=== PATIENT | female | born 1960 | race Caucasian/White ===

== ENCOUNTER → 2017-08-11 12:25 | Outpatient (POV) | payer OTHER, SELFPAY | PROVIDERS: Family Provider Emergency Medicine; PCP Emergency Medicine; Visit Provider Internal Medicine | DX: Z00.00 Encounter for general adult medical examination without abnormal findings (principal) ==

== ENCOUNTER → 2017-08-25 09:59 | Outpatient (CLI) | payer OTHER, SELFPAY ==
--- NOTE | 2017-08-25 10:11 | XR_ITS ---
XR chest 2V HISTORY: Shortness of breath ITS.REASON: CHRONIC RESPIRATORY FAILURE ORDERING PHYSICIAN: Alonzo Gray MD PATIENT AGE: 56 years COMPARISON: 03/18/2017 FINDINGS: Mild cardiomegaly without failure. Atelectatic or fibrotic changes are present in the lingula somewhat worse on today's exam. Prominent pericardial fat pad noted on the right. IMPRESSION: Cardiomegaly with increase in atelectatic changes in the lingula
[2017-08-25 10:26] LABS: Basophils # 0.1 K/mm3 (0-0.2); Basophils % 0.9 % (0.1-2.0); Eosinophils # 0.2 K/mm3 (0.0-0.4); Eosinophils % 2.6 % (0.1-12.0); Hemoglobin 12.3 g/dL (12.2-16.2); Lymphocytes # 2.2 K/mm3 (0.7-4.5); Lymphocytes % 30.5 K/mm3 (10-50); Mean Corpuscular HGB Conc 31.5 g/dL (31.8-35.4); Mean Corpuscular Hemoglobin 29.9 pg (27.0-31.2); Mean Platelet Volume 8.2 fl (7.4-10.4); Monocytes # 0.5 K/mm3 (0.1-1.0); Monocytes % 6.5 % (1.7-9.3); Neutrophils # 4.2 K/mm3 (1.8-7.8); Neutrophils % 59.6 % (37.0-80.0); Platelet Count 277 K/mm3 (142-424); Red Cell Distribution Width 13.2 % (11.5-17.5); White Blood Count 7.1 K/mm3 (4.8-10.8)
[2017-08-25 12:39] LABS: Hemoglobin A1C 9.3 % (0.0-7.0)
[2017-08-25 12:48] LABS: Alanine Aminotransferase 46 U/L (12-78); Albumin Level 3.4 gm/dL (3.4-5.0); Albumin/Globulin Ratio 0.9 (1.1-1.8); Alkaline Phosphatase 103 U/L (46-116); Anion Gap 11.4 mEq/L (5-15); Aspartate Amino Transferase 24 U/L (15-37); Bilirubin,Total 0.3 mg/dL (0.2-1.0); Blood Urea Nitrogen 18 mg/dL (7-18); Calcium 9.3 mg/dL (8.5-10.1); Carbon Dioxide 33 mmol/L (21.0-32.0); Chloride 101 mmol/L (98-107); Creatinine,Serum 1.03 mg/dL (0.55-1.02); Estimated Glomerular Filt Rate 55 ml/min (>60); GFR (African American) 67 ML/MIN (>60); Globulin 3.7 gm/dl (1.3-3.2); Glucose 256 mg/dL (74-106); Potassium 4.4 mmoL/L (3.5-5.1); Sodium 141 mmol/L (136-145); Thyroid Stimulating Hormone 3.89 uIU/ml (0.358-3.740); Total Protein,Serum 7.1 gm/dL (6.4-8.2)
== END ==
PROVIDERS: PCP Emergency Medicine; Visit Provider Internal Medicine
DX: J96.10 Chronic respiratory failure, unspecified whether with hypoxia or hypercapnia (principal); J42 Unspecified chronic bronchitis; R06.02 Shortness of breath; E66.01 Morbid (severe) obesity due to excess calories; R73.9 Hyperglycemia, unspecified
CPT/HCPCS: 36415; 71046; 80053; 83036; 84443; 85025

== ENCOUNTER → 2017-11-17 09:25 | Outpatient (CLI) | payer OTHER, SELFPAY ==
[2017-11-17 10:40] VITALS: PULSE 78; PULSE 80
[2017-11-17 11:43] VITALS: BP 118/70; BP 135/86; PULSE 78; PULSE 86; RESP 18; RESP 24; O2SAT 85; O2SAT 91
== END ==
PROVIDERS: Family Provider Emergency Medicine; PCP Emergency Medicine; Visit Provider Internal Medicine
DX: R06.02 Shortness of breath (principal); J96.10 Chronic respiratory failure, unspecified whether with hypoxia or hypercapnia; E66.01 Morbid (severe) obesity due to excess calories; J42 Unspecified chronic bronchitis; R73.9 Hyperglycemia, unspecified
CPT/HCPCS: 94060; 94618; 94640; 94726; 94729

== ENCOUNTER → 2017-12-15 09:28 | Outpatient (POV) | payer OTHER, SELFPAY | PROVIDERS: Family Provider Emergency Medicine; PCP Emergency Medicine; Visit Provider Internal Medicine | DX: Z00.00 Encounter for general adult medical examination without abnormal findings (principal) ==

== ENCOUNTER → 2017-12-18 08:51 | Outpatient (CLI) | payer MEDICARE, OTHER, SELFPAY ==
[2017-12-18 09:00] VITALS: BP 108/75; PULSE 77; RESP 20; O2SAT 88
[2017-12-18 09:15] VITALS: BP 120/79; PULSE 90; RESP 32; O2SAT 93
== END ==
PROVIDERS: Family Provider Emergency Medicine; PCP Emergency Medicine; Visit Provider Internal Medicine
DX: J42 Unspecified chronic bronchitis (principal); R73.9 Hyperglycemia, unspecified
CPT/HCPCS: 94618

== ENCOUNTER → 2017-12-31 10:52 | Outpatient (CLI) | payer MEDICARE, OTHER, SELFPAY ==
[2017-12-31 11:29] LABS: Alanine Aminotransferase 35 U/L (12-78); Albumin Level 3.4 gm/dL (3.4-5.0); Alkaline Phosphatase 84 U/L (46-116); Aspartate Amino Transferase 18 U/L (15-37); Bilirubin,Direct 0.1 mg/dL (0.0-0.2); Bilirubin,Indirect 0.1 mg/dL (0.0-0.9); Bilirubin,Total 0.2 mg/dL (0.2-1.0); Chol/HDL Ratio 5.9 (1-3.5); Cholesterol 184 mg/dL (140-200); HDL Cholesterol 31 mg/dL (29-89); LDL Cholesterol 84 mg/dL (0-130); Total Protein,Serum 7.1 gm/dL (6.4-8.2); Triglycerides 346 mg/dL (30-200); VLDL Cholesterol 69 mg/dL (0-40)
== END ==
PROVIDERS: Family Provider Emergency Medicine; PCP Emergency Medicine; Visit Provider Internal Medicine Cardiovascular Disease
DX: E11.9 Type 2 diabetes mellitus without complications (principal); R06.00 Dyspnea, unspecified; I25.10 Atherosclerotic heart disease of native coronary artery without angina pectoris; J44.9 Chronic obstructive pulmonary disease, unspecified; I10 Essential (primary) hypertension; F17.200 Nicotine dependence, unspecified, uncomplicated
CPT/HCPCS: 36415; 80061; 80076

== ENCOUNTER → 2018-01-06 14:48 | Outpatient (REF) | payer MEDICARE, OTHER, SELFPAY ==
[2018-01-06 18:01] LABS: Amphetamine/Metha Screen,Urine Negative ng/mL (<1000); Barbiturates Screen,Urine Negative ng/mL (<200); Benzodiazepines Screen,Urine Negative ng/mL (200); Cannabinoid Screen,Urine Negative ng/mL (<50); Cocaine Screen,Urine Negative ng/g (<300); Methadone Screen,Urine Negative ng/mL (<300); Opiate Screen,Urine Negative ng/mL (<300); Phencyclidine Screen,Urine Negative ng/mL (<25)
== END ==
LOC: LAB 14:48
PROVIDERS: Visit Provider Emergency Medicine
DX: G62.9 Polyneuropathy, unspecified (principal); Z79.899 Other long term (current) drug therapy
CPT/HCPCS: 80305

== ENCOUNTER → 2018-02-22 10:43 | Outpatient (POV) | payer MEDICARE, MEDICAID, SELFPAY | PROVIDERS: Family Provider Emergency Medicine; PCP Emergency Medicine; Visit Provider Specialist | DX: M79.602 Pain in left arm (principal); G62.9 Polyneuropathy, unspecified | CPT/HCPCS: 95886; 95908 ==

== ENCOUNTER → 2018-04-13 11:24 | Outpatient (REF) | payer MEDICARE, SELFPAY ==
[2018-04-13 13:56] LABS: Alanine Aminotransferase 33 U/L (12-78); Albumin Level 3.8 gm/dL (3.4-5.0); Alkaline Phosphatase 88 U/L (46-116); Anion Gap 12.4 mEq/L (5-15); Aspartate Amino Transferase 15 U/L (15-37); Bilirubin,Total 0.3 mg/dL (0.2-1.0); Blood Urea Nitrogen 21 mg/dL (7-18); Calcium 9.5 mg/dL (8.5-10.1); Carbon Dioxide 30 mmol/L (21.0-32.0); Chloride 101 mmol/L (98-107); Chol/HDL Ratio 5.7 (1-3.5); Cholesterol 200 mg/dL (140-200); Creatinine,Serum 1.19 mg/dL (0.55-1.02); Estimated Glomerular Filt Rate 47 ml/min (>60); Free T4 (Free Thyroxine) 1.11 ng/dl (0.76-1.46); GFR (African American) 57 ML/MIN (>60); Globulin 3.7 gm/dl (1.3-3.2); Glucose 96 mg/dL (74-106); HDL Cholesterol 35 mg/dL (29-89); Potassium 4.4 mmoL/L (3.5-5.1); Sodium 139 mmol/L (136-145); Thyroid Stimulating Hormone 3.94 uIU/ml (0.358-3.740); Total Protein,Serum 7.5 gm/dL (6.4-8.2)
[2018-04-13 13:58] LABS: Basophils # 0.1 K/mm3 (0-0.2); Basophils % 0.6 % (0.1-2.0); Eosinophils # 0.3 K/mm3 (0.0-0.4); Eosinophils % 3.5 % (0.1-12.0); Hematocrit 39.3 % (37.0-47.0); Hemoglobin 12.5 g/dL (12.2-16.2); Lymphocytes # 2.5 K/mm3 (0.7-4.5); Lymphocytes % 33.7 K/mm3 (10-50); Mean Corpuscular HGB Conc 31.7 g/dL (31.8-35.4); Mean Corpuscular Hemoglobin 28.5 pg (27.0-31.2); Mean Corpuscular Volume 90.1 fl (81-99); Mean Platelet Volume 8.3 fl (7.4-10.4); Monocytes # 0.4 K/mm3 (0.1-1.0); Monocytes % 5.7 % (1.7-9.3); Neutrophils # 4.3 K/mm3 (1.8-7.8); Neutrophils % 56.5 % (37.0-80.0); Platelet Count 334 K/mm3 (142-424); Red Blood Count 4.37 M/mm3 (4.20-5.40); Red Cell Distribution Width 13.9 % (11.5-17.5); White Blood Count 7.5 K/mm3 (4.8-10.8)
[2018-04-13 14:03] LABS: Triglycerides 455 mg/dL (30-200)
[2018-04-13 15:22] LABS: Hemoglobin A1C 6.6 % (0.0-7.0)
[2018-04-14 11:21] LABS: Creatinine, Urine 95.6 mg/dL (Not Estab.); Microalbumin, Urine 3.4 ug/mL (Not Estab.)
== END ==
LOC: LAB 11:24
PROVIDERS: Visit Provider Emergency Medicine
DX: R06.00 Dyspnea, unspecified (principal); E78.5 Hyperlipidemia, unspecified; E11.9 Type 2 diabetes mellitus without complications
CPT/HCPCS: 80053; 80061; 82043; 82570; 83036; 84439; 84443; 85025

== ENCOUNTER → 2018-05-04 09:54 | Outpatient (CLI) | payer MEDICARE, SELFPAY ==
--- NOTE | 2018-05-04 09:55 | MM_ITS ---
MM Dig screening mamm BI w/CAD ORDERING PHYSICIAN : Juan Pablo Shah MD PATIENT AGE: 57 years GENDER: Female COMPARISON: May 2016, October 2014, April 2011 INDICATION: ITS.REASON: breat cancer screening no hormones. If complaints. Family history. Maternal great aunt TECHNIQUE: Standard CC and MLO images were obtained. R2 CAD reviewed. FINDINGS: Mild to moderate density breast.. Mild/Moderate Residual fibroglandular elements most evident at the central breast extending towards superior breast. When compared back to 2010 and 2006 there is been slight.Increased size of breast bilaterally with due to additional fatty elements both breasts. No significant new findings either breast. Subtle areas of nodularity bilaterally unchanged since last years study and can be followed. RIGHT BREAST: But no significant new findings. Minimal nodularity lateral retroareolar region unchanged since previous study. LEFT BREAST: No significant new findings Subtle scattered areas minor density , have been seen on previous studies and dissipate on opposing views. No overall no Significant change. Follow-up in one year the adequate IMPRESSION: . Moderately dense breast with scattered subtle nodularity bilaterally similar to previous 2016 exam. No significant new findings. Bilateral follow-up in not over one year recommended & encouraged. BI-RADS Category: 2 Benign Finding(s) RECOMMENDED FOLLOW-UP: 1YR 1 YEAR FOLLOW-UP (A letter has been sent to the patient regarding results of the study.)
== END ==
PROVIDERS: Family Provider Emergency Medicine; PCP Emergency Medicine; Visit Provider Emergency Medicine
DX: R06.00 Dyspnea, unspecified (principal); Z12.31 Encounter for screening mammogram for malignant neoplasm of breast
CPT/HCPCS: 77067

== ENCOUNTER → 2018-06-15 10:57 | Outpatient (POV) | payer MEDICARE, SELFPAY | PROVIDERS: Visit Provider Internal Medicine | DX: Z00.00 Encounter for general adult medical examination without abnormal findings (principal) ==

== ENCOUNTER 2018-06-15 11:52 | Inpatient (IN) ==
--- NOTE | 2018-06-15 12:23 | Emergency Department Note ---
ED Disposition Clinical Impression: COPD exacerbation Community acquired pneumonia Qualifiers: Laterality: right Lung location: lower lobe of lung Qualified Code(s): J18.1 - Lobar pneumonia, unspecified organism Disposition: Still a Patient Condition on Discharge: Fair - Critical Care Critical Care Time: No Attestation: On 06/15/18, the high probability of a clinically significant, sudden or life threatening deterioration of the following system(s) required my full and direct attention, intervention and personal management. The time I documented below is in addition to time spent performing reported procedures but includes the following listed in this critical care notation. Medical Decision Making - Sunil Inquiry Pt receiving controlled substance: No Vital Signs: 06/15/18 11:53 06/15/18 13:35 06/15/18 13:44 Temperature 98.3 F Temperature Source Oral Pulse Rate 84 Pulse Rate [Left Radial] 88 85 Respiratory Rate 32 H Blood Pressure [Right Arm] 122/74 100/67 L Blood Pressure Mean [Right Arm] 90 78 Blood Pressure Source [Right Arm] Automatic Cuff Blood Pressure Position [Right Arm] Sitting 02 Sat by Pulse Oximetry 88 L 87 L Oxygen Delivery Method Nasal Cannula Room Air Oxygen Flow Rate (LPM) 2 - Lab Data Lab Results 06/15/18 12:20: WBC 16.1 H, RBC 4.19 L, Hgb 12.1 L, Hct 38.6, MCV 92.3, MCH 29.0, MCHC 31.4 L, RDW 14.1, Plt Count 348, MPV 7.7, Neut % (Auto) 78.4, Lymph % (Auto) 15.0, [place] % (Auto) 5.5, Eos % (Auto) 0.8, Baso % (Auto) 0.4, Neut # (Auto) 12.6 H, Lymph # (Auto) 2.4, [place] # (Auto) 0.9, Eos # (Auto) 0.1, Baso # (Auto) 0.1, Total Counted 100, Neutrophils % (Manual) 80 H, Lymphocytes % (Manual) 16, Monocytes % (Manual) 3, Eosinophils % (Manual) 1, Platelet Estimate Normal, RBC Morphology Normal 06/15/18 12:20: Sodium 140, Potassium 3.8, Chloride 99, Carbon Dioxide 32, Anion Gap 12.8, BUN 19 H, Creatinine 1.17 H, Estimated Creat Clear 80, Estimated GFR 48 L, Est GFR ( Amer) 58 L, Glucose 150 H, Calcium 9.4, Total Bilirubin 0.5, AST 17, ALT 41, Alkaline Phosphatase 96, Total Protein 8.0, Albumin 3.7, Globulin 4.3 H, Albumin/Globulin Ratio 0.9 L 06/15/18 12:20: Lactate 1.0 Result diagrams: 06/15/18 12:20 06/15/18 12:20 Orders (Tests/Meds): ED MEDICATIONS Generic Name Dose Route Start Last Admin Trade Name Freq PRN Reason Stop Dose Admin Ceftriaxone Sodium 1 gm/ 50 mls @ 100 mls/hr 06/15/18 13:30 06/15/18 13:33 Sodium Chloride IV 06/29/18 13:29 100 mls/hr Q24H MARC Administration Protocol Azithromycin 500 mg/ Sodium 250 mls @ 250 mls/hr 06/15/18 13:30 Chloride IV 06/29/18 13:29 Q24H MARC Protocol Discontinued Medications Generic Name Dose Route Start Last Admin Trade Name Freq PRN Reason Stop Dose Admin Albuterol/Ipratropium 3 ml 06/15/18 13:22 06/15/18 13:44 Duoneb 3ml Neb IH 06/15/18 13:23 3 ml ONCE ONE Administration Methylprednisolone Sodium Succinate 125 mg 06/15/18 13:24 06/15/18 13:31 Solu-Medrol 125mg/2ml Vial IV 06/15/18 13:25 125 mg ONCE ONE Administration ORDERS Category Date Time Status Blood Culture Stat Micro 06/15/18 12:20 Received - Radiology Data #1 Image(s): Chest Image Reviewed: Yes I reviewed the patient's radiology image Streaky airspace disease right base. Atelectasis left lower lung. - ECG Data Tracing #1 EKG interpreted by Stuart Ramirez MD: Rhythm: sinus Rate: 86 [place]: normal Ectopy: none Conduction: normal ST Segment Changes: none T Wave Changes: none Q Waves: Septal No evidence of acute ischemia or injury Baseline artifact present, but I consider the EKG adequate for accurate interpretation. - Physician Consults Physician Consulted: Alyssa Time: 13:53 Reason -: Admission Comment/Response: Agrees to admit the patient to the hospital. We discussed the patient's clinical information, including history, exam, laboratory and radiology results and ED course. Per hospital procedure, I will write temporary bridge inpatient orders on the patient. Specific orders requested by the admitting physician: Continue antibiotics, steroids, nebulizer treatments, oxygen General Adult HPI - General Chief complaint: Shortness of Breath/Dyspnea Stated complaint: SOA Time Seen by Provider: 06/15/18 13:20 Mode of Arrival: Ambulatory Limitations: Physical Limitations Description of Symptoms (Recalled from ER Triage Doc. by RN): PATIENT HAS A HISTORY OF COPD, SHE STATES THAT SHE HAS BEEN MORE SHORT OF BREATH THAN NORMAL THE PAST 2 DAYS. SHE STATES THAT SHE WEARS 2L OF OXYGEN AT HOME ALL THE TIME. SHE TOOK A NEB TX THIS MORNING AT 10:00 AND IT HELPED SOME. - History of Present Illness HPI narrative: Sick for about 2 weeks. Has had increased shortness of breath, coughing, rhinorrhea. Cough is nonproductive. Was treated with steroid injection and a Z-Jf by her primary care provider 2 weeks ago, but says that over the past 2 days she is much worse. She is on oxygen 2 L nasal cannula at home. Denies fever. Still a smoker, but says "this is it, I am quitting". - Related Data Home Medications Medication Instructions Recorded Confirmed albuterol sulfate 2.5 mg/3 mL 2.5 mg INHALATION TID PRN ml 07/10/17 05/21/18 (0.083 %) solution for nebulization albuterol sulfate HFA 90 2 puff INHALATION Q6H 07/10/17 05/21/18 mcg/actuation aerosol inhaler nitroglycerin 0.4 mg sublingual 0.4 mg SUBLINGUAL Q5-15M PRN 07/10/17 05/21/18 tablet oxygen-air delivery systems device See Dose Instructions .ROUTE 09/02/17 05/21/18 .MEDSUPPLY #1 Previous Rx's Medication Instructions Recorded hydralazine 25 mg tablet 25 mg PO TID #180 tab 09/15/17 aspirin 81 mg tablet,delayed 81 mg PO DAILY #90 tab 10/23/17 release famotidine 20 mg tablet 20 mg PO QHS #30 tab 12/31/17 atorvastatin 80 mg tablet 80 mg PO DAILY #90 tab 01/28/18 bisoprolol fumarate 5 mg tablet 5 mg PO BID 90 Days #180 tab 07/19/18 ezetimibe 10 mg tablet 10 mg PO QDAY #90 tab 01/28/18 fenofibrate nanocrystallized 145 145 mg PO QDAY #90 tab 01/28/18 mg tablet levothyroxine 25 mcg tablet 25 mcg PO DAILY #90 tab 01/28/18 lisinopril 2.5 mg tablet 2.5 mg PO DAILY #90 tab 01/28/18 metformin 500 mg tablet 500 mg PO BID 90 Days #180 tab 01/28/18 potassium chloride ER 20 mEq 20 meq PO BID 90 Days #180 tab 01/28/18 tablet,extended release ranolazine ER 500 mg 500 mg PO Q12H 90 Days #180 tab 01/28/18 tablet,extended release,12 hr fluticasone 100 mcg-vilanterol 25 1 inh INHALATION Q24H #28 each 02/04/18 mcg/dose powder for inhalation cholecalciferol (vitamin D3) 5,000 5,000 unit PO DAILY #90 cap 04/13/18 unit capsule diclofenac 1 % topical gel 2 g TOPICAL QID #100 g 04/13/18 furosemide 80 mg tablet 80 mg PO DAILY #90 tab 04/13/18 gabapentin 300 mg capsule 300 mg PO BID #60 cap 04/13/18 omeprazole 40 mg capsule,delayed 40 mg PO QDAY #90 cap 04/13/18 release promethazine 25 mg tablet 25 mg PO Q4-6H PRN #30 tab 04/13/18 clonazepam 1 mg tablet 1 mg PO BID #60 tab 04/16/18 coenzyme Q10 100 mg capsule 100 mg PO DAILY #90 cap 04/29/18 azithromycin 250 mg tablet 250 mg PO QDAY 5 Days #6 tab 05/21/18 Allergies Allergy/AdvReac Type Severity Reaction Status Date / Time mesalamine [From Asacol] Allergy Severe KIDNEY Verified 05/21/18 15:28 FAILURE Penicillins Allergy Intermediate I-RASH, Verified 05/21/18 15:28 ITCHING [facility] History I have reviewed the patient's past medical history: Yes Medical History: Reports:: Congestive Heart Failure, Chronic Obstructive Pulmonary Disease (COPD), Hyperlipidemia, Hypertension, Myocardial Infarction, Renal Disease Denies:: Diabetes Mellitus Type 2 Other Surgeries: Yes: No Previous Surgery, Colonoscopy, Amputation: No Fractures: No - Social History Smoking Status: Current every day smoker Tobacco Type: cigarettes # Packs/Day (cigarettes): 1 #Yrs smoked (if former smoker): 20 Alcohol Intake: never Alcohol Intake Frequency:: other Substance Use Type: denies use Occupational Status: disabled Housing: house Household Members: significant other - Psychiatric History Expresses thoughts of harming self/others: None Suicide Plan Description: No Plan Family Hx:: Hypertension, Diabetes ROS Obtained: Yes All systems reviewed & no additional complaints - Constitutional Constitutional: Denies fever(s) - ENT Ears, Nose, Mouth, and Throat: Reports nasal discharge, Denies sore throat - Cardiovascular Cardiovascular: Denies chest pain - Respiratory Respiratory: Yes cough, Yes dyspnea, No excessive phlegm production - Gastrointestinal Gastrointestingal: Denies: diarrhea, vomiting Physical Exam - General General appearance: alert, in no apparent distress Comment: Pulse ox 88% on 2 L. - Head Head exam: atraumatic, normocephalic - Eye Eye exam: Present: normal appearance, PERRL, EOMI - ENT ENT exam: Present: mucous membranes moist - Neck Neck exam: Present: normal inspection, trachea midline - Chest Chest inspection: Present: normal inspection, symmetric chest wall rise - Respiratory Respiratory exam: Present: normal lung sounds bilaterally - Cardiovascular Cardiovascular exam: Present: regular rate, normal rhythm - Abdominal Exam Abdominal exam: Present: soft. Absent: distention, tenderness - Extremities Exam Extremities exam: Present: normal inspection - Neurological Exam Neurological exam: Present: alert, oriented X3 - Psychiatric Psychiatric exam: Present: normal affect, normal mood - Skin Skin exam: Present: warm, dry
[2018-06-15 12:43] LABS: Basophils # 0.1 K/mm3 (0-0.2); Basophils % 0.4 % (0.1-2.0); Eosinophils # 0.1 K/mm3 (0.0-0.4); Eosinophils % 0.8 % (0.1-12.0); Hematocrit 38.6 % (37.0-47.0); Hemoglobin 12.1 g/dL (12.2-16.2); Lymphocytes # 2.4 K/mm3 (0.7-4.5); Mean Corpuscular HGB Conc 31.4 g/dL (31.8-35.4); Mean Corpuscular Volume 92.3 fl (81-99); Mean Platelet Volume 7.7 fl (7.4-10.4); Monocytes # 0.9 K/mm3 (0.1-1.0); Monocytes % 5.5 % (1.7-9.3); Neutrophils # 12.6 K/mm3 (1.8-7.8); Neutrophils % 78.4 % (37.0-80.0); Platelet Count 348 K/mm3 (142-424); Red Blood Count 4.19 M/mm3 (4.20-5.40); Red Cell Distribution Width 14.1 % (11.5-17.5); White Blood Count 16.1 K/mm3 (4.8-10.8)
[2018-06-15 12:50] LABS: Albumin Level 3.7 gm/dL (3.4-5.0); Albumin/Globulin Ratio 0.9 (1.1-1.8); Anion Gap 12.8 mEq/L (5-15); Bilirubin,Total 0.5 mg/dL (0.2-1.0); Calcium 9.4 mg/dL (8.5-10.1); Globulin 4.3 gm/dl (1.3-3.2); Potassium 3.8 mmoL/L (3.5-5.1)
[2018-06-15 13:07] LABS: Eosinophils % 1 % (0-3); Lymphocytes % 16 % (10-50); Monocytes % 3 % (2-9); Neutrophils % 80 % (42-76); RBC Morphology Normal; Total Cells Counted 100
--- NOTE | 2018-06-16 07:55 | Pharmacy Consult Notes ---
[facility] Pharmacy VTE Monitoring - Patient Demographics Admission date: 06/15/18 Report Date: 06/16/18 Time: 07:54 Allergies/Adverse Reactions: Patient Allergies mesalamine [From Asacol] Allergy (Severe, Verified 05/21/18 15:28) KIDNEY FAILURE Penicillins Allergy (Intermediate, Verified 05/21/18 15:28) I-RASH, ITCHING Height: 1.63 m Weight: 94.829 kg Patient Problems: Current Active Problems Community acquired pneumonia (Acute) COPD exacerbation (Acute) - VTE Risk Labs: VTE Related Lab Results Hgb 12.1 g/dL (12.2-16.2) L 06/15/18 12:20 Hct 38.6 % (37.0-47.0) 06/15/18 12:20 Plt Count 348 K/mm3 (142-424) 06/15/18 12:20 BUN 19 mg/dL (7-18) H 06/15/18 12:20 Creatinine 1.17 mg/dL (0.55-1.02) H 06/15/18 12:20 Estimated Creat Clear 80 mL/min (50-200) 06/15/18 12:20 Was VTE Risk Assessment Performed: Yes VTE Score: 8 VTE Risk Level: Moderate Risk Clinical Trial Participant: No - Prophylaxis VTE Prophylaxis Ordered?: Yes Types of VTE Prophylaxis: TEDS Knee High Location of Applied Device: Bilateral Lower Extremeties
--- NOTE | 2018-06-16 09:07 | History & Physical Report ---
*Admission Date: 06/15/18 *Chief complaint: sob *History of present illness: this wf had progressive sob and had failed op treatment - she has hx of pulmonary and cardiac disease- pt with no chest pain - pt was seen in the ed - ck for about 2 weeks. Has had increased shortness of breath, coughing, rhinorrhea. Cough is nonproductive. Was treated with steroid injection and a Z-Jf by her primary care provider 2 weeks ago, but says that over the past 2 days she is much worse. She is on oxygen 2 L nasal cannula at home. Denies fever. Still a smoker, but says "this is it, I am quitting". pt had abn cxr and was admitted for iv meds and resp care - [facility] History I have reviewed the patient's past medical history: Yes Medical History: Reports:: Congestive Heart Failure, Chronic Obstructive Pulmonary Disease (COPD), Diabetes Mellitus Type 2, Hyperlipidemia, Hypertension, Myocardial Infarction, Renal Disease Denies:: Diabetes Mellitus Type 1 Other Medical History: Reports: Thyroid Disease Other Surgeries: Yes: No Previous Surgery, Colonoscopy, , Hysterectomy- Total Amputation: No Fractures: No - *Social History Smoking Status: Current every day smoker Tobacco Type: cigarettes # Packs/Day (cigarettes): 1 #Yrs smoked (if former smoker): 20 Alcohol Intake: never Alcohol Intake Frequency:: other Substance Use Type: denies use Occupational Status: disabled Housing: house Household Members: significant other - Psychiatric History Expresses thoughts of harming self/others: None Suicide Plan Description: No Plan *Family Hx:: Hypertension, Diabetes Review of Systems - Review of Systems Review of systems:: pertinent systems reviewed and negative unless documented below - Constitutional Reports lack of energy, Reports malaise, Denies fever(s) - Eyes Denies change in vision - ENT Denies sore throat - *Cardiovascular Reports shortness of breath, Reports shortness of breath with activity, Denies chest pain at rest - *Respiratory Reports cough, Reports shortness of breath, Reports shortness of breath with activity, Reports wheezing, Denies coughing up blood - *Gastrointestinal Denies abdominal pain - *Genitourinary Denies blood in urine - *Musculoskeletal Denies joint pain - Integumentary/Breasts Denies rash - *Neurologic Denies seizure-like activity - Psychiatric Reports anxiety Meds Home Medications Medication Instructions Recorded Confirmed Type albuterol sulfate 2.5 mg/3 mL 2.5 mg INHALATION TID PRN ml 07/10/17 06/15/18 History (0.083 %) solution for nebulization albuterol sulfate HFA 90 2 puff INHALATION Q6H 07/10/17 06/15/18 History mcg/actuation aerosol inhaler oxygen-air delivery systems device See Dose Instructions .ROUTE 09/02/17 06/15/18 History .MEDSUPPLY #1 Aspirin [Low Dose Aspirin EC] 81 mg PO DAILY 06/15/18 06/15/18 History Atorvastatin Calcium [Lipitor 80mg 80 mg PO HS 06/15/18 06/15/18 History Tablet] Bisoprolol Fumarate [Zebeta 5mg 5 mg PO BID 06/15/18 06/15/18 History tablet] Cholecalciferol (Vitamin D3) 5,000 unit PO DAILY 06/15/18 06/15/18 History [Vitamin D3] Ezetimibe 10 mg PO DAILY 06/15/18 06/15/18 History Famotidine [Acid Cleaning Specialist] 20 mg PO HS 06/15/18 06/15/18 History Fenofibrate Nanocrystallized 145 mg PO DAILY 06/15/18 06/15/18 History [Tricor] Fluticasone/Vilanterol [Breo 1 inh INHALATION Q24H 06/15/18 06/15/18 History Ellipta 100-25 Mcg INH] Furosemide [Furosemide 80mg Tab] 80 mg PO DAILY 06/15/18 06/15/18 History Gabapentin [Gabapentin 300mg Cap] 300 mg PO BID 06/15/18 06/15/18 History Hydralazine HCl [Hydralazine HCl 25 mg PO DAILY 06/15/18 06/15/18 History 25mg Tablet] Levothyroxine Sodium [Synthroid 25 mcg PO DAILY 06/15/18 06/15/18 History 25mcg (0.025mg) tablet] Lisinopril [Lisinopril 2.5mg Tab] 2.5 mg PO DAILY 06/15/18 06/15/18 History Metformin HCl [Glucophage] 500 mg PO BID 06/15/18 06/15/18 History Omeprazole [Omeprazole 40mg 40 mg PO DAILY 06/15/18 06/15/18 History Capsule] Potassium Chloride [K-Tab ER 20 20 meq PO BID 06/15/18 06/15/18 History mEq] Ranolazine [Ranexa 500mg ER tablet] 500 mg PO Q12H 06/15/18 06/15/18 History Ubidecarenone [Coenzyme Q10] 100 mg PO DAILY 06/15/18 06/15/18 History buPROPion HCl [Wellbutrin SR 150mg 150 mg PO BID 06/15/18 06/15/18 History Tablet] clonazePAM [Klonopin] 1 mg PO BID 06/15/18 06/15/18 History Allergies Allergy/AdvReac Type Severity Reaction Status Date / Time mesalamine [From Asacol] Allergy Severe KIDNEY Verified 05/21/18 15:28 FAILURE Penicillins Allergy Intermediate I-RASH, Verified 05/21/18 15:28 ITCHING Exam Vital signs and Labs for Last 24 Hours: Temp Pulse Resp BP Pulse Ox 97.8 F 91 H 20 111/59 L 95 06/16/18 08:00 06/16/18 08:00 06/16/18 08:00 06/16/18 08:00 06/16/18 08:00 Laboratory Results - last 24 hr 06/15/18 12:20: WBC 16.1 H, RBC 4.19 L, Hgb 12.1 L, Hct 38.6, MCV 92.3, MCH 29.0, MCHC 31.4 L, RDW 14.1, Plt Count 348, MPV 7.7, Neut % (Auto) 78.4, Lymph % (Auto) 15.0, [place] % (Auto) 5.5, Eos % (Auto) 0.8, Baso % (Auto) 0.4, Neut # (Auto) 12.6 H, Lymph # (Auto) 2.4, [place] # (Auto) 0.9, Eos # (Auto) 0.1, Baso # (Auto) 0.1, Total Counted 100, Neutrophils % (Manual) 80 H, Lymphocytes % (Manual) 16, Monocytes % (Manual) 3, Eosinophils % (Manual) 1, Platelet Estimate Normal, RBC Morphology Normal 06/15/18 12:20: Sodium 140, Potassium 3.8, Chloride 99, Carbon Dioxide 32, Anion Gap 12.8, BUN 19 H, Creatinine 1.17 H, Estimated Creat Clear 80, Estimated GFR 48 L, Est GFR ( Amer) 58 L, Glucose 150 H, Calcium 9.4, Total Bilirubin 0.5, AST 17, ALT 41, Alkaline Phosphatase 96, Total Protein 8.0, Albumin 3.7, Globulin 4.3 H, Albumin/Globulin Ratio 0.9 L 06/15/18 12:20: Lactate 1.0 06/15/18 16:17: POC Glucose 182 H 06/15/18 20:16: POC Glucose 219 H 06/16/18 05:44: POC Glucose 216 H I & O for Last 24 hours: Intake & Output 06/13/18 06/14/18 06/15/18 06/16/18 11:59 11:59 11:59 11:59 Intake Total 2276 / 2276 Balance 2276 / 2276 Weight 210 lb 209 lb 1 oz Microbiology Reports for the Last 24 Hours: Microbiology 06/15/18 17:05 Sputum - Expectorated Sputum Gram Stain - Final 06/15/18 17:05 Sputum - Expectorated Sputum Sputum Culture - Preliminary - Constitutional no acute distress, obese - *Routine HEENT Exam Head: Present: normocephalic Eye: Present: EOMI, PERRL ENT: Present: mucous membranes dry - *Routine Neck Exam Present: supple. Absent: JVD - *Routine Respiratory Exam Present: decreased breath sounds, prolonged expiratory phase, rhonchi, wheezes - *Routine Cardiovascular Exam Present: RRR, murmur, S4 - *Routine Abdominal Exam Present: soft - *Routine Extremities Exam Absent: calf tenderness, Billie's sign - *Routine Skin Exam Present: intact - *Routine Neurological Exam Present: alert, oriented X3, CN II-XII intact - Routine Psychiatric Exam Present: normal affect Assessment and Plan (1) Obesity (BMI 35.0-39.9 without comorbidity) Current visit: Yes Status: Acute Category: Medical Code(s): E66.9 - Obesity, unspecified (2) Community acquired pneumonia Current visit: Yes Status: Acute Qualifiers: Laterality: right Lung location: lower lobe of lung Qualified Code(s): J18.1 - Lobar pneumonia, unspecified organism Category: Medical Code(s): J18.9 - Pneumonia, unspecified organism (3) COPD (chronic obstructive pulmonary disease) Current visit: No Status: Chronic Qualifiers: COPD type: unspecified COPD Qualified Code(s): J44.9 - Chronic obstructive pulmonary disease, unspecified Category: Medical Code(s): J44.9 - Chronic obstructive pulmonary disease, unspecified (4) Tobacco use Current visit: Yes Status: Acute Category: Medical Code(s): Z72.0 - Tobacco use (5) Renal insufficiency Current visit: Yes Status: Acute Category: Medical Code(s): N28.9 - Disorder of kidney and ureter, unspecified
--- NOTE | 2018-06-16 09:53 | Consult Report ---
History of Present Illness Consult date: 06/16/18 Requesting physician: Juan Pablo Shah Consult reason: shortness of breath Chief complaint: SOA Additional Medical History:: 1. Coronary artery disease A. History of coronary artery stenting to LAD, thousand 10 B. History of cardiac catheterization 08/2016 patent stent 2. Obstructive sleep apnea, CPAP use 3. Obesity 4. Hypertension 5. Pulmonary hypertension, followed by Dr. Gray 6. Tobacco use, continued 7. Hyperlipidemia History of present illness: 57-year-old white female sent to the emergency department for evaluation of shortness of breath. Patient was seen Dr. Gray for her pulmonary evaluation follow-up when her shortness of breath prompted referral to the ER for further evaluation. Patient was noted to have bilateral infiltrates on chest x-ray and it was admitted for treatment. Due to patient's cardiac history cardiology was consulted for evaluation and recommendations. Patient denies any recent chest pain, pressure or tightness with exertion. Most of her symptoms of revolve around shortness of breath. She does have oxygen at home and uses CPAP at night. Patient's EKG is sinus rhythm without ST segment changes. Preliminary echocardiogram being performed this morning shows preserved ejection fraction with right ventricular systolic pressure of approximately 35-40 mmHg indicative of the patient's pulmonary hypertension exacerbated by pneumonia. [facility] History Medical History: Reports:: Congestive Heart Failure, Chronic Obstructive Pulmonary Disease (COPD), Diabetes Mellitus Type 2, Hyperlipidemia, Hypertension, Myocardial Infarction, Renal Disease Denies:: Diabetes Mellitus Type 1 Other Medical History: Reports: Thyroid Disease Other Surgeries: Yes: No Previous Surgery, Colonoscopy, , Hysterectomy- Total Amputation: No Fractures: No - *Social History Smoking Status: Current every day smoker Tobacco Type: cigarettes # Packs/Day (cigarettes): 1 #Yrs smoked (if former smoker): 20 Alcohol Intake: never Alcohol Intake Frequency:: other Substance Use Type: denies use Occupational Status: disabled Housing: house Household Members: significant other - Psychiatric History Expresses thoughts of harming self/others: None Suicide Plan Description: No Plan *Family Hx:: Hypertension, Diabetes Meds Home Medications Medication Instructions Recorded Confirmed Type albuterol sulfate 2.5 mg/3 mL 2.5 mg INHALATION TID PRN ml 07/10/17 06/15/18 History (0.083 %) solution for nebulization albuterol sulfate HFA 90 2 puff INHALATION Q6H 07/10/17 06/15/18 History mcg/actuation aerosol inhaler oxygen-air delivery systems device See Dose Instructions .ROUTE 09/02/17 06/15/18 History .MEDSUPPLY #1 Aspirin [Low Dose Aspirin EC] 81 mg PO DAILY 06/15/18 06/15/18 History Atorvastatin Calcium [Lipitor 80mg 80 mg PO HS 06/15/18 06/15/18 History Tablet] Bisoprolol Fumarate [Zebeta 5mg 5 mg PO BID 06/15/18 06/15/18 History tablet] Cholecalciferol (Vitamin D3) 5,000 unit PO DAILY 06/15/18 06/15/18 History [Vitamin D3] Ezetimibe 10 mg PO DAILY 06/15/18 06/15/18 History Famotidine [Acid Steel Wool Machine Operator] 20 mg PO HS 06/15/18 06/15/18 History Fenofibrate Nanocrystallized 145 mg PO DAILY 06/15/18 06/15/18 History [Tricor] Fluticasone/Vilanterol [Breo 1 inh INHALATION Q24H 06/15/18 06/15/18 History Ellipta 100-25 Mcg INH] Furosemide [Furosemide 80mg Tab] 80 mg PO DAILY 06/15/18 06/15/18 History Gabapentin [Gabapentin 300mg Cap] 300 mg PO BID 06/15/18 06/15/18 History Hydralazine HCl [Hydralazine HCl 25 mg PO DAILY 06/15/18 06/15/18 History 25mg Tablet] Levothyroxine Sodium [Synthroid 25 mcg PO DAILY 06/15/18 06/15/18 History 25mcg (0.025mg) tablet] Lisinopril [Lisinopril 2.5mg Tab] 2.5 mg PO DAILY 06/15/18 06/15/18 History Metformin HCl [Glucophage] 500 mg PO BID 06/15/18 06/15/18 History Omeprazole [Omeprazole 40mg 40 mg PO DAILY 06/15/18 06/15/18 History Capsule] Potassium Chloride [K-Tab ER 20 20 meq PO BID 06/15/18 06/15/18 History mEq] Ranolazine [Ranexa 500mg ER tablet] 500 mg PO Q12H 06/15/18 06/15/18 History Ubidecarenone [Coenzyme Q10] 100 mg PO DAILY 06/15/18 06/15/18 History buPROPion HCl [Wellbutrin SR 150mg 150 mg PO BID 06/15/18 06/15/18 History Tablet] clonazePAM [Klonopin] 1 mg PO BID 06/15/18 06/15/18 History Allergies Allergy/AdvReac Type Severity Reaction Status Date / Time mesalamine [From Asacol] Allergy Severe KIDNEY Verified 05/21/18 15:28 FAILURE Penicillins Allergy Intermediate I-RASH, Verified 05/21/18 15:28 ITCHING Review of Systems - *Cardiovascular Reports shortness of breath, Reports shortness of breath with activity, Denies chest pain - *Respiratory Reports chest congestion, Reports cough, Reports shortness of breath, Reports shortness of breath with activity - *Gastrointestinal Denies abdominal pain, Denies loose stools - *Genitourinary Denies blood in urine - *Musculoskeletal Denies joint pain, Denies back pain - *Neurologic Denies seizure-like activity Exam Vital signs and Labs for Last 24 Hours: Temp Pulse Resp BP Pulse Ox 97.8 F 91 H 20 111/59 L 95 06/16/18 08:00 06/16/18 08:00 06/16/18 08:00 06/16/18 08:00 06/16/18 08:00 Laboratory Results - last 24 hr 06/15/18 12:20: WBC 16.1 H, RBC 4.19 L, Hgb 12.1 L, Hct 38.6, MCV 92.3, MCH 29.0, MCHC 31.4 L, RDW 14.1, Plt Count 348, MPV 7.7, Neut % (Auto) 78.4, Lymph % (Auto) 15.0, Sampson % (Auto) 5.5, Eos % (Auto) 0.8, Baso % (Auto) 0.4, Neut # (Auto) 12.6 H, Lymph # (Auto) 2.4, Sampson # (Auto) 0.9, Eos # (Auto) 0.1, Baso # (Auto) 0.1, Total Counted 100, Neutrophils % (Manual) 80 H, Lymphocytes % (Manual) 16, Monocytes % (Manual) 3, Eosinophils % (Manual) 1, Platelet Estimate Normal, RBC Morphology Normal 06/15/18 12:20: Sodium 140, Potassium 3.8, Chloride 99, Carbon Dioxide 32, Anion Gap 12.8, BUN 19 H, Creatinine 1.17 H, Estimated Creat Clear 80, Estimated GFR 48 L, Est GFR ( Amer) 58 L, Glucose 150 H, Calcium 9.4, Total Bilirubin 0.5, AST 17, ALT 41, Alkaline Phosphatase 96, Total Protein 8.0, Albumin 3.7, Gl obulin 4.3 H, Albumin/Globulin Ratio 0.9 L 06/15/18 12:20: Lactate 1.0 06/15/18 16:17: POC Glucose 182 H 06/15/18 20:16: POC Glucose 219 H 06/16/18 05:44: POC Glucose 216 H I & O for Last 24 hours: Intake & Output 06/13/18 06/14/18 06/15/18 06/16/18 11:59 11:59 11:59 11:59 Intake Total 2276 / 2276 Balance 2276 / 2276 Weight 210 lb 209 lb 1 oz Microbiology Reports for the Last 24 Hours: Microbiology 06/15/18 17:05 Sputum - Expectorated Sputum Gram Stain - Final 06/15/18 17:05 Sputum - Expectorated Sputum Sputum Culture - Preliminary - *Routine Neck Exam Present: supple. Absent: JVD, carotid bruit - *Routine Respiratory Exam Present: decreased breath sounds, rhonchi, wheezes. Absent: accessory muscle use, rales - *Routine Cardiovascular Exam Present: RRR. Absent: murmur, gallop, rubs - *Routine Abdominal Exam Present: soft. Absent: tenderness, distended, guarding - *Routine Extremities Exam Absent: edema, calf tenderness - *Routine Neurological Exam Present: alert, oriented X3, moving all extremities Assessment and Plan (1) Community acquired pneumonia Current visit: Yes Status: Acute Qualifiers: Laterality: right Lung location: lower lobe of lung Qualified Code(s): J18.1 - Lobar pneumonia, unspecified organism Category: Medical Code(s): J18.9 - Pneumonia, unspecified organism (2) Obesity (BMI 35.0-39.9 without comorbidity) Current visit: Yes Status: Acute Category: Medical Code(s): E66.9 - Obesity, unspecified (3) COPD (chronic obstructive pulmonary disease) Current visit: No Status: Chronic Qualifiers: COPD type: unspecified COPD Qualified Code(s): J44.9 - Chronic obstructive pulmonary disease, unspecified Category: Medical Code(s): J44.9 - Chronic obstructive pulmonary disease, unspecified (4) Tobacco use Current visit: Yes Status: Acute Category: Medical Code(s): Z72.0 - Tobacco use (5) Renal insufficiency Current visit: Yes Status: Acute Category: Medical Code(s): N28.9 - Disorder of kidney and ureter, unspecified (6) HTN (hypertension) Current visit: No Status: Acute Qualifiers: Hypertension type: essential hypertension Qualified Code(s): I10 - Essential (primary) hypertension Category: Medical Code(s): I10 - Essential (primary) hypertension (7) CAD (coronary artery disease) Current visit: No Status: Chronic Qualifiers: Coronary Disease-Associated Artery/Lesion type: [place] artery [place] vs. transplanted heart: [place] heart Associated angina: without angina Qualified Code(s): I25.10 - Atherosclerotic heart disease of [place] coronary artery without angina pectoris Category: Medical Code(s): I25.10 - Atherosclerotic heart disease of [place] coronary artery without angina pectoris (8) HAIR (obstructive sleep apnea) Current visit: No Status: Chronic Category: Medical Code(s): G47.33 - Obstructive sleep apnea (adult) (pediatric) (9) Oxygen dependent Current visit: No Status: Chronic Category: Medical Code(s): Z99.81 - Dependence on supplemental oxygen (10) Tobacco dependence Current visit: No Status: Chronic Category: Medical Code(s): F17.200 - Nicotine dependence, unspecified, uncomplicated - Assessment and plan all Dx Assessment and Plan for all problems:: 1. Cardiac status seems stable at this time on current medications of aspirin, bisoprolol, lisinopril, atorvastatin, Zetia and Ranexa. No further recommendations at this time. 2. Recommend continuing treatment of her pulmonary issues. 3. Patient could be discharged home from cardiology standpoint with outpatient follow-up in 2 weeks.
--- NOTE | 2018-06-17 08:58 | Discharge Summary ---
General - General Admission date:: 06/15/18 Discharge date: 06/17/18 HPI HPI: this wf had progressive sob and had failed op treatment - she has hx of pulmonary and cardiac disease- pt with no chest pain - pt was seen in the ed - ck for about 2 weeks. Has had increased shortness of breath, coughing, rhinorrhea. Cough is nonproductive. Was treated with steroid injection and a Z-Jf by her primary care provider 2 weeks ago, but says that over the past 2 days she is much worse. She is on oxygen 2 L nasal cannula at home. Denies fever. Still a smoker, but says "this is it, I am quitting". pt had abn cxr and was admitted for iv meds and resp care - Hospital Course Hospital Course: chest x ray:IMPRESSION: Bibasilar airspace disease right greater than left bibasilar atelectasis and/or pneumonia Cardiology consult see note IV antibiotics Patient states today she feels better and would like to be discharged home. Follow-up in the office Objective Vital signs: Temp Pulse Resp BP Pulse Ox 97.0 F L 75 18 134/81 94 L 06/17/18 08:00 06/17/18 08:00 06/17/18 08:00 06/17/18 08:00 06/17/18 08:00 no acute distress - *Routine HEENT Exam Head: Present: normocephalic Eye: Present: PERRL ENT: Present: mucous membranes moist - *Routine Neck Exam Present: supple - *Routine Respiratory Exam Present: wheezes, diminished air movement - *Routine Cardiovascular Exam Present: RRR - *Routine Abdominal Exam Present: soft, normoactive bowel sounds - *Routine Extremities Exam Present: full ROM - *Routine Skin Exam Present: intact - *Routine Neurological Exam Present: alert, oriented X3 - Routine Psychiatric Exam Present: normal affect, normal thought process Results Labs on day of discharge: Labs from last 24 hours 06/17/18 06/16/18 06/16/18 06:33 20:37 16:32 POC Glucose 281 H 283 H 297 H 06/16/18 11:40 POC Glucose 313 H* - Additional Comments Rounded with Dr. Shah all orders per Alyssa DS: Diagnosis - Discharge Diagnosis (1) COPD (chronic obstructive pulmonary disease) Status: Acute Problem details: copd ex (2) Community acquired pneumonia Status: Acute (3) Obesity (BMI 35.0-39.9 without comorbidity) Status: Acute (4) Tobacco use Status: Acute (5) Renal insufficiency Status: Acute (6) HTN (hypertension) Status: Acute (7) CAD (coronary artery disease) Status: Chronic (8) HAIR (obstructive sleep apnea) Status: Chronic (9) Oxygen dependent Status: Chronic (10) Tobacco dependence Status: Chronic Discharge Plan - Patient Discharge Instructions ACTIVITY: Continue current activity DIET: continue same diet Patient Instructions: DI for Chronic Obstructive Pulmonary Disease, DI for Pneumonia -- Adult - Follow up Plan Follow up with: Juan Pablo Shah MD [Primary Care Provider] - 2 weeks Disposition: Home, Self-Custodial Medications: Home Medications Medication Instructions Recorded Confirmed Type albuterol sulfate 2.5 mg/3 mL 2.5 mg INHALATION TID PRN ml 07/10/17 06/15/18 History (0.083 %) solution for nebulization albuterol sulfate HFA 90 2 puff INHALATION Q6H 07/10/17 06/15/18 History mcg/actuation aerosol inhaler oxygen-air delivery systems device See Dose Instructions .ROUTE 09/02/17 06/15/18 History .MEDSUPPLY #1 Aspirin [Low Dose Aspirin EC] 81 mg PO DAILY 06/15/18 06/15/18 History Atorvastatin Calcium [Lipitor 80mg 80 mg PO HS 06/15/18 06/15/18 History Tablet] Bisoprolol Fumarate [Zebeta 5mg 5 mg PO BID 06/15/18 06/15/18 History tablet] Cholecalciferol (Vitamin D3) 5,000 unit PO DAILY 06/15/18 06/15/18 History [Vitamin D3] Ezetimibe 10 mg PO DAILY 06/15/18 06/15/18 History Famotidine [Acid Incinerator Attendant] 20 mg PO HS 06/15/18 06/15/18 History Fenofibrate Nanocrystallized 145 mg PO DAILY 06/15/18 06/15/18 History [Tricor] Fluticasone/Vilanterol [Breo 1 inh INHALATION Q24H 06/15/18 06/15/18 History Ellipta 100-25 Mcg INH] Furosemide [Furosemide 80mg Tab] 80 mg PO DAILY 06/15/18 06/15/18 History Gabapentin [Gabapentin 300mg Cap] 300 mg PO BID 06/15/18 06/15/18 History Hydralazine HCl [Hydralazine HCl 25 mg PO DAILY 06/15/18 06/15/18 History 25mg Tablet] Levothyroxine Sodium [Synthroid 25 mcg PO DAILY 06/15/18 06/15/18 History 25mcg (0.025mg) tablet] Lisinopril [Lisinopril 2.5mg Tab] 2.5 mg PO DAILY 06/15/18 06/15/18 History Metformin HCl [Glucophage] 500 mg PO BID 06/15/18 06/15/18 History Omeprazole [Omeprazole 40mg 40 mg PO DAILY 06/15/18 06/15/18 History Capsule] Potassium Chloride [K-Tab ER 20 20 meq PO BID 06/15/18 06/15/18 History mEq] Ranolazine [Ranexa 500mg ER tablet] 500 mg PO Q12H 06/15/18 06/15/18 History Ubidecarenone [Coenzyme Q10] 100 mg PO DAILY 06/15/18 06/15/18 History buPROPion HCl [Wellbutrin SR 150mg 150 mg PO BID 06/15/18 06/15/18 History Tablet] clonazePAM [Klonopin] 1 mg PO BID 06/15/18 06/15/18 History Prescriptions/Medication Reconciliation: New Azithromycin [Zithromax 250mg tab] 250 mg PO DIRECTED #6 tab predniSONE [Deltasone 10mg tablet] 10 mg PO DAILY 30 Days #30 tab Continue albuterol sulfate 2.5 mg/3 mL (0.083 %) solution for nebulization 2.5 mg INHALATION TID PRN ml PRN Reason: shortness of breath or wheezing albuterol sulfate HFA 90 mcg/actuation aerosol inhaler 2 puff INHALATION Q6H buPROPion HCl [Wellbutrin SR 150mg Tablet] 150 mg PO BID Potassium Chloride [K-Tab ER 20 mEq] 20 meq PO BID Omeprazole [Omeprazole 40mg Capsule] 40 mg PO DAILY Metformin HCl [Glucophage] 500 mg PO BID Lisinopril [Lisinopril 2.5mg Tab] 2.5 mg PO DAILY Levothyroxine Sodium [Synthroid 25mcg (0.025mg) tablet] 25 mcg PO DAILY Gabapentin [Gabapentin 300mg Cap] 300 mg PO BID Furosemide [Furosemide 80mg Tab] 80 mg PO DAILY Fluticasone/Vilanterol [Breo Ellipta 100-25 Mcg INH] 1 inh INHALATION Q24H Fenofibrate Nanocrystallized [Tricor] 145 mg PO DAILY Famotidine [Acid Incinerator Attendant] 20 mg PO HS Ezetimibe 10 mg PO DAILY Bisoprolol Fumarate [Zebeta 5mg tablet] 5 mg PO BID Atorvastatin Calcium [Lipitor 80mg Tablet] 80 mg PO HS Aspirin [Low Dose Aspirin EC] 81 mg PO DAILY Ranolazine [Ranexa 500mg ER tablet] 500 mg PO Q12H clonazePAM [Klonopin] 1 mg PO BID Hydralazine HCl [Hydralazine HCl 25mg Tablet] 25 mg PO DAILY Ubidecarenone [Coenzyme Q10] 100 mg PO DAILY Cholecalciferol (Vitamin D3) [Vitamin D3] 5,000 unit PO DAILY No Action oxygen-air delivery systems device See Dose Instructions .ROUTE .MEDSUPPLY #1
[2018-06-17 09:08] LABS: Basophils % 0.1 % (0.1-2.0); Hematocrit 32.7 % (37.0-47.0); Hemoglobin 10.2 g/dL (12.2-16.2); Lymphocytes # 1.5 K/mm3 (0.7-4.5); Lymphocytes % 12.4 % (10-50); Mean Corpuscular HGB Conc 31.1 g/dL (31.8-35.4); Mean Corpuscular Hemoglobin 29.3 pg (27.0-31.2); Mean Corpuscular Volume 94.3 fl (81-99); Mean Platelet Volume 8.1 fl (7.4-10.4); Monocytes # 0.4 K/mm3 (0.1-1.0); Monocytes % 3.7 % (1.7-9.3); Neutrophils # 9.9 K/mm3 (1.8-7.8); Neutrophils % 83.8 % (37.0-80.0); Platelet Count 317 K/mm3 (142-424); Red Blood Count 3.46 M/mm3 (4.20-5.40); White Blood Count 11.8 K/mm3 (4.8-10.8)
[2018-06-17 09:13] LABS: Anion Gap 13.2 mEq/L (5-15); Potassium 4.2 mmoL/L (3.5-5.1)
[2018-06-17 09:19] LABS: Calcium 8.2 mg/dL (8.5-10.1)
--- NOTE | 2018-06-18 14:22 | Cardiology Report ---
PROCEDURE: 2-D M-mode and color Doppler study INDICATIONS FOR THE TEST: Chest pain COPDX Heart Murmur Tobacco SmokingX Palpitations Fatigue Syncope Edema HypertensionXDiabetes Mellitus Rheumatic Fever SOBXDOEXObesityXHyperlipidemia Family History HD Additional History CAD,CHF,PNEUMONIA PATIENT INFORMATION HEIGHT: 64 WEIGHT:209 GENDER: Female B/P:122/74 2-D/M-MODE INTERPRETATION: 2-D MEASUREMENTS OBSERVED VALUES IN CMS Right Ventricular Dimension (RVDd) 2.4 Interventricular Septum (Thickness)(IVsd) 1.1 Left Ventricular Internal Dimensions(LVIDd) 5.2 Left Ventricular Posterior Wall (Thickness)(LVPWd) 1.4 Aortic Root 3.3 Aortic Cusp Separation 1.7 Left Atrial Dimensions (LAD) 4.2 2D 1. Technically difficult study because of the patient's factor and poor acoustic windows 2. The left atrium is mildly enlarged, left ventricle is normal size, there is mild concentric left ventricular hypertrophy, visually estimated ejection fraction 55% with no regional wall motion abnormality, endocardial surfaces are poorly visualized. There is mobile echodensity seen in the left atrium which is likely an artifact. 3. The aortic valve is minimally thickened and fibrosed. 4. The mitral and tricuspid valvular grossly normal. 5. The pulmonic valve is poorly visualized. 6. No significant pericardial effusion noted. DOPPLER INTERROGATION: Doppler interrogation of the aortic, mitral and tricuspid valve reveals presence of mild mitral and tricuspid regurgitation, tricuspid regurgitation jet velocity is inadequate for calculation of the right ventricular systolic pressure, grade 1 diastolic dysfunction seen without tissue Doppler evidence of raised left atrial pressure. CONCLUSION: 1. Mildly enlarged left atrium, normal left ventricular size, mild concentric left ventricular hypertrophy, visually estimated ejection fraction 55% with no regional wall motion abnormality, endocardial surfaces are poorly visualized. Grade 1 diastolic dysfunction seen without tissue Doppler evidence of raised left atrial pressure. 2. Mild mitral and tricuspid regurgitation 3. No significant pericardial effusion noted.
== END 2018-06-17 10:40 | disposition home or self-care (01) ==
LOC: ER 11:52 → 2ND 13:59
PROVIDERS: ADMIT Emergency Medicine; ATTEND Emergency Medicine

== ENCOUNTER → 2018-07-15 13:49 | Outpatient (CLI) | payer MEDICARE, MEDICAID, SELFPAY ==
[2018-07-15 14:45] LABS: Amphetamine/Metha Screen,Urine Negative ng/mL (<1000); Barbiturates Screen,Urine Negative ng/mL (<200); Benzodiazepines Screen,Urine Negative ng/mL (<200); Cannabinoid Screen,Urine Negative ng/mL (<50); Cocaine Screen,Urine Negative ng/mL (<300); Methadone Screen,Urine Negative ng/mL (<300); Opiate Screen,Urine Negative ng/mL (<300); Phencyclidine Screen,Urine Negative ng/mL (<25)
[2018-07-20 10:15] LABS: Alprazolam Negative (Cutoff=100); Benzodiazepines Negative ng/mL (Cutoff=100); Clonazepam Negative (Cutoff=100); Flurazepam Negative (Cutoff=100); Lorazepam Negative (Cutoff=100); Midazolam Negative (Cutoff=100); Temazepam Negative (Cutoff=100); Triazolam Negative (Cutoff=100)
== END ==
PROVIDERS: Visit Provider Emergency Medicine
DX: Z79.899 Other long term (current) drug therapy (principal)
CPT/HCPCS: 80305; 80346

== ENCOUNTER 2018-12-06 08:59 | Emergency (ER) | payer MEDICARE, MEDICAID, SELFPAY ==
[2018-12-06] VITALS (7 sets, daily range): BP systolic 81–141; BP diastolic 50–78; PULSE 84–98; RESP 20–24; TEMP 36.8–38.4; O2SAT 78–93; BMI 35.9
--- NOTE | 2018-12-06 09:24 | XR_ITS ---
XR chest 2V HISTORY: ITS.REASON: shortness of air ORDERING PHYSICIAN: Juan Pablo Shah MD PATIENT AGE: 58 years COMPARISON: PA and lateral chest 11/16/2018 FINDINGS: The lung kn[place] are well expanded. There is minimal post inflammatory scarring or atelectasis in the lingula partially silhouetting the left heart border and linear scarring or atelectasis is seen in the left lower lobe as well. There are some subtle faint nodular opacities in the right upper lobe and right hilar region. There is mild generalized cardio megaly however the vascularity is normal and is no pleural fluid. IMPRESSION: Changes of left perihilar region left base which were noted previously but are slightly more prominent on today's study with questionable very minimal pneumonic infiltrates in right upper lobe and right lower lobe.
--- NOTE | 2018-12-06 09:45 | [facility].EDGENADL ---
ED Disposition Clinical Impression: Persistent pneumonia, COPD exacerbation, Tobacco dependence Disposition: Home, Self-Care Condition on Discharge: Good Instructions: Pneumonia-Adult Prescriptions: Clarithromycin [Biaxin 500mg Tablet] 500 mg PO BID 10 Days #20 tab Codeine Phosphate/Guaifenesin [Cheratussin AC Syrup] 10 ml PO TID 3 Days #90 liquid predniSONE [Prednisone 20mg Tab] 60 mg PO DAILY 5 Days #15 tab Referrals: Juan Pablo Shah MD [Primary Care Provider] - Time of Disposition: 11:59 - Critical Care Critical Care Time: No Attestation: On 12/06/18, the high probability of a clinically significant, sudden or life threatening deterioration of the following system(s) required my full and direct attention, intervention and personal management. The time I documented below is in addition to time spent performing reported procedures but includes the following listed in this critical care notation. Medical Decision Making - Medical Records Medical records reviewed: Yes: I reviewed the patient's medical records. - Sunil Inquiry Pt receiving controlled substance: No Sunil was queried for this patient: No Vital Signs: 12/06/18 09:15 12/06/18 09:20 12/06/18 09:59 Temperature 98.2 F 101.2 F H Temperature Source Oral Oral Pulse Rate [Left Apical] 98 H 86 90 Respiratory Rate 22 24 Blood Pressure [Right Arm] 141/78 H 129/77 116/64 Blood Pressure Mean [Right Arm] 99 94 81 Blood Pressure Source [Right Arm] Automatic Cuff Automatic Cuff Blood Pressure Position [Right Arm] Sitting Sitting 02 Sat by Pulse Oximetry 78 L 86 L 93 L Oxygen Delivery Method Nasal Cannula Room Air Nasal Cannula Nasal Cannula Oxygen Flow Rate (LPM) 2.5 2 2 12/06/18 11:13 Temperature Temperature Source Pulse Rate [Left Apical] 84 Respiratory Rate Blood Pressure [Right Arm] 81/50 L Blood Pressure Mean [Right Arm] 60 Blood Pressure Source [Right Arm] Blood Pressure Position [Right Arm] 02 Sat by Pulse Oximetry 91 L Oxygen Delivery Method Oxygen Flow Rate (LPM) - Lab Data Lab results reviewed: Yes: I reviewed the patient's lab results. Lab Results 12/06/18 09:46: WBC 6.3, RBC 4.08 L, Hgb 12.0 L, Hct 36.8 L, MCV 90.2, MCH 29.5, MCHC 32.7, RDW 13.7, Plt Count 269, MPV 8.1, Neut % (Auto) 77.6, Lymph % (Auto) 14.5, Yates % (Auto) 4.9, Eos % (Auto) 2.3, Baso % (Auto) 0.7, Neut # (Auto) 4.9, Lymph # (Auto) 0.9, Yates # (Auto) 0.3, Eos # (Auto) 0.2, Baso # (Auto) 0.0 12/06/18 09:46: Sodium 140, Potassium 4.5, Chloride 101, Carbon Dioxide 33 H, Anion Gap 10.5, BUN 16, Creatinine 0.99, Estimated Creat Clear 93, Estimated GFR 58 L, Est GFR ( Amer) 70, Glucose 163 H, Calcium 9.4, Total Bilirubin 0.3, AST 32, ALT 43, Alkaline Phosphatase 89, Troponin I < 0.02, Total Protein 7.6, Albumin 3.4, Globulin 4.2 H, Albumin/Globulin Ratio 0.8 L 12/06/18 09:46: B-Natriuretic Peptide 106 H 12/06/18 09:48: Lactate 1.3 Result diagrams: 12/06/18 09:46 12/06/18 09:46 Orders (Tests/Meds): ED MEDICATIONS Generic Name Dose Route Start Last Admin Trade Name Freq PRN Reason Stop Dose Admin Ceftriaxone Sodium 2 gm/ 50 mls @ 100 mls/hr 12/06/18 11:15 Sodium Chloride IV 12/20/18 11:14 Q24H MARC Protocol Discontinued Medications Generic Name Dose Route Start Last Admin Trade Name Freq PRN Reason Stop Dose Admin Albuterol/Ipratropium 3 ml 12/06/18 09:24 Duoneb 3ml Neb IH 12/06/18 09:25 ONCE ONE Ioversol 75 ml 12/06/18 11:45 12/06/18 11:46 Rad-Optiray 350 100ml Vial IV 12/06/18 11:46 75 ml ONCE ONE Administration Protocol Ketorolac Tromethamine 30 mg 12/06/18 09:51 12/06/18 09:56 Toradol 30mg/Ml Vial IV 12/06/18 09:52 30 mg ONCE ONE Administration Methylprednisolone Sodium Succinate 125 mg 12/06/18 09:51 12/06/18 09:56 Solu-Medrol 125mg/2ml Vial IV 12/06/18 09:52 125 mg ONCE ONE Administration Sodium Chloride 10 ml 12/06/18 11:45 12/06/18 11:46 Rad-Saline
--- NOTE | 2018-12-06 09:52 | ED_ITS ---
ED Disposition Clinical Impression: Persistent pneumonia, COPD exacerbation, Tobacco dependence Disposition: Home, Self-Care Condition on Discharge: Good Instructions: Pneumonia-Adult Prescriptions: Clarithromycin [Biaxin 500mg Tablet] 500 mg PO BID 10 Days #20 tab Codeine Phosphate/Guaifenesin [Cheratussin AC Syrup] 10 ml PO TID 3 Days #90 liquid predniSONE [Prednisone 20mg Tab] 60 mg PO DAILY 5 Days #15 tab Referrals: Juan Pablo Shah MD [Primary Care Provider] - Time of Disposition: 11:59 - Critical Care Critical Care Time: No Attestation: On 12/06/18, the high probability of a clinically significant, sudden or life threatening deterioration of the following system(s) required my full and direct attention, intervention and personal management. The time I documented below is in addition to time spent performing reported procedures but includes the following listed in this critical care notation. Medical Decision Making - Medical Records Medical records reviewed: Yes: I reviewed the patient's medical records. - Sunil Inquiry Pt receiving controlled substance: No Sunil was queried for this patient: No Vital Signs: 12/06/18 09:15 12/06/18 09:20 12/06/18 09:59 Temperature 98.2 F 101.2 F H Temperature Source Oral Oral Pulse Rate [Left Apical] 98 H 86 90 Respiratory Rate 22 24 Blood Pressure [Right Arm] 141/78 H 129/77 116/64 Blood Pressure Mean [Right Arm] 99 94 81 Blood Pressure Source [Right Arm] Automatic Cuff Automatic Cuff Blood Pressure Position [Right Arm] Sitting Sitting 02 Sat by Pulse Oximetry 78 L 86 L 93 L Oxygen Delivery Method Nasal Cannula Room Air Nasal Cannula Nasal Cannula Oxygen Flow Rate (LPM) 2.5 2 2 12/06/18 11:13 Temperature Temperature Source Pulse Rate [Left Apical] 84 Respiratory Rate Blood Pressure [Right Arm] 81/50 L Blood Pressure Mean [Right Arm] 60 Blood Pressure Source [Right Arm] Blood Pressure Position [Right Arm] 02 Sat by Pulse Oximetry 91 L Oxygen Delivery Method Oxygen Flow Rate (LPM) - Lab Data Lab results reviewed: Yes: I reviewed the patient's lab results. Lab Results 12/06/18 09:46: WBC 6.3, RBC 4.08 L, Hgb 12.0 L, Hct 36.8 L, MCV 90.2, MCH 29.5, MCHC 32.7, RDW 13.7, Plt Count 269, MPV 8.1, Neut % (Auto) 77.6, Lymph % (Auto) 14.5, [place] % (Auto) 4.9, Eos % (Auto) 2.3, Baso % (Auto) 0.7, Neut # (Auto) 4.9, Lymph # (Auto) 0.9, [place] # (Auto) 0.3, Eos # (Auto) 0.2, Baso # (Auto) 0.0 12/06/18 09:46: Sodium 140, Potassium 4.5, Chloride 101, Carbon Dioxide 33 H, Anion Gap 10.5, BUN 16, Creatinine 0.99, Estimated Creat Clear 93, Estimated GFR 58 L, Est GFR ( Amer) 70, Glucose 163 H, Calcium 9.4, Total Bilirubin 0.3, AST 32, ALT 43, Alkaline Phosphatase 89, Troponin I < 0.02, Total Protein 7.6, Albumin 3.4, Globulin 4.2 H, Albumin/Globulin Ratio 0.8 L 12/06/18 09:46: B-Natriuretic Peptide 106 H 12/06/18 09:48: Lactate 1.3 Result diagrams: 12/06/18 09:46 12/06/18 09:46 Orders (Tests/Meds): ED MEDICATIONS Generic Name Dose Route Start Last Admin Trade Name Freq PRN Reason Stop Dose Admin Ceftriaxone Sodium 2 gm/ 50 mls @ 100 mls/hr 12/06/18 11:15 Sodium Chloride IV
[2018-12-06 10:04] LABS: Basophils % 0.7 % (0.1-2.0); Eosinophils # 0.2 K/mm3 (0.0-0.4); Eosinophils % 2.3 % (0.1-12.0); Hematocrit 36.8 % (37.0-47.0); Lymphocytes # 0.9 K/mm3 (0.7-4.5); Lymphocytes % 14.5 % (10-50); Mean Corpuscular HGB Conc 32.7 g/dL (31.8-35.4); Mean Corpuscular Hemoglobin 29.5 pg (27.0-31.2); Mean Corpuscular Volume 90.2 fl (81-99); Mean Platelet Volume 8.1 fl (7.4-10.4); Monocytes # 0.3 K/mm3 (0.1-1.0); Monocytes % 4.9 % (1.7-9.3); Neutrophils # 4.9 K/mm3 (1.8-7.8); Neutrophils % 77.6 % (37.0-80.0); Platelet Count 269 K/mm3 (142-424); Red Blood Count 4.08 M/mm3 (4.20-5.40); Red Cell Distribution Width 13.7 % (11.5-17.5); White Blood Count 6.3 K/mm3 (4.8-10.8)
[2018-12-06 10:20] LABS: Lactic Acid 1.3 mmol/L (0.4-2.0)
[2018-12-06 10:27] LABS: Alanine Aminotransferase 43 U/L (12-78); Albumin Level 3.4 gm/dL (3.4-5.0); Albumin/Globulin Ratio 0.8 (1.1-1.8); Alkaline Phosphatase 89 U/L (46-116); Anion Gap 10.5 mEq/L (5-15); Aspartate Amino Transferase 32 U/L (15-37); Bilirubin,Total 0.3 mg/dL (0.2-1.0); Blood Urea Nitrogen 16 mg/dL (7-18); Calcium 9.4 mg/dL (8.5-10.1); Carbon Dioxide 33 mmol/L (21.0-32.0); Chloride 101 mmol/L (98-107); Creatinine Clearance Estimated 93 mL/min (50-200); Creatinine,Serum 0.99 mg/dL (0.55-1.02); Estimated Glomerular Filt Rate 58 ml/min (>60); GFR (African American) 70 ML/MIN (>60); Globulin 4.2 gm/dl (1.3-3.2); Glucose 163 mg/dL (74-106); Potassium 4.5 mmoL/L (3.5-5.1); Sodium 140 mmol/L (136-145); Total Protein,Serum 7.6 gm/dL (6.4-8.2); Troponin I < 0.02 ng/ml (0.00-0.06)
--- NOTE | 2018-12-06 10:51 | PC.NURSE ---
pt to rad
--- NOTE | 2018-12-06 11:04 | CT_ITS ---
CT chest w con INDICATION: Shortness of breath ITS.REASON: abnormal cxr, radiologist rec ORDERING PHYSICIAN: Juan Pablo Shah MD PATIENT AGE: 58 years COMPARISON: 11/16/2018 TECHNIQUE: Axial images obtained with sagittal and coronal reformats. All and PA and lateral chest 11/16/2018 use one or more dose reduction, viz: automated exposure control, ma/kV adjustment per patient size (including targeted exams where dose is matched to indication, i.e. head), or iterative reconstruction technique. FINDINGS: The lung knutson are well expanded. There is prominent post inflammatory scarring and/or atelectasis within the lingula and lateral basilar segment left lower lobe. These findings were seen previously but are somewhat more prominent on today's study. In addition there may be some minimal acute pneumonic infiltrate in the proximal aspect of the lingula which was not seen previously. There is no evidence of left hilar mass or endobronchial lesion. There is minimal focal pneumonic infiltrate in the right suprahilar region and anterior segment of the right upper lobe. There is a calcified granuloma right lower lobe. There is moderate generalized cardio megaly and aortic tortuosity ,there is prominent coronary artery calcification. There is no pulmonary congestion and is no pleural fluid. Both adrenal glands are normal. IMPRESSION: 1. Minimal left perihilar and lingular pneumonia and minimal focal pneumonic infiltrate right upper lobe and suggest follow-up chest films to assess clearing. 2. Prominent post inflammatory scarring and/or atelectasis in the peripheral lingula and in the left lower lobe 3. Moderate generalized cardio megaly without failure.
--- NOTE | 2018-12-06 11:20 | PC.NURSE ---
pt gone to ct
== END 2018-12-06 13:10 | disposition home or self-care (01) ==
LOC: UTC 09:02 → ER 09:15
PROVIDERS: Emergency Provider Emergency Medicine; PCP Emergency Medicine
DX: J18.9 Pneumonia, unspecified organism (principal); J44.1 Chronic obstructive pulmonary disease with (acute) exacerbation; F17.210 Nicotine dependence, cigarettes, uncomplicated; E78.5 Hyperlipidemia, unspecified; I10 Essential (primary) hypertension; Z51.81 Encounter for therapeutic drug level monitoring; Z88.0 Allergy status to penicillin
CPT/HCPCS: 71046; 71260; 80053; 83605; 83880; 84484; 85025; 87040; 93005; 96374; 96375; 99284; Q9967

== ENCOUNTER 2018-12-11 12:21 | Inpatient (IN) | payer MEDICARE, MEDICAID, SELFPAY ==
[2018-12-11] VITALS (19 sets, daily range): BP systolic 82–129; BP diastolic 44–73; PULSE 65–91; RESP 16–22; TEMP 36.1–37.1; O2SAT 89–98; BMI 30.1; BMI 34.2
--- NOTE | 2018-12-11 12:15 | XR_ITS ---
XR chest portable HISTORY: ITS.REASON: cough ORDERING PHYSICIAN: Yusef Snow MD PATIENT AGE: 58 years COMPARISON: 12/06/2018 FINDINGS: There is cardiomegaly without failure.. Patchy density once again noted in the left lower lung zone consistent with lingular infiltrate and/or volume loss. There are some atelectatic changes in the right lung base. IMPRESSION: Persistent cardiomegaly with lingular infiltrate/volume loss
--- NOTE | 2018-12-11 12:17 | HMH.EDGENADL ---
ED Disposition Clinical Impression: Acute exacerbation of chronic obstructive airways disease Pneumonia Qualifiers: Pneumonia type: due to unspecified organism Laterality: left Lung location: lower lobe of lung Qualified Code(s): J18.1 - Lobar pneumonia, unspecified organism Disposition: Admitted as Observation Condition on Discharge: Good - Critical Care Critical Care Time: No Attestation: On , the high probability of a clinically significant, sudden or life threatening deterioration of the following system(s) required my full and direct attention, intervention and personal management. The time I documented below is in addition to time spent performing reported procedures but includes the following listed in this critical care notation. Medical Decision Making - Medical Records Medical records reviewed: Yes: I reviewed the patient's medical records. - Sunil Inquiry Pt receiving controlled substance: No Vital Signs: 12/11/18 12:10 12/11/18 12:16 12/11/18 12:30 Temperature 98.7 F Temperature Source Oral Pulse Rate Pulse Rate [Right Brachial] 78 70 72 Respiratory Rate 16 Blood Pressure [Right Arm] 105/63 L 101/54 L 84/46 L Blood Pressure Mean [Right Arm] 77 69 58 Blood Pressure Source [Right Arm] Automatic Cuff Blood Pressure Position [Right Arm] Sitting 02 Sat by Pulse Oximetry 92 L 90 L 94 L Oxygen Delivery Method Nasal Cannula Oxygen Flow Rate (LPM) 3 12/11/18 13:00 12/11/18 13:28 12/11/18 13:58 Temperature Temperature Source Pulse Rate 72 Pulse Rate [Right Brachial] 74 74 Respiratory Rate Blood Pressure [Right Arm] 92/49 L 82/44 L Blood Pressure Mean [Right Arm] 63 56 Blood Pressure Source [Right Arm] Blood Pressure Position [Right Arm] 02 Sat by Pulse Oximetry 91 L 94 L 91 L Oxygen Delivery Method Nasal Cannula Oxygen Flow Rate (LPM) 3 12/11/18 14:30 12/11/18 14:51 Temperature Temperature Source Pulse Rate Pulse Rate [Right Brachial] 71 70 Respiratory Rate Blood Pressure [Right Arm] 83/49 L 88/46 L Blood Pressure Mean [Right Arm] 60 60 Blood Pressure Source [Right Arm] Blood Pressure Position [Right Arm] 02 Sat by Pulse Oximetry 93 L 94 L Oxygen Delivery Method Oxygen Flow Rate (LPM) - Lab Data Lab results reviewed: Yes: I reviewed the patient's lab results. Lab Results 12/11/18 12:00: WBC 11.4 H, RBC 4.18 L, Hgb 12.4, Hct 37.1, MCV 88.9, MCH 29.6, MCHC 33.3, RDW 13.4, Plt Count 346, MPV 7.6, Neut % (Auto) 65.1, Lymph % (Auto) 27.3, [place] % (Auto) 5.5, Eos % (Auto) 1.7, Baso % (Auto) 0.4, Neut # (Auto) 7.4, Lymph # (Auto) 3.1, [place] # (Auto) 0.6, Eos # (Auto) 0.2, Baso # (Auto) 0.1 12/11/18 12:00: Sodium 138, Potassium 3.8, Chloride 98, Carbon Dioxide 35 H, Anion Gap 8.8, BUN 24 H, Creatinine 1.14 H, Estimated Creat Clear 65, Estimated GFR 49 L, Est GFR ( Amer) 59, Glucose 161 H, Calcium 7.9 L, Total Bilirubin 0.3, AST 90 H, ALT 93 H, Alkaline Phosphatase 75, Troponin I < 0.02, Total Protein 6.3 L, Albumin 2.9 L, Globulin 3.4 H, Albumin/Globulin Ratio 0.9 L 12/11/18 12:16: Lactate 1.1 12/11/18 12:16: Specimen Source Right brachial, O2 % 3lpm nc, ABG pH 7.33 L, ABG pCO2 65.9 H, ABG pO2 86.5, ABG HCO3 34.1 H, ABG Total CO2 36.1 H, ABG O2 Saturation 96, ABG Base Excess 8.2 H, [place] Test Non applicable Result diagrams: 12/11/18 12:00 12/11/18 12:00 Orders (Tests/Meds): ED MEDICATIONS Generic Name Dose Route Start Last Admin Trade Name Freq PRN Reason Stop Dose Admin Levofloxacin/Dextrose 500 mg in 100 mls @ 100 mls/hr 12/11/18 12:30 12/11/18 13:23 Levaquin 500mg/100ml Premix IV 12/25/18 12:29 100 mls/hr Q24H MARC Administration Protocol Sodium Chloride 1,000 mls @ 999 mls/hr 12/11/18 14:15 12/11/18 14:29 Sod Chlor 0.9% 1000ml Bag IV 12/11/18 15:15 999 mls/hr .Q1H1M MARC Administration Vancomycin HCl 1,000 mg/ 250 mls @ 125 mls/hr 12/11/18 14:59 Sodium Chloride IV 12/11/18 16:58 O
--- NOTE | 2018-12-11 12:20 | ED_ITS ---
ED Disposition Clinical Impression: Acute exacerbation of chronic obstructive airways disease Pneumonia Qualifiers: Pneumonia type: due to unspecified organism Laterality: left Lung location: lower lobe of lung Qualified Code(s): J18.1 - Lobar pneumonia, unspecified organism Disposition: Admitted as Observation Condition on Discharge: Good - Critical Care Critical Care Time: No Attestation: On , the high probability of a clinically significant, sudden or life threatening deterioration of the following system(s) required my full and direct attention, intervention and personal management. The time I documented below is in addition to time spent performing reported procedures but includes the fol lowing listed in this critical care notation. Medical Decision Making - Medical Records Medical records reviewed: Yes: I reviewed the patient's medical records. - Sunil Inquiry Pt receiving controlled substance: No Vital Signs: 12/11/18 12:10 12/11/18 12:16 12/11/18 12:30 Temperature 98.7 F Temperature Source Oral Pulse Rate Pulse Rate [Right Brachial] 78 70 72 Respiratory Rate 16 Blood Pressure [Right Arm] 105/63 L 101/54 L 84/46 L Blood Pressure Mean [Right Arm] 77 69 58 Blood Pressure Source [Right Arm] Automatic Cuff Blood Pressure Position [Right Arm] Sitting 02 Sat by Pulse Oximetry 92 L 90 L 94 L Oxygen Delivery Method Nasal Cannula Oxygen Flow Rate (LPM) 3 12/11/18 13:00 12/11/18 13:28 12/11/18 13:58 Temperature Temperature Source Pulse Rate 72 Pulse Rate [Right Brachial] 74 74 Respiratory Rate Blood Pressure [Right Arm] 92/49 L 82/44 L Blood Pressure Mean [Right Arm] 63 56 Blood Pressure Source [Right Arm] Blood Pressure Position [Right Arm] 02 Sat by Pulse Oximetry 91 L 94 L 91 L Oxygen Delivery Method Nasal Cannula Oxygen Flow Rate (LPM) 3 12/11/18 14:30 12/11/18 14:51 Temperature Temperature Source Pulse Rate Pulse Rate [Right Brachial] 71 70 Respiratory Rate Blood Pressure [Right Arm] 83/49 L 88/46 L Blood Pressure Mean [Right Arm] 60 60 Blood Pressure Source [Right Arm] Blood Pressure Position [Right Arm] 02 Sat by Pulse Oximetry 93 L 94 L Oxygen Delivery Method Oxygen Flow Rate (LPM) - Lab Data Lab results reviewed: Yes: I reviewed the patient's lab results. Lab Results 12/11/18 12:00: WBC 11.4 H, RBC 4.18 L, Hgb 12.4, Hct 37.1, MCV 88.9, MCH 29.6, MCHC 33.3, RDW 13.4, Plt Count 346, MPV 7.6, Neut % (Auto) 65.1, Lymph % (Auto) 27.3, [place] % (Auto) 5.5, Eos % (Auto) 1.7, Baso % (Auto) 0.4, Neut # (Auto) 7.4, Lymph # (Auto) 3.1, [place] # (Auto) 0.6, Eos # (Auto) 0.2, Baso # (Auto) 0.1 12/11/18 12:00: Sodium 138, Potassium 3.8, Chloride 98, Carbon Dioxide 35 H, Anion Gap 8.8, BUN 24 H, Creatinine 1.14 H, Estimated Creat Clear 65, Estimated GFR 49 L, Est GFR ( Amer) 59, Glucose 161 H, Calcium 7.9 L, Total Bilirubin 0.3, AST 90 H, ALT 93 H, Alkaline Phosphatase 75, Troponin I < 0.02, Total Protein 6.3 L, Albumin 2.9 L, Globulin 3.4 H, Albumin/Globulin Ratio 0.9 L 12/11/18 12:16: Lactate 1.1 12/11/18 12:16: Specimen Source Right brachial, O2 % 3lpm nc, ABG pH 7.33 L, ABG pCO
[2018-12-11 12:23] LABS: Basophils # 0.1 K/mm3 (0-0.2); Basophils % 0.4 % (0.1-2.0); Eosinophils # 0.2 K/mm3 (0.0-0.4); Eosinophils % 1.7 % (0.1-12.0); Hematocrit 37.1 % (37.0-47.0); Hemoglobin 12.4 g/dL (12.2-16.2); Lymphocytes # 3.1 K/mm3 (0.7-4.5); Lymphocytes % 27.3 % (10-50); Mean Corpuscular HGB Conc 33.3 g/dL (31.8-35.4); Mean Corpuscular Hemoglobin 29.6 pg (27.0-31.2); Mean Corpuscular Volume 88.9 fl (81-99); Mean Platelet Volume 7.6 fl (7.4-10.4); Monocytes # 0.6 K/mm3 (0.1-1.0); Monocytes % 5.5 % (1.7-9.3); Neutrophils # 7.4 K/mm3 (1.8-7.8); Neutrophils % 65.1 % (37.0-80.0); Platelet Count 346 K/mm3 (142-424); Red Blood Count 4.18 M/mm3 (4.20-5.40); Red Cell Distribution Width 13.4 % (11.5-17.5); White Blood Count 11.4 K/mm3 (4.8-10.8)
[2018-12-11 12:34] LABS: Alanine Aminotransferase 93 U/L (12-78); Albumin Level 2.9 gm/dL (3.4-5.0); Albumin/Globulin Ratio 0.9 (1.1-1.8); Alkaline Phosphatase 75 U/L (46-116); Anion Gap 8.8 mEq/L (5-15); Aspartate Amino Transferase 90 U/L (15-37); Bilirubin,Total 0.3 mg/dL (0.2-1.0); Blood Urea Nitrogen 24 mg/dL (7-18); Calcium 7.9 mg/dL (8.5-10.1); Carbon Dioxide 35 mmol/L (21.0-32.0); Chloride 98 mmol/L (98-107); Creatinine Clearance Estimated 65 mL/min (50-200); Creatinine,Serum 1.14 mg/dL (0.55-1.02); Estimated Glomerular Filt Rate 49 ml/min (>60); GFR (African American) 59 ML/MIN (>60); Globulin 3.4 gm/dl (1.3-3.2); Glucose 161 mg/dL (74-106); Potassium 3.8 mmoL/L (3.5-5.1); Sodium 138 mmol/L (136-145); Total Protein,Serum 6.3 gm/dL (6.4-8.2); Troponin I < 0.02 ng/ml (0.00-0.06)
[2018-12-11 12:42] LABS: Lactic Acid 1.1 mmol/L (0.4-2.0)
[2018-12-11 13:40] LABS: ABG Base Excess 8.2 mmol/L (-2.4-2.3); ABG HCO3 34.1 mmhg (22.0-26.0); ABG Oxygen Saturation 96 % (90-100); ABG PH 7.33 mmol/L (7.35-7.45); ABG PO2 86.5 mmhg (80-100); ABG TCO2 36.1 mmhg (23-27)
[2018-12-11 13:48] LABS: Allen's Test Non Applicable
[2018-12-11 13:49] LABS: Source Right Brachial
[2018-12-11 13:51] LABS: ABG PCO2 65.9 mmhg (35.0-45.0)
--- NOTE | 2018-12-11 14:15 | PC.NURSE ---
Dr Nash paged at [phone]. called back at [phone]. Dr Snow requests to call md back in a bit
--- NOTE | 2018-12-11 16:30 | PC.NURSE ---
Pt arrived to floor at this time.
--- NOTE | 2018-12-11 17:48 | PC.NURSE ---
Call placed to Dr Nash regarding clarification of Vancomycin order and IV fluid order as pt has history of CHF. Orders received. Vancomycin 2g q 24hrs, Cefepime 2gm q 8hrs, and 0.9%NaCl @ 100ml/hr. Orders faxed to pharmacy.
[2018-12-11 18:08] LABS: Troponin I < 0.02 ng/ml (0.00-0.06)
[2018-12-11 20:35] LABS: POC Glucose,Bedside 247 (70-110)
[2018-12-11 21:05] LABS: Troponin I < 0.02 ng/ml (0.00-0.06)
[2018-12-12] VITALS (20 sets, daily range): BP systolic 119–150; BP diastolic 58–74; PULSE 71–100; RESP 14–20; TEMP 36.1–36.9; O2SAT 90–94; BMI 34.9
--- NOTE | 2018-12-12 03:41 | PC.NURSE ---
Pt A&O x3. Has slept at intervals this shift. VS have remained stable this shift. She has remained afebrile. No hypotension noted. Pt remains on 3L O2 NC with O2 saturation of 90% at this time. Unproductive cough noted this shift. Pt has ambulated to with standby assist. Tolerated well. Pt has had 600 ml urine output thus far. Denies any difficulty with urination. No complaints of pain. Slight tenderness to (R) mandible. Edema noted. Pt stated that while riding in ambulance staff told pt she had swelling on (R) side of jaw. No other complaints stated. Medications administered per sep. Call light within reach. Will continue to monitor.
[2018-12-12 06:16] LABS: Alanine Aminotransferase 82 U/L (12-78); Albumin Level 2.6 gm/dL (3.4-5.0); Albumin/Globulin Ratio 0.9 (1.1-1.8); Alkaline Phosphatase 65 U/L (46-116); Anion Gap 8.6 mEq/L (5-15); Aspartate Amino Transferase 40 U/L (15-37); Bilirubin,Total 0.2 mg/dL (0.2-1.0); Blood Urea Nitrogen 23 mg/dL (7-18); Calcium 7.6 mg/dL (8.5-10.1); Carbon Dioxide 35 mmol/L (21.0-32.0); Chloride 99 mmol/L (98-107); Creatinine Clearance Estimated 99 mL/min (50-200); Creatinine,Serum 0.93 mg/dL (0.55-1.02); Estimated Glomerular Filt Rate 62 ml/min (>60); GFR (African American) 75 ML/MIN (>60); Globulin 2.9 gm/dl (1.3-3.2); Potassium 4.6 mmoL/L (3.5-5.1); Sodium 138 mmol/L (136-145); Total Protein,Serum 5.5 gm/dL (6.4-8.2)
[2018-12-12 06:19] LABS: Glucose 232 mg/dL (74-106)
[2018-12-12 06:27] LABS: POC Glucose,Bedside 229 (70-110)
[2018-12-12 06:55] LABS: Basophils % 0.1 % (0.1-2.0); Eosinophils # 0.1 K/mm3 (0.0-0.4); Eosinophils % 0.7 % (0.1-12.0); Hematocrit 32.4 % (37.0-47.0); Lymphocytes # 1.2 K/mm3 (0.7-4.5); Lymphocytes % 16.9 % (10-50); Mean Corpuscular HGB Conc 33.7 g/dL (31.8-35.4); Mean Corpuscular Hemoglobin 29.8 pg (27.0-31.2); Mean Corpuscular Volume 88.4 fl (81-99); Mean Platelet Volume 7.9 fl (7.4-10.4); Monocytes # 0.2 K/mm3 (0.1-1.0); Monocytes % 2.1 % (1.7-9.3); Neutrophils # 5.6 K/mm3 (1.8-7.8); Neutrophils % 80.1 % (37.0-80.0); Platelet Count 304 K/mm3 (142-424); Red Blood Count 3.67 M/mm3 (4.20-5.40); Red Cell Distribution Width 13.3 % (11.5-17.5); White Blood Count 6.9 K/mm3 (4.8-10.8)
[2018-12-12 06:56] LABS: Hemoglobin 10.9 g/dL (12.2-16.2)
--- NOTE | 2018-12-12 07:47 | HMH.HP ---
*Admission Date: 12/11/18 *Chief complaint: Shortness of breath *History of present illness: 58-year-old female with COPD and recent diagnosis of pneumonia through the urgent treatment clinic presented to the emergency department with recurrence of shortness of breath this time worse compared to her visit earlier in the week. Patient was on clarithromycin to treat community-acquired pneumonia when 24 hours prior to her ER presentation she became acutely short of breath with increased cough and discomfort in the right upper chest. Patient was brought to the emergency department. She was hypoxic with mild increased work of breathing. She did respond to breathing treatments and was started on steroids. Patient was mildly hypotensive. Decision was made to admit for treatment of community-acquired pneumonia that had failed outpatient therapy. Patient was started on Levaquin as well as vancomycin and cefepime. This morning patient states she is feeling a little better. She still has some discomfort in the right upper chest and states it feels like she needs to cough something up . [facility] History I have reviewed the patient's past medical history: Yes Medical History: Reports:: Congestive Heart Failure, Chronic Obstructive Pulmonary Disease (COPD), Diabetes Mellitus Type 2, Hyperlipidemia, Hypertension, Myocardial Infarction, Renal Disease Denies:: Cancer, Diabetes Mellitus Type 1, MRSA *Have you ever received a pneumonia vaccine?: Yes *Have you received a flu vaccine this season?: Yes Other Medical History: Reports: Hypothyroidism, Thyroid Disease Other Surgeries: Yes: Angioplasty, Cardiac Catheterization, Colonoscopy, Coronary Stent, , EGD, Hysterectomy-Total Amputation: No Fractures: Yes ((L) wrist) - *Social History Educational Level: Completed High School Smoking Status: Former smoker Tobacco Type: cigarettes # Packs/Day (cigarettes): 1 #Yrs smoked (if former smoker): 20 Alcohol Intake: never Alcohol Intake Frequency:: other Substance Use Type: denies use *Occupational Status:: disabled Housing: house Household Members: significant other *Travel in the last 8 weeks: None - Psychiatric History Expresses thoughts of harming self/others: None Suicide Plan Description: No Plan Family Hx:: Cancer, Coronary Artery Disease, Diabetes, Heart Attack, Hyperlipidemia, Hypertension, Stroke Review of Systems - Review of Systems Review of systems:: pertinent systems reviewed and negative unless documented below - Constitutional Reports fatigue, Reports fever(s), Denies body ache(s), Denies chills - *Cardiovascular Reports chest pain at rest - *Respiratory Reports chest congestion, Reports cough, Reports shortness of breath, Reports shortness of breath with activity - *Neurologic Denies dizziness Meds Home Medications Medication Instructions Recorded Confirmed Type albuterol sulfate 2.5 mg/3 mL 2.5 mg INHALATION TID PRN ml 07/10/17 12/11/18 History (0.083 %) solution for nebulization albuterol sulfate HFA 90 2 puff INHALATION Q6H 07/10/17 12/11/18 History mcg/actuation aerosol inhaler Aspirin [Low Dose Aspirin EC] 81 mg PO DAILY 06/15/18 12/11/18 History Atorvastatin Calcium [Lipitor 80mg 80 mg PO HS 06/15/18 12/11/18 History Tablet] Bisoprolol Fumarate [Zebeta 5mg 5 mg PO BID 06/15/18 12/11/18 History tablet] Ezetimibe 10 mg PO DAILY 06/15/18 12/11/18 History Fenofibrate Nanocrystallized 145 mg PO DAILY 06/15/18 12/11/18 History [Tricor] Levothyroxine Sodium [Synthroid 25 mcg PO DAILY 06/15/18 12/11/18 History 25mcg (0.025mg) tablet] Lisinopril [Lisinopril 2.5mg Tab] 2.5 mg PO DAILY 06/15/18 12/11/18 History Metformin HCl [Glucophage] 500 mg PO BID 06/15/18 12/11/18 History Potassium Chloride [K-Tab ER 20 20 meq PO BID 06/15/18 12/11/18 History mEq] Ranolazine [Ranexa 500mg ER tablet] 500 mg PO Q12H 06/15/18 12/11/18 History Ubidecarenone [Coenzyme Q10] 100 mg PO DAILY 06/15/18 12/11/18 History
--- NOTE | 2018-12-12 07:51 | P.HP_ITS ---
*Admission Date: 12/11/18 *Chief complaint: Shortness of breath *History of present illness: 58-year-old female with COPD and recent diagnosis of pneumonia through the urgent treatment clinic presented to the emergency department with recurrence of shortness of breath this time worse compared to her visit earlier in the week. Patient was on clarithromycin to treat community-acquired pneumonia when 24 hours prior to her ER presentation she became acutely short of breath with increased cough and discomfort in the right upper chest. Patient was brought to the emergency department. She was hypoxic with mild increased work of breathing. She did respond to breathing treatments and was started on steroids. Patient was mildly hypotensive. Decision was made to admit for treatment of community-acquired pneumonia that had failed outpatient therapy. Patient was started on Levaquin as well as vancomycin and cefepime. This morning patient states she is feeling a little better. She still has some discomfort in the right upper chest and states it feels like she needs to cough something up . [facility] History I have reviewed the patient's past medical history: Yes Medical History: Reports:: Congestive Heart Failure, Chronic Obstructive Pu lmonary Disease (COPD), Diabetes Mellitus Type 2, Hyperlipidemia, Hypertension, Myocardial Infarction, Renal Disease Denies:: Cancer, Diabetes Mellitus Type 1, MRSA *Have you ever received a pneumonia vaccine?: Yes *Have you received a flu vaccine this season?: Yes Other Medical History: Reports: Hypothyroidism, Thyroid Disease Other Surgeries: Yes: Angioplasty, Cardiac Catheterization, Colonoscopy, Coronary Stent, , EGD, Hysterectomy-Total Amputation: No Fractures: Yes ((L) wrist) - *Social History Educational Level: Completed High School Smoking Status: Former smoker Tobacco Type: cigarettes # Packs/Day (cigarettes): 1 #Yrs smoked (if former smoker): 20 Alcohol Intake: never Alcohol Intake Frequency:: other Substance Use Type: denies use *Occupational Status:: disabled Housing: house Household Members: significant other *Travel in the last 8 weeks: None - Psychiatric History Expresses thoughts of harming self/others: None Suicide Plan Description: No Plan Family Hx:: Cancer, Coronary Artery Disease, Diabetes, Heart Attack, Hyperlipidemia, Hypertension, Stroke Review of Systems - Review of Systems Review of systems:: pertinent systems reviewed and negative unless documented below - Constitutional Reports fatigue, Reports fever(s), Denies body ache(s), Denies chills - *Cardiovascular Reports chest pain at rest - *Respiratory Reports chest congestion, Reports cough, Reports shortness of breath, Reports shortness of breath with activity - *Neurologic Denies dizziness Meds Home Medications Medication Instructions Recorded Confirmed Type albuterol sulfate 2.5 mg/3 mL 2.5 mg INHALATION TID PRN ml 07/10/17 12/11/18 History (0.083 %) solution for nebulization albuterol sulfate HFA 90 2 puff INHALATION Q6H 07/10/17 12/11/18 History mcg/actuation aerosol inhaler Aspirin [Low Dose Aspirin EC] 81 mg PO DAILY 06/15/18 12/11/18 History Atorvastatin Calcium [Lipitor 80mg 80 mg PO HS 06/15/18 12/11/18 History Tablet] Bisoprolol Fumarate [Zebeta 5mg 5 mg PO BID 06/15/18 12/11/18 History tablet] Ezetimibe 10 mg PO DAILY 06/15/18 12/11/18 History Fenofibrate Nanocrystallized 145 mg PO DAILY 06/15/18 12/11/18 History [Tricor]
--- NOTE | 2018-12-12 08:31 | HMH.PHACONS ---
- Pharmacy Consult Date: 12/12/18 Time: 08:31 Referring provider: DR. SOUZA Reason for Consult:: VANCOMYCIN DOSING Allergies and ADEs:: Allergies Allergy/AdvReac Type Severity Reaction Status Date / Time mesalamine [From Asacol] Allergy Severe KIDNEY Verified 11/30/18 10:08 FAILURE Penicillins Allergy Intermediate I-RASH, Verified 11/30/18 10:08 ITCHING Home Medications:: Home Medications Medication Instructions Recorded Confirmed Type albuterol sulfate 2.5 mg/3 mL 2.5 mg INHALATION TID PRN ml 07/10/17 12/11/18 History (0.083 %) solution for nebulization albuterol sulfate HFA 90 2 puff INHALATION Q6H 07/10/17 12/11/18 History mcg/actuation aerosol inhaler Aspirin [Low Dose Aspirin EC] 81 mg PO DAILY 06/15/18 12/11/18 History Atorvastatin Calcium [Lipitor 80mg 80 mg PO HS 06/15/18 12/11/18 History Tablet] Bisoprolol Fumarate [Zebeta 5mg 5 mg PO BID 06/15/18 12/11/18 History tablet] Ezetimibe 10 mg PO DAILY 06/15/18 12/11/18 History Fenofibrate Nanocrystallized 145 mg PO DAILY 06/15/18 12/11/18 History [Tricor] Levothyroxine Sodium [Synthroid 25 mcg PO DAILY 06/15/18 12/11/18 History 25mcg (0.025mg) tablet] Lisinopril [Lisinopril 2.5mg Tab] 2.5 mg PO DAILY 06/15/18 12/11/18 History Metformin HCl [Glucophage] 500 mg PO BID 06/15/18 12/11/18 History Potassium Chloride [K-Tab ER 20 20 meq PO BID 06/15/18 12/11/18 History mEq] Ranolazine [Ranexa 500mg ER tablet] 500 mg PO Q12H 06/15/18 12/11/18 History Ubidecarenone [Coenzyme Q10] 100 mg PO DAILY 06/15/18 12/11/18 History fluticasone furoate 100 1 inh INHALATION Q24H #60 each 09/17/18 12/11/18 Rx mcg-vilanterol 25 mcg/dose inhalation powder clonazepam 1 mg tablet 1 mg PO BID #60 tab 10/12/18 12/11/18 Rx famotidine 20 mg tablet 20 mg PO HS #90 tab 10/12/18 12/11/18 Rx furosemide 80 mg tablet 80 mg PO DAILY #90 tab 10/12/18 12/11/18 Rx gabapentin 300 mg capsule 300 mg PO BID #60 cap 10/12/18 12/11/18 Rx omeprazole 40 mg capsule,delayed 40 mg PO DAILY #90 cap 10/12/18 12/11/18 Rx release cholecalciferol (vitamin D3) 5,000 5,000 unit PO DAILY #90 cap 10/14/18 12/11/18 Rx unit capsule hydralazine 25 mg tablet 25 mg PO TID #90 tab 11/09/18 12/11/18 Rx nitroglycerin 0.4 mg sublingual 0.4 mg SUBLINGUAL Q5-15M PRN #20 11/09/18 12/11/18 Rx tablet tab Cyclobenzaprine HCl 10 mg PO TID 12/11/18 12/11/18 History [Cyclobenzaprine 10mg Tab] Diclofenac Sodium [Voltaren 100gm 2 g TOPICAL QID 12/11/18 12/11/18 History Topical Gel] Fluoxetine HCl [Prozac] 20 mg PO DAILY 12/11/18 12/11/18 History Trazodone HCl 50 mg PO QHS 12/11/18 12/11/18 History buPROPion HCl [Wellbutrin 75mg 75 mg PO DAILY 12/11/18 12/11/18 History Tablet] levoFLOXacin [Levaquin] 500 mg PO DAILY 12/11/18 12/11/18 History Height: 1.65 m Weight: 95.311 kg Laboratory Results:: Laboratory Results - last 24 hr 12/11/18 12:00: WBC 11.4 H, RBC 4.18 L, Hgb 12.4, Hct 37.1, MCV 88.9, MCH 29.6, MCHC 33.3, RDW 13.4, Plt Count 346, MPV 7.6, Neut % (Auto) 65.1, Lymph % (Auto) 27.3, [place] % (Auto) 5.5, Eos % (Auto) 1.7, Baso % (Auto) 0.4, Neut # (Auto) 7.4, Lymph # (Auto) 3.1, [place] # (Auto) 0.6, Eos # (Auto) 0.2, Baso # (Auto) 0.1 12/11/18 12:00: Sodium 138, Potassium 3.8, Chloride 98, Carbon Dioxide 35 H, Anion Gap 8.8, BUN 24 H, Creatinine 1.14 H, Estimated Creat Clear 65, Estimated GFR 49 L, Est GFR ( Amer) 59, Glucose 161 H, Calcium 7.9 L, Total Bilirubin 0.3, AST 90 H, ALT 93 H, Alkaline Phosphatase 75, Troponin I < 0.02, Total Protein 6.3 L, Albumin 2.9 L, Globulin 3.4 H, Albumin/Globulin Ratio 0.9 L 12/11/18 12:16: Lactate 1.1 12/11/18 12:16: Specimen Source Right brachial, O2 % 3lpm nc, ABG pH 7.33 L, ABG pCO2 65.9 H, ABG pO2 86.5, ABG HCO3 34.1 H, ABG Total CO2 36.1 H, ABG O2 Saturation 96, ABG Base Excess 8.2 H, Lyndon Test Non applicable 12/11/18 17:38: Troponin I < 0.02 12/11/18 20:22: POC Glucose 247 H 12/11/18 20:40: Troponin I < 0.02 12/12/18 05:45: Sodium
--- NOTE | 2018-12-12 08:47 | HMH.PHAINT ---
ACCORDING TO DR SOUZA NOTE, PATIENT SHOULD BE ON CEFEPIME AND LEVAQUIN...CEFEPIME AND VANCOMYCIN ARE ACTIVE ON SEP...CONTACTED DR SOUZA TO CLARIFY...DC VANCOMYCIN, CONTINUE CEFEPIME, AND START LEVAQUIN 750 MG IV Q24H.
--- NOTE | 2018-12-12 10:53 | P.CONPHA_ITS ---
[facility] Pharmacy VTE Monitoring - Patient Demographics Admission date: 12/11/18 Report Date: 12/12/18 Time: 10:53 Allergies/Adverse Reactions: Patient Allergies mesalamine [From Asacol] Allergy (Severe, Verified 11/30/18 10:08) KIDNEY FAILURE Penicillins Allergy (Intermediate, Verified 11/30/18 10:08) I-RASH, ITCHING Height: 1.65 m Weight: 95.311 kg Patient Problems: Current Active Problems (Updated 12/12/18 @ 07:51 by Darryl Nahs MD) Acute exacerbation of chronic obstructive airways disease (Acute) Pneumonia (Acute) - VTE Risk Labs: VTE Related Lab Results Hgb 10.9 g/dL (12.2-16.2) L D 12/12/18 06:49 Hct 32.4 % (37.0-47.0) L 12/12/18 06:49 Plt Count 304 K/mm3 (142-424) 12/12/18 06:49 BUN 23 mg/dL (7-18) H 12/12/18 05:45 Creatinine 0.93 mg/dL (0.55-1.02) 12/12/18 05:45 Estimated Creat Clear 99 mL/min (50-200) 12/12/18 05:45 Was VTE Risk Assessment Performed: Yes VTE Score: 6 VTE Risk Level: Moderate Risk - Prophylaxis VTE Prophylaxis Ordered?: Yes Types of VTE Prophylaxis: TEDS Knee High Location of Applied Device: Bilateral Lower Extremeties
--- NOTE | 2018-12-12 11:32 | PC.NURSE ---
pt is sitting up in chair . pt was able to tolerate getting up to take a shower and has been ambulating around the room on 3 l nc. o2 saturation maintains at 90-92% when pt is sitting in chair. lung sounds have scattered wheezes. bowel sounds normal. eating and drinking well. alert and oriented x4. vss. will continue to monitor.
[2018-12-12 11:35] LABS: POC Glucose,Bedside 283 (70-110)
--- NOTE | 2018-12-12 18:13 | PC.NURSE ---
PCP ORDERED MAGIC MOUTHWASH FOR BLISTERS IN PT'S MOUTH. PHARMACY WAS NOTIFIED ABOUT THERE NOT BEING ANY MAGIC MOUTHWASH IN ANY OF THE OMNI'S. KATHERINE FROM PHARMACY GOT PERMISSION FROM THAT IT WOULD BE OKAY TO MIX 5 ML'S OF ORAL LIDOCAINE WITH 5 ML'S OF ORAL NYSTATIN AND HAVE PT SWISH AND SPIT Q4H PRN UNTIL MORNING. NOTED ON SEP.
[2018-12-12 18:28] LABS: POC Glucose,Bedside 327 (70-110)
[2018-12-12 20:40] LABS: POC Glucose,Bedside 277 (70-110)
--- NOTE | 2018-12-12 22:20 | PC.NURSE ---
Pt pulled out IV, will replace.
[2018-12-13] VITALS (11 sets, daily range): BP systolic 127–160; BP diastolic 74–85; PULSE 85–116; RESP 18; TEMP 36.4–36.8; O2SAT 90–97; BMI 35.8
--- NOTE | 2018-12-13 04:29 | PC.NURSE ---
Lung knutson remain with inspiratory rhonchi and expiratory wheezes, nonproductive cough noted with pt coughing during sleep throughout the night. 023LNC keeping oxygenation wnl, 1999 FSBS - 277 = 8 units, subq in right upper arm, bedtime snack was provided. Pt dislodged IV, new IV established with pt tolerating well, ABX infused without difficulty. Reported at the beginning of the shift she had gotten up to the bathroom earlier and walked around the room, she was quite tired and hoping to sleep well. Upon rounds pt was sleeping with snore noted, [address] and no objective s/s of pain or distress noted. Rings appropriately for assistance, remained safe and stable during my care, will continue monitoring.
[2018-12-13 06:20] LABS: POC Glucose,Bedside 251 (70-110)
[2018-12-13 11:39] LABS: POC Glucose,Bedside 278 (70-110)
--- NOTE | 2018-12-13 12:05 | HMH.ACPN ---
Internal Medicine - PN: Subj *Date: 12/13/18 *Time: 12:05 Interval history: Patient was admitted 12/11/18 after failing outpatient treatment for CAP. States that she felt much better yesterday, but is not feeling as good today. States that she hasn't had her Lasix for 4 days and feels like she is swelling up. She is currently on Levaquin, Cefepime and Vancomycin pending sputum culture results. CXR showed lingular infiltrate. Exam Vital signs and Labs for Last 24 Hours: Temp Pulse Resp BP Pulse Ox 98.3 F 108 H 18 147/74 H 90 L 12/13/18 11:44 12/13/18 11:44 12/13/18 11:44 12/13/18 11:44 12/13/18 11:44 Laboratory Results - last 24 hr 12/12/18 16:38: POC Glucose 327 H* 12/12/18 20:04: POC Glucose 277 H 12/13/18 06:10: POC Glucose 251 H 12/13/18 11:25: POC Glucose 278 H I & O for Last 24 hours: Intake & Output 12/11/18 12/12/18 12/13/18 12/14/18 11:59 11:59 11:59 11:59 Intake Total 2129 / 2129 1560 / 1560 Output Total 800 / 800 900 / 900 Balance 1329 / 1329 660 / 660 Weight 210 lb 2 oz 215 lb 3 oz Microbiology Reports for the Last 24 Hours: Microbiology 12/11/18 13:21 Sputum - Expectorated Sputum Gram Stain - Final 12/11/18 13:21 Sputum - Expectorated Sputum Sputum Culture - Preliminary - Constitutional no acute distress - *Routine HEENT Exam Head: Present: normocephalic Eye: Present: PERRL ENT: Present: mucous membranes moist - *Routine Respiratory Exam Present: decreased breath sounds, wheezes - *Routine Cardiovascular Exam Present: RRR - *Routine Abdominal Exam Present: soft, normoactive bowel sounds - *Routine Extremities Exam Present: edema - *Routine Skin Exam Present: intact - *Routine Neurological Exam Present: alert, oriented X3 - Routine Psychiatric Exam Present: normal affect Assessment and Plan (1) Acute exacerbation of chronic obstructive airways disease Current visit: Yes Status: Acute Category: Medical Code(s): J44.1 - Chronic obstructive pulmonary disease with (acute) exacerbation (2) Pneumonia Current visit: Yes Status: Acute Qualifiers: Pneumonia type: due to unspecified organism Laterality: left Lung location: lower lobe of lung Qualified Code(s): J18.1 - Lobar pneumonia, unspecified organism Category: Medical Code(s): J18.9 - Pneumonia, unspecified organism (3) Edema Problem details: Patient notes that she is on Lasix at home, but CHF not documented in history. Will order ECHO. Current visit: Yes Status: Acute Category: Medical Code(s): R60.9 - Edema, unspecified - Assessment and plan all Dx Assessment and Plan for all problems:: Order ECHO Sputum culture pending Continue current treatment (Levaquin, Cefepime, Vancomycin) at this time
--- NOTE | 2018-12-13 12:10 | CA_ITS ---
PROCEDURE: 2-D M-mode and color Doppler study INDICATIONS FOR THE TEST: Chest pain COPD+ Heart Murmur Tobacco Smokingex Palpitations Fatigue Syncope Edema+ Hypertension+Diabetes Mellitus+ Rheumatic Fever SOB+BEARD+Obesity+Hyperlipidemia Family History HD Additional History PNEUMONIA,STENT,CHF TDS-BODY HABITUS,UPRIGHT IN BED COUGHING,SOA PATIENT INFORMATION HEIGHT: 65 WEIGHT:215 GENDER: Female B/P:147/74 2-D/M-MODE INTERPRETATION: 2-D MEASUREMENTS OBSERVED VALUES IN CMS Right Ventricular Dimension (RVDd) 2.9 Interventricular Septum (Thickness)(IVsd) 1.1 Left Ventricular Internal Dimensions(LVIDd) 5.2 Left Ventricular Posterior Wall (Thickness)(LVPWd) 1.0 Aortic Root 3.0 Aortic Cusp Separation 2.1 Left Atrial Dimensions (LAD) 4.6 2D 1. Technically difficult and poor study, endocardial surfaces are poorly visualized, repeat study with definitely contrast is recommended. 2. Left atrium is mildly enlarged, left ventricle is normal size, mild concentric left ventricular hypertrophy, visually estimated ejection fraction of approximately 40-45%, there is marked hypokinesis involving mid to distal septum, apical and inferior basal wall. A repeat study with Definity contrast is recommended. 3. The right atrium and right ventricle are mildly enlarged with normal contractility. 4. The aortic valve is thickened and calcified leaflet continue to display mobility. 5. The mitral and tricuspid valve leaflets are minimally thickened. 6. The pulmonic valve is poorly visualized. 7. No significant pericardial effusion noted. DOPPLER INTERROGATION: Doppler interrogation of the aortic, mitral and tricuspid valvular presence of mild mitral and tricuspid regurgitation, tricuspid regurgitation jet velocity is inadequate for calculation of the right ventricular systolic pressure, diastolic parameters are inconclusive, inferior vena cava is normal size with normal inspiratory collapse. CONCLUSION: 1. Technically very difficult study because of the patient's factor and poor acoustic windows 2. Mildly enlarged left atrium, normal left ventricular size, mild concentric left ventricular hypertrophy, visually estimated ejection fraction approximately 40-45% with segmental wall motion abnormality described above, diastolic parameters are inconclusive, repeat study with definitely contrast is recommended. 3. Mildly enlarged right ventricle with normal contractility. 4. Mild mitral and tricuspid regurgitation 5. No significant pericardial effusion noted.
--- NOTE | 2018-12-13 14:27 | DIET.NUTRFU ---
Nutritional assessment completed by student jimena under my supervision. No added salt restriction added to patient diet after discussing with patient as she does not use salt at home.
--- NOTE | 2018-12-13 15:36 | PC.NURSE ---
Pt is alert and oriented X4, resp easy and unlabored at rest, O2 in place at 3 lpm per nc, continuous pulse ox in place, O2 sats in the lower 90's this shift, lungs with scattered expiratory wheezes, coughing up small amounts of sputum, dark green in color. No complaints of pain. Will continue to monitor.
[2018-12-13 16:49] LABS: POC Glucose,Bedside 292 (70-110)
--- NOTE | 2018-12-13 19:00 | SW/DCPLANNER ---
Patient has stated that she would like for me to contact [facility] at time of discharge to have her home O2 serviced. Patient stated that she feels like it is not working right at time. I will contact [facility] at time of discharge.
--- NOTE | 2018-12-13 19:19 | PC.NURSE ---
report given to sp
[2018-12-13 20:33] LABS: POC Glucose,Bedside 204 (70-110)
--- NOTE | 2018-12-13 21:27 | PC.NURSE ---
patient awake alert and oriented, upon initital assessment patients affect very pleasant and cooperative. when re-entering room and attempting to discuss medication patient affect became annoyed and she stated i know what i take
[2018-12-14] VITALS: BP 111/64; PULSE 72; RESP 16; TEMP 37.1; O2SAT 93
--- NOTE | 2018-12-14 01:37 | PC.NURSE ---
patient resting with eyes closed, awakens easily. irritable when awakened
--- NOTE | 2018-12-14 03:07 | PC.NURSE ---
patient is resting with eyes closed currently, sats mid 90s on 2 l nc. denies pain, nausea or soa. ambulating to restroom independantly. continues to be irritable when bothered while sleeping.
[2018-12-14 04:00] VITALS: BP 150/85; PULSE 82; RESP 20; TEMP 36.2; O2SAT 93; BMI 36.4
[2018-12-14 05:07] LABS: POC Glucose,Bedside 228 (70-110)
--- NOTE | 2018-12-14 05:23 | PC.NURSE ---
patient awkae alert and oriented requesting coffee, affect more pleasant than previously.
[2018-12-14 06:05] VITALS: PULSE 80; PULSE 85; O2SAT 92
--- NOTE | 2018-12-14 07:32 | PC.NURSE ---
REPORT GIVEN TO Naveed HOUSER
[2018-12-14 08:00] VITALS: BP 147/73; PULSE 91; RESP 18; TEMP 37; O2SAT 92
--- NOTE | 2018-12-14 08:25 | HMH.ACPN ---
Internal Medicine - PN: Subj *Date: 12/14/18 *Time: 08:25 Exam Vital signs and Labs for Last 24 Hours: Temp Pulse Resp BP Pulse Ox 97.2 F L 85 20 150/85 H 92 L 12/14/18 04:00 12/14/18 06:05 12/14/18 04:00 12/14/18 04:00 12/14/18 06:05 Laboratory Results - last 24 hr 12/13/18 11:25: POC Glucose 278 H 12/13/18 16:33: POC Glucose 292 H 12/13/18 20:25: POC Glucose 204 H 12/14/18 04:59: POC Glucose 228 H I & O for Last 24 hours: Intake & Output 12/11/18 12/12/18 12/13/18 12/14/18 23:59 23:59 23:59 23:59 Intake Total 240 / 240 3359 / 3359 840 / 840 102 / 102 Output Total 1700 / 1700 Balance 240 / 240 1659 / 1659 840 / 840 102 / 102 Weight 93.395 kg 95.311 kg 97.607 kg 99.45 kg Microbiology Reports for the Last 24 Hours: Microbiology 12/11/18 12:16 Blood Blood Culture - Preliminary NO GROWTH AFTER 48 HOURS 12/11/18 12:16 Blood Blood Culture - Preliminary NO GROWTH AFTER 48 HOURS 12/11/18 13:21 Sputum - Expectorated Sputum Gram Stain - Final 12/11/18 13:21 Sputum - Expectorated Sputum Sputum Culture - Preliminary Assessment and Plan (1) Acute exacerbation of chronic obstructive airways disease Current visit: Yes Status: Acute Category: Medical Code(s): J44.1 - Chronic obstructive pulmonary disease with (acute) exacerbation (2) Pneumonia Current visit: Yes Status: Acute Qualifiers: Pneumonia type: due to unspecified organism Laterality: left Lung location: lower lobe of lung Qualified Code(s): J18.1 - Lobar pneumonia, unspecified organism Category: Medical Code(s): J18.9 - Pneumonia, unspecified organism (3) Edema Problem details: Patient notes that she is on Lasix at home, but CHF not documented in history. Will order ECHO. Current visit: Yes Status: Acute Category: Medical Code(s): R60.9 - Edema, unspecified The patient's infection will respond to the chosen ABx?: Yes Is the patient receiving the right drug, dose, and route?: Yes Could a more targeted ABx be ordered?: No (BLOOD CULTURES NEGATIVE. OTHER CULTURES REMAIN PENDING.)
--- NOTE | 2018-12-14 08:35 | HMH.DCSUM ---
General - General Admission date:: 12/11/18 Discharge date: 12/14/18 HPI HPI: 58-year-old female with COPD and recent diagnosis of pneumonia through the urgent treatment clinic presented to the emergency department with recurrence of shortness of breath this time worse compared to her visit earlier in the week. Patient was on clarithromycin to treat community-acquired pneumonia when 24 hours prior to her ER presentation she became acutely short of breath with increased cough and discomfort in the right upper chest. Patient was brought to the emergency department. She was hypoxic with mild increased work of breathing. She did respond to breathing treatments and was started on steroids. Patient was mildly hypotensive. Decision was made to admit for treatment of community-acquired pneumonia that had failed outpatient therapy. Patient was started on Levaquin as well as vancomycin and cefepime. This morning patient states she is feeling a little better. She still has some discomfort in the right upper chest and states it feels like she needs to cough something up . Hospital Course Hospital Course: echo:CONCLUSION: 1. Technically very difficult study because of the patient's factor and poor acoustic windows 2. Mildly enlarged left atrium, normal left ventricular size, mild concentric left ventricular hypertrophy, visually estimated ejection fraction approximately 40-45% with segmental wall motion abnormality described above, diastolic parameters are inconclusive, repeat study with definitely contrast is recommended. 3. Mildly enlarged right ventricle with normal contractility. 4. Mild mitral and tricuspid regurgitation 5. No significant pericardial effusion noted. chest x ray:IMPRESSION: Persistent cardiomegaly with lingular infiltrate/volume loss Patient was admitted 12/11/18 after failing outpatient treatment for CAP. States she is feeling better and ready to go home. She is currently on Levaquin, Cefepime and Vancomycin pending sputum culture results. Will dc home on levaquin and close follow up in office.blood cx neg. Will need to follow up with cardiology due to ef 40-45%. Objective Vital signs: Temp Pulse Resp BP Pulse Ox 98.6 F 91 H 18 147/73 H 92 L 12/14/18 08:00 12/14/18 08:00 12/14/18 08:00 12/14/18 08:00 12/14/18 08:00 no acute distress, obese - *Routine HEENT Exam Head: Present: normocephalic Eye: Present: PERRL ENT: Present: mucous membranes moist - *Routine Neck Exam Present: full ROM - *Routine Respiratory Exam Present: CTA bilaterally - *Routine Cardiovascular Exam Present: RRR - *Routine Abdominal Exam Present: soft, normoactive bowel sounds - *Routine Extremities Exam Present: full ROM - *Routine Skin Exam Present: intact - *Routine Neurological Exam Present: alert, oriented X3 - Routine Psychiatric Exam Present: normal affect Results Labs on day of discharge: Labs from last 24 hours 12/14/18 12/13/18 12/13/18 04:59 20:25 16:33 POC Glucose 228 H 204 H 292 H 12/13/18 11:25 POC Glucose 278 H Preliminary micro results at discharge 12/11/18 12:16 Blood Culture - Preliminary Blood NO GROWTH AFTER 48 HOURS 12/11/18 12:16 Blood Culture - Preliminary Blood NO GROWTH AFTER 48 HOURS 12/11/18 13:21 Sputum Culture - Preliminary Sputum - Expectorated Sputum - Additional Comments Rounded with Dr. Shah all orders per Alyssa DS: Diagnosis - Discharge Diagnosis (1) Acute exacerbation of chronic obstructive airways disease Status: Acute (2) Pneumonia Status: Acute (3) Edema Status: Acute Problem details: Patient notes that she is on Lasix at home, but CHF not documented in history. Will order ECHO. (4) History of CHF (congestive heart failure) Status: Acute Discharge Plan - Patient Discharge Instructions ACTIVITY: Continue current activity DIET: continue same diet Patient Instructions:
--- NOTE | 2018-12-14 10:37 | SW/DCPLANNER ---
This patient will be discharging home today. I have notified [facility] regarding patients home O2 having issues and I have informed patient to call [facility] when she gets home today. Patient and [facility] are both aware of discharge today.
--- NOTE | 2018-12-14 11:16 | HMH.PHAINT ---
DISCHARGE MEDICATION COUNSELING COMPLETED BY Pool PAULA STUDENT SUCCESS ADVISOR UNDER MY DIRECT SUPERVISION. PT VERBALIZED UNDERSTANDING WITH NO QUESTIONS OR CONCERNS.
== END 2018-12-14 10:54 | disposition home or self-care (01) | DRG 195 ==
LOC: ER 15:05 → 2ND 15:32
PROVIDERS: Admitting Provider Family Medicine; Emergency Provider Emergency Medicine Emergency Medical Services; PCP Emergency Medicine; Visit Provider Emergency Medicine
DX: J44.9 Chronic obstructive pulmonary disease, unspecified (principal); J18.9 Pneumonia, unspecified organism; I50.9 Heart failure, unspecified; I11.0 Hypertensive heart disease with heart failure; E11.9 Type 2 diabetes mellitus without complications; I25.2 Old myocardial infarction; E03.9 Hypothyroidism, unspecified; Z95.5 Presence of coronary angioplasty implant and graft; Z87.891 Personal history of nicotine dependence; Z88.0 Allergy status to penicillin; Z88.8 Allergy status to other drugs, medicaments and biological substances; Z79.51 Long term (current) use of inhaled steroids; Z79.84 Long term (current) use of oral hypoglycemic drugs; Z79.899 Other long term (current) drug therapy
CPT/HCPCS: 36415; 71045; 80053; 82803; 82962; 83605; 84484; 85025; 87040; 87070; 87205; 93005; 93306; 94640; 94761; 96365; 96367; 96375; 99285; J1956; J3370

== ENCOUNTER → 2019-03-02 13:16 | Outpatient (POV) | payer MEDICARE, MEDICAID, SELFPAY | DX: Z00.00 Encounter for general adult medical examination without abnormal findings (principal) ==

== ENCOUNTER → 2019-03-30 13:28 | Outpatient (CLI) | payer MEDICARE, MEDICAID, SELFPAY ==
--- NOTE | 2019-03-30 13:31 | CA_ITS ---
APPROVED REPORT EXAM: Comprehensive 2D, Doppler, and color-flow Echocardiogram Tail Trimmer: Alyssa Perla RT(R) Ht: 5 ft 4 in Wt: 207lbs BSA: 1.99 BP: 136/75 mmHg Indications: Chest Pain, Congestive Heart Failure, COPD, Shortness of Breath, Diabetes, Obesity, Peripheral Edema, Hyperlipidemia, Hypertension/HDD Echo Enhancing Agent Indication: Endocardial border delineation Agent(s) / Amount(s) Used: Definity 2 cc 2D Dimensions LVOT 2.10 cm (M/F) 1.5-2.5 M-Mode Dimensions RVDd 2.50 cm (0.9-2.6) LA Diam 4.30 cm (1.9-4.0) LVDd 6.10 cm (3.5-5.7) Ao Diam 3.20 cm (2.0-3.7) LVDs 4.80 cm (3.5-5.7) AV Cusp 1.80 cm (1.5-2.6) IVSd 1.00 cm (0.6-1.1) PWd 1.50 cm (0.6-1.1) EF (Teich) 42.20% FS 21.30% EDV (Teich) 187.00 mL ESV (Teich) 108.00 mL LV Diastology E/A Ratio 0.9 MED E' 7.31 (< 7 cm/sec) E'/MED E' Ratio 10.10 (>14) LAT E' 8.58 (<10 cm/sec) E/LAT E' Ratio 8.60 (>14) Mitral Valve MV E Max Jesu. 73.50 (40-130 cm/s) MV A Velocity 78.50 (40-130 cm/s) E/A Ratio 0.90 Tricuspid Valve TR P. Velocity 267.00 cm/s RAP Estimate 10.00 mmHg RVSP 39.00 mmHg Left Ventricle Left atrium is mildly enlarged, left ventricle is normal size, mild concentric left ventricular hypertrophy, visually estimated ejection fraction approximately 45%, there is moderate hypokinesis involving the distal septum, apical and inferior basal wall. Definitely contrast was utilized to delineate the endocardial surfaces. Grade 1 diastolic dysfunction seen without tissue Doppler evidence of raise left atrial pressure. Right Ventricle Right atrium and right ventricular normal size and contractility. Aortic Valve Aortic valve is minimally thickened and fibrosed, there is no aortic stenosis aortic insufficiency. Mitral Valve Mitral valve leaflets are minimally thickened, there is no mitral stenosis, there is mild mitral regurgitation. Tricuspid Valve Tricuspid valve is grossly normal, there is mild tricuspid regurgitation. Tricuspid regurgitation jet velocity is inadequate for calculation of the right ventricular systolic pressure. Pulmonic Valve Pulmonic valve is poorly visualized. Great Vessels Aortic root is normal size. Pericardium No significant pericardial effusion noted. Conclusion 1. Mildly enlarged left atrium, normal left ventricular size, mild concentric left ventricular hypertrophy, visually estimated ejection fraction 45% with multiple segmental wall motion abnormality described above, definitely contrast was utilized to delineate the endocardial surfaces, grade 1 diastolic dysfunction seen without tissue Doppler evidence of raise left atrial pressure. 2. Mild mitral and tricuspid regurgitation 3. No significant pericardial effusion noted. Electronically signed by : Adam Farah, 04/01/2019 15:54:16
== END ==
PROVIDERS: PCP Emergency Medicine; Visit Provider Internal Medicine Cardiovascular Disease
DX: R06.02 Shortness of breath (principal); R06.01 Orthopnea; I50.9 Heart failure, unspecified; I42.9 Cardiomyopathy, unspecified
CPT/HCPCS: 93306; Q9957

== ENCOUNTER → 2019-04-14 20:18 | Outpatient (CLI) | payer MEDICARE, MEDICAID, SELFPAY | PROVIDERS: PCP Emergency Medicine; Visit Provider Internal Medicine Cardiovascular Disease | DX: G47.33 Obstructive sleep apnea (adult) (pediatric) (principal); R40.0 Somnolence; R06.83 Snoring | CPT/HCPCS: 95810 ==

== ENCOUNTER → 2019-04-22 11:42 | Outpatient (CLI) | payer MEDICARE, MEDICAID, SELFPAY ==
[2019-04-22 13:58] LABS: Anion Gap 11.5 mEq/L (5-15); Blood Urea Nitrogen 17 mg/dL (7-18); Calcium 9.6 mg/dL (8.5-10.1); Carbon Dioxide 36 mmol/L (21.0-32.0); Chloride 99 mmol/L (98-107); Creatinine,Serum 1.11 mg/dL (0.55-1.02); Estimated Glomerular Filt Rate 50 ml/min (>60); GFR (African American) 61 ML/MIN (>60); Glucose 106 mg/dL (74-106); Potassium 4.5 mmoL/L (3.5-5.1); Sodium 142 mmol/L (136-145)
== END ==
PROVIDERS: Visit Provider Internal Medicine Cardiovascular Disease
DX: E78.5 Hyperlipidemia, unspecified (principal); I20.0 Unstable angina; I50.9 Heart failure, unspecified; R06.00 Dyspnea, unspecified
CPT/HCPCS: 36415; 80048

== ENCOUNTER → 2019-05-16 12:17 | Outpatient (CLI) | payer MEDICARE, MEDICAID, SELFPAY ==
[2019-05-16 14:44] LABS: Anion Gap 10.7 mEq/L (5-15); Blood Urea Nitrogen 18 mg/dL (7-18); Calcium 9.7 mg/dL (8.5-10.1); Carbon Dioxide 35 mmol/L (21.0-32.0); Chloride 99 mmol/L (98-107); Creatinine,Serum 1.15 mg/dL (0.55-1.02); Estimated Glomerular Filt Rate 48 ml/min (>60); GFR (African American) 59 ML/MIN (>60); Glucose 112 mg/dL (74-106); Potassium 4.7 mmoL/L (3.5-5.1); Sodium 140 mmol/L (136-145)
== END ==
PROVIDERS: Visit Provider Internal Medicine Cardiovascular Disease
DX: E78.5 Hyperlipidemia, unspecified (principal); I10 Essential (primary) hypertension; I20.0 Unstable angina; I50.9 Heart failure, unspecified; R06.00 Dyspnea, unspecified
CPT/HCPCS: 36415; 80048; 83880

== ENCOUNTER → 2019-07-18 14:25 | Outpatient (POV) | payer MEDICARE, MEDICAID, SELFPAY | PROVIDERS: Visit Provider Nurse Practitioner Family | DX: Z00.00 Encounter for general adult medical examination without abnormal findings (principal) ==

== ENCOUNTER → 2019-08-05 07:39 | Outpatient (CLI) | payer MEDICARE, MEDICAID, SELFPAY ==
--- NOTE | 2019-08-05 07:42 | US_ITS ---
PROCEDURE: US ABDOMEN LIMITED CLINICAL INDICATION: BLOATING,CONSTIPATION,GERD,NAUSEA,DIARRHEA,ALTERED BOWEL COMPARISON: RUQ US RUQ-(ABD LTD)1ORGAN/QUAD/FU from 10/22/2015 FINDINGS: PANCREAS: Unremarkable. No obvious mass or abnormal fluid collection. No ductal dilatation LIVER: No focal liver lesions demonstrated. Homogeneous echogenicity. There is diffuse fatty infiltration of the liver. No intrahepatic biliary ductal dilatation evident. There is appropriate direction of blood flow within a non dilated portal vein RIGHT KIDNEY: Unremarkable. Normal size and echogenicity. No hydronephrosis GALLBLADDER: The gallbladder is contracted with some subsequent wall thickening. No gallstones, pericholecystic fluid, or biliary dilatation. IMPRESSION: Mild fatty infiltration of the liver. Contracted gallbladder without stones. Dictated by: José Alexandra 08/05/2019 08:39 Electronically signed by José Alexandra in [place] 08/05/2019 08:39
[2019-08-05 08:59] LABS: Basophils # 0.1 K/mm3 (0-0.2); Basophils % 0.7 % (0.1-2.0); Eosinophils # 0.2 K/mm3 (0.0-0.4); Eosinophils % 2.3 % (0.1-12.0); Hematocrit 35.7 % (37.0-47.0); Hemoglobin 10.8 g/dL (12.2-16.2); Lymphocytes # 2.1 K/mm3 (0.7-4.5); Lymphocytes % 24.9 % (10-50); Mean Corpuscular HGB Conc 30.3 g/dL (31.8-35.4); Mean Corpuscular Volume 89.3 fl (81-99); Mean Platelet Volume 8.3 fl (7.4-10.4); Monocytes # 0.5 K/mm3 (0.1-1.0); Monocytes % 5.7 % (1.7-9.3); Neutrophils # 5.7 K/mm3 (1.8-7.8); Neutrophils % 66.5 % (37.0-80.0); Platelet Count 236 K/mm3 (142-424); Red Cell Distribution Width 15.3 % (11.5-17.5); White Blood Count 8.5 K/mm3 (4.8-10.8)
[2019-08-05 09:29] LABS: Alanine Aminotransferase 29 U/L (12-78); Albumin Level 3.4 gm/dL (3.4-5.0); Albumin/Globulin Ratio 1.4 (1.1-1.8); Alkaline Phosphatase 77 U/L (46-116); Amylase 16 U/L (25-115); Anion Gap 7.8 mEq/L (5-15); Aspartate Amino Transferase 17 U/L (15-37); Bilirubin,Total 0.2 mg/dL (0.2-1.0); Blood Urea Nitrogen 13 mg/dL (7-18); Calcium 8.8 mg/dL (8.5-10.1); Carbon Dioxide 34 mmol/L (21.0-32.0); Chloride 107 mmol/L (98-107); Estimated Glomerular Filt Rate 57 ml/min (>60); GFR (African American) 69 ML/MIN (>60); Globulin 2.4 gm/dl (1.3-3.2); Glucose 130 mg/dL (74-106); Lipase 69 u/L (73-393); Potassium 4.8 mmoL/L (3.5-5.1); Sodium 144 mmol/L (136-145); Total Protein,Serum 5.8 gm/dL (6.4-8.2)
== END ==
PROVIDERS: PCP Emergency Medicine; Visit Provider Nurse Practitioner Family
DX: R19.4 Change in bowel habit (principal); R14.0 Abdominal distension (gaseous); R19.7 Diarrhea, unspecified; R10.13 Epigastric pain; R11.0 Nausea; K21.9 Gastro-esophageal reflux disease without esophagitis
CPT/HCPCS: 36415; 76705; 80053; 82150; 83690; 85025

== ENCOUNTER → 2019-09-07 10:14 | Outpatient (CLI) | payer MEDICARE, MEDICAID, SELFPAY ==
--- NOTE | 2019-09-07 10:16 | NM_ITS ---
PROCEDURE: NM HEPATOBILIARY W PHARM CLINICAL INDICATION: RUQ PAIN , NAUSEA COMPARISON: US ABDOMEN LIMITED from 08/05/2019 TECHNIQUE: DOSE: 7.98 mCi technetium Choletec and 1.8 mcg of CCK. No pain reported with CCK infusion FINDINGS: Homogeneous activity is present within the hepatic parenchyma. Activity is present in the gallbladder by 5 minutes. Activity is present in the small bowel by 45 minutes. The gallbladder ejection fraction is calculated to be 92 percent. CCK-The patient did not report pain or other symptoms during CCK infusion. IMPRESSION: Unremarkable hepatobiliary scan. No evidence of common or cystic duct obstruction with normal gallbladder ejection fraction Dictated by: Lyndon Dean MD 09/07/2019 17:40 Electronically signed by Lyndon Dean MD in [place] 09/07/2019 17:40
== END ==
PROVIDERS: PCP Emergency Medicine; Visit Provider Nurse Practitioner Family
DX: R10.13 Epigastric pain (principal); R10.84 Generalized abdominal pain; R11.0 Nausea
CPT/HCPCS: 78227; A9537; J2805

== ENCOUNTER → 2019-09-12 14:34 | Outpatient (POV) | payer MEDICARE, MEDICAID, SELFPAY | PROVIDERS: PCP Nurse Practitioner Family; Visit Provider Nurse Practitioner Family | DX: Z00.00 Encounter for general adult medical examination without abnormal findings (principal) ==

== ENCOUNTER → 2019-12-29 12:32 | Outpatient (CLI) | payer MEDICARE, MEDICAID, SELFPAY ==
--- NOTE | 2019-12-29 12:40 | XR_ITS ---
PROCEDURE: XR SHOULDER LT MIN 2V CLINICAL INDICATION: shoulder pain COMPARISON: No exams were available for comparison FINDINGS: No fracture or dislocation. No lytic or blastic change. There is normal mineralization. Mild osteoarthritic changes are present at the glenohumeral joint with minimal spurring along the inferior aspect of the glenoid and along the humeral head Other findings:The AC joint has an unremarkable appearance IMPRESSION: Mild osteoarthritic changes Dictated by: Lyndon Dean MD 12/29/2019 15:55 Electronically signed by Lyndon Dean MD in [place] 12/29/2019 15:55
== END ==
PROVIDERS: PCP Emergency Medicine; Visit Provider Orthopaedic Surgery
DX: M25.512 Pain in left shoulder (principal)
CPT/HCPCS: 73030

== ENCOUNTER → 2020-01-02 12:17 | Outpatient (CLI) | payer MEDICARE, MEDICAID, SELFPAY ==
--- NOTE | 2020-01-02 12:26 | XR_ITS ---
PROCEDURE: XR CERVICAL SPINE 3V CLINICAL INDICATION: left arm pain into neck COMPARISON: No exams were available for comparison FINDINGS: There is good alignment of the bony structures. Joint spaces are intact. There is mild multilevel facet arthropathy demonstrated. There is no fracture or dislocation and soft tissues are intact IMPRESSION: No acute findings. Mild multilevel facet arthropathy, no fracture Note: If a subtle fracture suspected than CT scan recommended. Dictated by: Woodrow Barnard 01/02/2020 14:54 Electronically signed by Woodrow Barnard in [place] 01/02/2020 14:54
--- NOTE | 2020-01-02 12:26 | XR_ITS ---
PROCEDURE: XR ELBOW LT MIN 3V CLINICAL INDICATION: sx in 2003; left arm pain COMPARISON: No exams were available for comparison FINDINGS: Radial head prosthesis is noted in good alignment. There is mild degenerative of the medial joint compartment. No joint effusion or fracture is noted. IMPRESSION: No acute findings, radial head prosthesis, degenerative narrowing of the elbow joint as above Dictated by: Woodrow Barnard 01/02/2020 14:51 Electronically signed by Woodrow Barnard in [place] 01/02/2020 14:51
== END ==
PROVIDERS: PCP Emergency Medicine; Visit Provider Orthopaedic Surgery
DX: M54.2 Cervicalgia (principal); M79.602 Pain in left arm
CPT/HCPCS: 72040; 73080

== ENCOUNTER → 2020-02-08 12:18 | Outpatient (CLI) | payer MEDICARE, MEDICAID, SELFPAY ==
[2020-02-08 13:52] LABS: Coronavirus 19 IgG Antibody Negative (Negative); Coronavirus 19 IgM Antibody Negative (Negative)
== END ==
PROVIDERS: Visit Provider Internal Medicine Gastroenterology
DX: Z01.818 Encounter for other preprocedural examination (principal)
CPT/HCPCS: 36415; 86328

== ENCOUNTER 2020-02-10 09:25 | Day surgery (SDC) | payer MEDICARE, MEDICAID, SELFPAY ==
[2020-02-07 10:11] VITALS: BMI 31.9
[2020-02-10] VITALS (7 sets, daily range): BP systolic 104–139; BP diastolic 63–80; PULSE 60–69; RESP 18–20; TEMP 36.4–36.6; O2SAT 91–97
--- NOTE | 2020-02-10 11:07 | HMH.PROC ---
[facility] Procedure Note Procedure Note:: Upper Endoscopy Procedure Report: Esophagogastroduodenoscopy with cold biopsies and TTS balloon dilation Endoscopost: Reymundo Dubose II, MD Referring Physician: Juan Pablo Shah MD/ Adam Farah MD Date of Procedure: February 10, 2020 Equipment: Olympus GIF 180 standard upper endoscope Sedation: MAC sedation Indications: Mrs. Ernst is a 59-year-old female with a long history of dyspepsia and reflux. She has had epigastric abdominal discomfort intermittently for years. She did have an upper endoscopy approximately 20 years ago and had some gastritis. She did see Jaqui Morales MD (gastroenterology [facility]) 4 years ago for diarrhea. The patient does have a history of cardiomyopathy with CHF and COPD. She did see Dr. Farah and has had cardiac evaluation. The patient does take famotidine and was taken off of omeprazole. She does have alternating IBS with constipation and diarrhea. She reports epigastric discomfort, bloating, it gassiness, belching, persistent nausea, heartburn and reflux. She also reports some intermittent dysphagia with globus sensation. The patient has had ultrasound and HIDA scan which have been normal. Her ultrasound on August 05, 2019 showed mild steatosis and contracted gallbladder without gallstones. Her HIDA scan on September 07, 2019 showed 92% ejection fraction with no evidence of common duct or cystic duct obstruction and normal small bowel radionuclide activity. Procedure: Prior to the procedure, a history and physical exam was performed, and patient's medications and allergies were reviewed. The risks, benefits and alternatives of the sedation and procedure were discussed with the patient. All questions were answered and informed consent was obtained. The patient was brought to the procedure room. Patient identification and proposed procedure were verified by the physician and the nurse. The patient was placed in a left lateral decubitus position and the scope was passed under direct vision. Throughout the procedure, the patient's blood pressure, pulse, and oxygen saturations were monitored continuously. The upper GI endoscopy was accomplished without difficulty. The patient tolerated the procedure well. Findings: The scope was passed directly into the upper esophagus and advanced to the third portion of the duodenum. The post bulbar duodenum and duodenal bulb were normal with normal mucosa and conniventes. The scope was withdrawn through a normal duodenal bulb and pylorus into the stomach. There was linear erythema of the antrum and body with bile reflux. The remainder of the antrum, body and fundus of the stomach were grossly normal. Upon retroflexion there was no hiatal hernia. 2 biopsies were taken in the antrum and along the lesser curvature for histology to rule out gastritis and/or H pylori. The scope was then withdrawn into the esophagus. There was no evidence of reflux esophagitis or Leo's. There was a serrated Z line. There were tertiary contractions and evidence of moderate esophageal dysmotility. The entire esophagus was dilated to 60 [place]/20 mm with a TTS hydrostatic balloon. There was some resistance at the cricopharyngeus/cricopharyngeal spasm. The remainder of the esophageal mucosa was normal. Impression: 1. Cricopharyngeal spasm status post dilation to 20 mm 2. Nonerosive GERD with moderate esophageal dysmotility 3. Bile reflux with linear reactive gastropathy Plan: The patient does have functional dyspepsia and functional bowel disease. We will discuss dietary measures and treatment options. I will recommend sucrose C 13 breath testing and possibly treatment for SIBO or IBS?D with Xifaxan.
--- NOTE | 2020-02-10 11:15 | P.PN_ITS ---
[facility] Anesthesia Checklist - Patient Identification Patient Identification: Arm Band - Structural Data Admitted From: Home Planned Operative Procedure/s: egd Consent for Planned Operative Procedure(s) Verified: Yes Verified Documents: Surgical Consent, History and Physical - NPO Status Verified Time NPO: 00:00 - Additional verifications Anesthesia Reactions: No - Airway Assessment C-Spine Mobility Assessed: Yes (mp2) TMJ Mobility Assessed: Yes Dentition: Edentulous - Neurological Assessment Level of Consciousness: Awake, Alert - Anesthesia Plan Anesthesia Risk discussed: Yes Anesthesia Plan: Verified ASA Class: III Anesthesia Type: MAC [facility] History I have reviewed the patient's past medical history: Yes Medical History: Reports:: Anxiety, Congestive Heart Failure, Chronic Obstructive Pulmonary Disease (COPD), Coronary Artery Disease, Diabetes Mellitus Type 2, Hyperlipidemia, Hypertension, Myocardial Infarction, Renal Disease Denies:: Cancer, Diabetes Mellitus Type 1, Internal Pacemaker, MRSA, Seizures *Have you ever received a pneumonia vaccine?: Yes *Have you received a flu vaccine this season?: No Other Medical History: Reports: Hypothyroidism, Thyroid Disease Anesthesia experience/problems:: nac Other Surgeries: Yes: Angioplasty, Cardiac Catheterization, Colonoscopy, Coronary Stent, , EGD, Hysterectomy-Total. No: Pacemaker Amputation: No Fractures: Yes ((L) wrist) - *Social History Smoking Status: Current every day smoker Tobacco Type: cigarettes # Packs/Day (cigarettes): 1 #Yrs smoked (if former smoker): 20 Alcohol Intake: never Alcohol Intake Frequency:: other Substance Use Type: denies use *Occupational Status:: disabled Housing: house Household Members: significant other *Travel in the last 8 weeks: None - Psychiatric History Pschychiatric History:: Reports:: Anxiety Family Hx:: Cancer, Coronary Artery Disease, Diabetes, Heart Attack, Hyperlipidemia, Hypertension, Stroke, Tuberculosis
[2020-02-10 15:36] LABS: POC Glucose,Bedside 107 (70-110)
== END 2020-02-10 12:10 | disposition home or self-care (01) ==
LOC: OUTP 09:27
PROVIDERS: PCP Emergency Medicine; Visit Provider Internal Medicine Gastroenterology
PROC: 0DJ08ZZ Inspection of Upper Intestinal Tract, Via Natural or Artificial Opening Endoscopic (ICD-10-PCS; CPT 43235; principal; 2020-02-10 10:30)
DX: K21.9 Gastro-esophageal reflux disease without esophagitis (principal); J39.2 Other diseases of pharynx; K22.4 Dyskinesia of esophagus; K31.9 Disease of stomach and duodenum, unspecified; K58.2 Mixed irritable bowel syndrome; Z87.19 Personal history of other diseases of the digestive system; E11.9 Type 2 diabetes mellitus without complications; J44.9 Chronic obstructive pulmonary disease, unspecified; I11.0 Hypertensive heart disease with heart failure; I50.9 Heart failure, unspecified; I25.2 Old myocardial infarction; F41.9 Anxiety disorder, unspecified; E78.5 Hyperlipidemia, unspecified
CPT/HCPCS: 43239; 43249; 82962; 88305; C1726

== ENCOUNTER → 2020-02-24 13:35 | Outpatient (CLI) | payer MEDICARE, MEDICAID, SELFPAY ==
[2020-02-24 16:04] LABS: Thyroid Stimulating Hormone 1.45 uIU/mL (0.465-4.68)
[2020-02-26 12:20] LABS: Vitamin B12 311 pg/mL (232-1245)
== END ==
PROVIDERS: Visit Provider Specialist
DX: G25.0 Essential tremor (principal)
CPT/HCPCS: 36415; 82607; 84443

== ENCOUNTER → 2020-03-08 12:47 | Outpatient (POV) | payer MEDICARE, MEDICAID, SELFPAY ==
[2020-03-08 13:14] VITALS: BP 132/77; PULSE 72; RESP 18; TEMP 36.6; O2SAT 92; BMI 32.8
--- NOTE | 2020-03-08 14:15 | HMH.PMCON ---
Assessment and Plan (1) Neck pain Current visit: Yes Status: Chronic Category: Medical Code(s): M54.2 - Cervicalgia (2) Cervical spine disease Current visit: Yes Status: Chronic Category: Medical Code(s): M48.9 - Spondylopathy, unspecified (3) Degenerative joint disease of cervical spine Current visit: Yes Status: Chronic Qualifiers: Spinal osteoarthritis complication: with radiculopathy Qualified Code(s): M47.22 - Other spondylosis with radiculopathy, cervical region Category: Medical Code(s): M47.812 - Spondylosis without myelopathy or radiculopathy, cervical region - Assessment and plan all Dx Assessment and Plan for all problems:: We will schedule the patient for a cervical MRI to help determine pathology. Patient has had pain for over a year. She has completed physical therapy and is still having pain and weakness. Patient is continuing a home stretching program. Patient has tried and failed medications and anti-inflammatories. I will follow-up with her after her MRI reassess her symptoms at that time she has been instructed to call the office if she has any issues prior to her next appointment. Dr. Hinkle has reviewed this note and agrees with this plan of care. This note was dictated using voice recognition software and may contain errors or omissions HPI - Data of Consult Consult date: 03/08/20 Requesting Physician: Peggy Maloney APRN Primary Care Provider: Juan Pablo Shah MD - Consult Narrative Reason for consult: Neck pain, radiculopathy History of present illness: Ms. Ernst is a 59 year old female who presents today for consultation in regards to her neck pain. Patient had a crush injury of her elbow 20 years ago. Patient states that she does have continual pain at the site she seen Dr. Ramos for this she received an injection which gave her 1 day of relief. She does have quite a bit of neck pain that radiates into a headache along with some radiculopathy into her bilateral shoulders. She is never had an MRI of her cervical spine. She did have an x-ray showing some degenerative changes. Patient and I discussed getting baseline diagnostic imaging. She would like to move forward with this. She rates her pain a 7 out of 10. Mostly in her neck and left arm. Patient states that any kind increased use of her left arm increases her neck pain while exercises from physical therapy decrease her pain. She has left hand numbness and tingling. Patient has had significant relief with her physical therapy. CC: Peggy Maloney APRN [facility] History I have reviewed the patient's past medical history: Yes Medical History: Reports:: Anxiety, Congestive Heart Failure, Chronic Obstructive Pulmonary Disease (COPD), Coronary Artery Disease, Depression, Diabetes Mellitus Type 2, Home Oxygen, Hyperlipidemia, Hypertension, Internal Pacemaker, Myocardial Infarction, Renal Disease Denies:: Cancer, Diabetes Mellitus Type 1, MRSA, Seizures *Have you ever received a pneumonia vaccine?: No *Have you received a flu vaccine this season?: No Other Medical History: Reports: Arthritis, Hypothyroidism, Thyroid Disease Other Surgeries: Yes: No Previous Surgery, Angioplasty, Cardiac Catheterization, Colonoscopy, Coronary Stent, , Dilation and Curettage, EGD, Hysterectomy-Total, Pacemaker Amputation: No Fractures: No - *Social History Smoking Status: Current every day smoker Tobacco Type: cigarettes # Packs/Day (cigarettes): 1 #Yrs smoked (if former smoker): 20 Alcohol Intake: never Alcohol Intake Frequency:: other Substance Use Type: denies use *Occupational Status:: retired Housing: house Household Members: other *Travel in the last 8 weeks: None - Psychiatric History Pschychiatric History:: Reports:: Anxiety, Depression Family Hx:: Unable to obtain Review of Systems - Review of Systems ROS General: no recent weight change, no fever, no sleep disturbances Respiratory: no cough, n
== END ==
PROVIDERS: PCP Emergency Medicine; Visit Provider Clinical Nurse Specialist Family Health
DX: M54.2 Cervicalgia (principal); M47.812 Spondylosis without myelopathy or radiculopathy, cervical region
CPT/HCPCS: 99202

== ENCOUNTER 2020-03-13 15:00 | Outpatient (RCR) | payer MEDICARE, MEDICAID, SELFPAY ==
--- NOTE | 2020-01-12 14:17 | HMH.PTOPEV ---
PT Outpatient Evaluation Rehab PT Outpatient Evaluation Start: 01/12/20 13:55 Freq: Status: Active Protocol: Document 01/12/20 13:55 WAQAS (Rec: 01/12/20 14:17 WAQAS [id number]) Electronically Signed By Phi Sin, PT 01/12/20 13:55 Outpatient Therapy Subjective History Subjective History Patient is a 59 year old female presenting to outpatient PT with reports L sided cervical spine, shoulder and elbow pain of insidious onset starting approximately 1 year ago. Most recent imaging indicates degenerative changes to CS, shoulder and elbow. Elbow symptoms consistent with lateral epicondylitis. Pt reports intermittent NT to L hand C7/8 dermatome. Comorbidities include hx of L radial head fracture ORIF, CV stent x 3, CHF, HL, HTN, diabetes and COPD. Chief Complaint Pain,Stiff,Paresthesia, Weakness Symptom Type Ache,Throb,Sharp,Dull,Numbness ,Tingling Symptoms Relieved By Rest/Positioning Symptoms Aggravated By Physical Activity,Lifting Prior Functional Limitations None Current Functional Limitations Reaching,Lifting,Housework, Driving,Sleeping,Recreation Activity Symptom Description Constant but Variable Level of pain today (0-10) 5 Pain scale - at its best (0-10) 4 Pain scale - at its worst (0-10) 9 Cervical Eval Palpation Cervical Muscles L Cervical Paraspinal,L Suboccipital,L CT Junction,L Upper Trapezius,L Thoracic Paraspinals Cervical/Thoracic Palpation Findings Tenderness Posture Head/C-Spine Posture Sitting Position C-Spine Flattened Head/C-Spine Posture Standing Position C-Spine Flattened Flexibility Deficits Upper Trapezius Muscle Length (L) Moderate Tightness Levaetor Scapulae Muscle Length (L) Moderate Tightness Scalene Group Muscle Length (L) Moderate Tightness Pectoralis Minor Muscle Length (L) Moderate Tightness Passive Joint Mobility Cervical PIVM Dec: R OA L OA R AA L AA R C2/3
--- NOTE | 2020-02-15 11:32 | HMH.RHREAS ---
Rehab Reassessment Rehab OP Re-assessment Start: 02/15/20 11:21 Freq: Status: Active Protocol: Document 02/15/20 11:22 WAQAS (Rec: 02/15/20 11:32 WAQAS [id number]) Electronically Signed By Phi Sin, PT 02/15/20 11:22 Rehab Re-assessment Subjective Subjective Pt reports 40% improvement since start of care. 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 Assessment Progress Assessment Progressing as Expected Assessment Notes Pt tolerating progression well . She has been seen for 6 visits to date. She continues to have difficulty with any gripping/lifting activities resulting in functional limitations with all household and ADL activities. Cervical and shoulder AROM has improved as noted above. Slight improvements in LUE MMT . PT suggested to continue with PT combined with injections per MD orders. Patient goals met STG 2 Goals Not Met All others Revised Goals NA Plan Plan Continue with POC Frequency of Therapy 2x/week Duration of therapy 4 weeks Time and Billing Re-Eval Time 15 Re-Eval Billing Units 1 PHYSICIAN CERTIFICATION: I certify the specified therapy services for Elda Ernst are required, authorized, and reviewed every 30 days.
== END 2020-03-13 15:05 | disposition home or self-care (01) ==
LOC: PT 15:00
PROVIDERS: PCP Emergency Medicine; Visit Provider Orthopaedic Surgery
DX: M47.812 Spondylosis without myelopathy or radiculopathy, cervical region (principal); M77.12 Lateral epicondylitis, left elbow; M19.012 Primary osteoarthritis, left shoulder
CPT/HCPCS: 97010; 97014; 97033; 97035; 97110; 97140; 97163; 97164; G0283

== ENCOUNTER → 2020-03-15 08:42 | Outpatient (CLI) | payer MEDICARE, MEDICAID, SELFPAY ==
--- NOTE | 2020-03-15 08:48 | MR_ITS ---
PROCEDURE: MR CERVICAL SPINE WO CON CLINICAL INDICATION: NECK PAIN Pt c/o left sided neck and arm pain with numbness and tingling x 1 year. No known trauma or injury prior c-spine xray 01/02/2020 COMPARISON: CR XR CERVICAL SPINE 3V from 01/02/2020 TECHNIQUE: Standard multiplanar multiecho sequences are performed without contrast. 3-D MIP and myelographic images are also rendered and reviewed FINDINGS: There is normal alignment. The craniocervical junction has an unremarkable appearance. The disc spaces are well preserved. No disc herniation significant protrusion or significant bulge is evident. No canal stenosis or foraminal stenosis. There may be a small annular fissure at the C5 see cyst disc posteriorly. IMPRESSION: Possible small annular fissure at C5-C6 otherwise negative MRI of the cervical spine. Dictated by: Lyndon Dean MD 03/16/2020 11:46 Lyndon Dean MD in [place] 03/16/2020 11:46
== END ==
PROVIDERS: PCP Emergency Medicine; Visit Provider Clinical Nurse Specialist Family Health
DX: M54.2 Cervicalgia (principal)
CPT/HCPCS: 72141; 76376

== ENCOUNTER → 2020-03-22 11:11 | Outpatient (POV) | payer MEDICARE, MEDICAID, SELFPAY ==
[2020-03-22 11:24] VITALS: BP 132/77; PULSE 87; RESP 17; TEMP 36.4; O2SAT 97; BMI 32.8
--- NOTE | 2020-03-22 11:56 | HMH.PAINSOAP ---
[facility] Pain Management SOAP Note Subjective:: Is a 59-year-old white female who presents today for follow-up after an MRI of her neck. Patient does have chronic neck pain with radiation into her shoulder and left arm. Patient says that her pain is an 8 out of 10. Says she suffered a crush injury to her left elbow and is being treated with Dr. Ramos for elbow pain. She says that she does get a day of relief with the injection into her elbow. Patient says that her pain in her neck is primarily radiating from her shoulder into her neck. She says that she has difficulty raising her left arm. She is saying, however, her pain today is worse in her low back area patient has recently been moving into a new house and says that she feels she has pulled something in her right low back area. She has tenderness noted over her right SI joint. She also has a positive Olive, James's, distraction test. Patient says that the pain is nonradiating, but it is worse with standing and walking and does improve with sitting. She has had imaging of her lumbar spine which was unremarkable. Patient says imaging of her cervical spine is also fairly unremarkable. Patient would like to proceed with injective therapy into her low back area and then proceed to injections in her neck and shoulder area. She does rate her pain a 8 out of 10 to her low back and a 5 out of 10 to her neck today. Review of Systems General: No recent weight changes, no fever, no sleep disturbances Respiratory: No cough, no shortness of air, no recurring pulmonary infections Cardiovascular/peripheral vascular: No chest pain, no palpitations, no edema, no shortness of breath Gastrointestinal: No new onset incontinence, normal bowel movements reported Genitourinary: No new onset incontinence Musculoskeletal: Left shoulder pain, left neck pain, left bicep pain right low back pain Psychiatric: Normal mood/affect Neurological: [Denies weakness in extremities], [denies balance issues] Objective:: Physical exam General: Alert and oriented x3, no acute distress, pleasant and cooperative, [on room air] Lungs: Respirations even and unlabored, symmetrical chest expansion Eyes: PERRL Musculoskeletal: Flexion and extension of cervical and lumbar spine somewhat guarded secondary to pain, deep tendon reflexes normal, strength in upper and lower extremities [5/5], [abnormal gait noted] positive [place]'s test, positive James's test, positive distraction test Neurological: Speech clear, medical consultant equal, no gross sensory deficit Assessment:: Left shoulder pain, myofascial pain, sacroiliitis?right, low back pain Plan:: We will plan for a right SI joint injection for the patient. She does have a positive Olive, James's, distraction test. She is also having tenderness over her right SI joint. Patient says that most of her pain is primarily in her left shoulder. She is having difficulty raising her left arm. She also seems to be having some myofascial pain in her left upper trapezius and cervical paraspinous muscles. We will proceed with the right SI joint injection first and follow-up with her for her low back pain. We will then start with injections of a left intra-articular injection in her left shoulder and trigger point injections into her left upper trapezius and cervical paraspinous muscles. We will see her back in the clinic after right SI joint injection to reassess her symptoms. The patient has been instructed to contact the clinic if she has any concerns before her next appointment. The patient and I specifically discussed risk factors for COVID19. These risks include, but are not limited to age greater than 60, heart or lung disease, diabetes, immunosuppression, and travel. We also discussed NSAIDs may worsen COVID19 infection or symptoms. Patient should not use NSAIDs to treat COVID19 signs or symptoms. Patient was also informed that any type of corticosteroid of any form (oral
== END ==
PROVIDERS: PCP Emergency Medicine; Visit Provider Clinical Nurse Specialist Family Health
DX: M25.512 Pain in left shoulder (principal); M79.18 Myalgia, other site; M46.1 Sacroiliitis, not elsewhere classified; M54.5 Low back pain
CPT/HCPCS: 99212

== ENCOUNTER → 2020-03-23 09:57 | Day surgery (SDC) | payer MEDICARE, MEDICAID, SELFPAY ==
[2020-03-23 10:32] VITALS: BP 145/85; BP 149/81; PULSE 63; RESP 17; TEMP 36.3; O2SAT 98; BMI 32.8
[2020-03-23 11:16] VITALS: BP 125/88; PULSE 74; RESP 18; O2SAT 99
[2020-03-23 11:20] VITALS: BP 125/87; PULSE 85; RESP 18; O2SAT 98
--- NOTE | 2020-03-23 11:25 | HMH.PMPROC ---
- Procedure Date: 03/23/20 Time: 11:25 Anesthesiologist:: Federico Hinkle MD Complications:: None Pre-procedure Diagnosis:: Sacroiliitis Post-procedure Diagnosis:: Same Indications for Procedure:: This patient is a pleasant 59-year-old white female who we are treating for right-sided hip pain. She is tender over her right SI joint. We have also treated her for neck pain and low back pain. She has positive James's test on right side. She is positive Olive test on right side. She is positive SI joint compression test on the right side. We will do a right SI joint junction today under fluoroscopy to help her with her pain symptoms. Procedure Details:: Right SI joint injection under fluoroscopy Informed consent was obtained and the risks and benefits of the procedure was going to the patient. Patient was taken to the procedure room. Patient was placed prone on the procedure table. The right hip was prepped using ChloraPrep. The skin and subcutaneous tissues were anesthetized using lidocaine. I placed a 22-gauge spinal needle into the inferior aspect of the right SI joint. Needle placement was confirmed with dye. After this we injected 5 mL bupivacaine 0.25% and Depo-Medrol 40 mg into the right SI joint. The patient tolerated the procedure well with no complication. Plan and Disposition:: We will follow-up with her in 2 weeks. Will reevaluate her symptoms at that time.
== END ==
PROVIDERS: PCP Emergency Medicine; Visit Provider Anesthesiology
DX: M46.1 Sacroiliitis, not elsewhere classified (principal); M54.5 Low back pain; M54.2 Cervicalgia; Z72.0 Tobacco use; I50.9 Heart failure, unspecified; I25.10 Atherosclerotic heart disease of native coronary artery without angina pectoris; I11.0 Hypertensive heart disease with heart failure; E78.5 Hyperlipidemia, unspecified; G47.33 Obstructive sleep apnea (adult) (pediatric); F41.9 Anxiety disorder, unspecified; F32.9 Major depressive disorder, single episode, unspecified; Z95.818 Presence of other cardiac implants and grafts
CPT/HCPCS: 27096; G0260; J1040; Q9966

== ENCOUNTER → 2020-03-29 09:44 | Outpatient (CLI) | payer MEDICARE, MEDICAID, SELFPAY ==
[2020-03-29 10:08] LABS: Basophils # 0.1 K/mm3 (0-0.2); Basophils % 0.8 % (0.1-2.0); Eosinophils # 0.6 K/mm3 (0.0-0.4); Eosinophils % 6.7 % (0.1-12.0); Hematocrit 34.4 % (37.0-47.0); Hemoglobin 11.9 g/dL (12.2-16.2); Lymphocytes # 2.9 K/mm3 (0.7-4.5); Lymphocytes % 33.8 % (10-50); Mean Corpuscular HGB Conc 34.6 g/dL (31.8-35.4); Mean Corpuscular Volume 92.5 fl (81-99); Mean Platelet Volume 7.9 fl (7.4-10.4); Monocytes # 0.5 K/mm3 (0.1-1.0); Monocytes % 5.8 % (1.7-9.3); Neutrophils # 4.5 K/mm3 (1.8-7.8); Neutrophils % 52.8 % (37.0-80.0); Platelet Count 337 K/mm3 (142-424); Red Blood Count 3.71 M/mm3 (4.20-5.40); Red Cell Distribution Width 14.6 % (11.5-17.5); White Blood Count 8.6 K/mm3 (4.8-10.8)
[2020-03-29 10:26] LABS: Chloride 95 mmol/L (98-107); Potassium 5.1 mmoL/L (3.5-5.1); Sodium 140 mmol/L (136-145)
[2020-03-29 10:29] LABS: Alanine Aminotransferase 43 U/L (12-78); Albumin Level 3.9 g/dl (3.5-5.0); Albumin/Globulin Ratio 1.7 (1.1-1.8); Alkaline Phosphatase 72 U/L (38-126); Anion Gap 10.1 mEq/L (5-15); Aspartate Amino Transferase 42 U/L (14-36); Bilirubin,Total 0.2 mg/dl (0.2-1.3); Blood Urea Nitrogen 19 mg/dl (7-17); Calcium 9.6 mg/dl (8.4-10.2); Estimated Glomerular Filt Rate 51 ml/min (>60); GFR (African American) 62 ML/MIN (>60); Globulin 2.3 g/dL (1.3-3.2); Glucose 124 mg/dl (74-100); Total Protein,Serum 6.2 g/dl (6.3-8.2)
[2020-03-29 11:18] LABS: Carbon Dioxide 40 mmol/L (22.0-30.0)
== END ==
PROVIDERS: Visit Provider Specialist
DX: D64.9 Anemia, unspecified (principal); R25.1 Tremor, unspecified; R73.09 Other abnormal glucose; Z51.81 Encounter for therapeutic drug level monitoring; Z72.0 Tobacco use
CPT/HCPCS: 36415; 80053; 85025

== ENCOUNTER → 2020-04-16 10:00 | Outpatient (POV) | payer MEDICARE, MEDICAID, SELFPAY ==
[2020-04-16 11:00] VITALS: BP 140/72; PULSE 74; RESP 18; O2SAT 97; BMI 31.9
--- NOTE | 2020-04-16 11:27 | HMH.PAINSOAP ---
[facility] Pain Management SOAP Note Subjective:: Patient is a 59-year-old white female who presents today for follow-up after right SI joint injection. Patient says that she did not get any relief after the injection. She rates her pain a 6 out of 10 today. Patient says her pain is primarily in her right low back area with radiation into her right lateral thigh area and right knee. She says that the pain is worse with standing and walking and improves with leaning forward. She says that she also have some tingling noted to her right lateral thigh area. Review of Systems General: No recent weight changes, no fever, no sleep disturbances Respiratory: No cough, no shortness of air, no recurring pulmonary infections Cardiovascular/peripheral vascular: No chest pain, no palpitations, no edema, no shortness of breath Gastrointestinal: No new onset incontinence, normal bowel movements reported Genitourinary: No new onset incontinence Musculoskeletal: Right low back pain, right lateral thigh pain, right knee pain Psychiatric: Normal mood/affect Neurological: [Denies weakness in extremities], [denies balance issues] Objective:: Physical exam General: Alert and oriented x3, no acute distress, pleasant and cooperative, [on room air] Lungs: Respirations even and unlabored, symmetrical chest expansion Eyes: PERRL Musculoskeletal: Flexion and extension of lumbar spine somewhat guarded secondary to pain, deep tendon reflexes normal, strength in upper and lower extremities [5/5], [abnormal gait noted] Neurological: Speech clear, beauty specialist equal, no gross sensory deficit Assessment:: Low back pain with lumbar radiculopathy symptoms Plan:: We will schedule the patient for a lumbar epidural steroid injection at L4-L5. She is not on any anticoagulation therapy. We will plan to see her back in the clinic afterwards to reassess her symptoms. She did not get any relief from her right SI joint injection. Patient has been instructed to contact clinic if she has any concerns for next appointment. The patient and I specifically discussed risk factors for COVID19. These risks include, but are not limited to age greater than 60, heart or lung disease, diabetes, immunosuppression, and travel. We also discussed NSAIDs may worsen COVID19 infection or symptoms. Patient should not use NSAIDs to treat COVID19 signs or symptoms. Patient was also informed that any type of corticosteroid of any form (oral or injection) will decrease the patient's immune system response and may increase the likelihood of COVID19 infection and symptoms[address] Dr. Hinkle has reviewed this note and agrees with this plan of care. This note was dictated using voice recognition software and make contain errors or omissions. [facility] History I have reviewed the patient's past medical history: Yes Medical History: Reports:: Anxiety, Congestive Heart Failure, Chronic Obstructive Pulmonary Disease (COPD), Coronary Artery Disease, Depression, Diabetes Mellitus Type 2, Home Oxygen, Hyperlipidemia, Hypertension, Internal Pacemaker, Myocardial Infarction, Renal Disease Denies:: Cancer, Diabetes Mellitus Type 1, MRSA, Seizures *Have you ever received a pneumonia vaccine?: Yes *Have you received a flu vaccine this season?: Yes Other Medical History: Reports: Arthritis, Hypothyroidism, Thyroid Disease. Denies: Blood Transfusion Reaction Laterality Cases: Left: Other Other Surgeries: Yes: No Previous Surgery, Angioplasty, Cardiac Catheterization, Colonoscopy, Coronary Stent, , Dilation and Curettage, EGD, Hysterectomy-Total, Pacemaker Amputation: No Fractures: No - *Social History Smoking Status: Current every day smoker Tobacco Type: cigarettes # Packs/Day (cigarettes): 1 #Yrs smoked (if former smoker): 20 Alcohol Intake: never Alcohol Intake Frequency:: other Substance Use Type: denies use *Occupational Status:: other Housing: house Household Members: significant other *Travel in the last
== END ==
PROVIDERS: PCP Emergency Medicine; Visit Provider Clinical Nurse Specialist Family Health
DX: M54.5 Low back pain (principal); M54.16 Radiculopathy, lumbar region
CPT/HCPCS: 99212

== ENCOUNTER → 2020-04-17 16:01 | Outpatient (CLI) | payer MEDICARE, MEDICAID, SELFPAY ==
--- NOTE | 2020-04-17 16:01 | MR_ITS ---
PROCEDURE: MR SHOULDER LT WO CON CLINICAL INDICATION: shoulder pain LT SHOULDER PAIN, LIMITED ROM, ARTHRITIS. SYMPTOMS X1 YEAR. PREVIOUS XRAY 12-29-19 COMPARISON: CR XR SHOULDER LT MIN 2V from 12/29/2019 TECHNIQUE: Routine multiplanar multi echo sequences are performed without gadolinium enhancement. FINDINGS: There is thickening of the supraspinatus tendon distally with increase T2 signal consistent with tendinopathy/tendinosis. The infraspinatus tendon, teres minor tendon, and subscapularis tendons have an unremarkable appearance. No evidence of labral tear. There is a small amount fluid in the bicipital tendon sheath consistent with tendinitis. There is also small amount fluid posterior and inferior to the glenohumeral joint suggesting bursitis. Osteoarthritic changes are present involving the glenohumeral joint. The AC joint has an unremarkable appearance. IMPRESSION: 1. Tendinopathy/tendinosis of the supraspinatus tendon 2. Osteoarthritic change with small fluid collection along the inferior and posterior aspect of the shoulder joint suggesting bursitis. 3. Fluid in the bicipital tendon sheath suggesting tendonitis. Dictated by: Lyndon Dean MD 04/22/2020 09:04 Lyndon Dean MD in [place] 04/22/2020 09:04
== END ==
PROVIDERS: PCP Emergency Medicine; Visit Provider Orthopaedic Surgery
DX: M25.512 Pain in left shoulder (principal)
CPT/HCPCS: 73221

== ENCOUNTER 2020-04-27 12:50 | Day surgery (SDC) | payer MEDICARE, MEDICAID, SELFPAY ==
[2020-04-27 13:21] VITALS: BP 139/77; PULSE 62; RESP 18; TEMP 36.7; O2SAT 98; BMI 31.9
--- NOTE | 2020-04-27 13:32 | HMH.PMPROC ---
- Procedure Date: 04/27/20 Time: 13:47 Anesthesiologist:: Federico Hinkle MD Complications:: None Pre-procedure Diagnosis:: Degenerative disc disease of lumbar spine with lumbar radiculopathy symptoms Post-procedure Diagnosis:: Same Indications for Procedure:: This patient is a pleasant 59-year-old white female who we have been treating for low back pain and right-sided hip pain. She did have a right SI joint injection which did not give her any relief. She presents for lumbar epidural steroid injection today to see if this helps with her pain symptoms. Procedure Details:: Lumbar epidural steroid injection under fluoroscopy Informed consent was obtained and the risk and benefits of the procedure was explained to the patient. The patient was taken to the procedure room. The patient was placed prone on the procedure table. The patient was prepped and draped in sterile fashion. C-arm fluoroscopy was used to view the lumbar spine. Skin and subcutaneous tissues were anesthetized using lidocaine. I placed an 18-gauge epidural needle and advanced into the L4-L5 interspace using fluoroscopic guidance and [id number] to air. After confirmation of needle placement in the epidural space with dye I injected 2 mL of lidocaine 1.5% with Depo-Medrol 80 mg. Patient tolerated the procedure well with no complications. Plan and Disposition:: We will follow-up with her in 2 weeks. Will reevaluate her symptoms at that time.
[2020-04-27 13:39] VITALS: BP 122/78; PULSE 85; RESP 18; O2SAT 98
[2020-04-27 13:41] VITALS: BP 135/88; PULSE 85; RESP 18; O2SAT 98
[2020-04-27 13:54] VITALS: BP 130/76; PULSE 68; RESP 20; O2SAT 98
== END 2020-04-27 13:56 | disposition home or self-care (01) ==
LOC: SC.PAINP 12:52
PROVIDERS: PCP Emergency Medicine; Visit Provider Anesthesiology
DX: M51.16 Intervertebral disc disorders with radiculopathy, lumbar region (principal); I11.0 Hypertensive heart disease with heart failure; I50.9 Heart failure, unspecified; F41.9 Anxiety disorder, unspecified; Z88.0 Allergy status to penicillin; Z72.0 Tobacco use; E78.5 Hyperlipidemia, unspecified; I25.10 Atherosclerotic heart disease of native coronary artery without angina pectoris; J44.9 Chronic obstructive pulmonary disease, unspecified; E07.9 Disorder of thyroid, unspecified; F32.9 Major depressive disorder, single episode, unspecified; N28.9 Disorder of kidney and ureter, unspecified
CPT/HCPCS: 62323; J1040; Q9966

== ENCOUNTER 2020-05-03 13:43 | Outpatient (RCR) | payer MEDICARE, MEDICAID, SELFPAY ==
--- NOTE | 2020-05-03 15:25 | HMH.PTOPEV ---
PT Outpatient Evaluation Rehab PT Outpatient Evaluation Start: 05/03/20 14:06 Freq: Status: Active Protocol: Document 05/03/20 14:57 PHOCLIFTON (Rec: 05/03/20 15:25 PHORNE [id number]) Electronically Signed By Yusef Lozano, PT 05/03/20 14:57 Outpatient Therapy Subjective History Subjective History Pt is 59 yowf who presents with c/o pain in the L shld and L elbow x ~ 1 yr with insidious onset of symptoms. She reports recent steroid injection in the L shld helped significantly. She reports her elbow is much worse than her shld now. She reports no numbness or tingling in the L UE. Sh had shld MRI which shows supraspinatus tendinitis , bursitis, and LHB tendinits. She has PMH of peripheral neuropathy, chronic LBP, anxiety, CHF, CAD, COPD oxygen dependent, depression, HTN, [place], CKD. Chief Complaint Pain Symptom Type Ache,Throb Symptoms Relieved By Rest/Positioning Symptoms Aggravated By Physical Activity Prior Functional Limitations Reaching,Lifting Current Functional Limitations Reaching,Lifting Level of pain today (0-10) 4 Pain scale - at its worst (0-10) 9 Shoulder/Elbow Eval Shoulder Objective Measurements Palpation Tenderness tenderness shoulder exam standard left tenderness over the bicipital tendon left shoulder exam standard tenderness over the SA bursa shoulder left exam standard Shoulder Palpation Findings Tenderness Posture Shoulder Posture Sitting Position (L) Rounded,(R) Rounded,(L) Forward,(R) Forward Flexibilty Deficits Upper Trapezius Muscle Length (L) Moderate Tightness Shoulder ROM Left Shoulder Abduction Active Range of 0-110 Motion (degrees) Shoulder Abduction Passive Range of 0-125 Motion (degrees) Shoulder Flexion Active Range of Motion 0-120 (degrees) Query Text: Shoulder Flexion Passive Range of Motion 0-160 (degrees) Shoulder External Rotation Active Range 0-60 of Motion (degrees) Shoulder External Rotation Passive Range 0-80 of Motion (degrees) Shoulder Internal Rotation Active Range 0-80 of Motion (degrees) Shoulder Internal Rotation Passive Range 0-90 of Motion (degrees) Shoulder MMT Anterio
== END 2020-05-03 15:00 | disposition home or self-care (01) ==
LOC: PT 13:43
PROVIDERS: PCP Emergency Medicine; Visit Provider Orthopaedic Surgery
DX: M25.512 Pain in left shoulder (principal); M77.12 Lateral epicondylitis, left elbow
CPT/HCPCS: 97010; 97014; 97035; 97110; 97163; G0283

== ENCOUNTER 2020-05-10 15:50 | Emergency (ER) | payer MEDICARE, MEDICAID, SELFPAY ==
[2020-05-10 15:58] VITALS: BP 120/75; PULSE 89; RESP 16; TEMP 36.8; O2SAT 98; BMI 31.7
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
[2020-05-10 16:33] VITALS: BP 116/73; PULSE 76; O2SAT 95
[2020-05-10 16:40] VITALS: BP 122/74; PULSE 78; RESP 16; TEMP 36.6; O2SAT 98
== END 2020-05-10 16:41 | disposition home or self-care (01) ==
PROVIDERS: Emergency Provider Emergency Medicine; PCP Emergency Medicine
DX: T22.211A Burn of second degree of right forearm, initial encounter (principal); T22.212A Burn of second degree of left forearm, initial encounter; T21.22XA Burn of second degree of abdominal wall, initial encounter; T20.26XA Burn of second degree of forehead and cheek, initial encounter; T31.0 Burns involving less than 10% of body surface; X10.2XXA Contact with fats and cooking oils, initial encounter; Y92.010 Kitchen of single-family (private) house as the place of occurrence of the external cause; F41.8 Other specified anxiety disorders; E78.5 Hyperlipidemia, unspecified; E03.9 Hypothyroidism, unspecified; J44.9 Chronic obstructive pulmonary disease, unspecified; I10 Essential (primary) hypertension; I25.10 Atherosclerotic heart disease of native coronary artery without angina pectoris; I25.2 Old myocardial infarction; Z95.0 Presence of cardiac pacemaker; F17.210 Nicotine dependence, cigarettes, uncomplicated; Z88.0 Allergy status to penicillin
CPT/HCPCS: 99282

== ENCOUNTER → 2020-05-24 14:22 | Outpatient (POV) | payer MEDICARE, MEDICAID, SELFPAY ==
[2020-05-24 14:30] VITALS: BP 134/82; PULSE 82; RESP 18; TEMP 36.4; O2SAT 99; BMI 31.7
--- NOTE | 2020-05-27 13:35 | HMH.PAINSOAP ---
[facility] Pain Management SOAP Note Subjective:: Patient is a pleasant 59-year-old white female who presents today for follow-up after a lumbar epidural steroid injection. This was her first injection she has had 100% relief of her symptomology. She rates her pain a 0 out of 10 in her low back. She would like to start focusing on her neck. Patient rates her neck pain at 3 out of 10 it is radicular in nature and she has times of numbness and tingling in bilateral arms and hands. Patient would like to move forward with injective therapy for her neck pain. Patient has had this pain for over 6 months she is tried and failed medication management along with heat and ice. ROS General: no recent weight change, no fever, no sleep disturbances Respiratory: no cough, no shortness of air, no recurring pulmonary infections Cardiovascular/Peripheral Vascular: No chest pain, No palpitations, no edema, no shortness of breath. Gastrointestinal: no new onset incontinence, normal bowel movements reported Genitourinary: no new onset incontinence Musculoskeletal: Neck pain, arm pain Psychiatric: normal mood/ affect Neurological: [denies new onset weakness in extremities], [denies new onset balance issues] Objective:: Physical Exam General: Alert and oriented x3, no acute distress, pleasant and cooperative, [on room air] Lungs: Resps E/U, Symmetrical chest expansion, Eyes: PERRL Musculoskeletal: Flexion and extension of cervical spine somewhat guarded secondary to pain, deep tendon reflexes normal, strength in upper and lower extremities [5/5], normal gait noted Neurological: speech clear, svp of digital equal, no gross sensory deficits Assessment:: Degenerative disc disease lumbar spine lumbar radiculopathy symptoms, degenerative disc disease cervical spine cervical radiculopathy symptoms Plan:: We will set her up for a C5-C6 cervical epidural steroid injection. Given the efficacy of the injections in the past and her symptomology I do believe she would benefit from this she has failed over 6 months of medication management by her primary care physician. I will follow-up with her after her injection reassess her symptoms at that time she has been instructed to call the office if she has any issues prior to her next appointment. She is not on any anticoagulation therapy. Dr. Hinkle has reviewed this note and agrees with this plan of care. This note was dictated using voice recognition software and may contain errors or omissions [facility] History I have reviewed the patient's past medical history: Yes Medical History: Reports:: Anxiety, Congestive Heart Failure, Chronic Obstructive Pulmonary Disease (COPD), Coronary Artery Disease, Depression, Home Oxygen, Hyperlipidemia, Hypertension, Internal Pacemaker, Myocardial Infarction, Renal Disease Denies:: Cancer, Diabetes Mellitus Type 1, Diabetes Mellitus Type 2, MRSA, Seizures *Have you ever received a pneumonia vaccine?: Yes *Have you received a flu vaccine this season?: Yes Other Medical History: Reports: Arthritis, Hypothyroidism, Thyroid Disease. Denies: Blood Transfusion Reaction Laterality Cases: Left: Other Other Surgeries: Yes: No Previous Surgery, Angioplasty, Cardiac Catheterization, Colonoscopy, Coronary Stent, , Dilation and Curettage, EGD, Hysterectomy-Total, Pacemaker Amputation: No Fractures: No - *Social History Smoking Status: Current every day smoker Tobacco Type: cigarettes # Packs/Day (cigarettes): 1 #Yrs smoked (if former smoker): 20 Alcohol Intake: never Alcohol Intake Frequency:: other Substance Use Type: denies use *Occupational Status:: other Housing: house Household Members: significant other *Travel in the last 8 weeks: None - Psychiatric History Pschychiatric History:: Reports:: Anxiety, Depression Family Hx:: Unable to obtain
== END ==
PROVIDERS: PCP Emergency Medicine; Visit Provider Clinical Nurse Specialist Family Health
DX: M51.16 Intervertebral disc disorders with radiculopathy, lumbar region (principal); M50.10 Cervical disc disorder with radiculopathy, unspecified cervical region
CPT/HCPCS: 99212

== ENCOUNTER → 2020-05-28 13:36 | Outpatient (POV) | payer MEDICARE, MEDICAID, SELFPAY | PROVIDERS: Visit Provider Nurse Practitioner Family | DX: Z00.00 Encounter for general adult medical examination without abnormal findings (principal) ==

== ENCOUNTER 2020-06-01 09:05 | Day surgery (SDC) | payer MEDICARE, MEDICAID, SELFPAY ==
[2020-06-01 09:22] VITALS: BP 116/66; PULSE 83; RESP 18; TEMP 36.3; O2SAT 97; BMI 32.4
[2020-06-01 09:40] VITALS: BP 142/78; PULSE 74; RESP 18
[2020-06-01 09:44] VITALS: BP 146/79; PULSE 89; RESP 18; O2SAT 98
[2020-06-01 09:59] VITALS: BP 121/66; PULSE 74; RESP 18; O2SAT 97
--- NOTE | 2020-06-01 11:01 | HMH.PMPROC ---
- Procedure Date: 06/01/20 Time: 11:01 Anesthesiologist:: Federico Hinkle MD Complications:: None Pre-procedure Diagnosis:: Degenerative disc disease of lumbar spine with lumbar radiculopathy symptoms and degenerative disc disease of cervical spine with cervical radiculopathy symptoms Post-procedure Diagnosis:: Same Indications for Procedure:: This patient is a pleasant 59-year-old white female who we have been treating for neck pain low back pain. She did have a lumbar epidural steroid injection which helped her tremendously. She is 100% relief of her symptomology. Now she has increasing neck pain with cervical radicular symptoms. We will do a cervical epidural steroid injection today to see if this helps with her pain symptoms. Procedure Details:: Cervical epidural steroid injection under fluoroscopy Informed consent was obtained and the risks and benefits of the procedure was explained to the patient. The patient was taken to the procedure room placed prone on the procedure table. The neck was prepped using ChloraPrep. The skin and subcutaneous tissues were anesthetized using lidocaine. I placed a 18-gauge epidural needle into the C5-C6 interspace and advanced using [id number] to air and fluoroscopic guidance. After confirmation of needle placement in the epidural space with dye, I injected 3 mL's lidocaine 1.5% and Depo-Medrol 80 mg. The patient tolerated the procedure well with no complications. Plan and Disposition:: We will follow-up with her in 2 weeks. Will reevaluate her symptoms at that time.
== END 2020-06-01 10:00 | disposition home or self-care (01) ==
LOC: SC.PAINP 09:06
PROVIDERS: PCP Emergency Medicine; Visit Provider Anesthesiology
DX: M51.16 Intervertebral disc disorders with radiculopathy, lumbar region (principal); M50.10 Cervical disc disorder with radiculopathy, unspecified cervical region; I25.10 Atherosclerotic heart disease of native coronary artery without angina pectoris; I10 Essential (primary) hypertension; J44.9 Chronic obstructive pulmonary disease, unspecified; I50.9 Heart failure, unspecified; Z72.0 Tobacco use; E78.5 Hyperlipidemia, unspecified; I42.9 Cardiomyopathy, unspecified; Z95.818 Presence of other cardiac implants and grafts; K21.9 Gastro-esophageal reflux disease without esophagitis; F41.9 Anxiety disorder, unspecified
CPT/HCPCS: 62321; J1040; Q9966

== ENCOUNTER → 2020-06-25 10:04 | Outpatient (POV) | payer MEDICARE, MEDICAID, SELFPAY ==
[2020-06-25 10:33] VITALS: BP 133/78; PULSE 71; RESP 18; TEMP 36.8; O2SAT 95; BMI 31.9
--- NOTE | 2020-06-25 10:43 | HMH.PAINSOAP ---
[facility] Pain Management SOAP Note Subjective:: Patient is a pleasant 59-year-old white female who presents today for follow-up after cervical epidural steroid injection. She is also had a lumbar epidural injection in the past they both helped tremendously she is 90% better. She rates her pain a 3 out of 10. She like to follow-up on an as-needed basis. ROS General: no recent weight change, no fever, no sleep disturbances Respiratory: no cough, no shortness of air, no recurring pulmonary infections Cardiovascular/Peripheral Vascular: No chest pain, No palpitations, no edema, no shortness of breath. Gastrointestinal: no new onset incontinence, normal bowel movements reported Genitourinary: no new onset incontinence Musculoskeletal: Back pain at times, neck pain at times Psychiatric: normal mood/ affect Neurological: [denies new onset weakness in extremities], [denies new onset balance issues] Objective:: Physical Exam General: Alert and oriented x3, no acute distress, pleasant and cooperative, on home O2 Lungs: Resps E/U, Symmetrical chest expansion, Eyes: PERRL Musculoskeletal: Flexion and extension of cervical and lumbar spine somewhat guarded secondary to pain, deep tendon reflexes normal, strength in upper and lower extremities [5/5], slightly antalgic gait noted Neurological: speech clear, eight arm operator equal, no gross sensory deficits Assessment:: Degenerative disc disease lumbar spine lumbar radiculopathy symptoms, degenerative disc disease cervical spine with cervical radiculopathy symptoms Plan:: We will follow up with the patient in 2 weeks reassess her symptoms at that time she has been instructed to call the office if she has any issues prior to her next appointment. Dr. Hinkle has reviewed this note and agrees with this plan of care. This note was dictated using voice recognition software and may contain errors or omissions [facility] History I have reviewed the patient's past medical history: Yes Medical History: Reports:: Anxiety, Cardiomyopathy, Congestive Heart Failure, Chronic Obstructive Pulmonary Disease (COPD), Coronary Artery Disease, Depression, Home Oxygen, Hyperlipidemia, Hypertension, Internal Pacemaker, Myocardial Infarction, Renal Disease Denies:: Cancer, Diabetes Mellitus Type 1, Diabetes Mellitus Type 2, MRSA, Seizures *Have you ever received a pneumonia vaccine?: Yes *Have you received a flu vaccine this season?: Yes Other Medical History: Reports: Arthritis, Hypothyroidism, Thyroid Disease. Denies: Blood Transfusion Reaction Laterality Cases: Left: Other Other Surgeries: Yes: No Previous Surgery, Angioplasty, Cardiac Catheterization, Colonoscopy, Coronary Stent, , Dilation and Curettage, EGD, Hysterectomy-Total, Pacemaker Amputation: No Fractures: No - *Social History Smoking Status: Current every day smoker Tobacco Type: cigarettes # Packs/Day (cigarettes): 1 #Yrs smoked (if former smoker): 20 Alcohol Intake: never Alcohol Intake Frequency:: other Substance Use Type: denies use *Occupational Status:: other Housing: house Household Members: spouse *Travel in the last 8 weeks: None - Psychiatric History Pschychiatric History:: Reports:: Anxiety, Depression Family Hx:: Unable to obtain
== END ==
PROVIDERS: PCP Emergency Medicine; Visit Provider Clinical Nurse Specialist Family Health
DX: M51.16 Intervertebral disc disorders with radiculopathy, lumbar region (principal); M50.10 Cervical disc disorder with radiculopathy, unspecified cervical region
CPT/HCPCS: 99212

== ENCOUNTER → 2020-07-27 07:30 | Outpatient (CLI) | payer MEDICARE, MEDICAID, SELFPAY ==
--- NOTE | 2020-07-27 | CA_ITS ---
APPROVED REPORT Exam: Pharmacologic Technologist: Malaika Cerna, Ht: 5 ft 4 in Wt: 191 lbs BSA: 1.92 m2 HR: 63 bpm BP: 96/54 mmHg Rhythm: NSR Indications: Chest pain Stress Test Details Test: LEXISCAN Reason for pharmacologic stress test: physical limitation. HR Resting HR: 62 bpm Max Heart Rate (APMHR): 161 bpm Max HR Achieved: 87 bpm Target HR (85% APMHR): 136 bpm % of APMHR: 54 Recovery HR: 81 bpm BP Resting BP: 96/54 mmHg Max BP: 96/54 mmHg Recovery BP: 99.0/52.0 mmHg ECG Clinical Reason for Termination: Completed Protocol, Completed protocol Exercise duration: 04:03 min Highest Stage Achieved: Stress ECG Conclusion No chest pain. Rare PVC. less than 1.5mm ST segment changes. Non- Diagnostic. Electronically signed by : Adam Farah, 07/27/2020 13:08:29
--- NOTE | 2020-07-27 07:39 | NM_ITS ---
APPROVED REPORT Exam: Nuclear Stress Test Indication: CAD, H/O UT, HTN, D.M., HYPERLIPIDEMIA, TOB USE, FM HX, C.P., SOB, FATIGUE Patient Location: Outpatient Stress Tech: Malaika Cerna [place] Tech:Nicole Singh, ARRT RT(R)(N) Ht: 5 ft 4 in Wt: 191 lbs Bra Size: 36B HR: 63 bpm BP: 96/54 mmHg BSA: 1.92 m2 BMI: 32.7 History: CAD, H/O UT, HTN, D.M., HYPERLIPIDEMIA, TOB USE, FM HX, C.P., SOB, FATIGUE Procedure: Patient received a 0.4 mg of intravenous Lexiscan, resting heart rate 63 bpm, resting blood pressure 96/54 mmHg, with Lexiscan maximum heart rate achived was 85 bpm which is Less than 85 % of the maximum predicted heart rate and blood pressure was 95/52 mmHg. Electrocardiogram Resting electrocardiogram showed sinus rhythm, septal infarct age indeterminate with Lexiscan less than 1.[address] segment depression noted from the baseline EKG. The EKG portion of the Lexiscan is nondiagnostic. Cardiac Stress and Resting SPECT Images: Cardiac Stress and Resting SPECT images were obtained using technetium 99m Myoview 32.0 mCi stress and 9.90 mCi at rest. Gated SPECT for analysis of segmental wall motion and calculation of the ejection fraction is also done. Prone images were also obtained. Cardiac stress and resting SPECT images show moderate sized area of fixed defect involving the anterior apical, apical and anteroseptal wall consistent of area of myocardial scarring without significant angely-infarct ischemia, computer derived ejection fraction is 49% with moderate anterior apical apical and anteroseptal wall hypokinesis. Right ventricle is mildly enlarged with normal contractility. Conclusion: 1. The EKG portion of the Lexiscan is nondiagnostic. 2. Scintigraphic evidence of myocardial scarring involving a moderate sized area of anterior apical, apical and anteroseptal wall without significant angely-infarct ischemia. Computer derived ejection fraction is 49% with segmental wall motion abnormality described above, right ventricle is mildly enlarged with normal contractility. 3. Abnormal Lexiscan Myoview study. Electronically signed by : Adam Farah, 07/27/2020 13:12:52
== END ==
PROVIDERS: PCP Emergency Medicine; Visit Provider Internal Medicine Cardiovascular Disease
DX: E78.5 Hyperlipidemia, unspecified (principal); F17.200 Nicotine dependence, unspecified, uncomplicated; G47.33 Obstructive sleep apnea (adult) (pediatric); I42.9 Cardiomyopathy, unspecified; I50.9 Heart failure, unspecified; R06.00 Dyspnea, unspecified; I20.8 Other forms of angina pectoris; I11.0 Hypertensive heart disease with heart failure
CPT/HCPCS: 78452; 93017; A9502; J2785

== ENCOUNTER → 2020-08-04 09:43 | Outpatient (CLI) | payer MEDICARE, MEDICAID, SELFPAY ==
[2020-08-04 10:03] LABS: Basophils # 0.1 K/mm3 (0-0.2); Basophils % 0.7 % (0.1-2.0); Eosinophils # 0.5 K/mm3 (0.0-0.4); Eosinophils % 3.8 % (0.1-12.0); Hematocrit 38.4 % (37.0-47.0); Hemoglobin 12.1 g/dL (12.2-16.2); Lymphocytes # 2.4 K/mm3 (0.7-4.5); Lymphocytes % 20.1 % (10-50); Mean Corpuscular HGB Conc 31.5 g/dL (31.8-35.4); Mean Corpuscular Hemoglobin 31.2 pg (27.0-31.2); Mean Platelet Volume 7.8 fl (7.4-10.4); Monocytes # 0.5 K/mm3 (0.1-1.0); Neutrophils # 8.4 K/mm3 (1.8-7.8); Neutrophils % 71.3 % (37.0-80.0); Platelet Count 341 K/mm3 (142-424); Red Blood Count 3.88 M/mm3 (4.20-5.40); Red Cell Distribution Width 13.7 % (11.5-17.5); White Blood Count 11.8 K/mm3 (4.8-10.8)
[2020-08-04 10:42] LABS: Chloride 94 mmol/L (98-107); Potassium 4.4 mmoL/L (3.5-5.1); Sodium 136 mmol/L (136-145)
[2020-08-04 10:45] LABS: Blood Urea Nitrogen 21 mg/dl (7-17); Estimated Glomerular Filt Rate 31 ml/min (>60); GFR (African American) 37 ML/MIN (>60)
[2020-08-04 10:46] LABS: Anion Gap 8.4 mEq/L (5-15); Calcium 9.3 mg/dl (8.4-10.2); Carbon Dioxide 38 mmol/L (22.0-30.0); Glucose 160 mg/dl (74-100)
[2020-08-04 11:04] LABS: Coronavirus 19 IgG Antibody Negative (Negative); Coronavirus 19 IgM Antibody Negative (Negative)
== END ==
PROVIDERS: Visit Provider Internal Medicine Cardiovascular Disease
DX: Z01.810 Encounter for preprocedural cardiovascular examination (principal); Z20.822 Contact with and (suspected) exposure to COVID-19; R94.39 Abnormal result of other cardiovascular function study
CPT/HCPCS: 36415; 80048; 85025; 86328

== ENCOUNTER 2020-08-06 08:40 | Day surgery (SDC) | payer MEDICARE, MEDICAID, SELFPAY ==
[2020-08-06] VITALS (11 sets, daily range): BP systolic 93–107; BP diastolic 53–58; PULSE 73–81; RESP 12–17; TEMP 36.8; O2SAT 90–97; BMI 33.5
--- NOTE | 2020-08-06 07:16 | IR_ITS ---
APPROVED REPORT Patient Location: Outpatient PROCEDURES Left heart catheterization Left ventriculogram Selective coronary angiogram Bilateral selective renal angiogram Bare-metal stent deployment to the mid right renal artery INDICATION Coronary disease, Angina pectoris, Chronic renal failure creatinine 1.7, Renovascular hypertension multiple medications with persistent poorly controlled hypertension, Right renal artery fibromuscular dysplasia Informed consent was obtained prior to the procedure. COMPLICATIONS NONE Estimated Blood Loss: LESS THAN 10 ML TECHNIQUE One percent lidocaine was used to anesthetize the right groin. The right femoral artery was accessed via the Seldinger technique. A 4-Cymro sheath was placed in the right femoral artery. The JL-4 and JR-4 catheter was also used to perform left heart catheterization left ventriculogram and selective coronary angiogram. The JR4 catheter was used to intubate each renal artery and perform angiography. At the end of the diagnostic angiogram therapeutic heparin was administered and the 4 Cymro sheath was exchanged for a 7 Cymro sheath. Short ESPOSITO guide catheter was placed in the right renal artery and a BMW wire was placed distally. A 6 mm x 18 mm Herculink stent was deployed at 16 telma reducing the severe fibromuscular dysplastic lesion to 0%. Excellent angiographic results were obtained. At the end of the procedure the apparatus was removed the groin was reprepped gloves were changed sheath was removed and hemostasis achieved using Perclose device patient was transferred to the postop holding area stable condition ANGIOGRAPHIC RESULTS The left main artery Normal The left anterior descending artery Has a stent in the proximal segment which extends in the mid segment which is widely patent free of in-stent restenosis with excellent proximal distal transitioning The circumflex artery Is a large codominant vessel with proximal 20 to 30% stenosis mid vessel 20 to 30% stenoses The right coronary artery Is a codominant vessel with mild proximal 10% stenoses The OLIVER ventriculogram reveals Normal 65% The left ventricular end-diastolic pressure 20 mmHg Left renal artery singular normal Right renal artery has a mid vessel classic cobblestoning fibromuscular dysplastic lesion IMPRESSION Coronary disease as described above Normal ejection fraction Elevated LVEDP consistent with diastolic dysfunction Right renal artery fibromuscular dysplasia accompanied by renovascular hypertension with elevated creatinine Successful bare-metal stenting of the fibromuscular dysplastic lesion reducing the stenosis to 0% PLAN 1. Dual antiplatelet therapy for 1 month because of the renal artery stent and adjust accordingly to the coronary artery disease 2. LDL less than 55 3. Cardiac rehabilitation 4. Avoidance of tobacco products 5. Aggressive risk factor modification 6. Modify order to decrease blood pressure medications if possible following renal artery stenting Electronically signed by : Dwight Emmanuel, 08/07/2020 15:35:57
[2020-08-06 12:49] LABS: CATHL Activated Clotting Time 211 SEC (74-125)
--- NOTE | 2020-08-06 15:04 | HMH.PHACLD ---
Elda Ernst has received discharge medication counseling on the following medications: NEW MEDICATIONS: PLAVIX CONTINUED MEDICATIONS: BISOPROLOL, ATORVASTATIN, ASPIRIN, LISINOPRIL
== END 2020-08-06 15:09 | disposition home or self-care (01) ==
LOC: CATHLAB 08:41
PROVIDERS: PCP Emergency Medicine; Visit Provider Internal Medicine
DX: E11.22 Type 2 diabetes mellitus with diabetic chronic kidney disease (principal); E78.2 Mixed hyperlipidemia; Z72.0 Tobacco use; G47.33 Obstructive sleep apnea (adult) (pediatric); I13.0 Hypertensive heart and chronic kidney disease with heart failure and stage 1 through stage 4 chronic kidney disease, or unspecified chronic kidney disease; I25.118 Atherosclerotic heart disease of native coronary artery with other forms of angina pectoris; I77.3 Arterial fibromuscular dysplasia; I42.9 Cardiomyopathy, unspecified; I50.9 Heart failure, unspecified; J44.9 Chronic obstructive pulmonary disease, unspecified; R06.02 Shortness of breath; I77.1 Stricture of artery; R94.39 Abnormal result of other cardiovascular function study; N18.9 Chronic kidney disease, unspecified; E03.9 Hypothyroidism, unspecified; Z88.0 Allergy status to penicillin; Z88.8 Allergy status to other drugs, medicaments and biological substances; Z79.01 Long term (current) use of anticoagulants; Z79.51 Long term (current) use of inhaled steroids; Z79.82 Long term (current) use of aspirin; Z79.899 Other long term (current) drug therapy; Z99.81 Dependence on supplemental oxygen; Z79.84 Long term (current) use of oral hypoglycemic drugs
CPT/HCPCS: 37236; 85347; 93458; 99152; 99153; C1725; C1760; C1769; C1876; C1894; J1644; Q9967

== ENCOUNTER → 2020-08-15 08:50 | Outpatient (CLI) | payer MEDICARE, MEDICAID, SELFPAY ==
[2020-08-16 13:18] LABS: Coronavirus 19 IgG Antibody Negative (Negative); Coronavirus 19 IgM Antibody Negative (Negative)
[2020-08-16 13:25] LABS: Anion Gap 12.9 mEq/L (5-15); Blood Urea Nitrogen 51 mg/dl (7-17); Carbon Dioxide 38 mmol/L (22.0-30.0); Chloride 92 mmol/L (98-107); Potassium 5.9 mmoL/L (3.5-5.1); Sodium 137 mmol/L (136-145)
[2020-08-16 13:26] LABS: Estimated Glomerular Filt Rate 12 ml/min (>60); GFR (African American) 15 ML/MIN (>60); Glucose 119 mg/dl (74-100)
[2020-08-16 13:34] LABS: Alanine Aminotransferase 23 U/L (12-78); Albumin Level 4.6 g/dl (3.5-5.0); Albumin/Globulin Ratio 1.6 (1.1-1.8); Alkaline Phosphatase 59 U/L (38-126); Aspartate Amino Transferase 31 U/L (14-36); Bilirubin,Total 0.3 mg/dl (0.2-1.3); Chol/HDL Ratio 5.8 (1-3.5); Cholesterol 269 mg/dl (140-200); Globulin 2.9 g/dL (1.3-3.2); HDL Cholesterol 46 mg/dl (40-60); Total Protein,Serum 7.5 g/dl (6.3-8.2)
[2020-08-16 13:36] LABS: Triglycerides 402 mg/dl (30-150)
[2020-08-16 13:45] LABS: Direct LDL Cholesterol 121.92 mg/dL (100-129)
[2020-08-16 13:51] LABS: Free T4 (Free Thyroxine) 1.21 ng/dl (0.78-2.19)
[2020-08-16 13:53] LABS: 25-OH Vitamin D, Total 54.1 ng/mL (30-100)
[2020-08-16 14:07] LABS: Thyroid Stimulating Hormone 7.85 uIU/mL (0.465-4.68)
[2020-08-16 14:22] LABS: Hematocrit 42.1 % (37.0-47.0); Hemoglobin 13.2 g/dL (12.2-16.2); Mean Corpuscular HGB Conc 31.3 g/dL (31.8-35.4); Mean Corpuscular Hemoglobin 31.5 pg (27.0-31.2); Mean Corpuscular Volume 100.4 fl (81-99); Red Blood Count 4.19 M/mm3 (4.20-5.40); White Blood Count 13.4 K/mm3 (4.8-10.8)
[2020-08-16 14:23] LABS: Basophils % 1.5 % (0.1-2.0); Eosinophils % 3.7 % (0.1-12.0); Lymphocytes # 3.2 K/mm3 (0.7-4.5); Lymphocytes % 24.1 % (10-50); Mean Platelet Volume 8.5 fl (7.4-10.4); Monocytes # 0.7 K/mm3 (0.1-1.0); Monocytes % 5.5 % (1.7-9.3); Neutrophils # 8.7 K/mm3 (1.8-7.8); Neutrophils % 65.1 % (37.0-80.0); Platelet Count 393 K/mm3 (142-424); Red Cell Distribution Width 14.6 % (11.5-17.5)
[2020-08-16 14:24] LABS: Basophils # 0.2 K/mm3 (0-0.2); Eosinophils # 0.5 K/mm3 (0.0-0.4)
== END ==
PROVIDERS: Emergency Medicine; Internal Medicine Cardiovascular Disease; Visit Provider Internal Medicine Medical Oncology
DX: R06.02 Shortness of breath; I20.8 Other forms of angina pectoris; R94.39 Abnormal result of other cardiovascular function study; E11.9 Type 2 diabetes mellitus without complications; E78.2 Mixed hyperlipidemia; I42.9 Cardiomyopathy, unspecified; I50.9 Heart failure, unspecified; F17.200 Nicotine dependence, unspecified, uncomplicated; J44.9 Chronic obstructive pulmonary disease, unspecified; E55.9 Vitamin D deficiency, unspecified; G47.33 Obstructive sleep apnea (adult) (pediatric); I11.0 Hypertensive heart disease with heart failure
CPT/HCPCS: 36415; 80048; 80053; 80061; 82306; 83036; 84439; 84443; 85025; 86328

== ENCOUNTER → 2020-08-17 10:03 | Outpatient (CLI) | payer MEDICARE, MEDICAID, SELFPAY ==
[2020-08-17 11:02] LABS: Alanine Aminotransferase 30 U/L (12-78); Albumin Level 4.5 g/dl (3.5-5.0); Alkaline Phosphatase 57 U/L (38-126); Anion Gap 9.9 mEq/L (5-15); Aspartate Amino Transferase 46 U/L (14-36); Bilirubin,Direct 0.3 mg/dl (0.0-0.4); Bilirubin,Total 0.3 mg/dl (0.2-1.3); Blood Urea Nitrogen 30 mg/dl (7-17); Carbon Dioxide 36 mmol/L (22.0-30.0); Chloride 99 mmol/L (98-107); Estimated Glomerular Filt Rate 27 ml/min (>60); GFR (African American) 33 ML/MIN (>60); Glucose 150 mg/dl (74-100); Potassium 4.9 mmoL/L (3.5-5.1); Sodium 140 mmol/L (136-145); Total Protein,Serum 7.2 g/dl (6.3-8.2)
== END ==
PROVIDERS: Visit Provider Internal Medicine Cardiovascular Disease
DX: E11.9 Type 2 diabetes mellitus without complications (principal); E78.2 Mixed hyperlipidemia; F17.200 Nicotine dependence, unspecified, uncomplicated; G47.33 Obstructive sleep apnea (adult) (pediatric); I20.8 Other forms of angina pectoris; I42.9 Cardiomyopathy, unspecified; I50.9 Heart failure, unspecified; J44.9 Chronic obstructive pulmonary disease, unspecified; R06.02 Shortness of breath; R94.39 Abnormal result of other cardiovascular function study; I11.0 Hypertensive heart disease with heart failure
CPT/HCPCS: 36415; 80048; 80076

== ENCOUNTER → 2020-08-20 11:55 | Outpatient (CLI) | payer MEDICARE, MEDICAID, SELFPAY ==
[2020-08-20 12:57] LABS: Chloride 101 mmol/L (98-107); Potassium 4.7 mmoL/L (3.5-5.1); Sodium 139 mmol/L (136-145)
[2020-08-20 13:00] LABS: Blood Urea Nitrogen 12 mg/dl (7-17); Estimated Glomerular Filt Rate 36 ml/min (>60); GFR (African American) 43 ML/MIN (>60)
[2020-08-20 13:01] LABS: Anion Gap 6.7 mEq/L (5-15); Calcium 9.3 mg/dl (8.4-10.2); Carbon Dioxide 36 mmol/L (22.0-30.0); Glucose 128 mg/dl (74-100)
== END ==
PROVIDERS: Internal Medicine; Visit Provider Internal Medicine Cardiovascular Disease
DX: I10 Essential (primary) hypertension (principal); I25.10 Atherosclerotic heart disease of native coronary artery without angina pectoris; R06.00 Dyspnea, unspecified
CPT/HCPCS: 36415; 80048

== ENCOUNTER → 2020-08-27 09:48 | Outpatient (POV) | payer MEDICARE, MEDICAID, SELFPAY ==
[2020-08-27 10:02] VITALS: BP 125/74; PULSE 85; RESP 18; TEMP 36.8; O2SAT 98; BMI 32.8
--- NOTE | 2020-08-27 10:19 | HMH.PAINSOAP ---
[facility] Pain Management SOAP Note Subjective:: Patient is a pleasant 59-year-old white female who presents today for follow-up. Patient had a cervical epidural steroid injection and lumbar epidural steroid injection and this is helped her tremendously she rates her pain a 0 out of 10 and would like to follow-up on an as-needed basis. She recently had a stent placed and was started on Plavix. ROS General: no recent weight change, no fever, no sleep disturbances Respiratory: no cough, no shortness of air, no recurring pulmonary infections Cardiovascular/Peripheral Vascular: No chest pain, No palpitations, no edema, no shortness of breath. Gastrointestinal: no new onset incontinence, normal bowel movements reported Genitourinary: no new onset incontinence Musculoskeletal: Back pain at times Psychiatric: normal mood/ affect Neurological: [denies new onset weakness in extremities], [denies new onset balance issues] Objective:: Physical Exam General: Alert and oriented x3, no acute distress, pleasant and cooperative, on O2 Lungs: Resps E/U, Symmetrical chest expansion, Eyes: PERRL Musculoskeletal: Flexion and extension of lumbar spine somewhat guarded secondary to pain, deep tendon reflexes normal, strength in upper and lower extremities [5/5], [abnormal gait noted] Neurological: speech clear, 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 Dr. Hinkle has reviewed this note and agrees with this plan of care. This note was dictated using voice recognition software and may contain errors or omissions [facility] History I have reviewed the patient's past medical history: Yes Medical History: Reports:: Anxiety, Cardiomyopathy, Congestive Heart Failure, Chronic Obstructive Pulmonary Disease (COPD), Coronary Artery Disease, Depression, Home Oxygen, Hyperlipidemia, Hypertension, Internal Pacemaker, Myocardial Infarction, Renal Disease Denies:: Cancer, Diabetes Mellitus Type 1, Diabetes Mellitus Type 2, MRSA, Seizures *Have you ever received a pneumonia vaccine?: Yes *Have you received a flu vaccine this season?: Yes Other Medical History: Reports: Arthritis, Hypothyroidism, Thyroid Disease. Denies: Blood Transfusion Reaction Laterality Cases: Left: Other Other Surgeries: Yes: No Previous Surgery, Angioplasty, Cardiac Catheterization, Colonoscopy, Coronary Stent, , Dilation and Curettage, EGD, Hysterectomy-Total, Pacemaker Amputation: No Fractures: No - *Social History Smoking Status: Current every day smoker Tobacco Type: cigarettes # Packs/Day (cigarettes): 1 #Yrs smoked (if former smoker): 20 Alcohol Intake: never Alcohol Intake Frequency:: other Substance Use Type: denies use *Occupational Status:: other Housing: house Household Members: spouse *Travel in the last 8 weeks: None - Psychiatric History Pschychiatric History:: Reports:: Anxiety, Depression Family Hx:: Unable to obtain
== END ==
PROVIDERS: PCP Emergency Medicine; Visit Provider Clinical Nurse Specialist Family Health
DX: M51.16 Intervertebral disc disorders with radiculopathy, lumbar region (principal); M50.10 Cervical disc disorder with radiculopathy, unspecified cervical region
CPT/HCPCS: 99212; G0463

== ENCOUNTER → 2020-08-30 08:31 | Outpatient (CLI) | payer MEDICARE, MEDICAID, SELFPAY ==
[2020-08-30 09:00] LABS: Chloride 100 mmol/L (98-107); Potassium 4.1 mmoL/L (3.5-5.1); Sodium 140 mmol/L (136-145)
[2020-08-30 09:03] LABS: Anion Gap 5.1 mEq/L (5-15); Blood Urea Nitrogen 13 mg/dl (7-17); Calcium 9.3 mg/dl (8.4-10.2); Carbon Dioxide 39 mmol/L (22.0-30.0); Estimated Glomerular Filt Rate 38 ml/min (>60); GFR (African American) 47 ML/MIN (>60); Glucose 132 mg/dl (74-100)
== END ==
PROVIDERS: Visit Provider Internal Medicine Cardiovascular Disease
DX: I25.10 Atherosclerotic heart disease of native coronary artery without angina pectoris; I50.22 Chronic systolic (congestive) heart failure; I50.9 Heart failure, unspecified; E78.5 Hyperlipidemia, unspecified; N17.0 Acute kidney failure with tubular necrosis
CPT/HCPCS: 80048

== ENCOUNTER 2020-09-05 12:38 | Emergency (ER) | payer MEDICARE, MEDICAID, SELFPAY ==
[2020-09-05 12:54] VITALS: BP 156/86; PULSE 88; RESP 16; TEMP 36.6; O2SAT 95; BMI 35.2
--- NOTE | 2020-09-05 13:12 | HMH.EDUTC ---
[facility] Disposition Clinical Impression: Subconjunctival hemorrhage Qualifiers: Laterality: left Qualified Code(s): H11.32 - Conjunctival hemorrhage, left eye Disposition: Home, Self-Care Condition on Discharge: Good Instructions: DI for Subconjunctival Hemorrhage Additional Instructions: Monitor eye this should clear up in about a week Make sure to follow up with Dr Maria at [facility] if no improvement or any worsening of symptom Return if needed Follow up with your Family Doctor if needed Follow up with Cardiology if needed Referrals: Juan Pablo Shah MD [Primary Care Provider] - As needed [facility] [Other] Forms: Work/School Release Time of Disposition: 13:39 Medical Decision Making - Usnil Inquiry Pt receiving controlled substance: No Sunil was queried for this patient: No Vital Signs: 09/05/20 12:54 09/05/20 13:22 Temperature 98 F 98 F Temperature Source Oral Pulse Rate 83 Pulse Rate [Right] 88 Respiratory Rate 16 14 Blood Pressure 150/80 H Blood Pressure [Right Arm] 156/86 H Blood Pressure Mean [Right Arm] 109 Blood Pressure Source [Right Arm] Automatic Cuff Blood Pressure Position [Right Arm] Sitting 02 Sat by Pulse Oximetry 95 Oxygen Delivery Method Nasal Cannula Oxygen Flow Rate (LPM) 2 - Physician Consults Physician Consulted: Dr Maria Time: 13:42 Reason -: Opthalmology Eval/Care Comment/Response: Spoke with Dr Maria and described eye and events leading up too and he advised to watch the eye that it could take a week or so to reside if no vision changes or problems then monitor and if it gets worse or no improvement to follow up in the office [facility] HPI - General Stated complaint: Lt eye bloody-looking Time Seen by Provider: 09/05/20 13:13 Mode of Arrival: Ambulatory Source of Information: Patient Limitations: No Limitations Description of Symptoms (Recalled from Triage Doc. by RN): ON PTS SCLERA OF THE LEFT EYE IS BLOOD RED ALL AROUND THE IRIS. THE OUTER INSIDE OF THE EYE IS SWOLLEN, REDDISH PURLE, WARM AND PAINFUL. PT IS UNSURE WHAT HAPPENED AND DOESNT RECALL GETTING ANYTHING IN HER EYE. SHE DID STATE SHE HAD A REALLY BAD COUGH LAST WEEK. HEENT Symptoms (Recalled from RN notes): Yes (SCLERA OF L EYE IS BLOOD RED. OUTSIDE INNER PORTION OF EYE SWOLLEN) Resp Symptoms (Recalled from RN notes): No Skin Symptoms (Recalled from RN notes): No MS Symptoms (Recalled from RN notes): No Functional Status (Recalled from RN notes): NA - History of Present Illness Provider Complaint: Patient states that she was recently started on Plavix State that she had deep cough last week and after a coughing eppisode she noticed what looked like a busted blood vessel in her left eye that it started on Thursday with some mild brusing around her eye State that it hasnt got worse but has not improved Denies changes in vison denies pain denies sensititivity but states that her family was worried and wanted her to have it looked at - Related Data Home Medications Medication Instructions Recorded Confirmed albuterol sulfate 90 mcg/actuation 2 puff INHALATION Q6H 07/10/17 08/16/20 aerosol inhaler Aspirin [Low Dose Aspirin EC] 81 mg PO DAILY 06/15/18 08/16/20 sucralfate 1 gram tablet 1 g PO BID tab 09/19/19 08/16/20 buspirone 5 mg tablet 10 mg PO BID tab 03/27/20 08/16/20 Clopidogrel Bisulfate [Plavix 75mg 75 mg PO DAILY 08/06/20 08/16/20 Tab] cholecalciferol (vitamin D3) 125 125 mcg PO DAILY cap 08/16/20 08/16/20 mcg (5,000 unit) capsule famotidine 10 mg tablet 20 mg PO HS tab 08/16/20 08/16/20 Previous Rx's Medication Instructions Recorded diclofenac sodium 1 % topical gel 2 g TOPICAL QID #100 g 11/21/19 levothyroxine 25 mcg tablet 25 mcg PO DAILY #90 tab 03/13/20 ranolazine 500 mg tablet,extended 500 mg PO Q12H #180 tab 03/13/20 release,12 hr potassium chloride 20 mEq 20 meq PO BID #180 tab 03/23/20 tablet,extended release ezetimibe 10 mg tablet 10 mg PO D
[2020-09-05 13:22] VITALS: BP 150/80; PULSE 83; RESP 14; TEMP 36.6
== END 2020-09-05 13:45 | disposition home or self-care (01) ==
PROVIDERS: Emergency Provider Nurse Practitioner; PCP Emergency Medicine
DX: H11.32 Conjunctival hemorrhage, left eye (principal); I25.10 Atherosclerotic heart disease of native coronary artery without angina pectoris; I10 Essential (primary) hypertension; E78.5 Hyperlipidemia, unspecified; J44.9 Chronic obstructive pulmonary disease, unspecified; E03.9 Hypothyroidism, unspecified; F41.8 Other specified anxiety disorders; Z88.0 Allergy status to penicillin; F17.210 Nicotine dependence, cigarettes, uncomplicated; Z79.899 Other long term (current) drug therapy
CPT/HCPCS: G0463; 99202

== ENCOUNTER → 2020-09-07 07:57 | Outpatient (CLI) | payer MEDICARE, MEDICAID, SELFPAY ==
[2020-09-07 08:59] LABS: Chloride 99 mmol/L (98-107); Potassium 4.2 mmoL/L (3.5-5.1); Sodium 141 mmol/L (136-145)
[2020-09-07 09:02] LABS: Anion Gap 6.2 mEq/L (5-15); Blood Urea Nitrogen 16 mg/dl (7-17); Calcium 9.6 mg/dl (8.4-10.2); Estimated Glomerular Filt Rate 42 ml/min (>60); GFR (African American) 51 ML/MIN (>60); Glucose 159 mg/dl (74-100)
[2020-09-07 10:54] LABS: Carbon Dioxide 40 mmol/L (22.0-30.0)
== END ==
PROVIDERS: Visit Provider Internal Medicine Cardiovascular Disease
DX: E78.2 Mixed hyperlipidemia (principal); I25.118 Atherosclerotic heart disease of native coronary artery with other forms of angina pectoris; I50.22 Chronic systolic (congestive) heart failure; I50.9 Heart failure, unspecified; N17.0 Acute kidney failure with tubular necrosis; I11.0 Hypertensive heart disease with heart failure
CPT/HCPCS: 36415; 80048

== ENCOUNTER → 2020-10-10 10:54 | Outpatient (CLI) | payer MEDICARE, MEDICAID, SELFPAY ==
[2020-10-10 12:21] LABS: Alanine Aminotransferase 30 U/L (12-78); Albumin Level 4.3 g/dl (3.5-5.0); Alkaline Phosphatase 123 U/L (38-126); Anion Gap 10.6 mEq/L (5-15); Aspartate Amino Transferase 33 U/L (14-36); Bilirubin,Indirect 0.2 mg/dL (0.0-0.9); Bilirubin,Total 0.2 mg/dl (0.2-1.3); Bilirubin,Unconjugated 0.2 mg/dL (0.0-1.1); Blood Urea Nitrogen 17 mg/dl (7-17); Calcium 9.2 mg/dl (8.4-10.2); Carbon Dioxide 34 mmol/L (22.0-30.0); Chloride 97 mmol/L (98-107); Chol/HDL Ratio 4.3 (1-3.5); Cholesterol 198 mg/dl (140-200); Estimated Glomerular Filt Rate 46 ml/min (>60); GFR (African American) 55 ML/MIN (>60); Glucose 122 mg/dl (74-100); HDL Cholesterol 46 mg/dl (40-60); Potassium 4.6 mmoL/L (3.5-5.1); Sodium 137 mmol/L (136-145); Total Protein,Serum 6.7 g/dl (6.3-8.2)
[2020-10-10 12:23] LABS: Triglycerides 404 mg/dl (30-150)
[2020-10-10 12:32] LABS: Direct LDL Cholesterol 88.05 mg/dL (100-129)
== END ==
PROVIDERS: Visit Provider Internal Medicine Cardiovascular Disease
DX: E78.2 Mixed hyperlipidemia (principal); I25.118 Atherosclerotic heart disease of native coronary artery with other forms of angina pectoris; I50.22 Chronic systolic (congestive) heart failure; I50.9 Heart failure, unspecified; N17.0 Acute kidney failure with tubular necrosis; I11.0 Hypertensive heart disease with heart failure
CPT/HCPCS: 36415; 80048; 80061; 80076

== ENCOUNTER → 2020-12-14 12:41 | Outpatient (CLI) | payer MEDICARE, MEDICAID, SELFPAY | PROVIDERS: Visit Provider Internal Medicine Gastroenterology | DX: Z01.812 Encounter for preprocedural laboratory examination (principal); Z20.822 Contact with and (suspected) exposure to COVID-19; Z12.11 Encounter for screening for malignant neoplasm of colon | CPT/HCPCS: U0003 ==

== ENCOUNTER 2020-12-17 06:58 | Day surgery (SDC) | payer MEDICARE, MEDICAID, SELFPAY ==
[2020-12-11 14:29] VITALS: BMI 34.4
[2020-12-17 07:16] VITALS: BP 119/73; PULSE 82; RESP 18; TEMP 36.8; O2SAT 95
--- NOTE | 2020-12-17 08:16 | HMH.PROC ---
[facility] Procedure Note Procedure Note:: Colonoscopy Procedure Report: Colonoscopy with cold snare polypectomy Endoscopist: Reymundo Dubose II, MD Referring physician: Juan Pablo Luz/Adam Farah MD Date of Procedure: December 17, 2020 Equipment: Olympus 190 variable stiffness pediatric colonoscope Sedation: MAC sedation Indication: Mrs. Ernst is a 60-year-old female with dyspepsia. She did have an EGD with pa in January 2020 and did have bile reflux gastropathy. The patient had previously been seen by Dr. Jaqui Morales ([facility]). Her last colonoscopy was about 8 years ago. The patient does alternate between constipation and diarrhea. She reports some lower abdominal discomfort and bloating. She does take combined MiraLAX plus Konsyl. She reports no rectal bleeding, weight loss or family history of colon cancer. Procedure: Prior to the procedure, a history and physical exam was performed, and patient's medications and allergies were reviewed. The risks, benefits and alternatives of the sedation and procedure were discussed with the patient. All questions were answered and informed consent was obtained. The patient was brought to the procedure room. Patient identification and proposed procedure were verified by the physician and the nurse. The patient was placed in a left lateral decubitus position and the scope was passed under direct vision. Throughout the procedure, the patient's blood pressure, pulse, and oxygen saturations were monitored continuously. The colonoscopy was accomplished without difficulty. The patient tolerated the procedure well. Findings: On digital rectal examination there was normal rectal tone. There were no external hemorrhoids. The colonoscope was introduced through the anal canal to the rectum and advanced to the cecum. The ileocecal valve and appendiceal orifice were identified. The scope was advanced a short distance into the ileum which appeared grossly normal. The scope was then withdrawn into the colon. There were a total of 4 colon polyps (ascending x2 (3 and 4 mm) and transverse x2 (4 and 5 mm)) which were all removed via cold snare polypectomy. The remainder of the cecum, ascending and transverse colon were normal. There were a few mildly scattered diverticuli throughout the descending and sigmoid colon (LEFT colon). The rectum itself was normal. Upon retroflexion within the rectum there were grade 1-2 internal hemorrhoids. The preparation was excellent throughout with [place] Preparation Score of 9. The cecal time was 12 minutes. Impression: 1. Colonic polyps x4 2. Mild left-sided diverticulosis 3. Grade 1-2 internal hemorrhoids Plan: I will follow up the polyp pathology and recommend repeat colonoscopy again in 5 years based upon the polyp histology. I would encourage continuation of the fiber bowel regimen on a long-term daily maintenance basis.
--- NOTE | 2020-12-17 08:20 | HMH.ANESCL ---
[facility] Anesthesia Checklist - Patient Identification Patient Identification: Arm Band - Structural Data Admitted From: Home Planned Operative Procedure/s: Colonoscopy Consent for Planned Operative Procedure(s) Verified: Yes - NPO Status Verified Time NPO: 00:00 - Additional verifications Anesthesia Reactions: No Hx Blood Transfusions: No Blood Transfusion Reaction: No - Airway Assessment C-Spine Mobility Assessed: Yes TMJ Mobility Assessed: Yes Dentition: Dentures-good fit - Neurological Assessment Level of Consciousness: Awake Hx Seizures: No Numbness or tingling in extremities: No - Anesthesia Plan Anesthesia Risk discussed: Yes Anesthesia Plan: Verified ASA Class: III Anesthesia Type: MAC [facility] History I have reviewed the patient's past medical history: Yes Medical History: Reports:: Anxiety, Cardiomyopathy, Congestive Heart Failure, Chronic Obstructive Pulmonary Disease (COPD), Coronary Artery Disease, Depression, Home Oxygen, Hyperlipidemia, Hypertension, Internal Pacemaker, Myocardial Infarction, Renal Disease Denies:: Cancer, Diabetes Mellitus Type 1, Diabetes Mellitus Type 2, MRSA, Seizures *Have you ever received a pneumonia vaccine?: No *Have you received a flu vaccine this season?: Yes Other Medical History: Reports: Arthritis, Hypothyroidism, Thyroid Disease. Denies: Blood Transfusion Reaction Anesthesia experience/problems:: None Laterality Cases: Left: Other Other Surgeries: Yes: No Previous Surgery, Angioplasty, Cardiac Catheterization, Colonoscopy, Coronary Stent, , Dilation and Curettage, EGD, Hysterectomy-Total, Pacemaker Amputation: No Fractures: No - *Social History Smoking Status: Current every day smoker Tobacco Type: cigarettes # Packs/Day (cigarettes): 1 #Yrs smoked (if former smoker): 20 Alcohol Intake: never Alcohol Intake Frequency:: other Substance Use Type: denies use *Occupational Status:: unemployed Housing: house Household Members: spouse *Travel in the last 8 weeks: None - Psychiatric History Pschychiatric History:: Reports:: Anxiety, Depression Family Hx:: Unable to obtain
[2020-12-17 08:22] VITALS: O2SAT 97
[2020-12-17 08:39] VITALS: BP 82/57; PULSE 79; RESP 12; TEMP 36.3; O2SAT 93
[2020-12-17 08:49] VITALS: BP 110/66; PULSE 84; RESP 16; O2SAT 93
[2020-12-17 08:59] VITALS: BP 108/61; PULSE 83; RESP 16; O2SAT 93
[2020-12-17 09:09] VITALS: BP 129/79; PULSE 86; RESP 16; TEMP 36.3; O2SAT 93
== END 2020-12-17 09:11 | disposition home or self-care (01) ==
LOC: OUTP 07:00
PROVIDERS: PCP Emergency Medicine; Visit Provider Internal Medicine Gastroenterology
PROC: 0DJD8ZZ Inspection of Lower Intestinal Tract, Via Natural or Artificial Opening Endoscopic (ICD-10-PCS; CPT 45378; principal; 2020-12-17 08:30)
DX: Z87.19 Personal history of other diseases of the digestive system (principal); K63.5 Polyp of colon; K57.30 Diverticulosis of large intestine without perforation or abscess without bleeding; K64.0 First degree hemorrhoids; I25.10 Atherosclerotic heart disease of native coronary artery without angina pectoris; Z95.818 Presence of other cardiac implants and grafts; E03.9 Hypothyroidism, unspecified; D64.9 Anemia, unspecified; Z80.9 Family history of malignant neoplasm, unspecified; Z88.0 Allergy status to penicillin; J44.9 Chronic obstructive pulmonary disease, unspecified; E78.5 Hyperlipidemia, unspecified
CPT/HCPCS: 45385; 88305

== ENCOUNTER → 2021-01-10 13:10 | Outpatient (POV) | payer MEDICARE, MEDICAID, SELFPAY ==
[2021-01-10 13:26] VITALS: BP 144/75; PULSE 86; RESP 18; O2SAT 95; BMI 34.4
--- NOTE | 2021-01-10 13:36 | HMH.PAINSOAP ---
[facility] Pain Management SOAP Note Subjective:: Patient is a pleasant 59-year-old white female who presents today for follow-up. Patient was last seen in our clinic on 08/27/2020. At that time she was following up after cervical epidural steroid injection. She has reported to have gotten excellent relief with that injection until the last month. Patient is having worsening low back pain for which she has also had lumbar epidural steroid injections in our clinic and has gotten excellent relief with those injections as well. She reports to have gotten at least 90% relief with both injections for nearly 5 to 6 months. Her pain has returned. She has chronic neck pain with radiation into bilateral upper extremities, however, her low back pain is worse at this time. She says the pain is in the low back with occasional radiation into bilateral lower extremities and occasional tingling in her lower extremities. She does rate her pain a 7 out of 10 today. She is on Plavix prescribed by Dr. BARRETO. She has been approved in the past to hold her anticoagulation therapy for the injections. She would like to undergo a repeat lumbar epidural steroid injection at L4-L5 area. She will continue with home stretching. Review of Systems General: No recent weight changes, no fever, no sleep disturbances Respiratory: No cough, no shortness of air, no recurring pulmonary infections Cardiovascular/peripheral vascular: No chest pain, no palpitations, no edema, no shortness of breath Gastrointestinal: No new onset incontinence, normal bowel movements reported Genitourinary: No new onset incontinence Musculoskeletal: Neck and low back pain Psychiatric: Normal mood/affect Neurological: [Denies weakness in extremities], [denies balance issues] Objective:: Physical exam General: Alert and oriented x3, no acute distress, pleasant and cooperative, 2 L nasal cannula Lungs: Respirations even and unlabored, symmetrical chest expansion Eyes: PERRL Musculoskeletal: Flexion and extension of cervical and lumbar spine somewhat guarded secondary to pain, deep tendon reflexes normal, strength in upper and lower extremities [5/5], [abnormal gait noted] Neurological: Speech clear, communications representative equal, no gross sensory deficit Assessment:: Degenerative disc disease cervical spine with cervical radiculopathy symptoms, degenerative disc disease lumbar spine with lumbar radiculopathy symptoms Plan:: Patient has gotten excellent relief with her injections in the past up to 5 to 6 months of relief at 90%. We will schedule her for repeat lumbar epidural steroid injection at L4-L5. Following her injection to her lumbar spine we will then return to treatment for her cervical spine. She is having pain returned to both areas, however, her low back is worse at this time. She understands she will need to hold her Plavix before the procedure. She has been approved in the past to hold her Plavix. We will follow up with her after the injection for reevaluation of symptoms. Patient does use 2 to 3 L oxygen nasal cannula. Risks and benefits of the procedure have been explained to the patient. Patient would like to proceed with the procedure. Possible side effects of corticosteroids have been discussed with the patient. Patient has been instructed to contact the clinic with any concerns before the next appointment. Dr. Hinkle has reviewed this note and agrees with this plan of care. This note was dictated using voice recognition software and make contain errors or omissions. [facility] History I have reviewed the patient's past medical history: Yes Medical History: Reports:: Anxiety, Cardiomyopathy, Congestive Heart Failure, Chronic Obstructive Pulmonary Disease (COPD), Coronary Artery Disease, Depression, Home Oxygen, Hyperlipidemia, Hypertension, Internal Pacemaker, Myocardial Infarction, Renal Disease Denies:: Cancer, Diabetes Mellitus Type 1, Diabetes Mellitus Type 2, MRSA, Seizures *Have you ev
== END ==
PROVIDERS: PCP Emergency Medicine; Visit Provider Clinical Nurse Specialist Family Health
DX: M50.10 Cervical disc disorder with radiculopathy, unspecified cervical region (principal); M51.16 Intervertebral disc disorders with radiculopathy, lumbar region
CPT/HCPCS: 99212; G0463

== ENCOUNTER 2021-01-18 12:59 | Day surgery (SDC) | payer MEDICARE, MEDICAID, SELFPAY ==
[2021-01-18 13:03] VITALS: BP 175/91; PULSE 94; RESP 18; TEMP 36.6; O2SAT 98; BMI 34.4
[2021-01-18 13:53] VITALS: BP 149/83; PULSE 86; RESP 18; O2SAT 89
[2021-01-18 13:58] VITALS: BP 149/83; PULSE 84; RESP 18; O2SAT 89
--- NOTE | 2021-01-18 14:05 | HMH.PMPROC ---
- Procedure Date: 01/18/21 Time: 14:06 Anesthesiologist:: Hannah Romo MD Complications:: None Pre-procedure Diagnosis:: Degenerative disc disease of the lumbar spine, lumbar radiculopathy Post-procedure Diagnosis:: Same Indications for Procedure:: This patient is a very pleasant 60-year-old white female who presents today with chronic low back pain radiating to both legs. She tried and failed conservative treatment including oral pain medication and home stretching program for greater than 6 weeks. She has had undergone multiple lumbar epidural steroid injections in the past with significant pain relief. The plan for today is for the patient to undergo repeat lumbar epidural steroid injection at L4-L5. Procedure Details:: Informed consent was obtained and the risk and benefits of the procedure was explained to the patient. The patient was taken to the procedure room. The patient was placed prone on the procedure table. The patient was prepped and draped in sterile fashion. C-arm fluoroscopy was used to view the lumbar spine. Skin and subcutaneous tissues were anesthetized using 1% lidocaine. I placed an 18-gauge epidural needle and advanced into the L4-L5 interspace using fluoroscopic guidance and [id number] to air and saline. After confirmation of needle placement in the epidural space with dye I injected 1mL of lidocaine 1.0% with Depo-Medrol 80 mg. Patient tolerated the procedure well with no complications. Plan and Disposition:: We will follow-up with this patient in 2 weeks. Will reevaluate pain symptoms at that time.
[2021-01-18 14:12] VITALS: BP 151/93; PULSE 91; RESP 18; O2SAT 98
== END 2021-01-18 14:12 | disposition home or self-care (01) ==
LOC: SC.PAINP 13:01
PROVIDERS: PCP Emergency Medicine; Visit Provider Anesthesiology Pain Medicine
DX: M51.16 Intervertebral disc disorders with radiculopathy, lumbar region (principal); E07.9 Disorder of thyroid, unspecified; I25.2 Old myocardial infarction; I50.9 Heart failure, unspecified; I25.10 Atherosclerotic heart disease of native coronary artery without angina pectoris; E78.5 Hyperlipidemia, unspecified; I11.0 Hypertensive heart disease with heart failure; J44.9 Chronic obstructive pulmonary disease, unspecified; G47.33 Obstructive sleep apnea (adult) (pediatric); F41.9 Anxiety disorder, unspecified; F32.9 Major depressive disorder, single episode, unspecified; Z79.899 Other long term (current) drug therapy
CPT/HCPCS: 62323; Q9966

== ENCOUNTER → 2021-01-22 14:21 | Outpatient (CLI) | payer MEDICARE, MEDICAID, SELFPAY ==
--- NOTE | 2021-01-22 14:27 | XR_ITS ---
PROCEDURE: XR WRIST LT MIN 3V CLINICAL INDICATION: wrist pain COMPARISON: CR WRR3 WRIST-3 VIEWS-RT from 10/30/2014 CR WRR3 WRIST-3 VIEWS-RT from 11/17/2014 FINDINGS: There is a nondisplaced transverse fracture involving the distal radius 11 mm proximal to the articular surface. Distal ulna is unremarkable. Carpal bones have an unremarkable appearance. The joint spaces are well-preserved. No significant degenerative/arthritic changes. No erosive changes evident. There is minimal buckling of the cortex posteriorly and there is slight loss of the normal distal radial inclination Other findings:None. IMPRESSION: Nondisplaced transverse fracture distal radius Dictated by: Lyndon Dean MD 01/22/2021 14:57 Lyndon Dean MD in [place] 01/22/2021 14:57
== END ==
PROVIDERS: PCP Emergency Medicine; Visit Provider Emergency Medicine
DX: S69.92XA Unspecified injury of left wrist, hand and finger(s), initial encounter (principal)
CPT/HCPCS: 73110

== ENCOUNTER → 2021-01-29 14:48 | Outpatient (CLI) | payer MEDICARE, MEDICAID, SELFPAY ==
--- NOTE | 2021-01-29 14:50 | XR_ITS ---
PROCEDURE: XR WRIST LT MIN 3V CLINICAL INDICATION: left wrist fx, fu in cast COMPARISON: CR WRR3 WRIST-3 VIEWS-RT from 10/30/2014 CR WRR3 WRIST-3 VIEWS-RT from 11/17/2014 CR XR WRIST LT MIN 3V from 01/22/2021 FINDINGS: The presence of plastic cast limits evaluation. Healing fracture of the distal radius is noted. Satisfactory alignment. Radiocarpal alignment is unremarkable. Bone density is within normal limits. No significant soft tissue abnormality is noted. IMPRESSION: Healing fracture of the left distal radius. Dictated by: Ling Hood 01/29/2021 16:21 Ling Hood in [place] 01/29/2021 16:21
== END ==
PROVIDERS: PCP Emergency Medicine; Visit Provider Orthopaedic Surgery
DX: S69.92XA Unspecified injury of left wrist, hand and finger(s), initial encounter (principal)
CPT/HCPCS: 73110

== ENCOUNTER → 2021-02-14 14:09 | Outpatient (POV) | payer MEDICARE, MEDICAID, SELFPAY ==
--- NOTE | 2021-02-14 14:59 | HMH.PAINSOAP ---
[facility] Pain Management SOAP Note Subjective:: Patient is a pleasant 60-year-old white female that presents today for a follow-up. The patient had lumbar epidural steroid injection on January 18, 2021. She reports little to no relief with the injection. Her pain today is an 8 out of 10. The patient is continuing to have increasing discomfort across her low back radiating into her right leg. She describes the pain as a constant aching sensation. The pain is made worse with prolonged standing and walking. She had previous epidural injection in May 2020 that did provide relief in her symptoms. Patient has tried home exercises/stretches for greater than 6 weeks without any lasting relief in her symptoms. She is currently prescribed gabapentin which is not helping her discomfort. Review of Systems General: No recent weight changes, no fever, no sleep disturbances Respiratory: No cough, no shortness of air, no recurring pulmonary infections Cardiovascular/peripheral vascular: No chest pain, no palpitations, no edema, no shortness of breath Gastrointestinal: No new onset incontinence, normal bowel movements reported Genitourinary: No new onset incontinence Musculoskeletal: Low back pain Psychiatric: [Normal mood/affect] Neurological: [Denies weakness in extremities], [denies balance issues] Objective:: Physical exam General: Alert and oriented x3 no acute distress, pleasant and cooperative, [on room air] Lungs: Respirations even and unlabored, symmetrical chest expansion Eyes: PERRL Musculoskeletal: Flexion and extension of the lumbar spine nonguarded, deep tendon reflexes normal, strength in upper and lower extremities 5 out of 5 normal gait noted Neurological: Speech clear, 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 Dr. Hinkle has reviewed this note and agrees with this plan of care. This note was dictated using voice recognition software and make contain errors or omissions. [facility] History Medical History: Reports:: Anxiety, Cardiomyopathy, Congestive Heart Failure, Chronic Obstructive Pulmonary Disease (COPD), Coronary Artery Disease, Depression, Diabetes Mellitus Type 2, Home Oxygen, Hyperlipidemia, Hypertension, Internal Pacemaker, Myocardial Infarction, Renal Disease Denies:: Cancer, Diabetes Mellitus Type 1, MRSA, Seizures *Have you ever received a pneumonia vaccine?: Yes *Have you received a flu vaccine this season?: No Other Medical History: Reports: Arthritis, Hypothyroidism, Thyroid Disease. Denies: Blood Transfusion Reaction Laterality Cases: Left: Other Other Surgeries: Yes: No Previous Surgery, Angioplasty, Cardiac Catheterization, Colonoscopy, Coronary Stent, , Dilation and Curettage, EGD, Hysterectomy-Total, Pacemaker Amputation: No Fractures: No - *Social History Smoking Status: Current every day smoker Tobacco Type: cigarettes # Packs/Day (cigarettes): 1 #Yrs smoked (if former smoker): 20 Alcohol Intake: never Alcohol Intake Frequency:: other Substance Use Type: denies use *Occupational Status:: disabled Housing: house Household Members: spouse *Travel in the last 8 weeks: None - Psychiatric History Pschychiatric History:: Reports:: Anxiety, Depression Family Hx:: Unable to obtain
== END ==
PROVIDERS: PCP Emergency Medicine; Visit Provider Family Medicine
DX: M51.16 Intervertebral disc disorders with radiculopathy, lumbar region (principal)
CPT/HCPCS: 99212; G0463

== ENCOUNTER → 2021-02-19 10:02 | Outpatient (CLI) | payer MEDICARE, MEDICAID, SELFPAY ==
--- NOTE | 2021-02-19 | MR_ITS ---
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 3-D MIP and myelographic images are also rendered and reviewed FINDINGS: There is normal alignment. The spinal cord ends at the T12-L1 level. L1-L2: Small anterior osteophytes. L2-L3: Unremarkable. L3-L4: There is a small left paracentral and foraminal disc protrusion abutting the left L4 nerve root and causing left foraminal narrowing also impinging upon the exiting L3 nerve root. L4-5: Unremarkable. L5-S1: Mild bulging disc slightly eccentric toward the left abutting the left S1 nerve root. No extruded herniated disc are evident. IMPRESSION: 1. L3-L4: There is a small left paracentral and foraminal disc protrusion abutting the left L4 nerve root and causing left foraminal narrowing also impinging upon the exiting L3 nerve root. 2. L5-S1: Mild bulging disc slightly eccentric toward the left abutting the left S1 nerve root. 3. No extruded herniated disc are evident. Dictated by: Lyndon Dean MD 02/28/2021 08:15 Lyndon Dean MD in [place] 02/28/2021 08:15
--- NOTE | 2021-02-19 14:39 | XR_ITS ---
PROCEDURE: XR WRIST LT MIN 3V CLINICAL INDICATION: wrist fx COMPARISON: CR WRR3 WRIST-3 VIEWS-RT from 10/30/2014 CR WRR3 WRIST-3 VIEWS-RT from 11/17/2014 CR XR WRIST LT MIN 3V from 01/22/2021 CR XR WRIST LT MIN 3V from 01/29/2021 FINDINGS: Transverse nondisplaced distal radial fracture is once again noted. The cast has been removed. No other fractures are apparent. The joint spaces are well-preserved. No significant degenerative/arthritic changes. No erosive changes evident. Other findings:None. IMPRESSION: No change nondisplaced transverse fracture distal radius Dictated by: Lyndon Dean MD 02/19/2021 15:11 Lyndon Dean MD in [place] 02/19/2021 15:11
== END ==
PROVIDERS: PCP Emergency Medicine; Visit Provider Family Medicine
DX: S62.102A Fracture of unspecified carpal bone, left wrist, initial encounter for closed fracture (principal)
CPT/HCPCS: 72148; 73110; 76376

== ENCOUNTER 2021-02-19 15:46 | Outpatient (RCR) | payer MEDICARE, MEDICAID, SELFPAY | END 2021-02-19 16:20 | disposition home or self-care (01) | LOC: OT 15:46 | PROVIDERS: Visit Provider Orthopaedic Surgery | DX: S62.102A Fracture of unspecified carpal bone, left wrist, initial encounter for closed fracture (principal) | CPT/HCPCS: 97763 ==

== ENCOUNTER → 2021-02-28 11:24 | Outpatient (POV) | payer MEDICARE, MEDICAID, SELFPAY ==
[2021-02-28 11:33] VITALS: BP 149/78; PULSE 84; RESP 18; O2SAT 97; BMI 36.0
--- NOTE | 2021-02-28 13:12 | HMH.PAINSOAP ---
[facility] Pain Management SOAP Note Subjective:: Patient is a 60-year-old white female who presents today for follow-up. The patient recently underwent a lumbar epidural steroid injection on 02/14/[address] Romo. The patient is being treated for degenerative disc disease lumbar spine with lumbar radiculopathy symptoms. She has pain in her low back with radiation into her right lower extremity. The patient says it is dull in nature and constant. She says that she did not get any relief with her last injection. She does report that she gets significant relief with the injections in the past. She does have an MRI today to discuss. She says she has tried physical therapy for greater than 6 weeks and continues with home stretching. She has tried ice and heat therapies. She is unable to take anti-inflammatories due to Plavix therapy. Her pain is a 9 out of 10 today. Review of Systems General: No recent weight changes, no fever, no sleep disturbances Respiratory: No cough, no shortness of air, no recurring pulmonary infections Cardiovascular/peripheral vascular: No chest pain, no palpitations, no edema, no shortness of breath Gastrointestinal: No new onset incontinence, normal bowel movements reported Genitourinary: No new onset incontinence Musculoskeletal: Low back pain with radiation into right lower extremity Psychiatric: [Normal mood/affect] Neurological: [Denies weakness in extremities], [denies balance issues] Objective:: Physical exam General: Alert and oriented x3, no acute distress, pleasant and cooperative, [on room air] Lungs: Respirations even and unlabored, symmetrical chest expansion Eyes: PERRL Musculoskeletal: Flexion and extension of [] lumbar [spine] somewhat guarded secondary to pain, strength in upper and lower extremities [5/5], [antalgic gait noted] Neurological: Speech clear, [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 She does also have a mild disc bulge with left abutting S1 nerve root as well. We did discuss undergoing injective therapy. She has requested to undergo a repeat injection, however, at the L3-L4 area with Dr. Hinkle. Patient says she gets excellent relief with her injections with Dr. Hinkle. We will schedule her for injective therapy, a lumbar epidural steroid injection at L3-L4 area. She is on Plavix therapy and does understand she will need to hold this for the injection. She is being given approval to hold his injection in the past with Dr. BARRETO. We will see her back in the clinic after her injection for reevaluation of symptoms. We did discuss her MRI today as well. Patient is on chronic O2 nasal cannula. Risks and benefits of the procedure have been explained to the patient. Patient would like to proceed with the procedure. Possible side effects of corticosteroids have been discussed with the patient. Patient has been instructed to contact the clinic with any concerns before the next appointment. Dr. Hinkle has reviewed this note and agrees with this plan of care. This note was dictated using voice recognition software and make contain errors or omissions. [facility] History I have reviewed the patient's past medical history: Yes Medical History: Reports:: Anxiety, Cardiomyopathy, Congestive Heart Failure, Chronic Obstructive Pulmonary Disease (COPD), Coronary Artery Disease, Depression, Diabetes Mellitus Type 2, Home Oxygen, Hyperlipidemia, Hypertension, Internal Pacemaker, Myocardial Infarction, Renal Disease Denies:: Cancer, Diabetes Mellitus Type 1, MRSA, Seizures *Have you ever received a pneumonia vaccine?: Yes *Have you received a flu vaccine this season?: Yes Other Medical History: Reports: Arthritis, Hypothyroidism, Thyroid Disease. Den
--- NOTE | 2021-03-04 09:50 | PC.NURSE ---
Spoke with patient after getting approval from Deshawn Crenshaw for the patient to hold her plavix starting 03/07 till after scheduled procedure on 03/15
== END ==
PROVIDERS: PCP Emergency Medicine; Visit Provider Clinical Nurse Specialist Family Health
DX: M51.16 Intervertebral disc disorders with radiculopathy, lumbar region (principal)
CPT/HCPCS: 99212; G0463

== ENCOUNTER 2021-03-15 11:20 | Day surgery (SDC) | payer MEDICARE, MEDICAID, SELFPAY ==
[2021-03-15 11:27] VITALS: BP 151/94; PULSE 89; RESP 20; TEMP 36.6; O2SAT 96; BMI 36.7
[2021-03-15 11:42] VITALS: BP 195/90; PULSE 86; RESP 18
[2021-03-15 11:44] VITALS: BP 194/95; PULSE 90; RESP 20
--- NOTE | 2021-03-15 11:49 | HMH.PMPROC ---
- Procedure Date: 03/15/21 Time: 11:49 Anesthesiologist:: Federico Hinkle MD Complications:: None Pre-procedure Diagnosis:: Degenerative disc disease of lumbar spine with lumbar radiculopathy symptoms Post-procedure Diagnosis:: Same Indications for Procedure:: Patient is a pleasant 60-year-old white female who we are treating for low back pain with lumbar radiculopathy symptoms. She has been off of her Plavix for 7 days. She has increasing pain in her back rating down her legs. We will do a lumbar pleural steroid injection under fluoroscopy today. Procedure Details:: Informed consent was obtained and the risk and benefits of the procedure was explained to the patient. The patient was taken to the procedure room. The patient was placed prone on the procedure table. The patient was prepped and draped in sterile fashion. C-arm fluoroscopy was used to view the lumbar spine. Skin and subcutaneous tissues were anesthetized using lidocaine. I placed an 18-gauge epidural needle and advanced into the L4-L5 interspace using fluoroscopic guidance and [id number] to air. After confirmation of needle placement in the epidural space with dye I injected 2 mL of lidocaine 1.5% with Depo-Medrol 80 mg. Patient tolerated the procedure well with no complications. Plan and Disposition:: We will follow-up with her in 2 weeks. Will reevaluate her symptoms at that time.
[2021-03-15 12:05] VITALS: BP 156/91; PULSE 89; RESP 20; O2SAT 95
== END 2021-03-15 12:06 | disposition home or self-care (01) ==
LOC: SC.PAINP 11:22
PROVIDERS: PCP Emergency Medicine; Visit Provider Anesthesiology
DX: M51.16 Intervertebral disc disorders with radiculopathy, lumbar region (principal); Z79.01 Long term (current) use of anticoagulants; I25.2 Old myocardial infarction; I25.10 Atherosclerotic heart disease of native coronary artery without angina pectoris; I11.0 Hypertensive heart disease with heart failure; I50.9 Heart failure, unspecified; E78.5 Hyperlipidemia, unspecified; J44.9 Chronic obstructive pulmonary disease, unspecified; G47.33 Obstructive sleep apnea (adult) (pediatric); E11.9 Type 2 diabetes mellitus without complications; E03.9 Hypothyroidism, unspecified; F41.9 Anxiety disorder, unspecified
CPT/HCPCS: 62323; J1040; Q9966

== ENCOUNTER 2021-03-28 13:00 | Outpatient (RCR) | payer MEDICARE, MEDICAID, SELFPAY ==
--- NOTE | 2021-03-01 09:04 | HMH.OTOPEV ---
OT Inpatient Evaluation Rehab OT Outpatient Eval Start: 03/01/21 08:45 Freq: Status: Active Protocol: Document 03/01/21 08:45 ARLEYDORA (Rec: 03/01/21 09:04 MAMTASTEFANO [id number]) Electronically Signed By Selene La, OT 03/01/21 08:45 Outpatient Therapy Subjective History Subjective History 60 year old right hand dominant female referred to skilled OP OT services for left hand therapy after falling down some stairs on January 14. Patient wore a cast for 5 weeks with the Patient previously recieved skilled OP OT services for removable wrist brace which she states gives her relief. F/u x-ray on 02/19/21 showed healing of nondisplaced transverse fx distal radius. However Patient continues to exhibit limited AROM and weakness in L wrist fracture. 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 Symptom Type Ache Symptoms Relieved By Brace/Support Symptoms Aggravated By Physical Activity Prior Functional Limitations None Current Functional Limitations Reaching,Lifting Symptom Description Constant and Continuous Level of pain today (0-10) 8 Pain scale - at its best (0-10) 8 Pain scale - at its worst (0-10) 8 Wrist/Hand Eval Wrist Range of Motion Left Wrist Extension Active Range of Motion ( 50 degrees) Wrist Flexion Active Range of Motion ( 60 degrees) Wrist Radial Deviation Active Range of 20 Motion (degrees) Wrist Ulnar Deviation Active Range of 25 Motion (degrees) Forearm Supination Active Range of 70 Motion (degrees) Forearm Pronation Active Range of Motion 90 (degrees) Wrist Man
== END 2021-03-28 13:05 | disposition home or self-care (01) ==
LOC: OT 13:00
PROVIDERS: PCP Emergency Medicine; Visit Provider Orthopaedic Surgery
DX: S62.102D Fracture of unspecified carpal bone, left wrist, subsequent encounter for fracture with routine healing (principal)
CPT/HCPCS: 97014; 97035; 97110; 97140; 97165; 97530; G0283

== ENCOUNTER → 2021-04-11 12:42 | Outpatient (POV) | payer MEDICARE, MEDICAID, SELFPAY ==
[2021-04-11 12:47] VITALS: BP 177/98; PULSE 89; RESP 18; O2SAT 95; BMI 34.8
--- NOTE | 2021-04-11 12:59 | HMH.PAINSOAP ---
[facility] Pain Management SOAP Note Subjective:: Patient is a 60-year-old white female who presents today for follow-up. She did undergo a lumbar epidural steroid injection at L4-L5 on 03/15/2021. This is the patient's third lumbar epidural steroid injection. She did get a week of relief. Unfortunately, the patient's pain returned. The patient has low back pain with radiation into bilateral legs and feet. She reports the pain to be worse on the right side. She previously only had pain to the right side, however it is now progressed to the left side as well. She does rate her pain a 6 out of 10. The patient does report that her brother has a spinal cord stimulator which is giving him significant relief. At the patient's last visit, she was given educational information regarding spinal cord stimulation. She has tried and failed conservative therapies of physical therapy for more than 6 weeks in the past along with home stretching and is unable to take anti-inflammatories due to Plavix therapy. She does use ice and heat therapies. Review of Systems General: No recent weight changes, no fever, no sleep disturbances Respiratory: No cough, no shortness of air, no recurring pulmonary infections Cardiovascular/peripheral vascular: No chest pain, no palpitations, no edema, no shortness of breath Gastrointestinal: No new onset incontinence, normal bowel movements reported Genitourinary: No new onset incontinence Musculoskeletal: Low back pain with radiation into bilateral lower extremities and feet with numbness and tingling?worse to right side Psychiatric: [Normal mood/affect] Neurological: Weakness right lower extremity Objective:: Physical exam General: Alert and oriented x3, no acute distress, pleasant and cooperative, [on room air] Lungs: Respirations even and unlabored, symmetrical chest expansion Eyes: PERRL Musculoskeletal: Flexion and extension of lumbar [spine] somewhat guarded secondary to pain, strength in upper and lower extremities [5/5], [antalgic gait noted] Neurological: Speech clear, [ortho/prosthetic aide equal], no gross sensory deficit Assessment:: Degenerative disc disease lumbar spine with lumbar radiculopathy symptoms Plan:: We will schedule the patient for a psychological evaluation for possible spinal cord stimulator trial. She is on Plavix therapy. We will order her tramadol 50 mg 1 tablet p.o. 3 times daily until she can undergo her psychological evaluation. If the patient is unable to tolerate the medication she will stop the medicine. The injections have not given the patient long-term relief. She has tried physical therapy for more than 6 weeks in the past and continues with home stretching. She is unable to take anti-inflammatories due to anticoagulation use. She does continue with ice and heat therapies. We will see the patient back in the clinic after the psychological evaluation to discuss a further plan of care. Risks and benefits of the medication have been explained in detail to the patient. The patient has been advised to consult with his/her primary care provider and pharmacist regarding drug-drug interaction of medications currently prescribed. Patient has been prescribed a controlled substance after being counseled on the medication, medication safety, and possible side effects. BRYADEN report has been obtained and reviewed prior to prescription and found to be appropriate. Opioid contract was reviewed and signed by the patient, and that they have agreed to all of the terms set forth by our compliance program. Patient has been instructed to contact the clinic with any concerns before the next appointment. Dr. Hinkle has reviewed this note and agrees with this plan of care. This note was dictated using voice recognition software and make contain errors or omissions. [facility] History I have reviewed the patient's past medical history: Yes Medical History: Reports:: Anxiety, Cardiomyopathy, Congestive Heart Fail
== END ==
PROVIDERS: Visit Provider Clinical Nurse Specialist Family Health
DX: M51.16 Intervertebral disc disorders with radiculopathy, lumbar region (principal)
CPT/HCPCS: 99212; G0463

== ENCOUNTER → 2021-04-16 13:06 | Outpatient (CLI) | payer MEDICARE, MEDICAID, SELFPAY ==
--- NOTE | 2021-04-16 13:11 | XR_ITS ---
PROCEDURE: XR WRIST LT MIN 3V CLINICAL INDICATION: left wrist fracture; out of splint COMPARISON: CR WRR3 WRIST-3 VIEWS-RT from 11/17/2014 CR XR WRIST LT MIN 3V from 01/22/2021 CR XR WRIST LT MIN 3V from 01/29/2021 CR XR WRIST LT MIN 3V from 02/19/2021 FINDINGS: Healing transverse fracture is present involving the distal aspect of the radius at the metaphyseal region. Fracture line is less apparent with increasing sclerosis at the fracture line. No significant displacement with good alignment. The joint spaces are well-preserved. No significant degenerative/arthritic changes. No erosive changes evident. Other findings:None. IMPRESSION: Healing nondisplaced distal radial fracture Dictated by: Lyndon Dean MD 04/16/2021 15:56 Lyndon Dean MD in [place] 04/16/2021 15:56
== END ==
PROVIDERS: PCP Emergency Medicine; Visit Provider Orthopaedic Surgery
DX: S62.102D Fracture of unspecified carpal bone, left wrist, subsequent encounter for fracture with routine healing (principal)
CPT/HCPCS: 73110

== ENCOUNTER → 2021-05-10 10:19 | Outpatient (CLI) | payer MEDICARE, MEDICAID, SELFPAY | PROVIDERS: PCP Emergency Medicine; Visit Provider Urology | DX: R06.02 Shortness of breath (principal); R00.2 Palpitations; I25.118 Atherosclerotic heart disease of native coronary artery with other forms of angina pectoris | CPT/HCPCS: 93225 ==

== ENCOUNTER → 2021-05-22 12:41 | Outpatient (CLI) | payer MEDICARE, MEDICAID, SELFPAY ==
--- NOTE | 2021-05-22 12:41 | CA_ITS ---
APPROVED REPORT EXAM: Comprehensive 2D, Doppler, and color-flow Echocardiogram Construction Job Titles: Alison Friedman RVT Ht: 5 ft 4 in Wt: 213lbs BSA: 2.01 BP: 134/72 mmHg Indications: hernandez,copd,chf,cad,palps,obesity,htn tds-best exam possible pt body habitus overlaying lung 2D Dimensions LVOT 2.60 cm (M/F) 1.5-2.5 LA Volume 21.70 mL LA Volume Index 10.79 mL/m2 (M/F) 16-34 M-Mode Dimensions RVDd 3.38 cm (0.9-2.6) LA Diam 4.26 cm (1.9-4.0) LVDd 5.49 cm (3.5-5.7) Ao Diam 2.97 cm (2.0-3.7) LVDs 3.84 cm (3.5-5.7) IVSd 0.89 cm (0.6-1.1) PWd 0.56 cm (0.6-1.1) EF (Teich) 56.70% FS 30.10% EDV (Teich) 146.80 mL TAPSE 2.56 (<1.7) ESV (Teich) 63.50 mL LV Diastology E Decel Time 223.00 (160-240 msec) E/A Ratio 0.7 MED E' 8.40 (< 7 cm/sec) E'/MED E' Ratio 5.86 (>14) LAT E' 6.00 (<10 cm/sec) E/LAT E' Ratio 8.20 (>14) Mitral Valve MV E Max Jesu. 49.00 (40-130 cm/s) MV A Velocity 71.00 (40-130 cm/s) E/A Ratio 0.69 MV Decel. Time 223.00 (160-240 ms) MV PHT 65.00 ms Pulmonary Valve PV Peak Velocity 73.00 (50-150 cm/s) Tricuspid Valve TR P. Velocity 254.00 cm/s RAP Estimate 10.00 mmHg RVSP 35.80 mmHg Left Ventricle Technically difficult study because of the patient factors and poor acoustic windows. Left atrium is mildly enlarged, left ventricle is normal size, mild concentric left ventricular hypertrophy, visually estimated ejection fraction 55% with no regional wall motion abnormality, grade 1 diastolic dysfunction seen without tissue Doppler evidence of raise left atrial pressure. Right Ventricle Right atrium and right ventricle are mildly enlarged with normal contractility. Aortic Valve Aortic valve is grossly normal, there is no aortic stenosis or aortic insufficiency. Mitral Valve Mitral valve grossly normal, there is trace mitral regurgitation. Tricuspid Valve Tricuspid valve grossly normal, there is trace tricuspid regurgitation, tricuspid regurgitation jet velocity is inadequate for calculation of the right ventricular systolic pressure. Pulmonic Valve Pulmonic valve is poorly visualized. Great Vessels Aortic root is normal size. Inferior vena cava is normal size with normal inspiratory collapse. Pericardium No significant pericardial effusion noted. Conclusion 1. Mild biatrial enlargement, normal left ventricular size, mild concentric left ventricular hypertrophy, visually estimated ejection fraction 55% with no regional wall motion abnormality, grade 1 diastolic dysfunction seen without tissue Doppler evidence of raise left atrial pressure. 2. Mildly enlarged right ventricle with normal contractility. 3. Trace mitral and tricuspid regurgitation. 4. No significant pericardial effusion noted. 5. Inferior vena cava is normal size with normal inspiratory collapse. Electronically signed by : Adam Farah MD 05/23/2021 14:25:12
== END ==
PROVIDERS: PCP Emergency Medicine; Visit Provider Urology
DX: E78.2 Mixed hyperlipidemia (principal); I25.118 Atherosclerotic heart disease of native coronary artery with other forms of angina pectoris; I50.22 Chronic systolic (congestive) heart failure; I50.9 Heart failure, unspecified; R00.2 Palpitations; R06.02 Shortness of breath; I11.0 Hypertensive heart disease with heart failure
CPT/HCPCS: 93306

== ENCOUNTER → 2021-07-10 16:37 | Outpatient (CLI) | payer MEDICARE, MEDICAID, SELFPAY ==
--- NOTE | 2021-07-10 16:38 | MM_ITS ---
PROCEDURE INFORMATION: Exam: MG Bilateral Screening 3D Mammography Exam date and time: 07/10/2021 4:38 PM Age: 60 years old Clinical indication: Screening mammogram TECHNIQUE: Imaging protocol: Bilateral screening tomosynthesis and 2D mammography including computer-aided detection (CAD) when performed. COMPARISON: 1. MG SCBI MM Dig screening mamm BI w/CAD 05/04/2018 10:15 AM 2. MG DMSB DIG MAMM-SCREEN TRUDY 06/02/2016 10:00 AM 3. MG DMSB DIG MAMM-SCREEN TRUDY 11/07/2014 9:19 AM FINDINGS: MAMMOGRAPHY: Breast composition: There are scattered areas of fibroglandular density. Mass: Mass within the lower outer right middle 1/3 measuring 6 mm should be further assessed with spot views in CC/MLO projection. Ultrasound should also be performed. Architectural distortion: No new or suspicious architectural distortion. Calcifications: No new or suspicious calcifications are present Asymmetric density: No new or suspicious asymmetric density is present Skin thickening: None. Axillary adenopathy: None. IMPRESSION: Mass within the lower outer right middle 1/3 measuring 6 mm should be further assessed with spot views in CC/MLO projection. Ultrasound should also be performed. ASSESSMENT: BI-RADS category 0: Incomplete-need additional imaging evaluation
== END ==
PROVIDERS: PCP Emergency Medicine; Visit Provider Emergency Medicine
DX: Z12.31 Encounter for screening mammogram for malignant neoplasm of breast (principal)
CPT/HCPCS: 77063; 77067

== ENCOUNTER → 2021-07-26 13:34 | Outpatient (CLI) | payer MEDICARE, MEDICAID, SELFPAY ==
--- NOTE | 2021-07-26 13:35 | US_ITS ---
PROCEDURE INFORMATION: Exam: US Right Breast, Complete Exam date and time: 07/26/2021 1:35 PM Age: 60 years old Clinical indication: Callback for additional assessment of lower outer right middle 1/3 6 mm suspected mass identified on screening mammogram 07/10/2021 TECHNIQUE: Imaging protocol: Complete ultrasound of all four quadrants of the Right breast and the retroareolar regions, including ultrasound of the axilla when performed. COMPARISON: FINDINGS: Please see mammogram report 07/26/2021 for findings IMPRESSION: Please see mammogram report 07/26/2021 for findings ASSESSMENT: BI-RADS category 3: Probably benign
--- NOTE | 2021-07-26 13:35 | MM_ITS ---
PROCEDURE INFORMATION: Exam: MG Right Diagnostic Breast Tomosynthesis U/S right breast complete Exam date and time: 07/26/2021 1:35 PM Age: 60 years old Clinical indication: Callback for additional assessment of lower outer right middle 1/3 6 mm suspected mass identified on screening mammogram 07/10/2021 TECHNIQUE: Imaging protocol: Right Diagnostic tomosynthesis and 2D mammography including computer-aided detection (CAD) when performed. Unilateral or bilateral exam. Complete right breast ultrasound of the upper outer, upper inner, lower outer, lower inner, periareolar, and axilla was performed with image documentation COMPARISON: 1. MG MM DIG SCREENING MAMM BI W/CAD 07/10/2021 4:35 PM 2. MG SCBI MM Dig screening mamm BI w/CAD 05/04/2018 10:15 AM 3. MG DMSB DIG MAMM-SCREEN TRUDY 06/02/2016 10:00 AM 4. MG DMSB DIG MAMM-SCREEN TRUDY 11/07/2014 9:19 AM FINDINGS: MAMMOGRAPHY: Spot compression views demonstrate several persistent subcentimeter circumscribed [id number] masses in the lateral right middle 1/3 measuring up to approximately 6 mm. No associated architectural distortion or suspicious calcifications are present. These demonstrate generally benign features but were not clearly delineated on prior mammograms. Ultrasound: Hypoechoic horizontal circumscribed generally too small to definitively characterize morphologically similar appearing masses are present as follows: 4 x 4 x 3 mm lower outer right 3 cm from the nipple 6 by 8 x 3 mm lower outer right 3.2 cm from the nipple No suspicious solid or cystic mass is appreciated No architectural distortion or shadowing is present Normal axillary lymph nodes. No axillary adenopathy IMPRESSION: Six-month follow-up diagnostic right breast mammogram and ultrasound is recommended to assess stability of probably benign subcentimeter lower outer right breast mass described above ASSESSMENT: BI-RADS category 3: Probably benign
== END ==
PROVIDERS: PCP Emergency Medicine; Visit Provider Emergency Medicine
DX: R92.8 Other abnormal and inconclusive findings on diagnostic imaging of breast (principal)
CPT/HCPCS: 76641; 77061; 77065; G0279

== ENCOUNTER → 2021-08-13 10:33 | Outpatient (POV) | payer MEDICARE, MEDICAID, SELFPAY ==
[2021-08-13 10:46] VITALS: BP 153/87; PULSE 89; RESP 19; O2SAT 95; BMI 35.9
--- NOTE | 2021-08-13 19:37 | HMH.PAINSOAP ---
[facility] Pain Management SOAP Note Subjective:: Patient is a pleasant 60 year old white female who presents today for follow-up. The patient was scheduled to undergo a psychological evaluation for spinal cord stimulation but deferred on the psychological evaluation until further discussion with our clinic. She has had lumbar epidural steroid injections in her low back area. She has pain in the low back with radiation into bilateral legs and feet. Patient is also having severe neck pain with radiation into her left arm. Today, she rates her pain a 7 out of 10. She is here today to discuss options for intrathecal therapy versus spinal cord stimulation. Patient says because she has chronic pain in her neck and low back that she feels that she would prefer to proceed with intrathecal therapy. She has tried physical therapy in the past along with home stretching. The patient is unable to take anti-inflammatories due to Plavix therapy. She is on chronic O2 use. Review of Systems General: No recent weight changes, no fever, no sleep disturbances Respiratory: No cough, no shortness of air, no recurring pulmonary infections Cardiovascular/peripheral vascular: No chest pain, no palpitations, no edema, no shortness of breath Gastrointestinal: No new onset incontinence, normal bowel movements reported Genitourinary: No new onset incontinence Musculoskeletal: Neck and low back pain with radiation into left upper extremity and bilateral lower extremities Psychiatric: [Normal mood/affect] Neurological: [Denies weakness in extremities], [denies balance issues] Objective:: Physical exam General: Alert and oriented x3, no acute distress, pleasant and cooperative Lungs: Chronic O2 use Eyes: PERRL Musculoskeletal: Flexion and extension of cervical and lumbar [spine] somewhat guarded secondary to pain, [antalgic gait noted] Neurological: Speech clear, no gross sensory deficit Assessment:: Degenerative disc disease cervical lumbar spine with cervical lumbar radiculopathy symptoms Plan:: Patient has decided to proceed with intrathecal therapy. Due to the patient's chronic oxygen use, she will likely be a bupivacaine only or Prialt only candidate. The patient does take clonazepam and gabapentin per Dr. Shah. She has tried tramadol in the past which gave her minimal relief. We will schedule her for psychological evaluation for intrathecal therapy. We will see her back after the evaluation to discuss proceeding with trial for intrathecal bupivacaine pump. Patient has been instructed to contact the clinic with any concerns before the next appointment. Dr. Hinkle has reviewed this note and agrees with this plan of care. This note was dictated using voice recognition software and make contain errors or omissions. [facility] History I have reviewed the patient's past medical history: Yes Medical History: Reports:: Anxiety, Cardiomyopathy, Congestive Heart Failure, Chronic Obstructive Pulmonary Disease (COPD), Coronary Artery Disease, Depression, Home Oxygen, Hyperlipidemia, Hypertension, Internal Pacemaker, Myocardial Infarction, Renal Disease Denies:: Cancer, Diabetes Mellitus Type 1, Diabetes Mellitus Type 2, MRSA, Seizures *Have you ever received a pneumonia vaccine?: Yes *Have you received a flu vaccine this season?: Yes Other Medical History: Reports: Arthritis, Hypothyroidism, Thyroid Disease. Denies: Blood Transfusion Reaction Laterality Cases: Left: Other Other Surgeries: Yes: No Previous Surgery, Angioplasty, Cardiac Catheterization, Colonoscopy, Coronary Stent, , Dilation and Curettage, EGD, Hysterectomy-Total, Pacemaker Amputation: No Fractures: Yes (LT wrist ) - *Social History Smoking Status: Current every day smoker Tobacco Type: cigarettes # Packs/Day (cigarettes): 1 #Yrs smoked (if former smoker): 20 Alcohol Intake: never Alcohol Intake Frequency:: other Substance Use Type: denies use *Occupational Status:: unemployed
--- NOTE | 2021-10-03 12:42 | PC.NURSE ---
Notified patient via phone, to hold Plavix starting today, until after her pain pump trial. Understanding verbalized.
== END ==
PROVIDERS: Visit Provider Clinical Nurse Specialist Family Health
DX: M50.10 Cervical disc disorder with radiculopathy, unspecified cervical region (principal)
CPT/HCPCS: 99212; G0463

== ENCOUNTER → 2021-09-25 15:01 | Outpatient (CLI) | payer MEDICARE, MEDICAID, SELFPAY ==
[2021-09-25 16:12] LABS: Blood Urea Nitrogen 15 mg/dl (7-17); Calcium 8.6 mg/dl (8.4-10.2); Chloride 91 mmol/L (98-107); Estimated Glomerular Filt Rate 51 ml/min (>60); GFR (African American) 61 ML/MIN (>60); Glucose 293 mg/dl (74-100); Potassium 4.4 mmoL/L (3.5-5.1); Sodium 136 mmol/L (136-145)
[2021-09-25 16:26] LABS: Anion Gap 8.4 mEq/L (5-15); Carbon Dioxide 41 mmol/L (22.0-30.0)
== END ==
PROVIDERS: Visit Provider Emergency Medicine
DX: Z01.818 Encounter for other preprocedural examination (principal)
CPT/HCPCS: 80048

== ENCOUNTER → 2021-09-27 10:31 | Outpatient (CLI) | payer MEDICARE, MEDICAID, SELFPAY ==
--- NOTE | 2021-09-27 10:31 | MR_ITS ---
FINAL REPORT CLINICAL HISTORY: headache behind eyes and posterior x3-4 months FINDINGS: Multiplanar MR imaging of the brain was performed without and with contrast. Scattered foci of increased T2 signal are seen in the cerebral white matter that have a nonspecific appearance but likely represent mild chronic ischemic/gliotic changes.There is no evidence of intracranial hemorrhage or mass. No abnormal extra-axial fluid collection is seen. The ventricular size is within normal limits. There is no evidence of shift of the midline structures. The posterior fossa and brainstem have an unremarkable appearance. No area of abnormal restricted diffusion is identified. No abnormal contrast enhancement is seen. Normal major vessel vascular flow voids are noted. IMPRESSION: No acute intracranial abnormality identified. Reviewed, Interpreted and Dictated by Jam Britt III, MD Transcribed by Amy Ernst Authenticated by Jam Britt III, MD on 09/27/2021 01:05:06 PM [facility]
== END ==
PROVIDERS: PCP Emergency Medicine; Visit Provider Emergency Medicine
DX: R51.9 Headache, unspecified (principal)
CPT/HCPCS: 70553; A9576

== ENCOUNTER 2021-10-11 08:19 | Day surgery (SDC) | payer MEDICARE, MEDICAID, SELFPAY ==
[2021-10-11] VITALS (8 sets, daily range): BP systolic 71–150; BP diastolic 42–76; PULSE 54–88; RESP 18–22; TEMP 36.2–36.6; O2SAT 90–96; BMI 36.0
--- NOTE | 2021-10-11 09:57 | P.PCN_ITS ---
- Procedure Date: 10/11/21 Time: 09:57 Anesthesiologist:: Federico Hinkle MD Complications:: None Pre-procedure Diagnosis:: Degenerative disc disease of lumbar spine with lumbar radiculopathy symptoms Post-procedure Diagnosis:: Same Indications for Procedure:: Patient is a pleasant 61-year-old white female who we are treating for low back pain with lumbar radiculopathy symptoms. She has failed all previous conservative treatments including injections, oral medications and physical therapy. She is currently on clonazepam and gabapentin per Dr. Shah. She has tried tramadol in the past which gave her minimal relief. She is on oxygen therapy so she is not a candidate for any narcotic therapy. We will plan on intrathecal pump trial with nonnarcotic. We will plan on bupivacaine for her intrathecal pump trial today. Procedure Details:: Pain pump trial Pain pump trial Informed consent was obtained and the risk and benefits of the procedure was exp lained to the patient. The patient was taken to the procedure room and placed prone on the procedure table. Patient was prepped and draped in sterile fashion. C-arm fluoroscopy was used to view the lumbar spine. The skin and subcutaneous tissues were anesthetized using lidocaine. I placed a 18-gauge spinal needle into the L4-5 interspace and advanced until clear CSF was obtained. After this intrathecal catheter was inserted and advanced very easily to the L1 vertebral body. The needle was withdrawn. We were able to freely withdraw clear CSF through the catheter. We then injected intrathecal bupivacaine 3 mg followed by saline and followed by the previous CSF that was withdrawn. The needle and catheter were then removed and a Band-Aid was placed. Patient tolerated the procedure well with no complications. We reevaluated the patient after 30 minutes to 1 hour. She was also reassessed by physical therapy. Did have some hypotension immediately after the procedure and was given 15 mg of ephedrine followed by a 500 mL bolus of normal saline. She did immediately feel better. Pressure was back to normal. Immediately after the procedure her blood pressure did drop to 70/42. She had no pain she was 90 to 100% better. She wants to proceed with permanent placement. We will plan on permanent placement with intrathecal bupivacaine 5 mg per ml to start at 2.5 mg/day. Catheter tip will be at the L1 vertebral body. We did enter at L4-L5. Plan and disposition: We will follow-up with this patient in clinic in about a week. She continues on oxygen. We will reassess her symptomology and answer any questions about permanent placement. Plan and Disposition:: Plan and disposition: We will follow-up with this patient in clinic in about a week. She continues on oxygen. We will reassess her symptomology and answer any questions about permanent placement.
--- NOTE | 2021-10-11 10:11 | PC.NURSE ---
0955- pt. out of procedure area; c/o dizziness and nausea; zofran administered 1000- bp: 71/42; Arin keane administered ephederin 1015- pt. reports feeling much better BP 150/76
--- NOTE | 2021-10-11 10:22 | PC.NURSE ---
Pt. has no complaints and is eating breakfast at this time
--- NOTE | 2021-10-11 10:41 | PC.NURSE ---
Pt. awake and alert; with no complaints
--- NOTE | 2021-10-11 11:25 | PC.NURSE ---
iv d/c and pt. accompanied out to vehicle. Pt. has not complaints
== END 2021-10-11 11:25 | disposition home or self-care (01) ==
LOC: SC.PAINP 08:22
PROVIDERS: PCP Emergency Medicine; Visit Provider Anesthesiology
DX: M51.16 Intervertebral disc disorders with radiculopathy, lumbar region (principal); F41.9 Anxiety disorder, unspecified; I42.9 Cardiomyopathy, unspecified; J44.9 Chronic obstructive pulmonary disease, unspecified; I25.10 Atherosclerotic heart disease of native coronary artery without angina pectoris; I11.0 Hypertensive heart disease with heart failure; I50.9 Heart failure, unspecified; E78.5 Hyperlipidemia, unspecified; Z72.0 Tobacco use; Z88.0 Allergy status to penicillin; Z88.8 Allergy status to other drugs, medicaments and biological substances
CPT/HCPCS: 62323; J2405

== ENCOUNTER → 2021-10-24 10:16 | Outpatient (POV) | payer MEDICARE, MEDICAID, SELFPAY ==
[2021-10-24 10:27] VITALS: BP 127/71; PULSE 86; RESP 20; TEMP 36.6; O2SAT 96; BMI 36.6
--- NOTE | 2021-10-24 11:50 | HMH.PAINSOAP ---
[facility] Pain Management SOAP Note Subjective:: Patient is a pleasant 61-year-old female presents today for follow-up. Patient is coming treated for degenerative disc disease of lumbar spine with lumbar radiculopathy symptoms. We had been managing this patient with conservative operative treatments such as injections, oral medications, and physical therapy. Patient did not get any long-term relief from these interventions. She is taking clonazepam and gabapentin that are prescribed by Dr. Shah. Recently, we did a bupivacaine pump trial with the patient. She had significant relief during the first 30 minutes to 1 hour of observation. She rates her pain today as 8 out of 10. [facility] #[id number] with an active morphine equivalent of 0. Review of Systems: General: No recent weight changes, no fever, no sleep disturbances Respiratory: No cough, no shortness of air, no recurring pulmonary infections Cardiovascular/peripheral vascular: No chest pain, no palpitations, no edema, no shortness of breath Gastrointestinal: No new onset incontinence, normal bowel movements reported Genitourinary: No new onset incontinence Musculoskeletal: Low back pain Psychiatric: [Normal mood/affect] Neurological: [Denies weakness in extremities], [denies balance issues] Objective:: Physical Exam: General: Alert and oriented x3, no acute distress, pleasant and cooperative, [on room air] Lungs: Respirations even and unlabored, symmetrical chest expansion Eyes: PERRL Musculoskeletal: Flexion and extension of lumbar [spine] somewhat guarded secondary to pain, [antalgic gait noted] Neurological: Speech clear, no gross sensory deficit Assessment:: Degenerative disc disease of the lumbar spine with lumbar radiculopathy symptoms Plan:: Patient has tried and failed conservative therapy such as oral medication, physical therapy, and at home exercises for greater than 6 weeks. She continues to have low back pain that radiates to bilateral lower extremities. We tried her on a bupivacaine pump trial. Patient did really well during this trial. Dr. Hinkle recommends starting the patient with bupivacaine 5 mg/mL at a rate of 2.5 mg/day. Catheter tip displays that L1 and he entered at L4-L5. Patient has been instructed to contact the clinic with any concerns before the next appointment. Dr. Hinkle has reviewed this note and agrees with this plan of care. This note was dictated using voice recognition software and make contain errors or omissions. [facility] History Medical History: Reports:: Anxiety, Cardiomyopathy, Congestive Heart Failure, Chronic Obstructive Pulmonary Disease (COPD), Coronary Artery Disease, Depression, Diabetes Mellitus Type 2, Home Oxygen, Hyperlipidemia, Hypertension, Internal Pacemaker, Myocardial Infarction, Renal Disease Denies:: Cancer, Diabetes Mellitus Type 1, MRSA, Seizures *Have you ever received a pneumonia vaccine?: Yes *Have you received a flu vaccine this season?: Yes Other Medical History: Reports: Arthritis, Hypothyroidism, Thyroid Disease. Denies: Blood Transfusion Reaction Laterality Cases: Left: Other Other Surgeries: Yes: No Previous Surgery, Angioplasty, Cardiac Catheterization, Colonoscopy, Coronary Stent, , Dilation and Curettage, EGD, Hysterectomy-Total, Pacemaker Amputation: No Fractures: Yes (LT wrist ) - *Social History Smoking Status: Current every day smoker Tobacco Type: cigarettes # Packs/Day (cigarettes): 1 #Yrs smoked (if former smoker): 20 Alcohol Intake: never Alcohol Intake Frequency:: other Substance Use Type: denies use *Occupational Status:: unemployed Housing: house Household Members: spouse *Travel in the last 8 weeks: None - Psychiatric History Pschychiatric History:: Reports:: Anxiety, Depression Family Hx:: No significant family history
== END ==
PROVIDERS: Visit Provider Student in an Organized Health Care Education/Training Program
DX: M51.16 Intervertebral disc disorders with radiculopathy, lumbar region (principal)
CPT/HCPCS: 99212; G0463

== ENCOUNTER → 2021-11-09 10:38 | Outpatient (CLI) | payer MEDICARE, MEDICAID, SELFPAY ==
[2021-11-09 11:40] LABS: Basophils # 0.1 K/mm3 (0-0.2); Basophils % 1.5 % (0.1-2.0); Eosinophils # 0.2 K/mm3 (0.0-0.4); Eosinophils % 2.3 % (0.1-12.0); Hematocrit 45.7 % (37.0-47.0); Hemoglobin 14.9 g/dL (12.2-16.2); Lymphocytes # 2.2 K/mm3 (0.7-4.5); Lymphocytes % 25.4 % (10-50); Mean Corpuscular HGB Conc 32.6 g/dL (31.8-35.4); Mean Corpuscular Hemoglobin 30.9 pg (27.0-31.2); Mean Corpuscular Volume 94.8 fl (81-99); Mean Platelet Volume 8.9 fl (7.4-10.4); Monocytes # 0.4 K/mm3 (0.1-1.0); Monocytes % 5.2 % (1.7-9.3); Neutrophils # 5.6 K/mm3 (1.8-7.8); Neutrophils % 65.6 % (37.0-80.0); Platelet Count 291 K/mm3 (142-424); Red Blood Count 4.82 M/mm3 (4.20-5.40); Red Cell Distribution Width 14.8 % (11.5-17.5); White Blood Count 8.6 K/mm3 (4.8-10.8)
[2021-11-09 12:00] LABS: Amphetamine/Metha Screen,Urine Negative ng/ml (<1000); Barbiturates Screen,Urine Negative ng/ml (<200)
[2021-11-09 12:01] LABS: Benzodiazepines Screen,Urine Negative ng/ml (<200)
[2021-11-09 12:02] LABS: Cannabinoid Screen,Urine Negative ng/ml (<50); Cocaine Screen,Urine Negative ng/ml (<300)
[2021-11-09 12:03] LABS: Methadone Screen,Urine Negative ng/ml (<300); Opiate Screen,Urine Negative ng/ml (<300)
[2021-11-09 12:04] LABS: Phencyclidine Screen,Urine Negative ng/ml (<25)
[2021-11-09 13:01] LABS: Anion Gap 16.3 mEq/L (5-15); Blood Urea Nitrogen 18 mg/dl (7-17); Calcium 9.3 mg/dl (8.4-10.2); Carbon Dioxide 39 mmol/L (22.0-30.0); Chloride 86 mmol/L (98-107); Estimated Glomerular Filt Rate 46 ml/min (>60); GFR (African American) 55 ML/MIN (>60); Glucose 372 mg/dl (74-100); Potassium 4.3 mmoL/L (3.5-5.1); Sodium 137 mmol/L (136-145)
[2021-11-09 14:41] LABS: Hemoglobin A1C 10.1 % (4.0-6.0)
== END ==
PROVIDERS: Visit Provider Anesthesiology
DX: Z01.812 Encounter for preprocedural laboratory examination (principal); Z11.52 Encounter for screening for COVID-19; M51.36 Other intervertebral disc degeneration, lumbar region; Z79.899 Other long term (current) drug therapy
CPT/HCPCS: 36415; 80048; 80305; 83036; 85025; C9803; U0003; U0005

== ENCOUNTER → 2021-12-02 09:18 | Outpatient (POV) | payer MEDICARE, MEDICAID, SELFPAY ==
[2021-12-02 09:30] VITALS: BP 114/65; PULSE 82; RESP 18; TEMP 37.3; O2SAT 89; BMI 34.4
--- NOTE | 2021-12-02 11:14 | HMH.PAINSOAP ---
[facility] Pain Management SOAP Note Subjective:: Patient is a pleasant 61-year-old female who presents today for follow-up. Patient is currently being treated for degenerative disc disease of the lumbar spine with lumbar radiculopathy symptoms. We had been managing this patient with conservative therapy such as oral medications, injective therapy, physical therapy, and home exercises. She did not get any long-term relief from any of these interventions. She is currently taking clonazepam and gabapentin that are prescribed by Dr. Shah. We discussed with the patient that she is a good candidate for intrathecal pain pump therapy. She agreed so we sent her for a psychiatric evaluation. Her psychiatric evaluation deemed her competent and appropriate for the intrathecal pain pump. She had a successful intrathecal pain pump trial with bupivacaine. We scheduled her for an intrathecal pain pump placement where the catheter tip is at L1. However, we had to cancel her procedure because her A1c on 11/09/21 was greater than 10. We advised the patient to follow-up with Dr. Shah to control her sugar. She is now on metformin and Jardiance. She has been having issues monitoring her sugar because her glucometer broke. Dr. Shah ordered Dexcom for her. She has a follow up with him in December. Today, she continues to have low back pain that radiates to BLE. Denies any loss of bowel and bladder functions. Rates pain today as 7/10. Sunil [id number], MEQ 0. Review of Systems: General: No recent weight changes, no fever, no sleep disturbances Respiratory: No cough, no shortness of air, no recurring pulmonary infections Cardiovascular/peripheral vascular: No chest pain, no palpitations, no edema, no shortness of breath Gastrointestinal: No new onset incontinence, normal bowel movements reported Genitourinary: No new onset incontinence Musculoskeletal: Low back pain Psychiatric: [Normal mood/affect] Neurological: [Denies weakness in extremities], [denies balance issues] Objective:: Physical Exam: General: Alert and oriented x3, no acute distress, pleasant and cooperative Lungs: Respirations even and unlabored, symmetrical chest expansion Eyes: PERRL Musculoskeletal: Flexion and extension of lumbar [spine] somewhat guarded secondary to pain, [antalgic gait noted] Neurological: Speech clear, no gross sensory deficit Assessment:: Degenerative disc disease of the lumbar spine with lumbar radiculopathy symptoms Plan:: I discussed with the patient today the importance of having a controlled blood sugar prior to any procedures. Healing is slower and patient is at high risk of infection with high blood glucose. Patient is in agreement. She says that she will try to monitor her sugar intake more since she had significant relief after the pump trial. We will follow up with her in a month. If her A1C decreases below an 8, we will consider moving forward with permanent placement. Patient has been instructed to contact the clinic with any concerns before the next appointment. Dr. Hinkle has reviewed this note and agrees with this plan of care. This note was dictated using voice recognition software and make contain errors or omissions. [facility] History Medical History: Reports:: Anxiety, Cardiomyopathy, Congestive Heart Failure, Chronic Obstructive Pulmonary Disease (COPD), Coronary Artery Disease, Depression, Diabetes Mellitus Type 2, Home Oxygen, Hyperlipidemia, Hypertension, Myocardial Infarction, Renal Disease Denies:: Cancer, Diabetes Mellitus Type 1, Internal Pacemaker, MRSA, Seizures *Have you ever received a pneumonia vaccine?: Yes *Have you received a flu vaccine this season?: Yes Other Medical History: Reports: Arthritis, Hypothyroidism, Thyroid Disease. Denies: Blood Transfusion Reaction Laterality Cases: Left: Other Other Surgeries: Yes: No Previous Surgery, Angioplasty, Cardiac Catheterization, Colonoscopy, Coronary Stent, , Dilation and Curettage, EGD, Hysterect
== END ==
PROVIDERS: Visit Provider Student in an Organized Health Care Education/Training Program
DX: M51.16 Intervertebral disc disorders with radiculopathy, lumbar region (principal)
CPT/HCPCS: 99212; G0463

== ENCOUNTER → 2022-01-02 09:05 | Outpatient (POV) | payer MEDICARE, MEDICAID, SELFPAY ==
--- NOTE | 2022-01-02 09:39 | HMH.PAINSOAP ---
[facility] Pain Management SOAP Note Subjective:: Patient is a pleasant 61-year-old female who presents today for follow-up. Patient is currently being treated for degenerative disc disease of lumbar spine with lumbar radiculopathy symptoms. We have been managing this patient with conservative therapy such as oral medication, injective therapy, physical therapy, and home exercises. She did not get any long-term relief from any of these interventions. She is also taking clonazepam and gabapentin that are prescribed by Dr. Shah. Since patient is were not getting any long-term relief from conservative interventions, we discussed with the patient that she is a good candidate for intrathecal pain pump therapy. Her psych evaluation deemed her competent and appropriate for the intrathecal pain pump. She had a successful intrathecal pain pump trial with bupivacaine. When I last saw her, we decided to delay her permanent placement for intrathecal pain pump; her A1C > 10. At that time, she was taking metformin and jardiance. She has now met again with Dr. Shah who added Ozempic shots weekly. She says that her sugar has been more controlled. She has a follow up with Dr. Shah on January 08, 2022. Today, she still complaining of low back pain that radiates to bilateral lower extremities. She rates her pain as 7/10 and still wants to proceed with intrathecal pain pump therapy. Sunil [phone] with an active morphine equivalent of 0. Review of Systems: General: No recent weight changes, no fever, no sleep disturbances Respiratory: No cough, no shortness of air, no recurring pulmonary infections Cardiovascular/peripheral vascular: No chest pain, no palpitations, no edema, no shortness of breath Gastrointestinal: No new onset incontinence, normal bowel movements reported Genitourinary: No new onset incontinence Musculoskeletal: Low back pain Psychiatric: [Normal mood/affect] Neurological: [Denies weakness in extremities], [denies balance issues] Objective:: Physical Exam: General: Alert and oriented x3, no acute distress, pleasant and cooperative Lungs: Respirations even and unlabored, symmetrical chest expansion Eyes: PERRL Musculoskeletal: Flexion and extension of lumbar [spine] somewhat guarded secondary to pain, [antalgic gait noted] Neurological: Speech clear, no gross sensory deficit Assessment:: Degenerative disc disease of the lumbar spine with lumbar radiculopathy symptoms Plan:: Patient has tried and failed conservative therapy such as oral medication, injective therapy, physical therapy, and home exercises for greater than 6 weeks. She did not get any long-term relief from these conservative interventions. Her psych evaluation deemed her appropriate and competent to have the intrathecal pain pump. She had a successful intrathecal pump trial with bupivacaine. She states that her sugar is more controlled and currently on three different diabetic medications. She has a follow up with Dr. Shah regarding this. We will go ahead and schedule the patient for permanent placement of intrathecal pain pump therapy. Per the procedure note, we will place that catheter tip at the L1 vertebral body and we will start this patient on bupivacaine. Risks and benefits of the procedure have been explained to the patient. Patient would like to proceed with the procedure. Patient is currently on Plavix. We will reach out to her provider to see if she can stop this medication prior to her procedure. We will also monitor her sugar prior to the procedure. Patient has been instructed to contact the clinic with any concerns before the next appointment. Dr. Hinkle has reviewed this note and agrees with this plan of care. This note was dictated using voice recognition software and make contain errors or omissions. [facility] History Medical History: Reports:: Anxiety, Cardiomyopathy, Congestive Heart Failure, Chronic Obstructive Pulmonary Disease (COPD), Coronary Artery Disease, D
[2022-01-02 09:52] VITALS: BP 112/76; PULSE 90; RESP 20; O2SAT 95; BMI 35.5
== END ==
PROVIDERS: Visit Provider Student in an Organized Health Care Education/Training Program
DX: M51.16 Intervertebral disc disorders with radiculopathy, lumbar region (principal); M19.90 Unspecified osteoarthritis, unspecified site; Z72.0 Tobacco use
CPT/HCPCS: 99212; G0463

== ENCOUNTER → 2022-01-27 08:58 | Outpatient (CLI) | payer MEDICARE, MEDICAID, SELFPAY ==
[2022-01-27 09:45] LABS: Basophils # 0.1 K/mm3 (0-0.2); Basophils % 0.8 % (0.1-2.0); Eosinophils # 0.5 K/mm3 (0.0-0.4); Hematocrit 42.8 % (37.0-47.0); Hemoglobin 14.1 g/dL (12.2-16.2); Lymphocytes # 3.1 K/mm3 (0.7-4.5); Mean Corpuscular Hemoglobin 30.4 pg (27.0-31.2); Mean Corpuscular Volume 91.9 fl (81-99); Mean Platelet Volume 8.3 fl (7.4-10.4); Monocytes # 0.6 K/mm3 (0.1-1.0); Monocytes % 5.3 % (1.7-9.3); Neutrophils # 7.9 K/mm3 (1.8-7.8); Neutrophils % 64.9 % (37.0-80.0); Platelet Count 312 K/mm3 (142-424); Red Blood Count 4.66 M/mm3 (4.20-5.40); Red Cell Distribution Width 14.5 % (11.5-17.5); White Blood Count 12.2 K/mm3 (4.8-10.8)
[2022-01-27 10:32] LABS: Hemoglobin A1C 6.8 % (4.0-6.0)
[2022-01-27 10:36] LABS: Chloride 95 mmol/L (98-107); Potassium 3.9 mmoL/L (3.5-5.1); Sodium 137 mmol/L (136-145)
[2022-01-27 10:38] LABS: Blood Urea Nitrogen 21 mg/dl (7-17); Estimated Glomerular Filt Rate 38 ml/min (>60); GFR (African American) 46 ML/MIN (>60)
[2022-01-27 10:39] LABS: Anion Gap 13.9 mEq/L (5-15); Calcium 9.6 mg/dl (8.4-10.2); Carbon Dioxide 32 mmol/L (22.0-30.0); Glucose 146 mg/dl (74-100)
== END ==
PROVIDERS: PCP Emergency Medicine; Visit Provider Anesthesiology
DX: Z01.812 Encounter for preprocedural laboratory examination (principal); Z20.822 Contact with and (suspected) exposure to COVID-19; E11.9 Type 2 diabetes mellitus without complications; Z79.84 Long term (current) use of oral hypoglycemic drugs
CPT/HCPCS: 36415; 80048; 83036; 85025; C9803; U0003; U0005

== ENCOUNTER 2022-01-28 09:07 | Day surgery (SDC) | payer MEDICARE, MEDICAID, SELFPAY ==
[2022-01-28 10:49] VITALS: BMI 33.7
[2022-01-28 10:58] VITALS: BP 93/56; PULSE 81; RESP 16; TEMP 36.6; O2SAT 98
[2022-01-28 11:27] LABS: POC Glucose,Bedside 125 (70-110)
[2022-01-28 11:35] LABS: Amphetamine/Metha Screen,Urine Negative ng/ml (<1000); Barbiturates Screen,Urine Negative ng/ml (<200)
[2022-01-28 11:36] LABS: Benzodiazepines Screen,Urine Negative ng/ml (<200); Cannabinoid Screen,Urine Negative ng/ml (<50)
[2022-01-28 11:37] LABS: Cocaine Screen,Urine Negative ng/ml (<300)
[2022-01-28 11:38] LABS: Methadone Screen,Urine Negative ng/ml (<300); Opiate Screen,Urine Negative ng/ml (<300)
[2022-01-28 11:39] LABS: Phencyclidine Screen,Urine Negative ng/ml (<25)
--- NOTE | 2022-01-28 13:22 | HMH.ANESCL ---
[facility] Anesthesia Checklist - Structural Data Admitted From: Home Planned Operative Procedure/s: pain pump Consent for Planned Operative Procedure(s) Verified: Yes - Additional verifications Anesthesia Reactions: No Hx Blood Transfusions: No Blood Transfusion Reaction: No - Airway Assessment C-Spine Mobility Assessed: Yes TMJ Mobility Assessed: Yes Dentition: Edentulous - Neurological Assessment Level of Consciousness: Awake, Alert, Appropriate - Anesthesia Plan Anesthesia Risk discussed: Yes Anesthesia Plan: Verified ASA Class: III Anesthesia Type: MAC [facility] History I have reviewed the patient's past medical history: Yes Medical History: Reports:: Anxiety, Cardiomyopathy, Congestive Heart Failure, Chronic Obstructive Pulmonary Disease (COPD), Coronary Artery Disease, Depression, Diabetes Mellitus Type 2, Home Oxygen, Hyperlipidemia, Hypertension, Myocardial Infarction, Renal Disease Denies:: Cancer, Diabetes Mellitus Type 1, Internal Pacemaker, MRSA, Seizures *Have you ever received a pneumonia vaccine?: Yes *Have you received a flu vaccine this season?: Yes Other Medical History: Reports: Arthritis, Hypothyroidism, Thyroid Disease. Denies: Blood Transfusion Reaction Anesthesia experience/problems:: none Laterality Cases: Left: Other Other Surgeries: Yes: No Previous Surgery, Angioplasty, Cardiac Catheterization, Colonoscopy, Coronary Stent, , Dilation and Curettage, EGD, Hysterectomy-Total. No: Pacemaker Amputation: No Fractures: Yes (LT wrist ) - *Social History Last grade of school completed: High school graduate Smoking Status: Current every day smoker Tobacco Type: cigarettes # Packs/Day (cigarettes): 1 #Yrs smoked (if former smoker): 20 Alcohol Intake: never Alcohol Intake Frequency:: other Substance Use Type: denies use *Occupational Status:: disabled Housing: house Household Members: significant other *Travel in the last 8 weeks: None - Psychiatric History Pschychiatric History:: Reports:: Anxiety, Depression Family Hx:: Cancer, Coronary Artery Disease, Diabetes
--- NOTE | 2022-01-28 14:08 | P.OP_ITS ---
Date of procedure: 01/28/22 Pre-op Diagnosis:: Degenerative disc disease of lumbar spine with lumbar radiculopathy symptoms Post-op Diagnosis:: Same Procedure performed:: Permanent intrathecal pain pump placement catheter and generator Surgeon:: Federico Hinkle MD EXECUTIVE HOUSEKEEPER:: Yaya Devine Anesthesia: MAC Estimated blood loss (mL): 5 Clinical Note:: This patient is a pleasant 61-year-old white female who we have been treating for low back pain with lumbar radiculopathy symptoms. She has failed all previous conservative treatments including injections, oral medications and physical therapy. She had a successful psychological evaluation. She is also had a successful intrathecal pump trial. She presents for permanent placement of her intrathecal pain pump today. She is on oxygen and since she is on clonazepam we will plan on bupivacaine for intrathecal pain pump. She did well with the bupivacaine pain pump trial. She is not a candidate for narcotic therapy. Operative findings:: None Operative note:: Informed consent was obtained the risk and benefits of the procedure were explained to the patient. Patient was taken the operating room placed prone on the procedure table. She was prepped and draped in sterile fashion. The pump pocket was created in the left flank. We achieved hemostasis in the pump pocket. C-arm fluoroscopy was used to view the lumbar spine. The skin and subcutaneous tissues adjacent to the L4-L5 interspace were anesthetized using lidocaine. I made an incision and dissected down to the lumbar paraspinous fascia. A 15-gauge spinal needle was inserted and advanced into the L4-5 interspace until clear CSF was obtained. After this intrathecal catheter was in serted and advanced very easily to the T12 vertebral body. The stylette of the catheter and the needle were withdrawn. The catheter was secured to the fascia with 2 anchoring devices and 2-0 Prolene. I have filled the pump with 20 mL of intrathecal bupivacaine 5 mg/mL. I tunneled the catheter from the back to the pump pocket and attached catheter to the pump. We were able to freely withdraw clear CSF through the side-port. Both incisions were irrigated with antibiotic solution. Both incisions were then closed with 2-0 Vicryl followed by 4-0 nylon. A wound VAC was placed over both incisions. The patient was placed in an abdominal binder and taken to recovery in stable condition. Pump was interrogated and started 2.5 mg/day of intrathecal bupivacaine. Patient tolerated the procedure well with no complications. Plan and disposition: We will follow-up with this patient in 1 week for wound check. We will follow-up in 3 weeks for suture removal. If she has any problems or questions she is to call us back in the pain clinic. We did discharge her on Bactrim DS twice a day for 5 days. Condition: stable Disposition: PACU Complications:: None
[2022-01-28 14:20] VITALS: BP 120/70; PULSE 83; RESP 16; TEMP 36.2; O2SAT 96
[2022-01-28 14:35] VITALS: BP 112/68; PULSE 73; RESP 16; O2SAT 95
[2022-01-28 14:50] VITALS: BP 106/50; PULSE 71; RESP 16; O2SAT 95
[2022-01-28 15:10] VITALS: BP 110/62; PULSE 71; RESP 16; TEMP 36.3; O2SAT 96
== END 2022-01-28 15:15 | disposition home or self-care (01) ==
LOC: OR 09:09
PROVIDERS: PCP Emergency Medicine; Visit Provider Anesthesiology
DX: M51.16 Intervertebral disc disorders with radiculopathy, lumbar region (principal); I11.0 Hypertensive heart disease with heart failure; I50.9 Heart failure, unspecified; I42.9 Cardiomyopathy, unspecified; J44.9 Chronic obstructive pulmonary disease, unspecified; I25.10 Atherosclerotic heart disease of native coronary artery without angina pectoris; E78.5 Hyperlipidemia, unspecified; E11.9 Type 2 diabetes mellitus without complications; I25.2 Old myocardial infarction; Z72.0 Tobacco use
CPT/HCPCS: 62350; 62362; 80305; 82962; 96374; C1755; C1772

== ENCOUNTER → 2022-02-04 09:58 | Outpatient (POV) | payer MEDICARE, MEDICAID, SELFPAY ==
--- NOTE | 2022-02-04 10:36 | HMH.PMPROC ---
- Procedure Date: 02/04/22 Time: 10:36 Anesthesiologist:: Trever Shaw CRNA Complications:: None Pre-procedure Diagnosis:: Degenerative disc disease of lumbar spine with lumbar radiculopathy symptoms Post-procedure Diagnosis:: Same Indications for Procedure:: Patient is a pleasant 61-year-old female who is presenting today for postoperative follow-up. We are currently treating the patient for degenerative disc disease of lumbar spine with lumbar radiculopathy symptoms. Patient had a intrathecal pain pump placed on 01/28/2022. SHe is currently being managed with bupivacaine 5 mg/mL with a daily dose of 2.5 mg/day. Today she rates her pain of 8 out of 10. sHe states the pain is at lower lumbar area around her tailbone that radiates down bilateral lower extremities. SHe describes the pain as a achy sensation that is constant. Patient states she is done well with her incisions. Patient came in today with her wound VAC and abdominal binder in place. She denies any problem following her procedure. Her Sunil is [id number]. It has been reviewed and is appropriate. Procedure Details:: Patient's pump was interrogated and adjusted with a 10% increase. She is now receiving bupivacaine 5 mg/mL with a daily dose of 2.75 mg/day. Pump was then interrogated with new settings. Plan and Disposition:: Patient states she is still having significant in her lumbar and lower extremity region. We will increase her pump today by 10%. Her new medication dosage will be bupivacaine 5 mg/mL with a daily dose of 2.75 mg/day. Her incision sites were dry, intact, well approximated and no erythema noted at today's visit. I have instructed the patient to continue restrictions such as no tub bathing, swimming pool or hot tub use and bending/twisting, weightbearing, etc. Patient was also instructed regarding signs of infection. we will schedule the patient for a follow-up visit in 2 weeks. Patient will return to clinic in 2 weeks for follow-up and suture removal. Patient has been instructed to contact the clinic with any concerns before the next appointment. Dr. Hinkle has reviewed this note and agrees with this plan of care. This note was dictated using voice recognition software and may contain errors or admissions.
[2022-02-04 10:46] VITALS: BP 138/85; PULSE 97; RESP 20; TEMP 36.4; O2SAT 93; BMI 34.0
== END ==
PROVIDERS: PCP Emergency Medicine; Visit Provider Nurse Anesthetist, Certified Registered
DX: M51.16 Intervertebral disc disorders with radiculopathy, lumbar region (principal)
CPT/HCPCS: 62368; 99212; G0463

== ENCOUNTER → 2022-02-11 14:05 | Outpatient (CLI) | payer MEDICARE, MEDICAID, SELFPAY ==
--- NOTE | 2022-02-11 14:06 | MM_ITS ---
PROCEDURE INFORMATION: Exam: MG Right Diagnostic Breast Tomosynthesis Exam date and time: 02/11/2022 2:29 PM Age: 61 years old Clinical indication: Short-term radiographic followup; Right breast TECHNIQUE: Imaging protocol: Right Diagnostic tomosynthesis and 2D mammography including computer-aided detection (CAD) when performed. Unilateral or bilateral exam. COMPARISON: 1. MG MM DIG MAMM DX UNILAT RT CAD 07/26/2021 2:18 PM 2. MG MM DIG SCREENING MAMM BI W/CAD 07/10/2021 4:35 PM FINDINGS: MAMMOGRAPHY: The breast tissue is composed of scattered areas of fibroglandular density. There is no stellate mass, architectural distortion or suspicious microcalcifications to suggest malignancy. Additional spot compression views of the right inferior breast demonstrates stable nonspecific nodular parenchyma. No one solitary discrete suspicious mass lesion is seen. No skin thickening or axillary adenopathy. IMPRESSION: 1. No mammographic evidence of malignancy. Annual bilateral mammographic screening is recommended in July 2022 unless otherwise clinically indicated. 2. Also, please refer to sonogram report dated 02/11/2022 ASSESSMENT: BI-RADS Category 1: Negative
--- NOTE | 2022-02-11 14:06 | US_ITS ---
PROCEDURE INFORMATION: Exam: US Right Breast, Complete Exam date and time: 02/11/2022 3:01 PM Age: 61 years old Clinical indication: Abnormal findings on imaging; Right; Mass; Patient HX: 6 mo fu; Additional info: Abnormal mm TECHNIQUE: Imaging protocol: Complete ultrasound of all four quadrants of the Right breast and the retroareolar regions, including ultrasound of the axilla when performed. COMPARISON: US BREAST RT COMPLETE 07/26/2021 3:05 PM FINDINGS: Breast: High resolution sonography of the RIGHT breast demonstrates a 3 mm cystic nodule at 9 o'clock position approximately 3 cm from the nipple and an oval hypoechoic nodule measuring 7 x 6 x 2 mm. At 10 o'clock approximately 5 cm from the nipple a mildly complex septated cystic nodule measuring 5 x 5 x 3 mm. Morphologically normal appearing oval lymph nodes with a fatty/vascular hilum in the RIGHT axilla. IMPRESSION: 1. Indeterminate, likely benign cystic and hypoechoic oval nodules in the RIGHT breast at 9 and 10 o'clock positions as described. 2. Recommend correlation with prior histopathology results and/or FNA of the nodules. ASSESSMENT: BI-RADS 0: Need Additional Imaging Evaluation and/or Prior Mammograms For Comparison
== END ==
PROVIDERS: PCP Emergency Medicine; Visit Provider Emergency Medicine
DX: R92.8 Other abnormal and inconclusive findings on diagnostic imaging of breast (principal)
CPT/HCPCS: 76641; 77061; 77065; G0279

== ENCOUNTER → 2022-02-18 10:09 | Outpatient (POV) | payer MEDICARE, MEDICAID, SELFPAY ==
[2022-02-18 10:36] VITALS: BP 130/66; PULSE 81; RESP 20; TEMP 36.5; O2SAT 93; BMI 33.6
--- NOTE | 2022-02-18 11:42 | HMH.PMPROC ---
- Procedure Date: 02/18/22 Time: 11:02 Anesthesiologist:: Trever Shaw CRNA Complications:: None Pre-procedure Diagnosis:: Degenerative disc disease of lumbar spine with lumbar radiculopathy symptoms Post-procedure Diagnosis:: Same Indications for Procedure:: Patient is a pleasant 61-year-old female who presents today for follow-up. Patient is currently being treated for degenerative disc disease of lumbar spine with lumbar radiculopathy symptoms. Patient had a intrathecal pain pump placed 01/28/2022. She is currently being managed with bupivacaine 5 mg/mL with a daily dose of 2.75 mg/day. Today she states her pain is a 5 out of 10. She states her pain is all in her lower lumbar area and around her tailbone that radiates down bilateral lower extremities. She does describe this pain as a constant achy sensation. Patient denies any problems since having her procedure done. She states her incision sites are leasing machine tender and have started to itch. Patient denies any new trauma or injury to the site. Patient states that she is managing her pain overall well. She states that she is had 90% improvement since having the device implanted. She did state that she has had increased pain since last week. She would like a increased dose at today's visit. Her Sunil is [id number]. Is been reviewed and appropriate. Procedure Details:: Informed consent was obtained and the risk and benefits of the procedure were explained to the patient. Patient was taken to the procedure room where noninvasive monitoring was placed including noninvasive blood pressure cuff and pulse ox monitor. Patient's pump was interrogated and reprogrammed to a 10% increase of bupivacaine 5 mg/mL with a daily dose of 3.025 mg/day. The patient tolerated the procedure well with no complications. Plan and Disposition:: Incision sites were well approximated, dry, intact with mild erythema noted. Sutures were removed and Steri-Strips applied at today's visit. The patients pump was increased by 10% today. We will see the patient back in 2 weeks for follow-up. Patient was counseled on continuing her restrictions such as no tub bathing, swimming, hot tub use, bending twisting, squatting, etc. The patient will return to clinic in 2 weeks for follow-up and reevaluation of symptoms. Patient has been instructed to contact the clinic with any concerns before the next appointment. Dr. Hinkle has reviewed this note and agrees with this plan of care. This note was dictated using voice recognition software and may contain errors or omissions
== END ==
PROVIDERS: PCP Emergency Medicine; Visit Provider Nurse Anesthetist, Certified Registered
DX: M51.16 Intervertebral disc disorders with radiculopathy, lumbar region (principal)
CPT/HCPCS: 62368; 99212; 99213; G0463

== ENCOUNTER → 2022-03-05 10:05 | Outpatient (POV) | payer MEDICARE, MEDICAID, SELFPAY ==
[2022-03-05 10:26] VITALS: BP 121/75; PULSE 93; RESP 20; TEMP 36.4; O2SAT 93; BMI 32.1
--- NOTE | 2022-03-05 11:44 | A.OFFVIS_ITS ---
[facility] Pain Management SOAP Note Subjective:: Patient is a pleasant 61-year-old female that presents today for follow-up from intrathecal pain pump adjustment on 02/18/2022. We are currently treating the patient for degenerative disc disease of lumbar spine with lumbar radiculopathy symptoms. Patient is currently being managed with bupivacaine 5 mg/mL with a daily dose of 3.025 mg/day. Today she rates her pain a 3 out of 10. She states this is all around her mid back and describes it as a aching, throbbing sensation that is worse with increased activity. Patient states she has had mild improvement of her symptoms since having her increased dose. Patient denies any new trauma or injury to the site. She denies any change to the location or type of pain she experiences. She states occasionally she has increased pain at different times through the day, she is interested in getting her PTC bolus device set up. She is currently managed with gabapentin 800 mg twice a day by Dr. Shah. She denies any side effects from this medication. She states this medication does not adequately manage her pain. Her Sunil is [id number]. Its been reviewed and appropriate. Review of Systems: General: No recent weight changes, no fever, no sleep disturbances Respiratory: No cough, no shortness of air, no recurring pulmonary infections Cardiovascular/peripheral vascular: No chest pain, no palpitations, no edema, no shortness of breath Gastrointestinal: No new onset incontinence, normal bowel movements reported Genitourinary: No new onset incontinence Musculoskeletal: Mid/low back pain Psychiatric: [Normal mood/affect] Neurological: [Denies weakness in extremities], [denies balance issues] Objective:: Physical Exam: General: Alert and oriented x3, no acute distress, pleasant and cooperative Lungs: Respirations even and unlabored, symmetrical chest expansion Eyes: PERRL Musculoskeletal: Flexion and extension of lumbar [spine] somewhat guarded secondary to pain, [antalgic gait noted] Neurological: Speech clear, no gross sensory deficit Assessment:: Degenerative disc disease of lumbar spine with lumbar radiculopathy symptoms Plan:: Patient has had moderate improvement of her pain symptoms since having a 10% increase in her intrathecal pain pump dosage. Patient states she still occasionally has increased pain from time to time and would be interested in getting her bolus device set up. We will program her PTC device at today's visit. Her PTC device will be programmed for 0.3 mg boluses with a total allotted of 4/day. Patient will return to clinic on Thursday for a intrathecal pain pump refill. At that time we will follow-up and reevaluate her symptoms. Patient has been instructed to contact the clinic with any concerns before the next appointment. Dr. Hinkle has reviewed this note and agrees with this plan of care. This note was dictated using voice recognition software and make contain errors or omissions. [facility] Medical History (Updated 12/20/21 @ 16:15 by Brendon Brandt APRN) Abnormal cardiovascular stress test Atypical angina CAD (coronary artery disease) Cardiomyopathy CHF (NYHA class II, ACC/AHA stage C) HTN (hypertension) Social History Smoking Status: Current every day smoker tobacco type: cigarettes packs per day: 1 second hand exposure: No alcohol intake: never counseling provided: none substance use type: denies use current occupational status: other household members: significant other housing: house number of children: 2 current occupational exposures/hazards: No caffeine: Yes
--- NOTE | 2022-03-05 16:06 | EXP.PAIN.PRO ---
Procedure Date: 03/05/22 Time: 11:00 Anesthesiologist:: Renuka Gonzales APRN Complications:: None Pre-procedure Diagnosis:: Degenerative disc disease of lumbar spine with lumbar radiculopathy symptoms Post-procedure Diagnosis:: Same Indications for Procedure:: Patient is a pleasant 61-year-old female that presents today for follow-up from intrathecal pain pump adjustment on 02/18/2022. We are currently treating the patient for degenerative disc disease of lumbar spine with lumbar radiculopathy symptoms. Patient is currently being managed with bupivacaine 5 mg/mL with a daily dose of 3.025 mg/day. Today she rates her pain a 3 out of 10. She states this is all around her mid back and describes it as an aching, throbbing sensation that is worse with increased activity. Patient states she has had mild improvement of her symptoms since having her pump dosage increased. Patient denies any new trauma or injury to the site. She denies any change in the location or type of pain she experiences. She states occasionally she has increased pain at different times through the day and she is interested in getting her PTC bolus device set up. She is currently managed with gabapentin 800 mg twice a day by Dr. Shah. She denies any side effects from this medication she states this medication does adequately help manage her pain. Her Sunil is [id number]. It has been reviewed and appropriate. Procedure Details:: Informed consent was obtained and the risk and benefits of the procedure were explained to the patient. Patient was taken to the procedure room where noninvasive monitoring was placed including noninvasive blood pressure cuff and pulse oximeter. Patient's pump was interrogated and PTC bolus device programmed to 0.3 mg boluses with a total of 4 allotted boluses per day. The patient tolerated the procedure well with no complications. Plan and Disposition:: Patient has had moderate improvement of her pain symptoms since having a 10% increase in her intrathecal pain pump dosage at her last visit. Patient states she is still occasionally having increased pain at different times through the day. We have programmed the patient's PTC bolus device at today's visit. Patient will return to clinic on Thursday for intrathecal pain pump refill. At that time we will follow-up and reevaluate her symptoms. Patient has been instructed to contact the clinic with any concerns before the next appointment. Dr. Hinkle has reviewed this note and agrees with this plan of care. This note was dictated using voice recognition software and make contain errors or omissions. -- It Is medically necessary for this patient to continue to have their intrathecal pump refilled at regular intervals. This patient had an intrathecal pain pump implanted after meeting criteria of chronic intractable pain for greater than 3 months and failing conservative treatments. Patient has committed and been compliant to the treatment plan and all planned follow up care. Since implantation of the intrathecal pain pump, the patient has had decreased pain and been more functional. Oral medications have been reduced including intake of oral opioids. Patient continues to do well with intrathecal therapy with decrease in pain symptoms and increase in functional status. Stopping intrathecal medications can lead to life threatening withdrawal, seizures, cardiac arrest, severe pain, and possible . Pumps that are not refilled at regular intervals can be damages and cause and need for replacement. We continually titrate dose and concentration to optimize pain relief and function. We are limited in concentration for certain drugs to safely deliver medications through the pump and stay within the recommendations from the Polyanalgesic Consensus Committee Guidelines. Depending on dose and concentration these pumps may need to be refilled sooner than 3 months as we titrate.
== END | disposition home or self-care (01) ==
PROVIDERS: PCP Emergency Medicine; Visit Provider Nurse Practitioner Family
DX: M51.16 Intervertebral disc disorders with radiculopathy, lumbar region (principal)
CPT/HCPCS: 62368; 99212; G0463

== ENCOUNTER 2022-03-11 11:30 | Day surgery (SDC) | payer MEDICARE, MEDICAID, SELFPAY ==
[2022-03-11 11:36] VITALS: BP 116/68; PULSE 83; RESP 20; TEMP 36.3; O2SAT 92; BMI 31.9
[2022-03-11 12:01] VITALS: BP 129/80; PULSE 81; RESP 18; O2SAT 91
[2022-03-11 12:04] VITALS: BP 129/80; PULSE 81; RESP 18; O2SAT 91
[2022-03-11 12:15] VITALS: BP 115/73; PULSE 79; O2SAT 93
--- NOTE | 2022-03-11 12:17 | EXP.PAIN.PRO ---
Procedure Date: 03/11/22 Time: 12:10 Anesthesiologist:: Trever Shaw CRNA Complications:: None Pre-procedure Diagnosis:: Degenerative disc disease of lumbar spine with lumbar radiculopathy symptoms Post-procedure Diagnosis:: Same Indications for Procedure:: Patient is a pleasant 61-year-old female who presents today for intrathecal pain pump refill and reprogram. We are currently treating the patient for degenerative disc disease of lumbar spine with lumbar radiculopathy symptoms. She is currently managed with bupivacaine 5 mg/mL with a daily dose of 3.025 mg/day. She is also managed with gabapentin 800 mg twice a day by Dr. Shah. Patient denies any side effects from these medications. She states these medications do adequately manage her pain. Today she rates her pain a 0 out of 10. Her Sunil is [id number]. It has been reviewed and appropriate. Physical exam General: Alert and oriented x3, no acute distress, pleasant and cooperative on room air lungs: Respirations even and unlabored, symmetrical chest expansion eyes:PERRL Musculoskeletal flexion and extension of lumbar spine somewhat guarded secondary to pain, antalgic gait noted Neurological; speech clear, no gross sensory deficit Procedure Details:: Informed consent was obtained and the risk and benefits of the procedure were explained to the patient. The patient was taken to the procedure room where noninvasive monitoring was placed on the patient including a noninvasive blood pressure cuff and a pulse oximeter. Patient's pump was interrogated. The area over the pump was cleansed with chlorhexidine as a cleansing solution and a sterile fashion the pump was accessed using a 22-gauge needle. From interrogation of the system 0 mL of pump solution was expected. Approximately 0 mL of the pump solution was removed. The pump was then refilled with 20 mL of bupivacaine 10 mg/mL with a daily dose of 3.025 mg/day. The needle was withdrawn and a bandage placed over the puncture site. The infusion rate was continued at bupivacaine 3.025 mg/day. The patient tolerated the procedure well with no complications. Plan and Disposition:: We will see the patient back at the clinic at the next intrathecal refill. Patient is been instructed to contact the clinic with any concerns before the next appointment. Dr. Hinkle is reviewed this note and agrees with this plan of care. This note was dictated using voice recognition software and may contain errors or admissions.
== END 2022-03-11 12:16 | disposition home or self-care (01) ==
LOC: SC.PAINP 11:31
PROVIDERS: PCP Emergency Medicine; Visit Provider Anesthesiology
DX: M51.16 Intervertebral disc disorders with radiculopathy, lumbar region (principal)
CPT/HCPCS: 95991

== ENCOUNTER 2022-04-15 08:51 | Day surgery (SDC) | payer MEDICARE, MEDICAID, SELFPAY ==
[2022-04-15 09:18] VITALS: BP 100/61; PULSE 91; RESP 20; TEMP 36.3; O2SAT 100; BMI 31.9
[2022-04-15 09:22] VITALS: BP 125/79; PULSE 91; RESP 18; O2SAT 99
[2022-04-15 09:24] VITALS: BP 125/79; PULSE 91; RESP 18; O2SAT 99
--- NOTE | 2022-04-15 09:31 | P.PCN_ITS ---
Procedure Date: 04/15/22 Time: :22 Anesthesiologist:: Trever Shaw CRNA Complications:: None Pre-procedure Diagnosis:: Degenerative disc disease of lumbar spine with lumbar radiculopathy symptoms Post-procedure Diagnosis:: Same Indications for Procedure:: Patient is a pleasant 61-year-old female who presents today for intrathecal pain pump refill and reprogram. We are currently treating the patient for degenerative disc disease of lumbar spine with lumbar radiculopathy symptoms. She is currently managed with bupivacaine 10 mg/mL with a daily dose of 3.025 mg/day. She is also managed with gabapentin 800 mg twice a day by Dr. Shah's office. Patient denies any side effects from these medications. She states these medications do adequately help manage her pain. Today she rates her pain a 6 out of 10. Physical exam General: Alert and oriented x3, no acute distress, pleasant cooperative Lungs: Respirations even and unlabored, symmetrical chest expansion Eyes: PERRL Musculoskeletal: Flexion and extension of lumbar spine somewhat guarded secondary to pain, antalgic gait noted. Neurological: Speech clear, no gross sensory deficit Procedure Details:: Informed consent was obtained and the risk and benefits of the procedure were explained to the patient. The patient was taken to the procedure room where the noninvasive monitoring such as a noninvasive blood pressure cuff and pulse oximeter were placed on the patient. Patient's pump was interrogated. The area over the pump was cleansed with chlorhexidine as a cleansing solution and in a sterile fashion the pump was accessed using a 22-gauge needle. From the inte rrogation of the system 9 mL of pump solution was expected. Approximately 8.2 mL of pump solution was removed and discarded appropriately. The pump was then refilled with 20 mL of bupivacaine 10 mg/mL with a daily dose at 3.025 mg/day. The needle was withdrawn and a bandage was placed over the puncture site. The infusion rate was continued at bupivacaine 3.025 mg/day. Patient tolerated the procedure well with no complications. Plan and Disposition:: We will see the patient back at the clinic at the next intrathecal pump refill date. Patient has been instructed to contact the clinic with any concerns before the next appointment date. Dr. Hinkle has reviewed this note and agrees with this plan of care. This note was dictated using voice recognition software and may contain errors or omissions.
[2022-04-15 09:37] VITALS: BP 90/62; PULSE 90; RESP 18; O2SAT 90
== END 2022-04-15 09:38 | disposition home or self-care (01) ==
PROVIDERS: PCP Emergency Medicine; Visit Provider Nurse Anesthetist, Certified Registered
DX: M51.16 Intervertebral disc disorders with radiculopathy, lumbar region (principal)
CPT/HCPCS: 62370

== ENCOUNTER 2022-05-16 14:24 | Day surgery (SDC) | payer MEDICARE, MEDICAID, SELFPAY ==
[2022-05-16 14:57] VITALS: BP 130/73; PULSE 80; RESP 20; TEMP 36.8; O2SAT 95; BMI 32.9
[2022-05-16 15:33] VITALS: BP 122/75; PULSE 79; RESP 18; O2SAT 97
[2022-05-16 15:38] VITALS: BP 115/66; BP 122/75; PULSE 75; PULSE 79; RESP 18; RESP 20; O2SAT 93; O2SAT 97
--- NOTE | 2022-05-16 16:15 | EXP.PAIN.PRO ---
Procedure Date: 05/16/22 Time: 16:15 Anesthesiologist:: Federico Hinkle MD Complications:: None Pre-procedure Diagnosis:: Degenerative disc disease of lumbar spine with lumbar radiculopathy symptoms Post-procedure Diagnosis:: Same Indications for Procedure:: Patient is a pleasant 61-year-old white female who we are treating for low back pain with lumbar radiculopathy symptoms. She is doing well with her intrathecal bupivacaine pain pump. She is having some increasing pain. We will increase her today. Procedure Details:: Informed consent was obtained and the risks and benefits of the procedure was explained to the patient. The patient was taken to the procedure room. The pump was interrogated. The area over the pump was prepped using ChloraPrep. The pump was accessed with a 22-gauge needle. Approximately 9 mL's of the intrathecal solution was withdrawn and discarded. The pump was then refilled with 20 mL's of intrathecal bupivacaine 10 mg/mL. The pump was interrogated and the infusion was increased to 4 mg/day. The patient tolerated the procedure well with no complication. Plan and Disposition:: We will follow-up with her in 2 weeks. Will reevaluate symptoms at that time.
== END 2022-05-16 15:38 | disposition home or self-care (01) ==
LOC: SC.PAINP 14:25
PROVIDERS: PCP Emergency Medicine; Visit Provider Anesthesiology
DX: M51.16 Intervertebral disc disorders with radiculopathy, lumbar region (principal)
CPT/HCPCS: 62370

== ENCOUNTER 2022-06-10 13:41 | Day surgery (SDC) | payer MEDICARE, MEDICAID, SELFPAY ==
[2022-06-10 14:13] VITALS: BP 132/77; PULSE 80; RESP 18; O2SAT 95; BMI 29.2
[2022-06-10 14:24] VITALS: BP 110/75; PULSE 86; RESP 18; O2SAT 98
[2022-06-10 14:25] VITALS: BP 110/75; PULSE 86; RESP 18; O2SAT 97
--- NOTE | 2022-06-10 14:32 | EXP.PAIN.PRO ---
Procedure Date: 06/10/22 Time: 14:32 Anesthesiologist:: Trever Shaw CRNA Complications:: None Pre-procedure Diagnosis:: Degenerative disc disease of lumbar spine with lumbar radiculopathy symptoms Post-procedure Diagnosis:: Same Indications for Procedure:: Patient is a very pleasant 61-year-old female that comes our clinic today for intrathecal pain pump refill. Patient seems to be doing quite well with her current management of bupivacaine 10 mg/mL at 4 mg/day. However, discussion with the patient regarding extreme point tenderness over the right SI joint with some right hip and leg radicular symptoms including the anterior thigh to the knee. I suggest we inject the right SI joint with cortisone. I explained in detail to the patient regarding this injection. Answered her questions. She wishes to proceed. She has positive James's test. Positive Gaenslen's test. Procedure Details:: Details of the procedure were explained to the patient. The patient taken the procedure room placed in the sitting position. The area over the intrathecal pump was cleaned using chlorhexidine as a cleansing solution. Using a 22-gauge needle the pump was accessed with ease and 7.9 mL of solution was withdrawn and discarded appropriately. 7.9 mL was expected. The pump was then filled with 20 cc of bupivacaine 10 mg/mL. The rate will remain at 4 mg/day. We will schedule the patient to return for right sacroiliac joint injection. Patient tolerated the procedure without difficulty. There are no complications. Plan and Disposition:: Patient was discharged without incident.
[2022-06-10 14:47] VITALS: BP 105/65; PULSE 85; RESP 20
== END 2022-06-10 14:49 | disposition home or self-care (01) ==
PROVIDERS: PCP Emergency Medicine; Visit Provider Nurse Anesthetist, Certified Registered
DX: M51.16 Intervertebral disc disorders with radiculopathy, lumbar region (principal)
CPT/HCPCS: 95991

== ENCOUNTER 2022-06-17 10:20 | Day surgery (SDC) | payer MEDICARE, MEDICAID, SELFPAY ==
[2022-06-17 10:40] VITALS: BP 128/72; PULSE 96; RESP 18; TEMP 36.3; O2SAT 97; BMI 29.2
[2022-06-17 10:51] VITALS: BP 122/71; PULSE 95; RESP 18; O2SAT 97
[2022-06-17 10:52] VITALS: BP 122/71; PULSE 95; RESP 18; O2SAT 97
[2022-06-17 11:10] VITALS: BP 118/72; PULSE 94; RESP 20
--- NOTE | 2022-06-17 14:17 | EXP.PAIN.PRO ---
Procedure Date: 06/17/22 Time: 11:30 Anesthesiologist:: Trever Shaw CRNA Complications:: None Pre-procedure Diagnosis:: Right sacroiliitis Post-procedure Diagnosis:: Same Indications for Procedure:: 61-year-old female patient comes our clinic today for right sacroiliac joint injection. Patient is had this injection in the past with significant provement. She has extreme point tenderness over the right sacroiliac joint area. She rates her pain 7/10 Procedure Details:: Procedure: Right sacroliliac joint injection under fluoroscopy Informed consent was obtained and the risk and benefits of the procedure were explained to the patient.~ The patient was taken to the procedure room and noninvasive monitors were placed including noninvasive blood pressure cuff and pulse oximeter.~ The patient was placed prone on the procedure table.~ The~ right hip was cleansed using Betadine as a cleansing solution.~ C-arm fluorosocpy was used to view the right SI joint.~ The skin and subcutaneous tissues were anesthetized using Lidocaine 1.5% and a 25-gauge needle.~ After this, a 22-gauge spinal needle was inserted under fluoroscopic guidance into the inferior aspect of the right SI joint.~ Omnipaque dye was injected and a good spread was seen throughout the joint.~ After this, approximately 5 mL of bupivacaine 0.25% and Depo-Medrol 40 mg was incrementally injected into the sacroiliac joint.~ The patient tolerated the procedure well with no complications.~ The patient was observed in the Pain Clinic, then discharged home neurologically intact.~ Plan and Disposition:: Patient was discharged without incident.
== END 2022-06-17 11:10 | disposition home or self-care (01) ==
LOC: SC.PAINP 10:20
PROVIDERS: PCP Emergency Medicine; Visit Provider Nurse Anesthetist, Certified Registered
DX: M46.1 Sacroiliitis, not elsewhere classified (principal)
CPT/HCPCS: 27096; G0260; J1040

== ENCOUNTER → 2022-07-08 09:58 | Outpatient (POV) | payer MEDICARE, MEDICAID, SELFPAY ==
[2022-07-08 10:36] VITALS: BP 107/72; PULSE 80; RESP 18; O2SAT 99; BMI 29.2
--- NOTE | 2022-07-08 10:53 | EXP.PAIN.SOA ---
[facility] Pain Management SOAP Note Subjective:: Patient is a pleasant 61-year-old female who presents today for follow-up of right SI injection on 06/17/2022. We are currently treating the patient for degenerative disc disease of lumbar spine with lumbar radiculopathy symptoms, right sacroiliitis. Today the patient states this injection provided significant improvement of her symptoms of upwards of 90% relief. Patient still continues to experience decreased pain symptoms. She rates her pain a 0 out of 10 during today's visit. Patient is currently managed with a intrathecal pain pump with bupivacaine 10 mg/mL with a daily dose of 4 mg/day. Patient denies any side effects from this medication. She states this medication adequately improves her pain symptoms. Patient is prescribed gabapentin 800 mg twice a day and clonazepam 0.5 mg 4 times a day from Dr. Shah's office. Patient denies any side effects from these medications. She states these medications do help. Her Sunil is [id number]. Its been reviewed and appropriate. Review of Systems: General: No recent weight changes, no fever, no sleep disturbances Respiratory: No cough, no shortness of air, no recurring pulmonary infections Cardiovascular/peripheral vascular: No chest pain, no palpitations, no edema, no shortness of breath Gastrointestinal: No new onset incontinence, normal bowel movements reported Genitourinary: No new onset incontinence Musculoskeletal: Low back pain Psychiatric: [Normal mood/affect] Neurological: [Denies weakness in extremities], [denies balance issues] Objective:: Physical Exam: General: Alert and oriented x3, no acute distress, pleasant and cooperative Lungs: Respirations even and unlabored, symmetrical chest expansion Eyes: PERRL Musculoskeletal: Flexion and extension of lumbar [spine] somewhat guarded secondary to pain, [antalgic gait noted] Neurological: Speech clear, no gross sensory deficit Assessment:: Degenerative disc disease of lumbar spine with lumbar radiculopathy symptoms, right sacroiliitis Plan:: Patient has had significant improvement of her pain symptoms following her last right SI injection and does not require any additional injective therapy. We will schedule the patient for a 3-month follow-up. Patient return to clinic in 3 months for reevaluation of symptoms and follow-up. Patient has been instructed to contact the clinic with any concerns before the next appointment. Dr. Hinkle has reviewed this note and agrees with this plan of care. This note was dictated using voice recognition software and make contain errors or omissions. -- It Is medically necessary for this patient to continue to have their intrathecal pump refilled at regular intervals. This patient had an intrathecal pain pump implanted after meeting criteria of chronic intractable pain for greater than 3 months and failing conservative treatments. Patient has committed and been compliant to the treatment plan and all planned follow up care. Since implantation of the intrathecal pain pump, the patient has had decreased pain and been more functional. Oral medications have been reduced including intake of oral opioids. Patient continues to do well with intrathecal therapy with decrease in pain symptoms and increase in functional status. Stopping intrathecal medications can lead to life threatening withdrawal, seizures, cardiac arrest, severe pain, and possible . Pumps that are not refilled at regular intervals can be damages and cause and need for replacement. We continually titrate dose and concentration to optimize pain relief and function. We are limited in concentration for certain drugs to safely deliver medications through the pump and stay within the recommendations from the Polyanalgesic Consensus Committee Guidelines. Depending on dose and concentration these pumps may need to be refilled sooner than 3 months as we titrate. [facility] Disclaimer: The information contained in this s
== END ==
PROVIDERS: PCP Emergency Medicine; Visit Provider Nurse Practitioner Family
DX: M51.16 Intervertebral disc disorders with radiculopathy, lumbar region (principal); M46.1 Sacroiliitis, not elsewhere classified; F17.210 Nicotine dependence, cigarettes, uncomplicated; Z79.899 Other long term (current) drug therapy
CPT/HCPCS: 99212; G0463

== ENCOUNTER 2022-07-11 09:33 | Day surgery (SDC) | payer MEDICARE, MEDICAID, SELFPAY ==
[2022-07-11 09:43] VITALS: BP 135/73; PULSE 86; RESP 18; TEMP 36.6; O2SAT 95; BMI 29.2
[2022-07-11 09:45] VITALS: BP 116/73; PULSE 89; RESP 18; O2SAT 97
[2022-07-11 09:46] VITALS: BP 116/73; PULSE 89; RESP 18; O2SAT 98
--- NOTE | 2022-07-11 10:00 | EXP.PAIN.PRO ---
Procedure Date: 07/11/22 Time: 09:55 Anesthesiologist:: Trever Shaw CRNA Complications:: None Pre-procedure Diagnosis:: Degenerative disc disease lumbar spine with lumbar radiculopathy symptoms, sacroiliitis Post-procedure Diagnosis:: Same Indications for Procedure:: Patient is a pleasant 61-year-old female comes to clinic today for intrathecal pain pump refill. Patient is status post right sacroiliac joint injection on 06/17/2022. She reports significant improvement terms of her posterior right hip pain following injection. We currently manage her with intrathecal bupivacaine 10 mg/mL at 4 mg a day. Patient is doing very well on this current management. However, we will increase her concentration today to 15 mg/mL. Procedure Details:: Details of the procedure were explained to the patient. The patient taken the procedure room placed in the sitting position. The area over the pump was cleansed using chlorhexidine as a cleansing solution. The pump was accessed with ease using a 22-gauge inch and a half needle. 6 cc of solution was withdrawn and discarded appropriately. The pump was then filled with 20 cc of bupivacaine 15 mg/mL. The rate will continue at 4 mg/day. Plan and Disposition:: Patient was discharged without incident.
[2022-07-11 10:10] VITALS: BP 101/61; PULSE 81; RESP 20; O2SAT 95
== END 2022-07-11 10:11 | disposition home or self-care (01) ==
PROVIDERS: PCP Emergency Medicine; Visit Provider Nurse Anesthetist, Certified Registered
DX: M51.16 Intervertebral disc disorders with radiculopathy, lumbar region (principal); M46.1 Sacroiliitis, not elsewhere classified
CPT/HCPCS: 62368

== ENCOUNTER → 2022-07-31 15:14 | Outpatient (CLI) | payer MEDICARE, MEDICAID, SELFPAY ==
--- NOTE | 2022-07-31 15:14 | MM_ITS ---
PROCEDURE INFORMATION: Exam: MG Bilateral Screening 3D Mammography Exam date and time: 07/31/2022 3:15 PM Age: 61 years old Clinical indication: Screening examination TECHNIQUE: Imaging protocol: Bilateral Screening tomosynthesis and 2D mammography including computer-aided detection (CAD) when performed. COMPARISON: 1. MG MM DIG MAMM DX UNILAT RT CAD 02/11/2022 2:29 PM 2. MG MM DIG MAMM DX UNILAT RT CAD 07/26/2021 2:18 PM 3. MG MM DIG SCREENING MAMM BI W/CAD 07/10/2021 4:35 PM 4. MG SCBI MM Dig screening mamm BI w/CAD 05/04/2018 10:15 AM FINDINGS: MAMMOGRAPHY: Breast composition: There are scattered areas of fibroglandular density. Mass: None. Architectural distortion: No new or suspicious architectural distortion. Calcifications: No new or suspicious calcifications are present Asymmetric density: No new or suspicious asymmetric density is present Skin thickening: None. Axillary adenopathy: None. IMPRESSION: No mammographic evidence of malignancy. Recommend annual screening mammography unless otherwise clinically indicated. ASSESSMENT: BI-RADS category 1: Negative
== END ==
PROVIDERS: PCP Emergency Medicine; Visit Provider Emergency Medicine
DX: Z12.31 Encounter for screening mammogram for malignant neoplasm of breast (principal)
CPT/HCPCS: 77063; 77067

== ENCOUNTER 2022-08-19 08:55 | Day surgery (SDC) | payer MEDICARE, MEDICAID, SELFPAY ==
[2022-08-19 09:10] VITALS: BP 102/63; PULSE 80; RESP 18; TEMP 36.6; O2SAT 92; BMI 27.4
[2022-08-19 09:13] VITALS: BP 100/62; PULSE 75; RESP 18; O2SAT 98
[2022-08-19 09:24] VITALS: BP 94/54; PULSE 71; RESP 18; O2SAT 92
--- NOTE | 2022-08-19 09:30 | EXP.PAIN.PRO ---
Procedure Date: 08/19/22 Time: 09:10 Anesthesiologist:: Trever Shaw CRNA Complications:: None Pre-procedure Diagnosis:: Degenerative disc disease lumbar spine multilevels. Lumbar radiculopathy. Lumbar postlaminectomy syndrome. Post-procedure Diagnosis:: . Same Indications for Procedure:: This patient is a very pleasant 61-year-old female comes our clinic today for intrathecal pain pump refill and interrogation. She is currently being managed with bupivacaine 15 mg/mL at 4 mg/day. We will change her concentration today to bupivacaine 20 mg/mL. Her rate will remain at 4 mg today. Procedure Details:: Details of the procedure were explained to the patient. The patient taken to procedure room placed in the sitting position. The area over the pump was cleansed using chlorhexidine as a cleansing solution. The pump was accessed with ease using and should have 22-gauge needle. 8.4 mL of solution was removed and discarded appropriately. The pump was then filled with 20 cc of bupivacaine 20 mg/mL. Her right will remain the same at 4 mg/day. Plan and Disposition:: Patient was discharged without incident.
== END 2022-08-19 09:24 | disposition home or self-care (01) ==
PROVIDERS: PCP Emergency Medicine; Visit Provider Nurse Anesthetist, Certified Registered
DX: Z45.1 Encounter for adjustment and management of infusion pump (principal); M51.16 Intervertebral disc disorders with radiculopathy, lumbar region; M96.1 Postlaminectomy syndrome, not elsewhere classified
CPT/HCPCS: 95991

== ENCOUNTER → 2022-09-01 23:50 | Outpatient (CLI) | payer MEDICARE, MEDICAID, SELFPAY ==
[2022-09-01 19:12] LABS: Basophils % 0.5 % (0.1-2.0); Eosinophils # 0.2 K/mm3 (0.0-0.4); Eosinophils % 1.7 % (0.1-12.0); Hematocrit 43.8 % (37.0-47.0); Hemoglobin 13.6 g/dL (12.2-16.2); Lymphocytes # 2.5 K/mm3 (0.7-4.5); Lymphocytes % 28.6 % (10-50); Mean Corpuscular HGB Conc 31.1 g/dL (31.8-35.4); Mean Corpuscular Volume 93.2 fl (81-99); Monocytes # 0.4 K/mm3 (0.1-1.0); Monocytes % 4.9 % (1.7-9.3); Neutrophils # 5.6 K/mm3 (1.8-7.8); Neutrophils % 64.3 % (37.0-80.0); Platelet Count 329 K/mm3 (142-424); Red Cell Distribution Width 14.2 % (11.5-17.5); White Blood Count 8.7 K/mm3 (4.8-10.8)
[2022-09-01 19:26] LABS: Alanine Aminotransferase 23 U/L (12-78); Albumin Level 3.9 g/dl (3.5-5.0); Albumin/Globulin Ratio 1.5 (1.1-1.8); Alkaline Phosphatase 149 U/L (38-126); Anion Gap 8.7 mEq/L (5-15); Aspartate Amino Transferase 32 U/L (14-36); Bilirubin,Total 0.4 mg/dl (0.2-1.3); Blood Urea Nitrogen 10 mg/dl (7-17); Calcium 8.9 mg/dl (8.4-10.2); Carbon Dioxide 34 mmol/L (22.0-30.0); Chloride 104 mmol/L (98-107); Estimated Glomerular Filt Rate 56 ml/min (>60); GFR (African American) 68 ML/MIN (>60); Globulin 2.6 g/dL (1.3-3.2); Glucose 109 mg/dl (74-100); Lipase 73 U/L (23-300); Potassium 4.7 mmoL/L (3.5-5.1); Sodium 142 mmol/L (136-145); Total Protein,Serum 6.5 g/dl (6.3-8.2)
== END ==
PROVIDERS: PCP Emergency Medicine; Visit Provider Emergency Medicine
DX: R10.9 Unspecified abdominal pain (principal); I10 Essential (primary) hypertension
CPT/HCPCS: 80053; 83690; 85025

== ENCOUNTER → 2022-09-04 09:35 | Outpatient (CLI) | payer MEDICARE, MEDICAID, SELFPAY ==
--- NOTE | 2022-09-04 09:35 | US_ITS ---
FINAL REPORT CLINICAL HISTORY: abdominal pain FINDINGS: Sonographic images of the right upper quadrant were obtained. The pancreas is partially obscured.The liver has an unremarkable appearance.The gallbladder appears normal without evidence of gallstones.There is no evidence of biliary ductal dilatation.The common duct measures 4mm. There is a cyst in the right kidney measuring 1.2 cm. IMPRESSION: Right renal cyst. Reviewed, Interpreted and Dictated by Jam Britt III, MD Transcribed by Shanita Long Authenticated and [facility]
== END ==
PROVIDERS: PCP Emergency Medicine; Visit Provider Emergency Medicine
DX: R10.9 Unspecified abdominal pain (principal)
CPT/HCPCS: 76705

== ENCOUNTER 2022-09-23 09:17 | Day surgery (SDC) | payer MEDICARE, MEDICAID, SELFPAY ==
[2022-09-22 13:29] VITALS: BMI 27.8
[2022-09-23 10:00] VITALS: BP 134/79; PULSE 83; RESP 18; TEMP 36.6; O2SAT 90
--- NOTE | 2022-09-23 10:09 | EXP.ANES.CKL ---
[facility] Disclaimer: The information contained in this section may have been updated after the patient was seen, as this information can be updated by other users. Medical History Abnormal cardiovascular stress test Allergies Anxiety and depression Atypical angina CAD (coronary artery disease) Cardiomyopathy CHF (NYHA class II, ACC/AHA stage C) COPD (chronic obstructive pulmonary disease) Cyst of right kidney Diabetes Generalized anxiety disorder History of gastroesophageal reflux (GERD) HTN (hypertension) Hyperlipidemia Hypothyroid Insomnia Major depressive disorder Ulcerative colitis Surgical History H/O: hysterectomy History of surgery History of surgery Hx of section Family History Other Heart disease Hyperlipidemia Hypertension Social History Smoking Status: Current every day smoker tobacco type: cigarettes packs per day: 1 second hand exposure: No alcohol intake: never counseling provided: none substance use type: denies use current occupational status: disabled Travel in the last 8 weeks: None household members: significant other housing: house number of children: 2 current occupational exposures/hazards: No caffeine: Yes [facility] Anesthesia Checklist Patient Identification Patient Identification: Arm Band Structural Data Admitted From: Home Planned Operative Procedure/s: EGD Consent for Planned Operative Procedure(s) Verified: Yes Verified Documents: Surgical Consent and History and Physical NPO Status Verified Time NPO: 00:00 Additional verifications Anesthesia Reactions: No Hx Blood Transfusions: No Blood Transfusion Reaction: No Airway Assessment C-Spine Mobility Assessed: Yes TMJ Mobility Assessed: Yes Dentition: Edentulous Neurological Assessment Level of Consciousness: Awake and Alert Anesthesia Plan Anesthesia Risk discussed: Yes Anesthesia Plan: Verified ASA Class: III Anesthesia Type: MAC
[2022-09-23 10:14] VITALS: O2SAT 90
--- NOTE | 2022-09-23 10:15 | HMH.SCOPE ---
Procedure: Date: 09/23/22 Patient Date of :: 1960 Procedure Performed:: Esophagogastroduodenoscopy with biopsy Indications:: Gastroesophageal reflux Dyspepsia Note: She is status post esophagogastroduodenoscopy in January [address] Reymundo Dubose. Cricopharyngeal spasm noted. Dilation to 20 mm completed. Dysmotility, nonerosive gastroesophageal reflux, and bile reflux confirmed at time of EGD. Performing Provider:: Soren You MD Referring Provider:: . Sedation:: Monitored anesthesia care Procedure:: After informed consent was obtained the patient was taken to the endoscopy suite. Sedation ensued after the patient was transferred to the left lateral decubitus position. Pulse, blood pressure, and oxygen saturation were monitored throughout the procedure. The endoscope was advanced beyond the duodenal bulb. Retroflexion within the gastric lumen was accomplished. The gastroscope was carefully removed and the patient was transferred to recovery in stable condition. Please see findings and specimens below for detail. Findings:: Gastroesophageal junction at 40 cm No obvious stricture or mass lesion noted Large volume of food particles within the gastric lumen Mild streaking distal gastritis Specimens:: Antral biopsy Recommendations:: Would likely benefit from UGI/SBFT in near future Would likely benefit from gastric emptying scan in near future Complications:: No immediate Estimated blood obtained (mL): 1
[2022-09-23 10:18] LABS: POC Glucose,Bedside 114 (70-110)
[2022-09-23 10:25] VITALS: BP 113/67; PULSE 77; RESP 14; TEMP 36.6; O2SAT 93
[2022-09-23 10:35] VITALS: BP 113/67; PULSE 83; RESP 16; O2SAT 92
[2022-09-23 10:45] VITALS: BP 118/82; PULSE 75; RESP 16; O2SAT 95
[2022-09-23 10:55] VITALS: BP 115/69; PULSE 75; RESP 16; TEMP 36.6; O2SAT 95
== END 2022-09-23 11:01 | disposition home or self-care (01) ==
PROVIDERS: PCP Emergency Medicine; Visit Provider Surgery
PROC: 0DJ08ZZ Inspection of Upper Intestinal Tract, Via Natural or Artificial Opening Endoscopic (ICD-10-PCS; CPT 43235; principal; 2022-09-23 10:30)
DX: K21.9 Gastro-esophageal reflux disease without esophagitis (principal); K31.9 Disease of stomach and duodenum, unspecified; K29.70 Gastritis, unspecified, without bleeding; E11.9 Type 2 diabetes mellitus without complications; F17.210 Nicotine dependence, cigarettes, uncomplicated; Z79.899 Other long term (current) drug therapy
CPT/HCPCS: 43239; 82962; 88305

== ENCOUNTER → 2022-10-02 12:57 | Outpatient (POV) | payer MEDICARE, MEDICAID, SELFPAY ==
--- NOTE | 2022-10-02 13:41 | EXP.PAIN.SOA ---
[facility] Pain Management SOAP Note Subjective:: Patient is a pleasant 61-year-old female who presents today for follow-up. We are currently treating the patient for degenerative disc disease of the lumbar spine with lumbar radiculopathy symptoms, sacroiliitis. Today she rates her pain a 4 out of 10. Patient denies any new trauma or injury. She does state that she is starting to experience worsening pain in her low back around her buttocks however now its the left side as well as her right side. Patient did previously had a right SI injection on 06/17/2022 that provided 90% improvement lasting up until the last couple of weeks. Patient does describe this as a aching, throbbing sensation that is worse with increased activity. She cannot tolerate prolonged sitting, standing, walking due to the pain. Patient does state it interferes with her ability to perform activities of daily living such as cooking and cleaning due to the pain. Patient is currently managed with an intrathecal pain pump of bupivacaine 10 mg/mL with a daily dose of 4 mg/day. Patient denies any side effects from this medication. She is also managed with gabapentin 800 mg twice a day and clonazepam 0.5 mg 4 times a day from Dr. Shah's office. Patient denies any side effects from this medication. Her Sunil is [id number]. Its been reviewed and appropriate. Review of Systems: General: No recent weight changes, no fever, no sleep disturbances Respiratory: No cough, no shortness of air, no recurring pulmonary infections Cardiovascular/peripheral vascular: No chest pain, no palpitations, no edema, no shortness of breath Gastrointestinal: No new onset incontinence, normal bowel movements reported Genitourinary: No new onset incontinence Musculoskeletal: Low back pain Psychiatric: [Normal mood/affect] Neurological: [Denies weakness in extremities], [denies balance issues] Objective:: Physical Exam: General: Alert and oriented x3, no acute distress, pleasant and cooperative Lungs: Respirations even and unlabored, symmetrical chest expansion Eyes: PERRL Musculoskeletal: Flexion and extension of lumbar [spine] somewhat guarded secondary to pain, [antalgic gait noted] extreme point tenderness along bilateral SIs with positive bilateral James's, Zaire's, Gaenslen's, compression and distraction exam Neurological: Speech clear, no gross sensory deficit Assessment:: Degenerative disc disease of lumbar spine with lumbar radiculopathy symptoms, sacroiliitis, chronic pain Plan:: Patient is experiencing worsening pain symptoms in her low back bilaterally with limited range of motion. Patient did have extreme point tenderness along her bilateral SI's and positive bilateral James's, Zaire's, Gaenslen's, compression and distraction exam. Patient does have chronic sacroiliitis and her last injection on the right side did provide 90% improvement lasting approximately 3 months. Patient has tried and failed conservative therapy such as oral medications, heat and ice, topicals, physical therapy, at home stretching and exercise for longer than 6 weeks. I have discussed with the patient that she may benefit from bilateral SI injections. Risk and benefits were discussed with the patient and she would like to proceed forward with this plan of care. We will schedule the patient for bilateral SI injections. Patient has been instructed to contact the clinic with any concerns before the next appointment. Dr. Hinkle has reviewed this note and agrees with this plan of care. This note was dictated using voice recognition software and make contain errors or omissions. -- It Is medically necessary for this patient to continue to have their intrathecal pump refilled at regular intervals. This patient had an intrathecal pain pump implanted after meeting criteria of chronic intractable pain for greater than 3 months and failing conservative treatments. Patient has committed and been compliant to the treatment plan and all planned fo
[2022-10-02 13:49] VITALS: BP 97/60; PULSE 91; RESP 18; O2SAT 97; BMI 26.8
== END ==
LOC: SC.PAIN 12:58
PROVIDERS: PCP Emergency Medicine; Visit Provider Nurse Practitioner Family
DX: M51.16 Intervertebral disc disorders with radiculopathy, lumbar region (principal); M46.1 Sacroiliitis, not elsewhere classified; G89.29 Other chronic pain
CPT/HCPCS: 99212; G0463

== ENCOUNTER → 2022-10-10 08:50 | Outpatient (CLI) | payer MEDICARE, MEDICAID, SELFPAY ==
--- NOTE | 2022-10-10 08:50 | FL_ITS ---
FINAL REPORT CLINICAL HISTORY: C/o heart burn, meds/meaty food getting stuck in throat, & diarrhea x 4-5 mos. Pt diagnosed w acid reflux. FINDINGS: UPPER GI WITH SBFT HISTORY: Dysphagia. Acute epigastric pain. Diarrhea. PROCEDURE: The patient ingested barium. Effervescent crystals were also administered. Spot and overhead films were obtained. Additional barium was administered for a SBFT. FLUOROSCOPY TIME: 3 minutes 16 seconds. 32 radiographs were obtained. FINDINGS: The esophagus is normal. There is a small sliding-type hiatal hernia. Gastroesophageal reflux was demonstrated to the thoracic inlet. A 13 mm barium tablet passes through the esophagus and into the stomach without delay. Peristalsis is normal. The rugal fold pattern of the stomach is normal. The duodenal bulb is normal. SBFT: The safety physician film is normal. There is no evidence of obstruction. The mucosal fold pattern is normal. The terminal ilium is normal. IMPRESSION: Small sliding-type hiatal hernia with gastroesophageal reflux. Unremarkable small bowel follow-through. Films reviewed , interpreted and dictated by Dr. Rosalind Ibarra. Transcribed by Sherman Mancilla PA-C. Reviewed, Interpreted and Dictated by Rosalind Ibarra MD Transcribed by ALENA Hicks Authenticated and [facility]
== END ==
LOC: RAD 08:50
PROVIDERS: PCP Emergency Medicine; Visit Provider Surgery
DX: R10.9 Unspecified abdominal pain (principal); R10.13 Epigastric pain; R19.7 Diarrhea, unspecified
CPT/HCPCS: 74246; 74248

== ENCOUNTER 2022-10-14 08:49 | Day surgery (SDC) | payer MEDICARE, MEDICAID, SELFPAY ==
[2022-10-14 09:03] VITALS: BP 102/69; BP 115/65; PULSE 78; PULSE 80; RESP 18; TEMP 36.4; O2SAT 97; O2SAT 98; BMI 26.9
--- NOTE | 2022-10-14 09:08 | P.PCN_ITS ---
Procedure Date: 10/14/22 Time: 09:00 Anesthesiologist:: Trever Shaw CRNA Complications:: None Pre-procedure Diagnosis:: Degenerative disease lumbar spine multilevels. Lumbar radiculopathy Post-procedure Diagnosis:: Same. Indications for Procedure:: Patient is a very pleasant female that comes our clinic today for intrathecal pain pump interrogation and refill. Patient is currently being managed with bupivacaine 20 mg/mL at 4.0 mg/day. Patient has not requesting any changes today. She does not report any side effects or complications with the current intrathecal pain pump management. Procedure Details:: Details of the procedure explained to the patient. The patient taken the procedure room placed in the sitting position. The area over the pump was cleansed using chlorhexidine as a cleansing solution. The pump was interroga ludmila. The pump was accessed with ease using 22-gauge inch and a half needle. 7.3 mL of solution was withdrawn and discarded appropriately. The pump was then filled with 20 cc of bupivacaine 20 mg/mL. The rate will continue at 4.0 mg/day. Patient tolerated procedure without difficulty. There are no complications. Plan and Disposition:: Patient was discharged without incident.
[2022-10-14 09:15] VITALS: BP 93/60; PULSE 80; RESP 18; TEMP 36.4; O2SAT 98
== END 2022-10-14 09:16 | disposition home or self-care (01) ==
PROVIDERS: PCP Emergency Medicine; Visit Provider Nurse Anesthetist, Certified Registered
DX: Z45.1 Encounter for adjustment and management of infusion pump (principal); M51.16 Intervertebral disc disorders with radiculopathy, lumbar region
CPT/HCPCS: 95991

== ENCOUNTER → 2022-10-16 09:52 | Outpatient (CLI) | payer MEDICARE, MEDICAID, SELFPAY ==
--- NOTE | 2022-10-16 09:53 | NM_ITS ---
FINAL REPORT TECHNIQUE: Sequential anterior images were obtained after the ingestion of aches, toast with butter, and water radiolabeled with 0.54 mCi technetium 99M sulfur colloid. CLINICAL HISTORY: abdominal pain 10:05 am .54 [facility] tc sulfur colloid injected into 2 whole eggs white toast with butter 6oz cup of water COMPARISON: None FINDINGS: GASTRIC EMPTYING SCAN Static images show normal emptying of the stomach into the small bowel. Based on the time activity curve, the estimated half-emptying time is 182 minutes. IMPRESSION: Abnormally prolonged emptying time consistent with gastroparesis or gastric outlet obstruction. Reviewed, Interpreted and Dictated by Pavan Pratt MD Transcribed by Mecca Mayen Authenticated and [facility]
== END ==
LOC: RAD 09:53
PROVIDERS: PCP Emergency Medicine; Visit Provider Surgery
DX: R10.9 Unspecified abdominal pain (principal)
CPT/HCPCS: 78264; A9541

== ENCOUNTER 2022-10-21 08:15 | Day surgery (SDC) | payer MEDICARE, MEDICAID, SELFPAY ==
[2022-10-21 08:33] VITALS: BP 123/64; PULSE 84; RESP 18; TEMP 36.6; O2SAT 92; BMI 26.9
[2022-10-21 08:55] VITALS: BP 112/73; PULSE 82; RESP 18; O2SAT 98
[2022-10-21 08:56] VITALS: BP 112/73; PULSE 82; RESP 18; O2SAT 98
[2022-10-21 08:58] VITALS: BP 106/61; PULSE 75; RESP 18; O2SAT 92
--- NOTE | 2022-10-21 08:59 | P.PCN_ITS ---
Procedure Date: 10/21/22 Time: 08:50 Anesthesiologist:: Trever Shaw CRNA Complications:: None Pre-procedure Diagnosis:: Bilateral sacroiliitis degenerative disc disease lumbar spine multilevels. Lumbar radiculopathy. Lumbar postlaminectomy syndrome. Post-procedure Diagnosis:: Same. Indications for Procedure:: Very pleasant 62-year-old female we have been treating for quite some time for her low back pain secondary to degenerative disc disease lumbar spine multilevels. Lumbar postlaminectomy syndrome. Lumbar radiculopathy. We currently manage her with intrathecal pain pump bupivacaine 10 mg/mL with a daily dose of 4 mg/day. Patient has extreme point tenderness over the bilateral sacroiliac joints. She rates her pain 7/10. Procedure Details:: Procedure: Bilateral sacroiliac joint injections under fluoroscopy Informed consent was obtained and the risks and benefits of the procedure were explained to the patient.~ The patient was taken to the procedure room and noninvasive monitors were placed including a noninvasive blood pressure cuff and pulse oximeter.~ The patient was placed prone on the procedure table. Both hips were cleansed using Betadine as a cleansing solution. C-arm fluoroscopy was used to view the right sacroiliac joint.~ The skin and subcutaneous tissues were anesthetized using lidocaine 1.5% and a 25-gauge needle.~ After this, a 22-gauge spinal needle was inserted under fluoroscopic guidance into the inferior aspect of the right sacroiliac joint.~ Omnipaque dye was injected and good spread was seen throughout the joint.~ After this, approximately 5 mL of bupivacaine, 0.25% and Depo-Medrol, 40 mg was incrementally injected into the right sacroiliac joint. We then moved to the left sacroiliac joint.~ The skin and subcutaneous tissues were anesthetized using lidocaine 1.5% and a 25-gauge needle.~ After this, a 22- gauge spinal needle was inserted under fluoroscopic guidance into the inferior aspect of the left sacroiliac joint.~ Omnipaque dye was injected and good spread was seen throughout the joint. After this, approximately 5 mL of bupivacaine, 0.25% and Depo-Medrol, 40 mg was incrementally injected into the left sacroiliac joint.~ The patient tolerated the procedure well with no complications. The patient was observed in the Pain Clinic and then was discharged home neurologically intact. Plan and Disposition:: Patient was discharged without incident
== END 2022-10-21 08:58 | disposition home or self-care (01) ==
PROVIDERS: PCP Emergency Medicine; Visit Provider Nurse Anesthetist, Certified Registered
DX: M51.16 Intervertebral disc disorders with radiculopathy, lumbar region (principal); M96.1 Postlaminectomy syndrome, not elsewhere classified; M46.1 Sacroiliitis, not elsewhere classified; Z97.8 Presence of other specified devices
CPT/HCPCS: 27096; G0260; J1040

== ENCOUNTER → 2022-11-05 09:07 | Outpatient (POV) | payer MEDICARE, MEDICAID, SELFPAY ==
--- NOTE | 2022-11-05 09:30 | EXP.PAIN.SOA ---
[facility] Pain Management SOAP Note Subjective:: Patient is a pleasant 62-year-old female who presents today for follow-up of bilateral SI injections on 10/21/2022. We are currently treating the patient for degenerative disc disease of lumbar spine multilevels with lumbar radiculopathy symptoms, lumbar postlaminectomy syndrome, sacroiliitis. Today she states that she has had 100% relief following this injection. She rates her pain a 0 out of 10. Patient denies any new trauma or injury. Patient states she has been able to increase her activity with decreased pain symptoms. She is currently managed with an intrathecal pain pump of bupivacaine 20 mg/mL with a daily dose of 4 mg/day. Patient denies any side effects from this medication. She is also managed with clonazepam 0.5 mg 4 times a day and gabapentin 800 mg twice a day from her primary care doctor. Patient denies any side effects from these medications. Her Sunil is [id number]. Its been reviewed and appropriate. Review of Systems: General: No recent weight changes, no fever, no sleep disturbances Respiratory: No cough, no shortness of air, no recurring pulmonary infections Cardiovascular/peripheral vascular: No chest pain, no palpitations, no edema, no shortness of breath Gastrointestinal: No new onset incontinence, normal bowel movements reported Genitourinary: No new onset incontinence Musculoskeletal: Low back pain Psychiatric: [Normal mood/affect] Neurological: [Denies weakness in extremities], [denies balance issues] Objective:: Physical Exam: General: Alert and oriented x3, no acute distress, pleasant and cooperative Lungs: Respirations even and unlabored, symmetrical chest expansion Eyes: PERRL Musculoskeletal: Flexion and extension of lumbar [spine] somewhat guarded secondary to pain, [antalgic gait noted] Neurological: Speech clear, no gross sensory deficit Assessment:: Degenerative disc disease of lumbar spine multilevels with lumbar radiculopathy symptoms, lumbar postlaminectomy syndrome, sacroiliitis Plan:: Patient has had 100% improvement following these injections and does not require any additional injective therapy. We will see the patient back in the clinic at the next intrathecal refill. Patient has been instructed to contact the clinic with any concerns before the next appointment. Dr. Hinkle has reviewed this note and agrees with this plan of care. This note was dictated using voice recognition software and make contain errors or omissions. -- It Is medically necessary for this patient to continue to have their intrathecal pump refilled at regular intervals. This patient had an intrathecal pain pump implanted after meeting criteria of chronic intractable pain for greater than 3 months and failing conservative treatments. Patient has committed and been compliant to the treatment plan and all planned follow up care. Since implantation of the intrathecal pain pump, the patient has had decreased pain and been more functional. Oral medications have been reduced including intake of oral opioids. Patient continues to do well with intrathecal therapy with decrease in pain symptoms and increase in functional status. Stopping intrathecal medications can lead to life threatening withdrawal, seizures, cardiac arrest, severe pain, and possible . Pumps that are not refilled at regular intervals can be damages and cause and need for replacement. We continually titrate dose and concentration to optimize pain relief and function. We are limited in concentration for certain drugs to safely deliver medications through the pump and stay within the recommendations from the Polyanalgesic Consensus Committee Guidelines. Depending on dose and concentration these pumps may need to be refilled sooner than 3 months as we titrate. [facility] Disclaimer: The information contained in this section may have been updated after the patient was seen, as this information can be updated by other users. Medical H
[2022-11-05 09:37] VITALS: BP 104/63; PULSE 76; RESP 18; O2SAT 97; BMI 26.9
== END ==
LOC: SC.PAIN 09:08
PROVIDERS: Visit Provider Nurse Practitioner Family
DX: M51.16 Intervertebral disc disorders with radiculopathy, lumbar region (principal); M46.1 Sacroiliitis, not elsewhere classified; M96.1 Postlaminectomy syndrome, not elsewhere classified
CPT/HCPCS: 99212; G0463

== ENCOUNTER 2022-12-02 11:03 | Day surgery (SDC) | payer MEDICARE, MEDICAID, SELFPAY ==
[2022-12-02 11:24] VITALS: BP 116/64; PULSE 79; RESP 18; TEMP 36.6; O2SAT 92; BMI 26.9
[2022-12-02 11:44] VITALS: BP 113/70; PULSE 70; RESP 18; O2SAT 97
[2022-12-02 11:45] VITALS: BP 113/70; PULSE 70; RESP 18; O2SAT 97
[2022-12-02 11:56] VITALS: BP 109/68; PULSE 73; RESP 18; O2SAT 92
--- NOTE | 2022-12-02 12:19 | EXP.PAIN.PRO ---
Procedure Date: 12/02/22 Time: 12:00 Anesthesiologist:: Trever Shaw CRNA Complications:: None Pre-procedure Diagnosis:: Degenerative disc lumbar spine multilevels. Lumbar radiculopathy. Lumbar postlaminectomy syndrome. Bilateral sacroiliitis. Post-procedure Diagnosis:: Same. Indications for Procedure:: Patient is a very pleasant 62-year-old female comes our clinic today for intrathecal pain pump interrogation and refill. Patient currently being managed with bupivacaine 20 mg/mL at 4.0 mg/day. Patient doing very well with her current settings. She does not report any side effects or complications with her current intrathecal pain pump management. Procedure Details:: Details of the procedure were explained to the patient. Patient taken to procedure room placed in the sitting position. The area of the pump was cleansed using chlorhexidine as a cleansing solution. The pump was interrogated. The pump was accessed with ease using 22-gauge inch and half needle. 7 mL of solution was withdrawn and discarded appropriately. The pump was then filled with 20 cc of bupivacaine 20 mg/mL. Patient tolerated procedure without difficulty. There are no complications. Plan and Disposition:: Patient was discharged without incident.
== END 2022-12-02 11:56 | disposition home or self-care (01) ==
PROVIDERS: PCP Emergency Medicine; Visit Provider Nurse Anesthetist, Certified Registered
DX: Z45.1 Encounter for adjustment and management of infusion pump (principal); M51.16 Intervertebral disc disorders with radiculopathy, lumbar region; M96.1 Postlaminectomy syndrome, not elsewhere classified; M46.1 Sacroiliitis, not elsewhere classified
CPT/HCPCS: 95991

== ENCOUNTER 2022-12-11 09:39 | Day surgery (SDC) | payer MEDICARE, MEDICAID, SELFPAY ==
[2022-11-26 12:57] VITALS: BMI 26.9
[2022-12-11] VITALS (7 sets, daily range): BP systolic 92–108; BP diastolic 58–66; PULSE 69–78; RESP 16–18; TEMP 36.1–37.2; O2SAT 90–97
[2022-12-11 10:24] LABS: POC Glucose,Bedside 95 (70-110)
--- NOTE | 2022-12-11 10:30 | EXP.ANES.CKL ---
[facility] Disclaimer: The information contained in this section may have been updated after the patient was seen, as this information can be updated by other users. Medical History Abnormal cardiovascular stress test Allergies Anxiety and depression Atypical angina CAD (coronary artery disease) Cardiomyopathy CHF (NYHA class II, ACC/AHA stage C) COPD (chronic obstructive pulmonary disease) Cyst of right kidney Diabetes Generalized anxiety disorder History of gastroesophageal reflux (GERD) HTN (hypertension) Hyperlipidemia Hypothyroid Insomnia Major depressive disorder Ulcerative colitis Surgical History H/O: hysterectomy History of colonoscopy History of esophagogastroduodenoscopy (EGD) History of surgery STENT X3 History of surgery PAIN PUMP Hx of section X2 Family History Other Family history of cancer Family history of diabetes mellitus type II Family history of myocardial infarction Heart disease Hyperlipidemia Hypertension Social History Smoking Status: Current every day smoker tobacco type: cigarettes packs per day: 1 pack-years: 42 second hand exposure: No alcohol intake: never counseling provided: none substance use type: denies use current occupational status: disabled Travel in the last 8 weeks: None household members: significant other housing: house lives independently: Yes marital status: single number of children: 2 current occupational exposures/hazards: No caffeine: Yes do you feel safe at home: Yes victim of physical abuse: No victim of emotional abuse: No victim of sexual abuse: No would you like helpful sources: No [facility] Anesthesia Checklist Patient Identification Patient Identification: Verbal (Name & ) Structural Data Admitted From: Home Planned Operative Procedure/s: egd Consent for Planned Operative Procedure(s) Verified: Yes Additional verifications Anesthesia Reactions: No Hx Blood Transfusions: No Blood Transfusion Reaction: No Airway Assessment C-Spine Mobility Assessed: Yes TMJ Mobility Assessed: Yes Dentition: Dentures-poor fitting Neurological Assessment Level of Consciousness: Awake, Alert and Appropriate Anesthesia Plan Anesthesia Risk discussed: Yes Anesthesia Plan: Verified ASA Class: III Anesthesia Type: MAC
--- NOTE | 2022-12-11 10:54 | HMH.SCOPE ---
Procedure: Date: 12/11/22 Patient Date of :: 1960 Procedure Performed:: EGD with bougie dilation Indications:: Dysphagia, feels like pill is stuck today Performing Provider:: Adela Araya MD Referring Provider:: Rebeka Araya APRN Sedation:: Propofol Procedure:: The gastroscope was gently passed through the incisoral orifice into the oral cavity and under direct visualization the esophagus was intubated. The endoscope was passed down the esophagus, through the stomach, and into the duodenum. Color, texture, mucosa, and anatomy of the esophagus, stomach, and duodenum were carefully examined with the scope. Findings:: Oropharynx: normal, no evidence of retained pill, dilated with 58F bougie dilator Esophagus: normal EG Junction: intact at 40 cm Cardia: normal Fundus: normal Body: normal Antrum: normal Duodenal bulb: normal Duodenum (second and third portion): normal Impression: Symptomatic dysphagia treated with bougie dilation Overall normal EGD Recommendations:: Repeat EGD and dilation in 3 years or so, sooner if clinically indicated Complications:: None Estimated blood obtained (mL): 0
== END 2022-12-11 11:45 | disposition home or self-care (01) ==
PROVIDERS: PCP Emergency Medicine; Visit Provider Internal Medicine Gastroenterology
PROC: 0DJ08ZZ Inspection of Upper Intestinal Tract, Via Natural or Artificial Opening Endoscopic (ICD-10-PCS; CPT 43235; principal; 2022-12-11 11:00)
DX: R13.10 Dysphagia, unspecified (principal); E11.9 Type 2 diabetes mellitus without complications; F17.210 Nicotine dependence, cigarettes, uncomplicated; Z79.899 Other long term (current) drug therapy
CPT/HCPCS: 43248; 82962

== ENCOUNTER 2023-01-27 09:12 | Day surgery (SDC) | payer MEDICARE, MEDICAID, SELFPAY ==
[2023-01-27 09:23] VITALS: BP 82/53; PULSE 70; RESP 18; TEMP 36.1; O2SAT 96; BMI 26.1
[2023-01-27 09:27] VITALS: BP 96/59; PULSE 88; RESP 18; O2SAT 92
[2023-01-27 09:28] VITALS: BP 96/59; PULSE 88; RESP 18; O2SAT 92
--- NOTE | 2023-01-27 09:34 | EXP.PAIN.PRO ---
Procedure Date: 01/27/23 Time: 09:35 Anesthesiologist:: Trever Shaw CRNA Complications:: None Pre-procedure Diagnosis:: Degenerative disc lumbar spine multilevels. Lumbar radiculopathy. Lumbar postlaminectomy syndrome. Bilateral sacroiliitis Post-procedure Diagnosis:: Same. Indications for Procedure:: Patient is a very pleasant 62-year-old female that comes our clinic today for intrathecal pain pump interrogation refill. Patient currently being managed with bupivacaine 20 mg/mL at 4.0 mg/day. Patient is doing very well to current settings. She does not report any side effects or complications with her current intrathecal pain pump management. Procedure Details:: Details of the procedure explained to the patient. The patient taken the procedure room placed in the sitting position. The area over the pump was cleansed using chlorhexidine as a cleansing solution. The pump was interrogated. The pump was accessed with ease using a 22-gauge inch and half needle. 7.6 mL of solution was withdrawn and discarded appropriately. The pump was then filled with 20 cc of bupivacaine 20 mg/mL. The pump rate will remain at 4.0 mg/day. Patient tolerated procedure without difficulty. There are no complications Plan and Disposition:: Patient was discharged without incident.
[2023-01-27 09:37] VITALS: BP 95/57; PULSE 84; RESP 18; O2SAT 96
[2023-01-27 10:34] LABS: Amphetamine/Metha Screen,Urine Negative ng/ml (<1000)
[2023-01-27 10:35] LABS: Barbiturates Screen,Urine Negative ng/ml (<200); Benzodiazepines Screen,Urine Negative ng/ml (<200)
[2023-01-27 10:36] LABS: Cocaine Screen,Urine Negative ng/ml (<300); Methadone Screen,Urine Negative ng/ml (<300)
[2023-01-27 10:37] LABS: Cannabinoid Screen,Urine Negative ng/ml (<50)
[2023-01-27 10:38] LABS: Opiate Screen,Urine Negative ng/ml (<300); Phencyclidine Screen,Urine Negative ng/ml (<25)
[2023-02-02 20:09] LABS: Opiates Negative (Cutoff=100)
== END 2023-01-27 09:37 | disposition home or self-care (01) ==
PROVIDERS: Nurse Practitioner Family; PCP Emergency Medicine; Visit Provider Nurse Anesthetist, Certified Registered
DX: M51.16 Intervertebral disc disorders with radiculopathy, lumbar region (principal); M96.1 Postlaminectomy syndrome, not elsewhere classified; M46.1 Sacroiliitis, not elsewhere classified
CPT/HCPCS: 80305; 80361; 80365; 95991; G0480

== ENCOUNTER → 2023-02-17 10:03 | Outpatient (CLI) | payer MEDICARE, SELFPAY ==
[2023-02-17 10:30] LABS: Basophils % 0.4 % (0.1-2.0); Eosinophils # 0.2 K/mm3 (0.0-0.4); Eosinophils % 1.8 % (0.1-12.0); Hematocrit 37.7 % (37.0-47.0); Lymphocytes # 2.1 K/mm3 (0.7-4.5); Lymphocytes % 22.2 % (10-50); Mean Corpuscular HGB Conc 31.8 g/dL (31.8-35.4); Mean Corpuscular Hemoglobin 27.9 pg (27.0-31.2); Mean Corpuscular Volume 87.9 fl (81-99); Mean Platelet Volume 8.3 fl (7.4-10.4); Monocytes # 0.4 K/mm3 (0.1-1.0); Monocytes % 4.6 % (1.7-9.3); Neutrophils # 6.7 K/mm3 (1.8-7.8); Neutrophils % 71.1 % (37.0-80.0); Platelet Count 295 K/mm3 (142-424); Red Blood Count 4.29 M/mm3 (4.20-5.40); Red Cell Distribution Width 15.1 % (11.5-17.5); White Blood Count 9.5 K/mm3 (4.8-10.8)
[2023-02-17 12:04] LABS: Alanine Aminotransferase 17 U/L (12-78); Albumin Level 3.6 g/dl (3.5-5.0); Alkaline Phosphatase 171 U/L (38-126); Anion Gap 9.5 mEq/L (5-15); Aspartate Amino Transferase 18 U/L (14-36); Bilirubin,Indirect 0.2 mg/dL (0.0-0.9); Bilirubin,Total 0.2 mg/dl (0.2-1.3); Bilirubin,Unconjugated 0.3 mg/dL (0.0-1.1); Blood Urea Nitrogen 14 mg/dl (7-17); Carbon Dioxide 34 mmol/L (22.0-30.0); Chloride 104 mmol/L (98-107); Chol/HDL Ratio 5.7 (1-3.5); Cholesterol 154 mg/dl (140-200); Estimated Glomerular Filt Rate 50 ml/min (>60); GFR (African American) 61 ML/MIN (>60); Glucose 88 mg/dl (74-100); HDL Cholesterol 27 mg/dl (40-60); Magnesium 2.2 mg/dl (1.6-2.3); Potassium 4.5 mmoL/L (3.5-5.1); Sodium 143 mmol/L (136-145); Total Protein,Serum 6.3 g/dl (6.3-8.2); Triglycerides 253 mg/dl (30-150); VLDL Cholesterol 51 mg/dL (0-40)
[2023-02-17 12:15] LABS: Direct LDL Cholesterol 67.94 mg/dL (100-129)
[2023-02-17 12:21] LABS: Free T4 (Free Thyroxine) 0.79 ng/dl (0.78-2.19)
== END ==
PROVIDERS: PCP Emergency Medicine; Visit Provider Internal Medicine
DX: I50.22 Chronic systolic (congestive) heart failure (principal); F17.200 Nicotine dependence, unspecified, uncomplicated; E78.5 Hyperlipidemia, unspecified; I25.10 Atherosclerotic heart disease of native coronary artery without angina pectoris; N28.9 Disorder of kidney and ureter, unspecified; R06.00 Dyspnea, unspecified; I42.8 Other cardiomyopathies
CPT/HCPCS: 36415; 80048; 80061; 80076; 83735; 84439; 84443; 85025

== ENCOUNTER 2023-03-24 08:59 | Day surgery (SDC) | payer MEDICARE, SELFPAY ==
[2023-03-24 09:16] VITALS: BP 125/70; PULSE 73; RESP 16; TEMP 37; BMI 25.0
[2023-03-24 09:27] VITALS: BP 117/74; PULSE 75; RESP 18; O2SAT 93
[2023-03-24 09:30] VITALS: BP 117/74; PULSE 75; RESP 18; O2SAT 93
--- NOTE | 2023-03-24 09:36 | EXP.PAIN.PRO ---
Procedure Date: 03/24/23 Time: 09:25 Anesthesiologist:: Trever Shaw CRNA Complications:: None Pre-procedure Diagnosis:: Degenerative disc lumbar spine multilevels. Lumbar radiculopathy. Lumbar postlaminectomy syndrome. Post-procedure Diagnosis:: Same. Indications for Procedure:: Patient is a very pleasant 62-year-old female comes our clinic today for intrathecal pain pump interrogation and refill. Patient currently being managed with bupivacaine 20 mg/mL at 4 mg/day. She is doing very well with her current settings. She does not complain of any side effects or complications regarding her current intrathecal pain pump management. Patient rates her pain today 08/22 Procedure Details:: Details of the procedure explained to the patient. The patient was taken to procedure room placed in the sitting position. The area of the pump was cleansed using chlorhexidine as a cleansing solution. The pump was interrogated. The pump was accessed with ease using a 22-gauge inch and half needle. 7.3 mL of solution was expected and 10.5 mL of solution was withdrawn and discarded appropriately. The pump was then filled with 20 cc of a solution containing bupivacaine 20 mg/mL. The rate will continue at 4 mg/day. Patient tolerated procedure without difficulty. There are no complications. Plan and Disposition:: Patient was discharged without incident.
[2023-03-24 09:50] VITALS: BP 122/72; PULSE 70; RESP 20
== END 2023-03-24 09:50 | disposition home or self-care (01) ==
PROVIDERS: PCP Emergency Medicine; Visit Provider Nurse Anesthetist, Certified Registered
DX: M51.16 Intervertebral disc disorders with radiculopathy, lumbar region (principal); M96.1 Postlaminectomy syndrome, not elsewhere classified; Z97.8 Presence of other specified devices
CPT/HCPCS: 95991

== ENCOUNTER 2023-05-19 08:46 | Day surgery (SDC) | payer MEDICARE, SELFPAY ==
[2023-05-19 09:00] VITALS: BP 121/69; PULSE 77; RESP 16; O2SAT 92; BMI 27.1
[2023-05-19 09:07] VITALS: BP 110/65; PULSE 88; RESP 18; O2SAT 95
[2023-05-19 09:18] VITALS: BP 110/65; PULSE 79; RESP 20; O2SAT 90
[2023-05-19 09:23] VITALS: BP 112/70; PULSE 78; RESP 16; O2SAT 92
--- NOTE | 2023-05-19 09:23 | EXP.PAIN.PRO ---
Procedure Date: 05/19/23 Time: 09:15 Anesthesiologist:: Trever Shaw CRNA Complications:: None Pre-procedure Diagnosis:: Degenerative disc lumbar spine multilevels. Lumbar radiculopathy. Lumbar postlaminectomy syndrome Post-procedure Diagnosis:: Same. Indications for Procedure:: Patient is a very pleasant 62-year-old female that comes our clinic today for intrathecal pain pump interrogation refill. Patient's pump was interrogated and 7 mL of solution was remaining. However, upon aspiration of the pump 19 mL of solution was withdrawn. Pump was filled with bupivacaine 20 mg/mL. The rate will continue at 4 mg/day. However, patient will return next Thursday for pump dye study. The pump and tubing was examined under live fluoroscopy. No obvious kinks or disconnects were noticed in the tubing. Procedure Details:: Details of the procedure explained the patient. The patient taken to procedure room placed in the sitting position. The area over the pump was cleaned using chlorhexidine's cleansing solution. The pump was interrogated. The pump was accessed with ease using 22-gauge inch and half needle. 7 mL of solution was expected and 19 mL of solution was withdrawn and discarded appropriately. The pump was then filled with 20 cc of bupivacaine 20 mg/mL. The rate will continue at 4 mg/day. Plan and Disposition:: Patient was discharged without incident.
== END 2023-05-19 09:23 | disposition home or self-care (01) ==
PROVIDERS: PCP Emergency Medicine; Visit Provider Nurse Anesthetist, Certified Registered
DX: M51.16 Intervertebral disc disorders with radiculopathy, lumbar region (principal); M96.1 Postlaminectomy syndrome, not elsewhere classified; Z97.8 Presence of other specified devices
CPT/HCPCS: 95991

== ENCOUNTER → 2023-06-16 10:20 | Outpatient (CLI) | payer MEDICARE, SELFPAY ==
[2023-06-16 11:08] LABS: Basophils % 0.3 % (0.1-2.0); Eosinophils # 0.3 K/mm3 (0.0-0.4); Eosinophils % 2.1 % (0.1-12.0); Hematocrit 42.1 % (37.0-47.0); Hemoglobin 14.1 g/dL (12.2-16.2); Lymphocytes # 2.4 K/mm3 (0.7-4.5); Lymphocytes % 20.2 % (10-50); Mean Corpuscular HGB Conc 33.5 g/dL (31.8-35.4); Mean Corpuscular Hemoglobin 30.4 pg (27.0-31.2); Mean Corpuscular Volume 90.9 fl (81-99); Mean Platelet Volume 7.7 fl (7.4-10.4); Monocytes # 0.5 K/mm3 (0.1-1.0); Monocytes % 4.2 % (1.7-9.3); Neutrophils # 8.8 K/mm3 (1.8-7.8); Neutrophils % 73.2 % (37.0-80.0); Platelet Count 235 K/mm3 (142-424); Red Blood Count 4.63 M/mm3 (4.20-5.40)
[2023-06-16 11:32] LABS: Blood Urea Nitrogen 15 mg/dl (7-17); Carbon Dioxide 33 mmol/L (22.0-30.0); Chloride 100 mmol/L (98-107); Estimated Glomerular Filt Rate 38 ml/min (>60); GFR (African American) 46 ML/MIN (>60); Glucose 81 mg/dl (74-100)
[2023-06-16 11:53] LABS: Anion Gap 9.4 mEq/L (5-15); Calcium 8.8 mg/dl (8.4-10.2); Potassium 4.4 mmoL/L (3.5-5.1); Sodium 138 mmol/L (136-145)
[2023-06-16 13:37] LABS: Hemoglobin A1C 5.6 % (4.0-6.0)
== END ==
PROVIDERS: PCP Internal Medicine; Visit Provider Anesthesiology
DX: Z01.812 Encounter for preprocedural laboratory examination; Z79.899 Other long term (current) drug therapy; Z79.84 Long term (current) use of oral hypoglycemic drugs
CPT/HCPCS: 36415; 80048; 83036; 85025

== ENCOUNTER 2023-06-19 06:36 | Day surgery (SDC) | payer MEDICARE, MEDICAID, SELFPAY ==
[2023-06-17 11:10] VITALS: BMI 26.6
--- NOTE | 2023-06-17 11:16 | SUR.PREOP ---
Left message with Dr. Hinkle office of elevated WBC of 12.0
[2023-06-19 07:43] VITALS: BP 113/71; PULSE 79; RESP 18; TEMP 36.5; O2SAT 92
--- NOTE | 2023-06-19 09:39 | EXP.ANES.CKL ---
[facility] Disclaimer: The information contained in this section may have been updated after the patient was seen, as this information can be updated by other users. Medical History Abnormal cardiovascular stress test Allergies Anxiety and depression Atypical angina CAD (coronary artery disease) Cardiomyopathy CHF (NYHA class II, ACC/AHA stage C) COPD (chronic obstructive pulmonary disease) Cyst of right kidney Diabetes Generalized anxiety disorder History of gastroesophageal reflux (GERD) HTN (hypertension) Hyperlipidemia Hypothyroid Insomnia Major depressive disorder Ulcerative colitis Surgical History H/O: hysterectomy History of colonoscopy History of esophagogastroduodenoscopy (EGD) History of surgery STENT X3 History of surgery PAIN PUMP Hx of section X2 Family History Other Family history of cancer Family history of diabetes mellitus type II Family history of myocardial infarction Heart disease Hyperlipidemia Hypertension Social History Smoking Status: Current every day smoker tobacco type: cigarettes packs per day: 1 second hand exposure: No alcohol intake: never counseling provided: none substance use type: denies use current occupational status: disabled Travel in the last 8 weeks: None household members: significant other housing: house lives independently: Yes marital status: single number of children: 2 current occupational exposures/hazards: No caffeine: Yes do you feel safe at home: Yes victim of physical abuse: No victim of emotional abuse: No victim of sexual abuse: No would you like helpful sources: No [facility] Anesthesia Checklist Patient Identification Patient Identification: Arm Band Structural Data Planned Operative Procedure/s: Pain pump replacement Consent for Planned Operative Procedure(s) Verified: Yes Verified Documents: Surgical Consent and History and Physical NPO Status Verified Time NPO: 20:00 Chart Verification Results Verified: CBC, BMP, ECG and Chest Xray Additional verifications Fingerstick Blood Glucose: 103 Patient : No Anesthesia Reactions: No Hx Blood Transfusions: No Blood Transfusion Reaction: No Cardiovascular Assessment Heart Sounds: S1 & S2 Pulse Rhythm: Irregular Peripheral Edema: Yes (2+ TRUDY LE) Airway Assessment Mallampati Score:: Class I C-Spine Mobility Assessed: Yes (FROM) TMJ Mobility Assessed: Yes Dentition: Edentulous Neurological Assessment Level of Consciousness: Awake, Alert, Appropriate and Follows Commands Hx Seizures: No Numbness or tingling in extremities: Yes (TRUDY LE) Anesthesia Plan Anesthesia Risk discussed: Yes Anesthesia Plan: Verified ASA Class: III Anesthesia Type: MAC
--- NOTE | 2023-06-19 10:45 | P.PNANES_ITS ---
[facility] Anesthesia Record Part I Anesthesia Record I Intake, IV Amount: 750 Hydration: Adequate Estimated blood loss (mL): 10 Urine output (mL): 0 Blood Products used (#): none Blood Pressure: 144/91 SaO2: 90 Pulse Rate: 86 Airway Patency: Patent Respiratory Rate: 16 Temperature: 97.3 F Patient is:: Awake (Talking) and Stable Stable to PACU at:: 10:46
[2023-06-19 10:46] VITALS: BP 144/91; PULSE 86; RESP 16; TEMP 36.3; O2SAT 90
[2023-06-19 10:50] VITALS: BP 168/94; PULSE 92; RESP 18; O2SAT 91
[2023-06-19 11:00] VITALS: BP 156/90; PULSE 92; RESP 18; O2SAT 90
--- NOTE | 2023-06-19 11:06 | EXP.OP.NOTE ---
Date of procedure: 06/19/23 Pre-op Diagnosis:: Nonfunctioning intrathecal pain pump for degenerative disease of lumbar spine with lumbar radiculopathy symptoms and postlaminectomy syndrome lumbar spine Post-op Diagnosis:: Same Procedure performed:: Replacement intrathecal pain pump system with new intrathecal catheter, tunneled and new pain pump generator. Surgeon:: Federico Hinkle MD [employer]REATING PLANT OPERATOR:: Other Anesthesia: MAC Estimated blood loss (mL): 5 Clinical Note:: This patient is a pleasant 62-year-old white female who has a Flowonix thecal pain pump system. This pain pump system is malfunctioning she has had volume discrepancies on refills. She has increasing pain. She is not getting her medication. Will replace her pain pump system today. We will place a new intrathecal catheter and replace her pain pump generator with a Medtronic generator. Will start her back at 2.5 mg/day of intrathecal bupivacaine. Operative findings:: None Operative note:: Informed consent was obtained and the risk and benefits of the procedure were explained to the patient. Patient was taken the operating placed prone on the procedure table. She was prepped and draped in sterile fashion. C-arm fluoroscopy was used to view the lumbar spine and the pain pump generator. The skin and subcutaneous tissues were anesthetized using lidocaine. I made incision over the pain pump generator. I dissected out the generator and disconnected the catheter. I tied off the catheter with 0 silk ties x 2. I made incision adjacent to the lumbar spine at L4-5 and L5-S1. I dissected down to the lumbar paraspinous fascia. A 17G spinal needle was inserted into the L5-S1 interspace until clear CSF was obtained. After this intrathecal catheter was inserted and advanced very easily to the T8 vertebral body. The catheter was found to be in good position that was midline and posterior. The stylette of the catheter and the needle withdrawn. The catheter secured to the fascia with an anchoring device and 2-0 Prolene. I tunneled the catheter from the back to the pump pocket. I prepared the pump with 20 mL of intrathecal bupivacaine 20 mg/mL. I attached the catheter to the pump. We are able to free withdraw clear CSF through the sideport. I placed the pump in the pocket with an antibiotic pouch. Both incisions were irrigated with antibiotic solution. Both incisions were then closed with 2-0 Vicryl followed by 4-0 nylon and subcutaneous alpa. The pump was interrogated and started at 2.5 mg/day. Patient was placed in the binder and brought to recovery in stable condition. Patient tolerated the procedure well with no complications. Patient was discharged home neurologic intact with good relief of pain symptoms. Plan and disposition: Will follow-up with this patient in 1 week for wound check and reprogramming. Will follow-up in 2 weeks for suture removal. Condition: stable Disposition: PACU Complications:: None
[2023-06-19 12:18] VITALS: BP 144/91; PULSE 91; RESP 18; TEMP 36.2; O2SAT 90
[2023-06-21 11:17] LABS: POC Glucose,Bedside 103 (70-110)
== END 2023-06-19 11:00 | disposition home or self-care (01) ==
PROVIDERS: PCP Internal Medicine; Visit Provider Anesthesiology
PROC: (CPT 62350; principal; 2023-06-19 08:30)
DX: T85.695D Other mechanical complication of other nervous system device, implant or graft, subsequent encounter (principal); M51.16 Intervertebral disc disorders with radiculopathy, lumbar region; M96.1 Postlaminectomy syndrome, not elsewhere classified; E11.9 Type 2 diabetes mellitus without complications
CPT/HCPCS: 62350; 62362; 82962; 96374; C1755; C1772

== ENCOUNTER → 2023-06-25 08:26 | Outpatient (POV) | payer MEDICARE, MEDICAID, SELFPAY ==
--- NOTE | 2023-06-25 08:39 | EXP.PAIN.SOA ---
[facility] Pain Management SOAP Note Subjective:: Patient is a pleasant 62-year-old female who presents today for follow-up of intrathecal pain pump replacement on 06/19/2023. We are currently treating the patient for degenerative disc disease of lumbar spine multilevels with lumbar radiculopathy symptoms, lumbar postlaminectomy syndrome, sacroiliitis. Today she rates her pain a 1 out of that 10. Patient denies any new trauma or injury. She denies any issues following her surgical procedure. She states that she is doing much better and that the pain is well-controlled. She is currently managed with bupivacaine 20 mg/mL with a daily dose of 2.502 mg/day. She denies any side effects from this medication. She is also managed with clonazepam 0.5 mg 4 times a day and gabapentin 800 mg twice a day from her primary care doctor. Patient denies any side effects from these medications. Her Sunil has been reviewed and appropriate. Review of Systems: General: No recent weight changes, no fever, no sleep disturbances Respiratory: No cough, no shortness of air, no recurring pulmonary infections Cardiovascular/peripheral vascular: No chest pain, no palpitations, no edema, no shortness of breath Gastrointestinal: No new onset incontinence, normal bowel movements reported Genitourinary: No new onset incontinence Musculoskeletal: Low back pain Psychiatric: [Normal mood/affect] Neurological: [Denies weakness in extremities], [denies balance issues] Objective:: Physical Exam: General: Alert and oriented x3, no acute distress, pleasant and cooperative Lungs: Respirations even and unlabored, symmetrical chest expansion Eyes: PERRL Musculoskeletal: Flexion and extension of lumbar [spine] somewhat guarded secondary to pain, [antalgic gait noted] Neurological: Speech clear, no gross sensory deficit Skin: Incision site is clean, dry, well-approximated with minimal erythema noted, sutures intact Assessment:: Degenerative disc disease of lumbar spine multilevels with lumbar radiculopathy symptoms, lumbar post Plan:: Patient is doing well following intrathecal pump replacement. Patient's incisions are clean, dry, well-approximated with minimal erythema noted and sutures intact. I have counseled the patient to continue her postop restrictions. Patient will return to clinic in 2 weeks for suture removal and reevaluation of symptoms and plan of care. Patient has been instructed to contact the clinic with any concerns before the next appointment. Dr. Hinkle has reviewed this note and agrees with this plan of care. This note was dictated using voice recognition software and make contain errors or omissions. -- It Is medically necessary for this patient to continue to have their intrathecal pump refilled at regular intervals. This patient had an intrathecal pain pump implanted after meeting criteria of chronic intractable pain for greater than 3 months and failing conservative treatments. Patient has committed and been compliant to the treatment plan and all planned follow up care. Since implantation of the intrathecal pain pump, the patient has had decreased pain and been more functional. Oral medications have been reduced including intake of oral opioids. Patient continues to do well with intrathecal therapy with decrease in pain symptoms and increase in functional status. Stopping intrathecal medications can lead to life threatening withdrawal, seizures, cardiac arrest, severe pain, and possible . Pumps that are not refilled at regular intervals can be damages and cause and need for replacement. We continually titrate dose and concentration to optimize pain relief and function. We are limited in concentration for certain drugs to safely deliver medications through the pump and stay within the recommendations from the Polyanalgesic Consensus Committee Guidelines. Depending on dose and concentration these pumps may need to be refilled sooner than 3 months as we titrate. PFSH PFSH Dis
[2023-06-25 09:34] VITALS: BP 106/66; PULSE 97; RESP 18; O2SAT 92; BMI 27.1
== END ==
LOC: SC.PAIN 08:27
PROVIDERS: PCP Internal Medicine; Visit Provider Nurse Practitioner Family
DX: M51.16 Intervertebral disc disorders with radiculopathy, lumbar region (principal); Z97.8 Presence of other specified devices; M96.1 Postlaminectomy syndrome, not elsewhere classified; M46.1 Sacroiliitis, not elsewhere classified
CPT/HCPCS: 99212; G0463

== ENCOUNTER → 2023-07-08 08:53 | Outpatient (CLI) | payer MEDICARE, MEDICAID, SELFPAY ==
[2023-07-08 20:17] LABS: Chol/HDL Ratio 6.8 (1-3.5); Cholesterol 237 mg/dl (140-200); HDL Cholesterol 35 mg/dl (40-60); Triglycerides 319 mg/dl (30-150); VLDL Cholesterol 64 mg/dL (0-40)
[2023-07-08 22:25] LABS: Benzodiazepines Screen,Urine Negative ng/ml (<200)
[2023-07-08 22:26] LABS: Amphetamine/Metha Screen,Urine Negative ng/ml (<1000); Barbiturates Screen,Urine Negative ng/ml (<200)
[2023-07-08 22:27] LABS: Cannabinoid Screen,Urine Negative ng/ml (<50)
[2023-07-08 22:28] LABS: Cocaine Screen,Urine Negative ng/ml (<300); Methadone Screen,Urine Negative ng/ml (<300)
[2023-07-08 22:29] LABS: Opiate Screen,Urine Negative ng/ml (<300)
[2023-07-08 22:30] LABS: Microalbumin < 6.000 mg/L (0-16.7); Phencyclidine Screen,Urine Negative ng/ml (<25)
[2023-07-08 22:45] LABS: Creatinine,Urine Random 26 mg/dL (Not Estab.)
== END ==
LOC: LAB.DROPOF 07-15 08:54
PROVIDERS: PCP Internal Medicine; Visit Provider Internal Medicine
DX: M54.2 Cervicalgia (principal); E11.9 Type 2 diabetes mellitus without complications; E78.5 Hyperlipidemia, unspecified; I10 Essential (primary) hypertension; R13.10 Dysphagia, unspecified; Z79.84 Long term (current) use of oral hypoglycemic drugs; Z79.899 Other long term (current) drug therapy
CPT/HCPCS: 80061; 80307; 82043; 82570

== ENCOUNTER → 2023-07-15 13:04 | Outpatient (POV) | payer MEDICARE, SELFPAY ==
--- NOTE | 2023-07-15 13:31 | A.OFFVIS_ITS ---
[facility] Pain Management SOAP Note Subjective:: Patient is a pleasant 62-year-old female who presents today for follow-up. We are currently treating the patient for degenerative disc disease of lumbar spine with lumbar radiculopathy symptoms, lumbar postlaminectomy syndrome, sacroiliitis, status post intrathecal pump replacement. Patient rates her pain today a 3 out of 10. Patient denies any new trauma or injury. She denies any change to location or type of pain she experiences. Patient states she continues to do well following her replacement on 06/19/2023. Patient is currently managed with bupivacaine 20 mg/mL with a daily dose of 2.502 mg/day. She denies any side effects from this. Her Sunil has been reviewed and is appropriate. Review of Systems: General: No recent weight changes, no fever, no sleep disturbances Respiratory: No cough, no shortness of air, no recurring pulmonary infections Cardiovascular/peripheral vascular: No chest pain, no palpitations, no edema, no shortness of breath Gastrointestinal: No new onset incontinence, normal bowel movements reported Genitourinary: No new onset incontinence Musculoskeletal: Low back pain Psychiatric: [Normal mood/affect] Neurological: [Denies weakness in extremities], [denies balance issues] Objective:: Physical Exam: General: Alert and oriented x3, no acute distress, pleasant and cooperative Lungs: Respirations even and unlabored, symmetrical chest expansion Eyes: PERRL Musculoskeletal: Flexion and extension of lumbar [spine] somewhat guarded secondary to pain, [antalgic gait noted] Neurological: Speech clear, no gross sensory deficit Skin: Incision sites clean, dry, well-approximated with mild erythema noted at her lower incision around the site of the previous dressing adhesive, sutures intact Assessment:: Degenerative disc disease of lumbar spine with lumbar radiculopathy symptoms, lumbar postlaminectomy, status post intrathecal pain pump replacement Plan:: Patient continues to do well following her intrathecal pump replacement. Patient did have her sutures removed during today's visit. I have counseled the patient to continue her postop restrictions. Patient will return to clinic in 1 month for reevaluation of symptoms and plan of care. Patient has been instructed to contact the clinic with any concerns before the next appointment. Dr. Hinkle has reviewed this note and agrees with this plan of care. This note was dictated using voice recognition software and make contain errors or omissions. -- It Is medically necessary for this patient to continue to have their intrathecal pump refilled at regular intervals. This patient had an intrathecal pain pump implanted after meeting criteria of chronic intractable pain for greater than 3 months and failing conservative treatments. Patient has committed and been compliant to the treatment plan and all planned follow up care. Since implantation of the intrathecal pain pump, the patient has had decreased pain and been more functional. Oral medications have been reduced including intake of oral opioids. Patient continues to do well with intrathecal therapy with decrease in pain symptoms and increase in functional status. Stopping intrathecal medications can lead to life threatening withdrawal, seizures, cardiac arrest, severe pain, and possible . Pumps that are not refilled at regular intervals can be damages and cause and need for replacement. We continually titrate dose and concentration to optimize pain relief and function. We are limited in concentration for certain drugs to safely deliver medications through the pump and stay within the recommendations from the Polyanalgesic Consensus Committee Guidelines. Depending on dose and concentration these pumps may need to be refilled sooner than 3 months as we titrate. [facility] Disclaimer: The information contained in this section may have been updated after the patient was seen, as this information can be updated by other users. Medical History Abnormal cardiovascular stress test Allergies Anxiety and depression Atypical angina CAD (coronary artery disease) Cardiomyopathy CHF (NYHA class II, ACC/AHA stage C) COPD (chronic obstructive pulmonary disease) Cyst of right kidney Diabetes Generalized anxiety disorder History of gastroesophageal reflux (GERD) HTN (hypertension) Hyperlipidemia Hypothyroid Insomnia Major depressive disorder Ulcerative colitis Surgical History H/O: hysterectomy History of colonoscopy History of esophagogastroduodenoscopy (EGD) History of surgery STENT X3 History of surgery PAIN PUMP Hx of section X2 Family History Other Family history of cancer Family history of diabetes mellitus type II Family history of myocardial infarction Heart disease Hyperlipidemia Hypertension Social History Smoking Status: Current every day smoker tobacco type: cigarettes packs per day: 1 second hand exposure: No alcohol intake: never counseling provided: none substance use type: denies use current occupational status: disabled Travel in the last 8 weeks: None household members: significant other housing: house lives independently: Yes marital status: single number of children: 2 current occupational exposures/hazards: No caffeine: Yes do you feel safe at home: Yes victim of physical abuse: No victim of emotional abuse: No victim of sexual abuse: No would you like helpful sources: No
[2023-07-15 13:45] VITALS: BP 110/74; PULSE 83; RESP 18; O2SAT 92; BMI 28.4
== END ==
LOC: SC.PAIN 13:06
PROVIDERS: PCP Internal Medicine; Visit Provider Nurse Practitioner Family
DX: M51.16 Intervertebral disc disorders with radiculopathy, lumbar region (principal); M96.1 Postlaminectomy syndrome, not elsewhere classified; Z97.8 Presence of other specified devices; Z48.02 Encounter for removal of sutures
CPT/HCPCS: 99212; 99213; G0463

== ENCOUNTER 2023-08-03 18:07 | Outpatient (CLI) | payer MEDICARE, SELFPAY ==
[2023-08-03 23:36] LABS: Amphetamine/Metha Screen,Urine Negative ng/ml (<1000); Barbiturates Screen,Urine Negative ng/ml (<200); Benzodiazepines Screen,Urine Negative ng/ml (<200); Cannabinoid Screen,Urine Negative ng/ml (<50); Cocaine Screen,Urine Negative ng/ml (<300); Methadone Screen,Urine Negative ng/ml (<300); Opiate Screen,Urine Negative ng/ml (<300); Phencyclidine Screen,Urine Negative ng/ml (<25)
== END 2023-08-03 23:59 ==
LOC: LAB.DROPOF 18:08
PROVIDERS: PCP Internal Medicine; Visit Provider Internal Medicine
DX: Z79.899 Other long term (current) drug therapy (principal)
CPT/HCPCS: 80307

== ENCOUNTER → 2023-08-14 12:52 | Outpatient (POV) | payer MEDICARE, SELFPAY ==
--- NOTE | 2023-08-14 13:18 | A.OFFVIS_ITS ---
[facility] Pain Management SOAP Note Subjective:: Patient is a pleasant 62-year-old female comes to clinic today for follow-up visit. We currently treat the patient for degenerative disc lumbar spine multilevels. Lumbar radiculopathy symptoms. Lumbar postlaminectomy syndrome. Left sacroiliitis. Patient currently being managed with intrathecal bupivacaine at 2.5 mg/day. She is doing very well with her current settings. However, left sacroiliac joint pain is super sitting the bupivacaine intrathecal pump. Patient has extreme point tenderness over the left sacroiliac joint upon examination. She has positive Gaenslen's test. Positive left sacroiliac joint compression test. Positive James's test on the left. Patient doing very well with her current settings of the intrathecal pain pump otherwise. Her Sunil has been reviewed and appropriate. Objective:: Patient is awake alert [place] x 3. In no acute distress. Flexion-extension lumbar spine somewhat guarded secondary to pain. Deep tendon reflexes upper and lower extremities normal. Motor strength upper and lower extremities normal. There is no gross sensory deficit. Gait is normal. Assessment:: Degenerative disc lumbar spine multilevels. Lumbar radiculopathy. Lumbar postlaminectomy syndrome. Left sacroiliitis. Plan:: Discussed in detail with the patient regarding left sacroiliac joint injection. She wishes to proceed. Patient has tried and failed home exercise programs, NSAIDs, Tylenol, physical therapy in the past. [facility] Disclaimer: The information contained in this section may have been updated after the patient was seen, as this information can be updated by other users. Medical History Abnormal cardiovascular stress test Allergies Anxiety and depression Atypical angina CAD (coronary artery disease) Cardiomyopathy CHF (NYHA class II, ACC/AHA stage C) COPD (chronic obstructive pulmonary disease) Cyst of right kidney Diabetes Generalized anxiety disorder History of gastroesophageal reflux (GERD) HTN (hypertension) Hyperlipidemia Hypothyroid Insomnia Major depressive disorder Ulcerative colitis Surgical History H/O: hysterectomy History of colonoscopy History of esophagogastroduodenoscopy (EGD) History of surgery STENT X3 History of surgery PAIN PUMP Hx of section X2 Family History Other Family history of cancer Family history of diabetes mellitus type II Family history of myocardial infarction Heart disease Hyperlipidemia Hypertension Social History Smoking Status: Current every day smoker tobacco type: cigarettes packs per day: 1 second hand exposure: No alcohol intake: never counseling provided: none substance use type: denies use current occupational status: disabled Travel in the last 8 weeks: None household members: significant other housing: house lives independently: Yes marital status: single number of children: 2 current occupational exposures/hazards: No caffeine: Yes do you feel safe at home: Yes victim of physical abuse: No victim of emotional abuse: No victim of sexual abuse: No would you like helpful sources: No
[2023-08-14 13:58] VITALS: BP 127/84; PULSE 76; RESP 20; BMI 27.6
== END ==
LOC: SC.PAIN 12:53
PROVIDERS: PCP Internal Medicine; Visit Provider Nurse Anesthetist, Certified Registered
DX: M51.16 Intervertebral disc disorders with radiculopathy, lumbar region (principal); M96.1 Postlaminectomy syndrome, not elsewhere classified; M46.1 Sacroiliitis, not elsewhere classified
CPT/HCPCS: 99212; G0463

== ENCOUNTER 2023-08-25 12:59 | Day surgery (SDC) | payer MEDICARE, SELFPAY ==
[2023-08-25 13:20] VITALS: BP 115/67; PULSE 81; RESP 18; TEMP 36.2; O2SAT 93; BMI 29.3
[2023-08-25] MEDS: BUPIVACAINE 0.25% 10ML INJ 25 MG IJ (13:27)
[2023-08-25] MEDS: methylPREDNISolone ACETATE 80MG/ML VIAL 80 MG (13:28)
[2023-08-25] MEDS: LIDOCAINE 1% 5ML PF VIAL 5 ML (13:28)
[2023-08-25 13:30] VITALS: BP 114/69; PULSE 77; RESP 16; O2SAT 94
--- NOTE | 2023-08-25 13:33 | P.PCN_ITS ---
Procedure Anesthesiologist:: Trever Shaw CRNA Complications:: None
--- NOTE | 2023-08-25 13:33 | EXP.PAIN.PRO ---
Procedure Anesthesiologist:: Trever Shaw CRNA Complications:: None
--- NOTE | 2023-08-25 13:34 | EXP.PAIN.PRO ---
Procedure Date: 08/25/23 Time: 13:34 Anesthesiologist:: Trever Shaw CRNA Complications:: None Pre-procedure Diagnosis:: Sacroiliitis Post-procedure Diagnosis:: Same Indications for Procedure:: Patient is a pleasant 62-year-old female comes our clinic today for a left sacroiliac joint injection. Patient has extreme point tenderness over the left sacroiliac joint upon examination. Patient reports difficulty transitioning from sitting to standing. Patient reports ambulating increases pain over the left posterior hip severely. She rates her pain 8/10. Procedure Details:: Procedure: Left sacroiliac injection under fluoroscopy Informed consent was obtained and the risk and benefits of the procedure were explained to the patient.~ The patient was taken to the procedure room and noninvasive monitors were placed including noninvasive blood pressure cuff and pulse oximeter.~ The patient was placed prone on the procedure table.~ The~ left hip was cleansed using Betadine as a cleansing solution.~ C-arm fluorosocpy was used to view the left SI joint.~ The skin and subcutaneous tissues were anesthetized using Lidocaine 1.5% and a 25-gauge needle.~ After this, a 22-gauge spinal needle was inserted under fluoroscopic guidance into the inferior aspect of the left SI joint.~ Omnipaque dye was injected and a good spread was seen throughout the joint.~ After this, approximately 5 mL of bupivacaine 0.25% and Depo-Medrol 40 mg was incrementally injected into the sacroiliac joint.~ The patient tolerated the procedure well with no complications.~ The patient was observed in the Pain Clinic for a period of 30-45 minutes, then discharged home neurologically intact.~ Plan and Disposition:: Patient was discharged without incident.
== END 2023-08-25 13:30 | disposition home or self-care (01) ==
PROVIDERS: PCP Internal Medicine; Visit Provider Nurse Anesthetist, Certified Registered
DX: M46.1 Sacroiliitis, not elsewhere classified (principal)
CPT/HCPCS: 27096; G0260; J1040

== ENCOUNTER → 2023-09-09 10:27 | Outpatient (POV) | payer MEDICARE, SELFPAY ==
--- NOTE | 2023-09-09 10:41 | EXP.PAIN.SOA ---
[facility] Pain Management SOAP Note Subjective:: Patient is a pleasant 62-year-old female who presents today for follow-up left SI injection on 08/25/2023. We are currently treating the patient for degenerative disc disease of lumbar spine with lumbar radiculopathy symptoms, lumbar postlaminectomy syndrome, sacroiliitis, status post intrathecal pump replacement. Patient rates her pain today a 6 out of 10. Patient denies any new trauma or injury. She does state that she has had at least 70 to 80% improvement following the SI injection. Patient does state that she has been experiencing a new pain here in the last little bit that does start in her low back and does radiate down both her legs. She describes it as an aching, throbbing sensation with numbness and tingling into her extremities. Patient states that is worse with increased activity or ambulation and does affect her ability to perform activities of daily living such as cooking and cleaning. Patient is interested in injection therapy if possible. Patient is currently managed with bupivacaine 20 mg/mL with a daily dose of 2.502 mg/day. She denies any side effects from this. She is prescribed gabapentin 800 mg twice a day from her primary care provider. Her Sunil has been reviewed and is appropriate. Review of Systems: General: No recent weight changes, no fever, no sleep disturbances Respiratory: No cough, no shortness of air, no recurring pulmonary infections Cardiovascular/peripheral vascular: No chest pain, no palpitations, no edema, no shortness of breath Gastrointestinal: No new onset incontinence, normal bowel movements reported Genitourinary: No new onset incontinence Musculoskeletal: Low back pain, bilateral leg pain Psychiatric: [Normal mood/affect] Neurological: [Denies weakness in extremities], [denies balance issues] Objective:: Physical Exam: General: Alert and oriented x3, no acute distress, pleasant and cooperative Lungs: Respirations even and unlabored, symmetrical chest expansion Eyes: PERRL Musculoskeletal: Flexion and extension of lumbar [spine] somewhat guarded secondary to pain, [antalgic gait noted], positive bilateral leg raise Neurological: Speech clear, no gross sensory deficit Assessment:: Degenerative disc disease of lumbar spine with lumbar radiculopathy symptoms, lumbar postlaminectomy syndrome, sacroiliitis, status post intrathecal pain pump replacement Plan:: Patient is experiencing worsening pain in her low back and bilateral legs with limited range of motion of her lumbar spine and a positive bilateral leg raise. I have discussed with the patient that she may benefit from lumbar epidural steroid injection. Risk and benefits were discussed with patient and she would like to proceed forward with this plan of care. Patient is currently on blood thinner that is written by Dr. Emmanuel's office. I have counseled the patient that we will have to stop this medication prior to this injection. We will reach out to Dr. Emmanuel's office and confirm she can stop this medication prior to this injection. Patient will be scheduled for an LESI L3-L4 under fluoroscopy. Patient has been instructed to contact the clinic with any concerns before the next appointment. Dr. Hinkle has reviewed this note and agrees with this plan of care. This note was dictated using voice recognition software and make contain errors or omissions. -- It Is medically necessary for this patient to continue to have their intrathecal pump refilled at regular intervals. This patient had an intrathecal pain pump implanted after meeting criteria of chronic intractable pain for greater than 3 months and failing conservative treatments. Patient has committed and been compliant to the treatment plan and all planned follow up care. Since implantation of the intrathecal pain pump, the patient has had decreased pain and been more functional. Oral medications have been reduced including intake of oral opioids. Patient continues to do well with intrathecal therapy with decrease in pain symptoms and increase in functional status. Stopping intrathecal medications can lead to life threatening withdrawal, seizures, cardiac arrest, severe pain, and possible . Pumps that are not refilled at regular intervals can be damages and cause and need for replacement. We continually titrate dose and concentration to optimize pain relief and function. We are limited in concentration for certain drugs to safely deliver medications through the pump and stay within the recommendations from the Polyanalgesic Consensus Committee Guidelines. Depending on dose and concentration these pumps may need to be refilled sooner than 3 months as we titrate. [facility] Disclaimer: The information contained in this section may have been updated after the patient was seen, as this information can be updated by other users. Medical History Abnormal cardiovascular stress test Allergies Anxiety and depression Atypical angina CAD (coronary artery disease) Cardiomyopathy CHF (NYHA class II, ACC/AHA stage C) COPD (chronic obstructive pulmonary disease) Cyst of right kidney Diabetes Generalized anxiety disorder History of gastroesophageal reflux (GERD) HTN (hypertension) Blood pressures at home and been doing well, and her blood pressure today was 120/76. Blood pressure on 15 July was 110/74. Continue with current therapy. Hyperlipidemia Hypothyroid Insomnia Major depressive disorder Ulcerative colitis Surgical History H/O: hysterectomy History of colonoscopy History of esophagogastroduodenoscopy (EGD) History of surgery STENT X3 History of surgery PAIN PUMP Hx of section X2 Family History Other Family history of cancer Family history of diabetes mellitus type II Family history of myocardial infarction Heart disease Hyperlipidemia Hypertension Social History Smoking Status: Current every day smoker tobacco type: cigarettes packs per day: 1 second hand exposure: No alcohol intake: never counseling provided: none substance use type: denies use current occupational status: other Travel in the last 8 weeks: None household members: significant other housing: house lives independently: Yes marital status: single number of children: 2 current occupational exposures/hazards: No caffeine: Yes do you feel safe at home: Yes victim of physical abuse: No victim of emotional abuse: No victim of sexual abuse: No would you like helpful sources: No
[2023-09-09 11:06] LABS: Microscopic, Urine URINE MICROSCOPIC (MICROSCOPIC)
[2023-09-09 11:29] LABS: Appearance,Urine CLEAR (Clear); Bilirubin,Urine Negative (Negative); Blood, Urine Negative (Negative); Color,Urine YELLOW (Yellow); Glucose,Urine (UA) 2+ (Negative); Ketones,Urine Negative (Negative); Leukocyte Esterase,Urine Negative (Negative); Nitrate,Urine Negative (Negative); PH,Urine 6.5 (5.0-8.5); Protein,Urine Negative (Negative); Urobilinogen,Urine 0.2 EU/dl (0.2)
[2023-09-09 11:56] LABS: Creatinine,Urine Random 16 mg/dL (Not Estab.)
[2023-09-09 12:07] LABS: Bacteria,Urine Trace /lpf; Chloride 102 mmol/L (98-107); Potassium 4.4 mmoL/L (3.5-5.1); Sodium 138 mmol/L (136-145); Squamous Epithelial Cell,Urine Occasional #/hpf (0-5); WBC,Urine Occasional #/hpf (0-3)
[2023-09-09 12:10] LABS: Blood Urea Nitrogen 14 mg/dl (7-17); Estimated Glomerular Filt Rate 46 ml/min (>60); GFR (African American) 55 ML/MIN (>60)
[2023-09-09 12:11] LABS: Anion Gap 8.4 mEq/L (5-15); Calcium 8.5 mg/dl (8.4-10.2); Carbon Dioxide 32 mmol/L (22.0-30.0); Glucose 78 mg/dl (74-100)
[2023-09-09 12:25] VITALS: BP 128/80; PULSE 76; RESP 18; O2SAT 92; BMI 61.2
[2023-09-09 12:39] LABS: Creatinine Clearance Estimated 42 mL/min (50-200)
[2023-09-09 16:30] LABS: Microalbumin < 6.000 mg/L (0-16.7)
== END ==
PROVIDERS: Internal Medicine Nephrology; PCP Internal Medicine; Visit Provider Nurse Practitioner Family
DX: M51.16 Intervertebral disc disorders with radiculopathy, lumbar region (principal); M96.1 Postlaminectomy syndrome, not elsewhere classified; M46.1 Sacroiliitis, not elsewhere classified; Z97.8 Presence of other specified devices
CPT/HCPCS: 36415; 80048; 81001; 82043; 82570; 84155; 99212; G0463

== ENCOUNTER 2023-10-06 08:48 | Day surgery (SDC) | payer MEDICARE, SELFPAY ==
[2023-10-06 09:12] VITALS: BP 110/67; PULSE 81; RESP 18; TEMP 36.6; O2SAT 91; BMI 27.8
--- NOTE | 2023-10-06 09:25 | EXP.PAIN.PRO ---
Procedure Date: 10/06/23 Time: 09:20 Anesthesiologist:: Trever Shaw CRNA Complications:: None Pre-procedure Diagnosis:: Degenerative disc lumbar spine multilevels. Lumbar radiculopathy. Lumbar postlaminectomy syndrome. Lumbar spondylosis. Post-procedure Diagnosis:: Same. Indications for Procedure:: Patient is a very pleasant 62-year-old female comes our clinic today for intrathecal pain pump interrogation refill. She is currently being managed with bupivacaine 20 mg/mL with a daily dose of 2.502 mg/day. Patient doing very well with her current settings. She not reporting any side effects or complications. She is not requesting any changes Procedure Details:: Details of procedure explained to the patient. The patient taken procedure room placed in sitting position. The area of the pump is cleansed using chlorhexidine's cleansing solution. The pump was interrogated. The pump was accessed with ease using a 22-gauge inch and half needle. 7 mL solution was withdrawn discarded appropriate. The pump was then filled with 20 cc of solution containing bupivacaine 20 mg/mL. The dose will continue at 2.5 mg/day. Patient tolerated procedure without difficulty. No complications. Plan and Disposition:: Patient was discharged without incident.
[2023-10-06 09:29] VITALS: BP 128/83; PULSE 81; RESP 18; O2SAT 90
[2023-10-06 09:30] VITALS: BP 128/83; PULSE 83; RESP 18; O2SAT 90
[2023-10-06 09:40] VITALS: BP 130/79; PULSE 77; RESP 18; O2SAT 91
== END 2023-10-06 09:40 | disposition home or self-care (01) ==
PROVIDERS: PCP Internal Medicine; Visit Provider Nurse Anesthetist, Certified Registered
DX: M51.16 Intervertebral disc disorders with radiculopathy, lumbar region (principal); M96.1 Postlaminectomy syndrome, not elsewhere classified; M47.26 Other spondylosis with radiculopathy, lumbar region; Z97.8 Presence of other specified devices; Z45.1 Encounter for adjustment and management of infusion pump
CPT/HCPCS: 95991

== ENCOUNTER 2023-10-15 13:21 | Outpatient (CLI) | payer MEDICARE, SELFPAY ==
[2023-10-15 14:14] LABS: Cholesterol 116 mg/dl (140-200); HDL Cholesterol 23 mg/dl (40-60); Triglycerides 209 mg/dl (30-150); VLDL Cholesterol 42 mg/dL (0-40)
[2023-10-15 14:25] LABS: Direct LDL Cholesterol 49.11 mg/dL (100-129)
[2023-10-15 14:44] LABS: Thyroid Stimulating Hormone 1.86 uIU/mL (0.465-4.68)
[2023-10-15 15:34] LABS: Hemoglobin A1C 5.5 % (4.0-6.0)
== END 2023-10-15 23:59 ==
LOC: LAB.DROPOF 13:21
PROVIDERS: PCP Internal Medicine; Visit Provider Internal Medicine
DX: E78.5 Hyperlipidemia, unspecified (principal); E05.90 Thyrotoxicosis, unspecified without thyrotoxic crisis or storm; R73.09 Other abnormal glucose
CPT/HCPCS: 80061; 83036; 84443

== ENCOUNTER 2023-10-16 09:44 | Day surgery (SDC) | payer MEDICARE, SELFPAY ==
[2023-10-16 10:04] VITALS: BP 128/74; PULSE 86; RESP 16; O2SAT 92; BMI 29.3
[2023-10-16 10:14] VITALS: BP 125/79; PULSE 79; RESP 18; O2SAT 92
[2023-10-16] MEDS: methylPREDNISolone ACETATE 80MG/ML VIAL 80 MG (10:14)
[2023-10-16 10:15] VITALS: BP 125/79; PULSE 81; RESP 18; O2SAT 92
[2023-10-16 10:30] VITALS: BP 124/73; PULSE 74; RESP 18; TEMP 36.7; O2SAT 98
--- NOTE | 2023-10-20 13:58 | P.PCN_ITS ---
Procedure Date: 10/16/23 Time: 10:00 Anesthesiologist:: Trever Shaw CRNA Complications:: None Pre-procedure Diagnosis:: Degenerative disc disease lumbar spine multilevels. Lumbar radiculopathy. Post-procedure Diagnosis:: Same. Indications for Procedure:: Patient is a very pleasant 63-year-old female comes our clinic today for lumbar epidural steroid injection at the L3-4 level. Patient reports low back pain as well as bilateral hip and leg radicular symptoms. She rates her pain 7/10. Procedure Details:: Procedure: Lumbar epidural steroid injection under fluoroscopy Informed consent was obtained and the risks and benefits of the procedure were explained to the patient. The patient was taken to the procedure room and noninvasive monitors placed, including noninvasive blood pressure cuff and pulse oximeter. The back was viewed using C-arm Fluoroscopy and prepped using Chloraprep as a cleansing solution and the L3-4 interspace was palpated. Skin and subcutaneous tissues were anesthetized using lidocaine 1.5% and a 25-gauge n eedle. After this, an 18-gauge Touhy epidural needle was placed into the L3-4 interspace and advanced using fluoroscopic guidance and loss of resistance to air until the epidural space was encountered. After confirmation of needle placement in the epidural space, with dye, a solution containing normal saline, 3 mL and Depo-Medrol 80 mg were incrementally injected into the lumbar epidural space. The patient tolerated the procedure well with no complications. The patient was observed in the Pain Clinic and then discharged home neurologically intact. Plan and Disposition:: Patient was discharged without incident.
== END 2023-10-16 10:30 | disposition home or self-care (01) ==
LOC: SC.PAINP 09:46
PROVIDERS: PCP Internal Medicine; Visit Provider Nurse Anesthetist, Certified Registered
DX: M51.16 Intervertebral disc disorders with radiculopathy, lumbar region (principal)
CPT/HCPCS: 62323; J1010

== ENCOUNTER 2023-11-24 13:34 | Outpatient (CLI) | payer MEDICARE, SELFPAY ==
--- NOTE | 2023-11-24 13:35 | US_ITS ---
FINAL REPORT CLINICAL HISTORY: swollen lymph node for 6 months COMPARISON: None FINDINGS: ULTRASOUND SOFT TISSUES NECK: Ultrasound examination of soft tissues of the neck revealed normal-appearing salivary glands. No focal mass in any of the salivary glands is identified. There are several bilateral lymph nodes, nonspecific but likely reactive. IMPRESSION: Several bilateral cervical lymph nodes, nonspecific but likely reactive. Reviewed, Interpreted and Dictated by Jam Britt III, MD Transcribed by Thu Encarnacion Authenticated and [facility]
== END 2023-11-24 23:59 | disposition home or self-care (01) ==
LOC: RAD 13:35
PROVIDERS: PCP Family Medicine; Visit Provider Family Medicine
DX: R59.9 Enlarged lymph nodes, unspecified (principal)
CPT/HCPCS: 76536

== ENCOUNTER 2024-02-24 10:00 | Outpatient (CLI) | payer MEDICARE, SELFPAY ==
[2024-02-24 21:33] LABS: Creatinine,Urine Random 49 mg/dL (Not Estab.)
[2024-02-24 21:42] LABS: Microalbumin < 6.000 mg/L (0-16.7)
== END 2024-02-24 23:59 | disposition home or self-care (01) ==
LOC: LAB.DROPOF 02-25 12:25
PROVIDERS: PCP Internal Medicine; Visit Provider Internal Medicine
DX: R73.03 Prediabetes (principal)
CPT/HCPCS: 82043; 82570

== ENCOUNTER 2024-04-04 09:21 | Outpatient (CLI) | payer MEDICARE, SELFPAY ==
[2024-04-04 09:32] LABS: Microscopic, Urine URINE MICROSCOPIC (MICROSCOPIC)
[2024-04-04 09:55] LABS: Basophils # 0.1 K/mm3 (0-0.2); Basophils % 1.2 % (0.1-2.0); Eosinophils # 0.2 K/mm3 (0.0-0.4); Eosinophils % 1.8 % (0.1-12.0); Hematocrit 47.7 % (37.0-47.0); Hemoglobin 14.8 g/dL (12.2-16.2); Lymphocytes # 3.1 K/mm3 (0.7-4.5); Lymphocytes % 32.8 % (10-50); Mean Corpuscular HGB Conc 31.1 g/dL (31.8-35.4); Mean Corpuscular Volume 96.5 fl (81-99); Mean Platelet Volume 8.6 fl (7.4-10.4); Monocytes # 0.6 K/mm3 (0.1-1.0); Monocytes % 6.2 % (1.7-9.3); Neutrophils # 5.5 K/mm3 (1.8-7.8); Neutrophils % 57.9 % (37.0-80.0); Platelet Count 280 K/mm3 (142-424); Red Blood Count 4.95 M/mm3 (4.20-5.40); Red Cell Distribution Width 13.9 % (11.5-17.5); White Blood Count 9.5 K/mm3 (4.8-10.8)
[2024-04-04 10:40] LABS: Appearance,Urine CLEAR (Clear); Bilirubin,Urine Negative (Negative); Blood, Urine Negative (Negative); Color,Urine YELLOW (Yellow); Glucose,Urine (UA) 3+ (Negative); Ketones,Urine Negative (Negative); Leukocyte Esterase,Urine Negative (Negative); Nitrate,Urine POSITIVE (Negative); Protein,Urine Negative (Negative); Specific Gravity, Urine >= 1.030 (1.005-1.030); Urobilinogen,Urine 0.2 EU/dl (0.2)
[2024-04-04 10:55] LABS: Bacteria,Urine Trace /lpf; Squamous Epithelial Cell,Urine Occasional #/hpf (0-5)
[2024-04-04 11:42] LABS: Albumin Level 4.1 g/dl (3.5-5.0); Blood Urea Nitrogen 21 mg/dl (7-17); Calcium 8.9 mg/dl (8.4-10.2); Carbon Dioxide 30 mmol/L (22.0-30.0); Chloride 104 mmol/L (98-107); Estimated Glomerular Filt Rate 56 ml/min (>60); GFR (African American) 68 ML/MIN (>60); Glucose 89 mg/dl (74-100); Phosphorous 4.9 mg/dl (2.5-4.5); Sodium 139 mmol/L (136-145)
[2024-04-04 11:53] LABS: Anion Gap 8.8 mEq/L (5-15); Potassium 3.8 mmoL/L (3.5-5.1)
[2024-04-04 12:53] LABS: Creatinine,Urine Random 124 mg/dL (Not Estab.)
[2024-04-05 13:54] LABS: Microalbumin < 6.000 mg/L (0-16.7)
== END 2024-04-04 23:59 | disposition home or self-care (01) ==
LOC: LAB 09:22
PROVIDERS: PCP Internal Medicine; Visit Provider Nurse Practitioner
DX: N18.31 Chronic kidney disease, stage 3a (principal); E55.9 Vitamin D deficiency, unspecified; I10 Essential (primary) hypertension; E78.5 Hyperlipidemia, unspecified; E11.9 Type 2 diabetes mellitus without complications; R60.9 Edema, unspecified; R53.83 Other fatigue
CPT/HCPCS: 36415; 80069; 81001; 82043; 82306; 82570; 83970; 84156; 85025

== ENCOUNTER 2024-05-04 11:09 | Outpatient (POV) | payer MEDICARE, SELFPAY ==
[2024-05-04 11:29] VITALS: BP 134/79; PULSE 80; RESP 14; O2SAT 93; BMI 28.4
--- NOTE | 2024-05-04 11:51 | EXP.PAIN.SOA ---
[facility] Disclaimer: The information contained in this section may have been updated after the patient was seen, as this information can be updated by other users. Medical History Cervical lymphadenopathy Cyst of right kidney Anxiety and depression Hypothyroid Diabetes Hyperlipidemia COPD (chronic obstructive pulmonary disease) Ulcerative colitis History of gastroesophageal reflux (GERD) Allergies Insomnia Generalized anxiety disorder Major depressive disorder Atypical angina Abnormal cardiovascular stress test Cardiomyopathy CHF (NYHA class II, ACC/AHA stage C) CAD (coronary artery disease) HTN (hypertension) Surgical History History of colonoscopy History of esophagogastroduodenoscopy (EGD) History of surgery PAIN PUMP History of surgery STENT X3 Hx of section X2 H/O: hysterectomy Family History Other Family history of cancer Family history of diabetes mellitus type II Family history of myocardial infarction Heart disease Hyperlipidemia Hypertension Social History Smoking Status: Current every day smoker tobacco type: cigarettes packs per day: 1 second hand exposure: No alcohol intake: never counseling provided: none substance use type: denies use current occupational status: other Travel in the last 8 weeks: None household members: significant other housing: house lives independently: Yes marital status: single number of children: 2 current occupational exposures/hazards: No caffeine: Yes do you feel safe at home: Yes victim of physical abuse: No victim of emotional abuse: No victim of sexual abuse: No would you like helpful sources: No PM Subjective & Objective Subjective Subjective:: Patient is a pleasant 63-year-old male who presents today for 6-month follow-up. Today she rates her pain a 0 out of 10. She states that she is still continued to do excellent following her lumbar epidural steroid injection of L3-L4 that she had back in October. Patient is also managed with bupivacaine 20 mg/mL and gabapentin from her PCP. She denies any side effects from this medication. Her Sunil has been reviewed and is appropriate. Review of Systems: General: No recent weight changes, no fever, no sleep disturbances Respiratory: No cough, no shortness of air, no recurring pulmonary infections Cardiovascular/peripheral vascular: No chest pain, no palpitations, no edema, no shortness of breath Gastrointestinal: No new onset incontinence, normal bowel movements reported Genitourinary: No new onset incontinence Musculoskeletal: Low back pain Psychiatric: [Normal mood/affect] Neurological: [Denies weakness in extremities], [denies balance issues] Pain at rest (0-10 scale): 0 Objective Objective:: Physical Exam: General: Alert and oriented x3, no acute distress, pleasant and cooperative Lungs: Respirations even and unlabored, symmetrical chest expansion Eyes: PERRL Musculoskeletal: Flexion and extension of lumbar [spine] somewhat guarded secondary to pain, [antalgic gait noted] Neurological: Speech clear, no gross sensory deficit Has patient had previous pain injection?: No Conservative treatment options previously tried: Home exercise plan Length of treatment: Longer than 12 weeks Meds Home Medications and Allergies Home Medications ?Medication ?Instructions ?Recorded ?Confirmed ?Type aspirin 81 mg tablet,delayed 81 mg PO DAILY heart health 06/15/18 05/04/24 History release blood sugar diagnostic (Advanced 03/11/22 05/04/24 History Glucose Meter Test Strips) blood-glucose meter ([facility] 03/11/22 05/04/24 History Glucose Meter) lancets 30 gauge ([facility] 03/11/22 05/04/24 History Lancets) fluticasone furoate 100 See Rx Instructions .Route 04/15/22 05/04/24 History mcg-vilanterol 25 mcg/dose .COMPLEX . inhalation powder (Breo Ellipta) lancets 28 gauge (TRUEplus Lancets) #100 ea 09/26/22 05/04/24 History isosorbide mononitrate 60 mg See Rx Instructions .Route 09/17/23 05/04/24 Rx tablet,extended release 24 hr .COMPLEX #90 tabs trazodone 100 mg tablet 100 mg PO QHS sleep #90 tabs 12/08/23 05/04/24 Rx levothyroxine 25 mcg tablet See Rx Instructions .Route 01/19/24 05/04/24 Rx .COMPLEX #90 tabs atorvastatin 80 mg tablet See Rx Instructions .Route 02/18/24 05/04/24 Rx .COMPLEX #90 tabs icosapent ethyl 1 gram capsule See Rx Instructions .Route 02/18/24 05/04/24 Rx (Vascepa) .COMPLEX #120 caps nitroglycerin 0.4 mg sublingual 0.4 mg sublingual Q5-15M PRN chest 02/18/24 05/04/24 Rx tablet pain #25 tabs semaglutide 1 mg/dose (4 mg/3 mL) See Rx Instructions .Route 02/18/24 05/04/24 Rx subcutaneous pen injector (Ozempic) .COMPLEX #3 mL buspirone 5 mg tablet See Rx Instructions .Route 02/19/24 05/04/24 Rx .COMPLEX #60 tabs gabapentin 800 mg tablet 800 mg PO BID Pain 30 days #60 tabs 02/24/24 05/04/24 Rx bupropion HCl 150 mg 24 hr tablet, 150 mg PO DAILY mood #30 tabs 03/18/24 05/04/24 Rx extended release (Wellbutrin XL) bisoprolol fumarate 5 mg tablet See Rx Instructions .Route 04/18/24 05/04/24 Rx .COMPLEX #30 tabs clopidogrel 75 mg tablet See Rx Instructions .Route 04/18/24 05/04/24 Rx .COMPLEX #30 tabs empagliflozin 25 mg tablet See Rx Instructions .Route 04/18/24 05/04/24 Rx (Jardiance) .COMPLEX #30 tabs ezetimibe 10 mg tablet See Rx Instructions .Route 04/18/24 05/04/24 Rx .COMPLEX #30 tabs famotidine 40 mg tablet See Rx Instructions .Route 04/18/24 05/04/24 Rx .COMPLEX #30 tabs fluoxetine 20 mg capsule See Rx Instructions .Route 04/20/24 05/04/24 Rx .COMPLEX #30 caps fluoxetine 40 mg capsule See Rx Instructions .Route 04/20/24 05/04/24 Rx .COMPLEX #30 caps New Prescriptions to Start Prescriptions: Allergies Allergy/AdvReac Type Severity Reaction Status Date / Time mesalamine [From Asacol] Allergy Severe KIDNEY Verified 02/24/24 09:47 FAILURE Penicillins Allergy Intermediate I-RASH, Verified 02/24/24 09:47 ITCHING Assessment and Plan *Assessment and plan (1) Degenerative disc disease, lumbar: Status: Acute Category: Medical Code(s): M51.369 - Other intervertebral disc degeneration, lumbar region without mention of lumbar back pain or lower extremity pain Plan Patient continues to do well and does not need any additional interventions at this time. 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 We will see the patient back in the clinic at the next intrathecal refill. Patient has been instructed to contact the clinic with any concerns before the next appointment. Dr. Hinkle has reviewed this note and agrees with this plan of care. This note was dictated using voice recognition software and make contain errors or omissions. -- It Is medically necessary for this patient to continue to have their intrathecal pump refilled at regular intervals. This patient had an intrathecal pain pump implanted after meeting criteria of chronic intractable pain for greater than 3 months and failing conservative treatments. Patient has committed and been compliant to the treatment plan and all planned follow up care. Since implantation of the intrathecal pain pump, the patient has had decreased pain and been more functional. Oral medications have been reduced including intake of oral opioids. Patient continues to do well with intrathecal therapy with decrease in pain symptoms and increase in functional status. Stopping intrathecal medications can lead to life threatening withdrawal, seizures, cardiac arrest, severe pain, and possible . Pumps that are not refilled at regular intervals can be damages and cause and need for replacement. We continually titrate dose and concentration to optimize pain relief and function. We are limited in concentration for certain drugs to safely deliver medications through the pump and stay within the recommendations from the Polyanalgesic Consensus Committee Guidelines. Depending on dose and concentration these pumps may need to be refilled sooner than 3 months as we titrate.
== END 2024-05-04 23:59 | disposition home or self-care (01) ==
LOC: SC.PAIN 11:10
PROVIDERS: PCP Internal Medicine; Visit Provider Nurse Practitioner Family
DX: M51.369 Other intervertebral disc degeneration, lumbar region without mention of lumbar back pain or lower extremity pain (principal); F17.210 Nicotine dependence, cigarettes, uncomplicated; Z79.899 Other long term (current) drug therapy
CPT/HCPCS: 99212; G0463

== ENCOUNTER 2024-08-24 09:40 | Outpatient (CLI) | payer MEDICARE, SELFPAY ==
[2024-08-24 19:29] LABS: Chol/HDL Ratio 5.2 (1-3.5); Cholesterol 171 mg/dl (140-200); HDL Cholesterol 33 mg/dl (40-60); Triglycerides 192 mg/dl (30-150); VLDL Cholesterol 38 mg/dL (0-40)
[2024-08-24 19:31] LABS: Microalbumin < 6.000 mg/L (0-16.7)
[2024-08-24 19:33] LABS: Creatinine,Urine Random 69 mg/dL (Not Estab.)
[2024-08-24 19:40] LABS: Direct LDL Cholesterol 83.62 mg/dL (100-129)
[2024-08-24 19:42] LABS: Hemoglobin A1C 5.5 % (4.0-6.0)
[2024-08-24 20:22] LABS: Thyroid Stimulating Hormone 2.64 uIU/mL (0.465-4.68)
== END 2024-08-24 23:59 | disposition home or self-care (01) ==
LOC: LAB.DROPOF 08-25 11:58
PROVIDERS: PCP Internal Medicine; Visit Provider Internal Medicine
DX: N18.31 Chronic kidney disease, stage 3a (principal); E11.9 Type 2 diabetes mellitus without complications; E78.2 Mixed hyperlipidemia; E66.3 Overweight; Z68.27 Body mass index [BMI] 27.0-27.9, adult
CPT/HCPCS: 80061; 82043; 82570; 83036; 84443

== ENCOUNTER 2024-11-02 13:09 | Outpatient (POV) | payer MEDICARE, SELFPAY ==
--- NOTE | 2024-11-02 13:30 | EXP.PAIN.SOA ---
[facility] Disclaimer: The information contained in this section may have been updated after the patient was seen, as this information can be updated by other users. Medical History Cervical lymphadenopathy Cyst of right kidney Anxiety and depression Hypothyroid Diabetes Hyperlipidemia COPD (chronic obstructive pulmonary disease) Ulcerative colitis History of gastroesophageal reflux (GERD) Allergies Insomnia Generalized anxiety disorder Major depressive disorder Atypical angina Abnormal cardiovascular stress test Cardiomyopathy CHF (NYHA class II, ACC/AHA stage C) CAD (coronary artery disease) HTN (hypertension) Surgical History History of colonoscopy History of esophagogastroduodenoscopy (EGD) History of surgery PAIN PUMP History of surgery STENT X3 Hx of section X2 H/O: hysterectomy Family History Other Family history of cancer Family history of diabetes mellitus type II Family history of myocardial infarction Heart disease Hyperlipidemia Hypertension Social History Smoking Status: Current every day smoker tobacco type: cigarettes packs per day: 1 second hand exposure: No alcohol intake: never counseling provided: none substance use type: denies use current occupational status: other Travel in the last 8 weeks: None household members: significant other housing: house lives independently: Yes marital status: single number of children: 2 current occupational exposures/hazards: No caffeine: Yes do you feel safe at home: Yes victim of physical abuse: No victim of emotional abuse: No victim of sexual abuse: No would you like helpful sources: No PM Subjective & Objective Subjective Subjective:: Patient is a pleasant 64-year-old female who presents today for worsening pain. She rates her pain a 7 out of 10. She does state most of the pain is related to her neck that does radiate primarily down the left arm with numbness and tingling but does state it goes to the right shoulder as well. 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 Patient does state that she has numbness in her index finger. Patient has been dealing a lot more with this over the last several months. She is caring for her and feels like this may have aggravated some of her symptoms. Patient does state the pain is interfering with her ability perform activities of daily living such as cooking and cleaning. Patient would like to see about getting some injections. Patient did get a lumbar epidural that did provide significant relief back in October of last year. She states that overall it has been doing really well but she is starting to notice a little bit more pain of that location as well. Patient is prescribed gabapentin from an outside provider. Her Sunil has been reviewed and is appropriate. Review of Systems: General: No recent weight changes, no fever, no sleep disturbances Respiratory: No cough, no shortness of air, no recurring pulmonary infections Cardiovascular/peripheral vascular: No chest pain, no palpitations, no edema, no shortness of breath Gastrointestinal: No new onset incontinence, normal bowel movements reported Genitourinary: No new onset incontinence Musculoskeletal: Neck pain, left arm numbness tingling, bilateral shoulder numbness tingling Psychiatric: [Normal mood/affect] Neurological: [Denies weakness in extremities], [denies balance issues] Pain at rest (0-10 scale): 7 Objective Objective:: Physical Exam: General: Alert and oriented x3, no acute distress, pleasant and cooperative Lungs: Respirations even and unlabored, symmetrical chest expansion Eyes: PERRL Musculoskeletal: Flexion and extension of cervical [spine] somewhat guarded secondary to pain, [antalgic gait noted] positive Spurling's test Neurological: Speech clear, no gross sensory deficit Has patient had previous pain injection?: No Conservative treatment options previously tried: Home exercise plan Length of treatment: Longer than 12 weeks Meds Home Medications and Allergies Home Medications ?Medication ?Instructions ?Recorded ?Confirmed ?Type aspirin 81 mg tablet,delayed 81 mg PO DAILY heart health 06/15/18 10/10/24 History release blood sugar diagnostic (Advanced 03/11/22 10/10/24 History Glucose Meter Test Strips) blood-glucose meter ([facility] 03/11/22 10/10/24 History Glucose Meter) lancets 30 gauge ([facility] 03/11/22 10/10/24 History Lancets) fluticasone furoate 100 See Rx Instructions .Route 04/15/22 10/10/24 History mcg-vilanterol 25 mcg/dose .COMPLEX . inhalation powder (Breo Ellipta) lancets 28 gauge (TRUEplus Lancets) #100 ea 09/26/22 10/10/24 History atorvastatin 80 mg tablet See Rx Instructions .Route 02/18/24 10/10/24 Rx .COMPLEX #90 tabs icosapent ethyl 1 gram capsule See Rx Instructions .Route 02/18/24 10/10/24 Rx (Vascepa) .COMPLEX #120 caps nitroglycerin 0.4 mg sublingual 0.4 mg sublingual Q5-15M PRN chest 02/18/24 10/10/24 Rx tablet pain #25 tabs levothyroxine 25 mcg tablet See Rx Instructions .Route 08/01/24 10/10/24 Rx .COMPLEX #90 tabs bisoprolol fumarate 5 mg tablet See Rx Instructions .Route 09/27/24 10/10/24 Rx .COMPLEX #90 tabs buspirone 5 mg tablet See Rx Instructions .Route 09/27/24 10/10/24 Rx .COMPLEX #60 tabs clopidogrel 75 mg tablet See Rx Instructions .Route 09/27/24 10/10/24 Rx .COMPLEX #90 tabs empagliflozin 25 mg tablet See Rx Instructions .Route 09/27/24 10/10/24 Rx (Jardiance) .COMPLEX #90 tabs ezetimibe 10 mg tablet See Rx Instructions .Route 09/27/24 10/10/24 Rx .COMPLEX #90 tabs famotidine 40 mg tablet See Rx Instructions .Route 09/27/24 10/10/24 Rx .COMPLEX #90 tabs gabapentin 800 mg tablet See Rx Instructions .Route 09/27/24 10/10/24 Rx .COMPLEX #60 tabs isosorbide mononitrate 60 mg See Rx Instructions .Route 09/27/24 10/10/24 Rx tablet,extended release 24 hr .COMPLEX #90 tabs fluoxetine 20 mg capsule See Rx Instructions .Route 09/28/24 10/10/24 Rx .COMPLEX #30 caps fluoxetine 40 mg capsule See Rx Instructions .Route 09/28/24 10/10/24 Rx .COMPLEX #30 caps bupropion HCl 150 mg 24 hr tablet, 150 mg PO DAILY mood #30 tabs 10/10/24 10/10/24 Rx extended release (Wellbutrin XL) lamotrigine 25 mg tablet (Lamictal) 25 mg PO DAILY #42 tabs 10/10/24 10/10/24 Rx New Prescriptions to Start Prescriptions: Allergies Allergy/AdvReac Type Severity Reaction Status Date / Time mesalamine (From Asacol) Allergy Severe KIDNEY Verified 10/10/24 14:11 FAILURE Penicillins Allergy Intermediate I-RASH, Verified 10/10/24 14:11 ITCHING Assessment and Plan *Assessment and plan (1) Neck pain: Status: Chronic Category: Medical Code(s): M54.2 - Cervicalgia (2) Cervical radiculopathy: Status: Acute Category: Medical Code(s): M54.12 - Radiculopathy, cervical region Plan Patient is experiencing worsening pain in their neck with radiating tingling and burning sensations into their bilateral upper extremities. Patient did have limited range of motion of her cervical spine with a positive Spurling's test. I did discuss with the patient that I do believe they would benefit from a cervical epidural steroid injection. Risk and benefits were discussed with patient and they would like to proceed forward with this plan of care. Patient has tried and failed conservative therapy including oral medications, heat and ice, topicals, at home stretching exercise for longer than 12 weeks that was physician guided. Patient has had a history of neck pain and was even being treated here in our office back in 2019 for this reason. Patient denies having any previous injections for this. I did rehab/pre vocational counselor the patient with her index finger being affected that it does seem to follow the pathway of the C7 vertebra. Patient will be scheduled for a STEVE C6-C7 under fluoroscopy. Patient has been instructed to contact the clinic with any concerns before the next appointment. Dr. Hinkle has reviewed this note and agrees with this plan of care. This note was dictated using voice recognition software and make contain errors or omissions. All injections are used with Lidocaine, Bupivacaine and dexamethasone. Occasionally urine drug screen is needed to verify patient's compliance with our office pain contract. This is ordered based off specific treatments related to chronic pain with the potential to abuse certain medications.
[2024-11-02 14:00] VITALS: BP 118/76; PULSE 73; RESP 14; O2SAT 92; BMI 30.1
== END 2024-11-02 23:59 | disposition home or self-care (01) ==
PROVIDERS: PCP Family Medicine; Visit Provider Nurse Practitioner Family
DX: M54.2 Cervicalgia (principal); M54.12 Radiculopathy, cervical region; F17.210 Nicotine dependence, cigarettes, uncomplicated; Z73.89 Other problems related to life management difficulty; Z79.899 Other long term (current) drug therapy
CPT/HCPCS: 99212; G0463

== ENCOUNTER 2024-11-29 13:54 | Day surgery (SDC) | payer MEDICARE, SELFPAY ==
[2024-11-29 14:02] VITALS: BP 115/73; PULSE 81; RESP 18; TEMP 36.2; O2SAT 98; BMI 30.6
--- NOTE | 2024-11-29 14:19 | P.PCN_ITS ---
Procedure Date: 11/29/24 Time: 14:15 Anesthesiologist:: Trever Shaw CRNA Complications:: None Pre-procedure Diagnosis:: Degenerative disc cervical spine multilevels. Cervical radiculopathy. Post-procedure Diagnosis:: Same Indications for Procedure:: Patient is a very pleasant 64-year-old female who comes our clinic today for a cervical epidural steroid injection. Patient describes cervical neck pain as constant, dull, aching. She also reports bilateral arm radicular symptoms at times. Left greater than right. She rates her pain 7/10. Procedure Details:: Procedure:Cervical epidural steroid injection Informed consent was obtained and the risks and benefits of the procedure were explained to the patient. The patient was taken to the procedure room and noninvasive monitors placed, including noninvasive blood pressure cuff and pulse oximeter. The neck was prepped using Chloraprep as a cleansing solution. The C6- C7 interspace was viewed using fluroscopy. The skin and subcutaneous tissues were anesthetized using lidocaine 1.5% and a 25-gauge needle. After this an 18- gauge Touhy epidural needle was placed into the C6-C7 interspace under fluroscopy guidance and advanced using loss of resistance to air until the epidural space was encountered. After confirmation of needle placement in the epidural space using contrast dye, a solution containing normal saline, 2 mL and Depo-Medrol 80 mg was incrementally injected into the cervical epidural space.~ The patient tolerated the procedure well with no complications. The patient was observed in the Pain Clinic and then discharged home neurologically intact. Plan and Disposition:: Patient was discharged without incident.
[2024-11-29] MEDS: IOPAMIDOL-200 (41%);10ML VIAL 10 ML IV (14:21)
[2024-11-29 14:25] VITALS: BP 115/73; PULSE 81; RESP 18; O2SAT 98
[2024-11-29] MEDS: DEXAMETHASONE 10MG/ML 1ML VIAL 10 MG (14:25)
[2024-11-29 14:26] VITALS: BP 133/81; PULSE 80; RESP 16; O2SAT 94
[2024-11-29 14:29] VITALS: BP 115/73; PULSE 81; RESP 18; O2SAT 98
== END 2024-11-29 14:26 | disposition home or self-care (01) ==
PROVIDERS: PCP Family Medicine; Visit Provider Nurse Anesthetist, Certified Registered
DX: M50.30 Other cervical disc degeneration, unspecified cervical region (principal); M54.12 Radiculopathy, cervical region
CPT/HCPCS: 62321; J1100; Q9966

== ENCOUNTER 2024-12-01 11:56 | Outpatient (CLI) | payer MEDICARE, SELFPAY ==
[2024-12-01 18:23] LABS: Basophils # 0.1 K/mm3 (0-0.2); Basophils % 0.5 % (0.1-2.0); Eosinophils # 0.1 Kmm3 (0.0-0.4); Eosinophils % 0.5 % (0.1-12.0); Hematocrit 44.7 % (37.0-47.0); Hemoglobin 14.3 g/dL (12.2-16.2); Immature Granulocytes # 0.09 10^3uL; Immature Granulocytes % 0.6 %; Lymphocytes # 5.3 K/mm3 (0.7-4.5); Lymphocytes % 35.3 % (10-50); Mean Corpuscular Hemoglobin 29.2 pg (27.0-31.2); Mean Corpuscular Volume 91.2 fl (81-99); Mean Platelet Volume 10.4 fl (7.4-10.4); Monocytes # 0.9 K/mm3 (0.1-1.0); Monocytes % 6.2 % (1.7-9.3); Neutrophils # 8.6 K/mm3 (1.8-7.8); Neutrophils % 56.9 % (37.0-80.0); Nucleated Red Blood Cells # 0 10^3/uL; Nucleated Red Blood Cells % 0 %; Platelet Count 373 K/mm3 (142-424); Red Cell Distribution Width 13.2 % (11.5-17.5); White Blood Count 15.1 K/mm3 (4.8-10.8)
[2024-12-01 18:27] LABS: MANUAL DIFFERENTIAL MANUAL DIFFERENTIAL (MANUAL DIFF)
[2024-12-01 18:37] LABS: Hemoglobin A1C 6.5 % (4.0-6.0)
[2024-12-01 19:20] LABS: Alanine Aminotransferase 19 U/L (12-78); Albumin Level 4.7 g/dl (3.5-5.0); Albumin/Globulin Ratio 1.9 (1.1-1.8); Alkaline Phosphatase 164 U/L (38-126); Anion Gap 14.4 mEq/L (5-15); Aspartate Amino Transferase 24 U/L (14-36); Bilirubin,Total 0.6 mg/dl (0.2-1.3); Blood Urea Nitrogen 20 mg/dl (7-17); Calcium 9.2 mg/dl (8.4-10.2); Carbon Dioxide 29 mmol/L (22.0-30.0); Chloride 100 mmol/L (98-107); Cholesterol 211 mg/dl (140-200); Estimated Glomerular Filt Rate 50 ml/min (>60); GFR (African American) 61 ML/MIN (>60); Globulin 2.5 g/dL (1.3-3.2); Glucose 76 mg/dl (74-100); HDL Cholesterol 35 mg/dl (40-60); Potassium 4.4 mmoL/L (3.5-5.1); Sodium 139 mmol/L (136-145); Total Protein,Serum 7.2 g/dl (6.3-8.2)
[2024-12-01 19:28] LABS: Lymphocytes % 48 % (10-50); Monocytes % 6 % (2-9); Neutrophils % 46 % (42-76); Platelet Estimate Normal; RBC Morphology Normal; Total Cells Counted 100
[2024-12-01 19:35] LABS: Direct LDL Cholesterol 112.82 mg/dL (100-129)
[2024-12-01 19:49] LABS: Thyroid Stimulating Hormone 5.37 uIU/mL (0.465-4.68)
[2024-12-01 20:05] LABS: Triglycerides 428 mg/dl (30-150)
== END 2024-12-01 23:59 | disposition home or self-care (01) ==
LOC: LAB.DROPOF 22:43
PROVIDERS: PCP Family Medicine; Visit Provider Family Medicine
DX: E11.9 Type 2 diabetes mellitus without complications (principal); E78.5 Hyperlipidemia, unspecified; R53.83 Other fatigue; I10 Essential (primary) hypertension; Z79.85 Long-term (current) use of injectable non-insulin antidiabetic drugs
CPT/HCPCS: 80053; 80061; 83036; 84443; 85007; 85025; 85027

== ENCOUNTER 2024-12-14 13:05 | Outpatient (CLI) | payer MEDICARE, SELFPAY ==
--- NOTE | 2024-12-14 13:30 | MM_ITS ---
PROCEDURE INFORMATION: Exam: MG Bilateral Screening 3D Mammography Exam date and time: 12/14/2024 1:10 PM Age: 64 years old Clinical indication: Screening examination. Her maternal great aunt had breast cancer. TECHNIQUE: Imaging protocol: Bilateral Screening tomosynthesis and 2D mammography including computer-aided detection (CAD) when performed. COMPARISON: 1. MG MM DIG SCREENING MAMM BI W/CAD 07/31/2022 3:15 PM 2. MG MM DIG MAMM DX UNILAT RT CAD 02/11/2022 2:29 PM 3. MG MM DIG MAMM DX UNILAT RT CAD 07/26/2021 2:18 PM 4. MG MM DIG SCREENING MAMM BI W/CAD 07/10/2021 4:35 PM FINDINGS: MAMMOGRAPHY: Breast composition: There are scattered areas of fibroglandular density. Mass: No suspicious mass. Architectural distortion: None. Calcifications: No suspicious calcifications. Asymmetric density: None. Skin thickening: None. Axillary adenopathy: None. IMPRESSION: No mammographic evidence of malignancy. Annual screening is recommended unless otherwise clinically indicated. ASSESSMENT: BI-RADS Category 1: Negative.
== END 2024-12-14 23:59 | disposition home or self-care (01) ==
LOC: RAD 13:06
PROVIDERS: PCP Family Medicine; Visit Provider Family Medicine
DX: Z12.31 Encounter for screening mammogram for malignant neoplasm of breast (principal); R92.313 Mammographic fatty tissue density, bilateral breasts
CPT/HCPCS: 77063; 77067

== ENCOUNTER 2024-12-14 13:54 | Outpatient (POV) | payer MEDICARE, SELFPAY ==
[2024-12-14 14:35] VITALS: BP 131/72; PULSE 77; RESP 18; O2SAT 96; BMI 30.5
--- NOTE | 2024-12-14 14:35 | A.OFFVIS_ITS ---
[facility] Disclaimer: The information contained in this section may have been updated after the patient was seen, as this information can be updated by other users. Medical History (Updated 12/14/24 @ 14:36 by Renuka Gonzales APRN) Tubular adenoma of colon Breast cancer screening by mammogram Cervical lymphadenopathy Cyst of right kidney Anxiety and depression Hypothyroid Diabetes Hyperlipidemia COPD (chronic obstructive pulmonary disease) Ulcerative colitis History of gastroesophageal reflux (GERD) Allergies Insomnia Generalized anxiety disorder Major depressive disorder Atypical angina Abnormal cardiovascular stress test Cardiomyopathy CHF (NYHA class II, ACC/AHA stage C) CAD (coronary artery disease) HTN (hypertension) Surgical History History of colonoscopy History of esophagogastroduodenoscopy (EGD) History of surgery History of surgery Hx of section H/O: hysterectomy Family History Other Family history of cancer Family history of diabetes mellitus type II Family history of myocardial infarction Heart disease Hyperlipidemia Hypertension Social History Smoking Status: Current every day smoker tobacco type: cigarettes packs per day: 1 second hand exposure: No alcohol intake: never counseling provided: none substance use type: denies use current occupational status: other Travel in the last 8 weeks?: None household members: significant other housing: house lives independently: Yes marital status: single number of children: 2 current occupational exposures/hazards: No caffeine: Yes do you feel safe at home: Yes victim of physical abuse: No victim of emotional abuse: No victim of sexual abuse: No would you like helpful sources: No PM Subjective & Objective Subjective Subjective:: Patient is a pleasant 64-year-old female who presents today for follow-up of cervical epidural steroid injection C6-C7 under fluoroscopy on 11/29/2024. Today she rates her pain a 5 out of 10. Patient denies any new trauma or injury. She does state that she has had at least 80% improvement and feels like it is still working wonderful. Patient states she has been able to increase her activity with overall decreased pain. She does make mention that she is having a little bit back pain but it is still very manageable. Her Sunil has been reviewed and is appropriate. Review of Systems: General: No recent weight changes, no fever, no sleep disturbances Respiratory: No cough, no shortness of air, no recurring pulmonary infections Cardiovascular/peripheral vascular: No chest pain, no palpitations, no edema, no shortness of breath Gastrointestinal: No new onset incontinence, normal bowel movements reported Genitourinary: No new onset incontinence Musculoskeletal: Low back pain Psychiatric: [Normal mood/affect] Neurological: [Denies weakness in extremities], [denies balance issues] Pain at rest (0-10 scale): 5 Objective Objective:: Physical Exam: General: Alert and oriented x3, no acute distress, pleasant and cooperative Lungs: Respirations even and unlabored, symmetrical chest expansion Eyes: PERRL Musculoskeletal: Flexion and extension of lumbar [spine] somewhat guarded secondary to pain, [antalgic gait noted] Neurological: Speech clear, no gross sensory deficit Has patient had previous pain injection?: Yes Percent improvement in pain since last injection: 80% Conservative treatment options previously tried: Home exercise plan Length of treatment: Longer than 12 weeks Meds Home Medications and Allergies Home Medications ?Medication ?Instructions ?Recorded ?Confirmed ?Type aspirin 81 mg tablet,delayed 81 mg PO DAILY heart heal th 06/15/18 12/01/24 History release blood sugar diagnostic (Advanced 03/11/22 12/01/24 Hi story Glucose Meter Test Strips) blood-glucose meter (Advanced 03/11/22 12/01/24 Histo ry Glucose Meter) lancets 30 gauge (Advanced Travel 03/11/22 12/01/24 H istory Lancets) lancets 28 gauge (TRUEplus Lancets) #100 ea 09/26/22 0 12/01/24 History atorvastatin 80 mg tablet See Rx Instructions .Route 0 02/18/24 12/01/24 Rx .COMPLEX #90 tabs nitroglycerin 0.4 mg sublingual 0.4 mg sublingual Q5-1 5M PRN chest 02/18/24 12/01/24 Rx tablet pain #25 tabs bisoprolol fumarate 5 mg tablet See Rx Instructions .R oute 09/27/24 12/01/24 Rx .COMPLEX #90 tabs buspirone 5 mg tablet See Rx Instructions .Route 0 09/27/24 12/01/24 Rx .COMPLEX #60 tabs clopidogrel 75 mg tablet See Rx Instructions .Route 0 09/27/24 12/01/24 Rx .COMPLEX #90 tabs empagliflozin 25 mg tablet See Rx Instructions .Route 09/27/24 12/01/24 Rx (Jardiance) .COMPLEX #90 tabs ezetimibe 10 mg tablet See Rx Instructions .Route 0 09/27/24 12/01/24 Rx .COMPLEX #90 tabs famotidine 40 mg tablet See Rx Instructions .Route 0 09/27/24 12/01/24 Rx .COMPLEX #90 tabs isosorbide mononitrate 60 mg See Rx Instructions .Rout e 09/27/24 12/01/24 Rx tablet,extended release 24 hr .COMPLEX #90 tabs bupropion HCl 150 mg 24 hr tablet, 150 mg PO DAILY moo d #30 tabs 10/10/24 12/01/24 Rx extended release (Wellbutrin XL) gabapentin 800 mg tablet See Rx Instructions .Route 0 11/02/24 12/01/24 Rx .COMPLEX #60 tabs furosemide 40 mg tablet (Lasix) 40 mg PO DAILY #30 tab s 11/14/24 12/01/24 Rx gabapentin 600 mg tablet 600 mg PO DAILY #60 tabs 12/01/24 Rx levothyroxine 50 mcg capsule 50 mcg PO DAILY #30 caps 12/04/24 Rx semaglutide 0.25 mg or 0.5 mg (2 0.25 mg (0.368 mL) SQ WEEKLY #3 mL 12/04/24 Rx mg/3 mL) subcutaneous pen injector (Ozempic) fluoxetine 20 mg capsule See Rx Instructions .Route 0 12/06/24 Rx .COMPLEX #30 caps fluoxetine 40 mg capsule See Rx Instructions .Route 0 12/06/24 Rx .COMPLEX #30 caps lamotrigine 25 mg tablet See Rx Instructions .Route 0 12/06/24 Rx .COMPLEX #42 tabs New Prescriptions to Start Prescriptions: Allergies Allergy/AdvReac Type Severity Reaction Status Date / Time mesalamine (From Asacol) Allergy Severe KIDNEY Verified 12/01/24 11:09 FAILURE Penicillins Allergy Intermediate I-RASH, Verified 12/01/24 11:09 ITCHING Assessment and Plan *Assessment and plan (1) Low back pain: Status: Acute Category: Medical Code(s): M54.50 - Low back pain, unspecified Plan Patient has had significant improvement following her epidural and does not require any additional injection therapy at this time. Patient will return to clinic in 6 weeks for reevaluation of symptoms and plan of care. Patient has been instructed to contact the clinic with any concerns before the next appointment. Dr. Hinkle has reviewed this note and agrees with this plan of care. This note was dictated using voice recognition software and make contain errors or omissions. All injections are used with Lidocaine, Bupivacaine and dexamethasone. Occasionally urine drug screen is needed to verify patient's compliance with our office pain contract. This is ordered based off specific treatments related to chronic pain with the potential to abuse certain medications.
== END 2024-12-14 23:59 | disposition home or self-care (01) ==
LOC: SC.PAIN 13:55
PROVIDERS: PCP Family Medicine; Visit Provider Nurse Practitioner Family
DX: M54.50 Low back pain, unspecified (principal)
CPT/HCPCS: 99212; G0463

== ENCOUNTER 2025-02-13 09:24 | Outpatient (POV) | payer MEDICARE, SELFPAY ==
--- OUTSIDE RECORDS SUMMARY | 2025-02-13 09:30 | XMS_ITS | Clinical Summary ---
Author Organization Healthcare Address [address] [place] [address] Care Team Providers Care After School Coordinator Name Role Phone Juan Pablo Shah MD Primary Care Provider + [phone] Allergies Active Allergy Reactions Criticality Noted Date Comments Mesalamine Anaphylaxis,Unknown - Patient states they do not know rxn details High 07/05/2014 Penicillins Itching,Rash High 01/02/2014 Medications oxygen (O2) gas 2 Liters only at night 6 Active albuterol (2.5 MG/3ML) 0.083% nebulizer solution USE 1 UNIT DOSE EVERY 4-6 HOURS NEEDED FOR WHEEZING . 5 Active aspirin 81 MG EC tablet Take 1 tablet (81 mg) by mouth 1 (one) time each day. 4 Active atorvastatin (Lipitor) 80 MG tablet .COMPLEX 5 Active bisoprolol (Zebeta) 5 MG tablet Take 1 tablet (5 mg) by mouth 2 (two) times a day. 5 Active buPROPion XL (Wellbutrin XL) 150 MG 24 hr tablet 1 tablet (150 mg). 3 Active clonazePAM (KlonoPIN) 0.5 MG tablet 3 Active clopidogrel (Plavix) 75 MG tablet 4 Active Jardiance 25 MG 4 Active Zetia 10 MG tablet Take 1 tablet (10 mg) by mouth every night. 6 Active famotidine (Pepcid) 20 MG tablet 8 Active fenofibrate (Tricor) 145 MG tablet Take 1 tablet (145 mg) by mouth 1 (one) time each day. 5 Active FLUoxetine (PROzac) 40 MG capsule 4 Active Fluticasone Furoate-Vilanter ol (Breo Ellipta) 100-25 MCG/ACT aerosol powder 7 Active gabapentin (Neurontin) 800 MG tablet 1 tablet (800 mg). 3 Active Vascepa 1 g capsule 4 Active isosorbide mononitrate ER (Imdur) 60 MG 24 hr tablet 4 Active levothyroxine (Synthroid, Levoxyl) 25 MCG tablet 8 Active semaglutide (Ozempic) 2 MG/1.5ML solution pen-injector inj. pen .COMPLEX 3 Active traZODone (Desyrel) 100 MG tablet 1 tablet (100 mg). 3 Active Immunizations Immunization Administration Dates Next Due Influenza, Unspecified 04/29/2017 Influenza, injectable, quadr ivalent, preservative free 07/08/2023,05/02/2020,06/24/2019,04/13,04/15/2017 Influenza, seasonal, injectable 05/13/2014 Influenza, seasonal, injecta ble, preservative free 04/13/2018,06/07/2014 Pneumococcal Conjugate PCV 13 04/15/2017 Pneumococcal Polysaccharide PPV23 04/15/2017,,05/13/2014 Tdap 11/05/2015,04/07/2012 Family History Medical History Relation Name Comments Stroke Brother 1 Diabetes Brother 2 Hypertension Brother 3 Heart attack Brother 4 Hyperlipidemia Brother 5 Throat cancer Brother 6 Heart attack Father Heart attack Mother Hyperlipidemia Mother Atrial fibrillation Sister 1 Stroke Sister 2 Hypertension Sister 3 Heart attack Sister 4 Hyperlipidemia Sister 5 Relation Name Status Comments Brother 1 Brother 2 Brother 3 Brother 4 Brother 5 Brother 6 Father Mother Sister 1 Sister 2 Sister 3 Sister 4 Sister 5 Social History Tobacco Use Types Packs/Day Years Used Date Smoking Tobacco: Every Day Smokeless Tobacco: Never Tobacco Cessation:Ready to Q uit: No; Counseling Given: Yes Alcohol Use Standard Drinks/Week Comments Yes 0 (1 standard drink = 0.6 oz pure alcohol) Alcoholic Drinks/day: Minimum alcohol consumption Comments No Sex and Gender Information Value Date Recorded Sex Assigned at Not on file Legal Sex Female 6:24 PM EDT Gender Identity Not on file Sexual Orientation Not on file Last Filed Vital Signs Vital Sign Reading Time Taken Comments Blood Pressure 106/72 05/20/2024 11:25 AM EST Pulse 75 05/20/2024 11:25 AM EST Temperature 37.1 C (98.7 F) 08/24/2023 3:06 PM EST Respiratory Rate 18 05/20/2024 11:25 AM EST Oxygen Saturation 96% 05/20/2024 11:25 AM EST Inhaled Oxygen Concentration - - Weight 76.7 kg (169 lb) 05/20/2024 11:25 AM EST Height 165.1 cm (5' 5 ) 05/20/2024 11:25 AM EST Body Mass Index 28.12 05/20/2024 11:25 AM EST Plan of Treatment Health Maintenance Due Date Last Done Comments [facility]-Depression Screening 1960 [facility]-HIV Screening 1960 [facility]-Hepatitis C Screening 1960 [facility]-Medicare Annual Wellness (AWV) 1960 [facility]-/Child/Adol SDOH Screenings 1960 [facility]- SDOH Screenings 1978 [facility]-Adult SDOH Screenings 1978 CT Colonography 2005 Colonoscopy 2005 FIT-DNA 2005 FIT 2005 FOBT 2005 Sigmoidoscopy 2005 [facility]-Colorectal Cancer Screening 2005 [facility]-Breast Cancer Screening 2010 [facility]-Zoster Vaccines (1 of 2) 2010 [facility]-RSV Vaccine: 60+ Years or (1 - Risk 60-74 years 1-dose series) 2020 [id number] Vaccine (3 - Moderna risk series) 12/05/2020 11/07/2020, 10/10/2020 [facility]-Pneumococcal Vaccine: 50+ Years (3 of 3 - PCV20 or PCV21) 04/15/2022 04/15/2017, 04/15/2017, 06/07/2014, Additional history exists [facility]-Influenza Vaccine (#1) 03/13/202507/08, 05/02/2020, 06/24/2019, Additional history exists [facility]-DTaP,Tdap,and Td Vaccines (3 - Td or Tdap) 11/04/2025 11/05/2015, 04/07/2012 [facility]-Obesity Intervention Completed 024, 08/24/2023, 08/24/2023 HPV Vaccines Aged Out No longer eligi ble based on patient's age to complete this topic [facility]-HIB Vaccines Aged Out No longer e ligible based on patient's age to complete this topic [facility]-Hepatitis A Vaccines Aged Out No longer eligible based on patient's age to complete this topic [facility]-IPV Vaccines Aged Out No longer e ligible based on patient's age to complete this topic [facility]-Rotavirus Vaccines Aged Out No lo nger eligible based on patient's age to complete this topic Insurance [place] [id number] [employer] MEDICARE Care Teams After School Coordinator Relationship Specialty Start Date End Date Juan Pablo Shah MD [address] [place] [address] MARTHA Casas [id number] PCP - General 11/23/20
[2025-02-13 09:45] VITALS: BP 130/77; PULSE 70; RESP 18; O2SAT 93; BMI 29.8
--- NOTE | 2025-02-13 10:08 | A.OFFVIS_ITS ---
[facility] Disclaimer: The information contained in this section may have been updated after the patient was seen, as this information can be updated by other users. Medical History Tubular adenoma of colon colonoscopy December 2020, repeat in Breast cancer screening by mammogram Mamm neg December 2024 Cervical lymphadenopathy Cyst of right kidney Anxiety and depression Hypothyroid Diabetes Hyperlipidemia COPD (chronic obstructive pulmonary disease) Ulcerative colitis History of gastroesophageal reflux (GERD) Allergies Insomnia Generalized anxiety disorder Major depressive disorder Atypical angina Cardiomyopathy CHF (NYHA class II, ACC/AHA stage C) CAD (coronary artery disease) HTN (hypertension) Surgical History History of colonoscopy History of esophagogastroduodenoscopy (EGD) History of surgery PAIN PUMP History of surgery STENT X3 Hx of section X2 H/O: hysterectomy Family History Other Family history of cancer Family history of diabetes mellitus type II Family history of myocardial infarction Heart disease Hyperlipidemia Hypertension Social History Smoking Status: Current every day smoker tobacco type: cigarettes packs per day: 1 pack-years: 42 second hand exposure: No alcohol intake: never counseling provided: none substance use type: denies use current occupational status: other Travel in the last 8 weeks?: None household members: significant other housing: house lives independently: Yes marital status: single number of children: 2 current occupational exposures/hazards: No caffeine: Yes do you feel safe at home: Yes victim of physical abuse: No victim of emotional abuse: No victim of sexual abuse: No would you like helpful sources: No PM Subjective & Objective Subjective Subjective:: Patient is a pleasant 64-year-old female who presents today for worsening right hip pain. She rates it a 7 out of 10. Patient does state it is worse with pressure or certain positions. Patient does state that she has not been able to sleep due to the pain. She frequently has to toss and turn and change positions. She states the pain is interfering with her ability to perform activities of daily living such as cooking and cleaning. Patient is interested in any options we may be able to provide. Patient did try lidocaine patches however she states that they just will not stay in place. She has continued con servative therapy with no additional relief. Her Sunil has been reviewed and is appropriate. Review of Systems: General: No recent weight changes, no fever, no sleep disturbances Respiratory: No cough, no shortness of air, no recurring pulmonary infections Cardiovascular/peripheral vascular: No chest pain, no palpitations, no edema, no shortness of breath Gastrointestinal: No new onset incontinence, normal bowel movements reported Genitourinary: No new onset incontinence Musculoskeletal: Right hip pain Psychiatric: [Normal mood/affect] Neurological: [Denies weakness in extremities], [denies balance issues] Pain at rest (0-10 scale): 7 Objective Objective:: Physical Exam: General: Alert and oriented x3, no acute distress, pleasant and cooperative Lungs: Respirations even and unlabored, symmetrical chest expansion Eyes: PERRL Musculoskeletal: Flexion and extension of right hip somewhat guarded secondary to pain, [antalgic gait noted] point tenderness along right greater trochanteric bursa Neurological: Speech clear, no gross sensory deficit Has patient had previous pain injection?: No Conservative treatment options previously tried: Home exercise plan Length of treatment: Longer than 12 weeks Meds Home Medications and Allergies Home Medications ?Medication ?Instructions ?Recorded ?Confirmed ?Type aspirin 81 mg tablet,delayed 81 mg PO DAILY heart heal th 06/15/18 02/13/25 History release blood sugar diagnostic (Advanced 03/11/22 02/13/25 Emulate story Glucose Meter Test Strips) blood-glucose meter (Advanced 03/11/22 02/13/25 Histo ry Glucose Meter) lancets 30 gauge ([facility] Travel 03/11/22 02/13/25 H istory Lancets) lancets 28 gauge (TRUEplus Lancets) #100 ea 09/26/22 0 02/13/25 History atorvastatin 80 mg tablet See Rx Instructions .Route 0 02/18/24 02/13/25 Rx .COMPLEX #90 tabs nitroglycerin 0.4 mg sublingual 0.4 mg sublingual Q5-1 5M PRN chest 02/18/24 02/13/25 Rx tablet pain #25 tabs isosorbide mononitrate 60 mg See Rx Instructions .Rout e 09/27/24 02/13/25 Rx tablet,extended release 24 hr .COMPLEX #90 tabs bisoprolol fumarate 5 mg tablet See Rx Instructions .R oute 12/26/24 02/13/25 Rx .COMPLEX #90 tabs bupropion HCl 150 mg 24 hr tablet, See Rx Instructions .Route 12/26/24 02/13/25 Rx extended release .COMPLEX #30 tabs buspirone 5 mg tablet See Rx Instructions .Route 0 12/26/24 02/13/25 Rx .COMPLEX #60 tabs clopidogrel 75 mg tablet See Rx Instructions .Route 0 12/26/24 02/13/25 Rx .COMPLEX #90 tabs empagliflozin 25 mg tablet See Rx Instructions .Route 12/26/24 02/13/25 Rx (Jardiance) .COMPLEX #90 tabs ezetimibe 10 mg tablet See Rx Instructions .Route 0 12/26/24 02/13/25 Rx .COMPLEX #90 tabs famotidine 40 mg tablet See Rx Instructions .Route 0 12/26/24 02/13/25 Rx .COMPLEX #90 tabs semaglutide 0.25 mg or 0.5 mg (2 0.25 mg (0.368 mL) SQ WEEKLY #3 mL 01/02/25 02/13/25 Rx mg/3 mL) subcutaneous pen injector (Ozempic) lamotrigine 25 mg tablet (Lamictal) 100 mg (4 x 25 mg) PO DAILY #100 01/09/25 02/13/25 Rx tabs trazodone 50 mg tablet 25 - 50 mg (0.5 - 1 x 50 mg) PO HS 01/09/25 02/13/25 Rx PRN sleep #30 tabs fluoxetine 20 mg capsule See Rx Instructions .Route 0 02/02/25 02/13/25 Rx .COMPLEX #30 caps fluoxetine 40 mg capsule See Rx Instructions .Route 0 02/02/25 02/13/25 Rx .COMPLEX #30 caps gabapentin 600 mg tablet 600 mg PO DAILY #30 tabs 02/13/25 Rx furosemide 40 mg tablet (Lasix) 40 mg PO DAILY #30 tab s 02/09/25 02/13/25 Rx levothyroxine 50 mcg capsule 50 mcg PO DAILY #30 caps 02/09/25 02/13/25 Rx New Prescriptions to Start Prescriptions: Allergies Allergy/AdvReac Type Severity Reaction Status Date / Time mesalamine (From Asacol) Allergy Severe KIDNEY Verified 02/09/25 09:28 FAILURE Penicillins Allergy Intermediate I-RASH, Verified 02/09/25 09:28 ITCHING Assessment and Plan *Assessment and plan (1) Greater trochanteric bursitis: Status: Acute Category: Medical Code(s): M70.60 - Trochanteric bursitis, unspecified hip Plan Patient is experiencing worsening pain in her right hip with point tenderness along her right greater trochanteric bursa. I did discuss with the patient that I do believe she would benefit from a right bursa injection. Patient has had chronic hip pain for longer than 3 months. Patient has tried and failed conservative therapy including oral medications, heat and ice, topicals, at home stretching exercises that was physician guided for longer than 12 weeks. I will order the patient a compounded cream and schedule her for a right greater trochanteric bursa injection under fluoroscopy. \ Patient has been instructed to contact the clinic with any concerns before the next appointment. Dr. Hinkle has reviewed this note and agrees with this plan of care. This note was dictated using voice recognition software and make contain errors or omissions. All injections are used with Lidocaine, Bupivacaine and dexamethasone. Occasionally urine drug screen is needed to verify patient's compliance with our office pain contract. This is ordered based off specific treatments related to chronic pain with the potential to abuse certain medications.
== END 2025-02-13 23:59 | disposition home or self-care (01) ==
LOC: SC.PAIN 09:27
PROVIDERS: PCP Family Medicine; Visit Provider Nurse Practitioner Family
DX: M70.61 Trochanteric bursitis, right hip (principal)
CPT/HCPCS: 99212; G0463

== ENCOUNTER 2025-03-17 23:59 | Outpatient (CLI) | payer MEDICARE, SELFPAY ==
[2025-03-17 15:15] LABS: Hematocrit 44.7 % (37.0-47.0); Hemoglobin 14.6 g/dL (12.2-16.2); Immature Granulocytes % 0.5 %; Mean Corpuscular HGB Conc 32.7 g/dL (31.8-35.4); Mean Corpuscular Hemoglobin 30.6 pg (27.0-31.2); Mean Corpuscular Volume 93.7 fl (81-99); Nucleated Red Blood Cells % 0 %; Platelet Count 293 K/mm3 (142-424); Red Blood Count 4.77 M/mm3 (4.20-5.40); Red Cell Distribution Width-SD 46.3 fL; White Blood Count 12.0 K/mm3 (4.8-10.8)
[2025-03-17 16:54] LABS: Hemoglobin A1C 6.0 % (4.0-6.0)
[2025-03-17 17:54] LABS: Albumin Level 4.4 g/dl (3.5-5.0); Chloride 106 mmol/L (98-107); Sodium 143 mmol/L (136-145)
[2025-03-17 17:55] LABS: Potassium 4.2 mmoL/L (3.5-5.1)
[2025-03-17 17:57] LABS: Alanine Aminotransferase 25 U/L (12-78); Albumin/Globulin Ratio 1.7 (1.1-1.8); Alkaline Phosphatase 183 U/L (38-126); Anion Gap 10.2 mEq/L (5-15); Aspartate Amino Transferase 38 U/L (14-36); Bilirubin,Total 0.3 mg/dl (0.2-1.3); Blood Urea Nitrogen 19 mg/dl (7-17); Carbon Dioxide 31 mmol/L (22.0-30.0); Creatinine,Serum 0.80 mg/dl (0.52-1.04); Estimated Glomerular Filt Rate 72 ml/min (>60); GFR (African American) 87 ML/MIN (>60); Globulin 2.6 g/dL (1.3-3.2); Total Protein,Serum 7.0 g/dl (6.3-8.2); Triglycerides 328 mg/dl (30-150)
[2025-03-17 17:58] LABS: Calcium 9.1 mg/dl (8.4-10.2); Cholesterol 165 mg/dl (140-200); Glucose 91 mg/dl (74-100); HDL Cholesterol 35 mg/dl (40-60)
[2025-03-17 18:13] LABS: Free T4 (Free Thyroxine) 1.29 ng/dl (0.78-2.19)
[2025-03-17 18:28] LABS: Thyroid Stimulating Hormone 1.26 uIU/mL (0.465-4.68)
== END 2025-03-21 23:59 | disposition home or self-care (01) ==
PROVIDERS: PCP Family Medicine; Visit Provider Family Medicine
DX: J44.9 Chronic obstructive pulmonary disease, unspecified (principal); E11.9 Type 2 diabetes mellitus without complications; E03.9 Hypothyroidism, unspecified
CPT/HCPCS: 80053; 80061; 83036; 84439; 84443; 85025

== ENCOUNTER 2025-03-21 13:10 | Day surgery (SDC) | payer MEDICARE, SELFPAY ==
[2025-03-21 13:26] VITALS: BP 120/69; PULSE 69; RESP 16; O2SAT 96; BMI 29.2
[2025-03-21] MEDS: DEXAMETHASONE 10MG/ML 1ML VIAL 10 MG (13:37)
[2025-03-21 13:41] VITALS: BP 137/68; PULSE 67; RESP 18; O2SAT 96
[2025-03-21] MEDS: LIDOCAINE 1% 5ML PF VIAL 5 ML (13:41)
[2025-03-21] MEDS: BUPIVACAINE 0.25% 10ML INJ 25 MG IJ (13:41)
--- NOTE | 2025-03-21 13:41 | P.PCN_ITS ---
Procedure Date: 03/21/25 Time: 13:30 Anesthesiologist:: Gideon Shaw CRNA Complications:: None Pre-procedure Diagnosis:: Right trochanteric bursitis Post-procedure Diagnosis:: Same Indications for Procedure:: Patient is a very pleasant 64-year-old female who comes our clinic today for right trochanteric bursa injection. Patient describes right lateral hip pain as constant, dull, sharp, stabbing. She is having difficulty with ambulation. Difficulty lying on her right side. She rates her pain 8/10. Procedure Details:: Procedure: Right trochanteric bursa injection under fluoroscopy We then moved to the right trochanteric bursa.~ C-arm fluoroscopy was used to view the left greater trochanter.~ The skin and subcutaneous tissues overlying the right greater trochanter were anesthetized using lidocaine, 1.5% and a 25- gauge needle.~ After this, a 22-gauge spinal needle was inserted and advanced until it contacted the right greater trochanter.~ Dye was injected and good spread was seen throughout the right trochanteric bursa. After this, approximately 5 mL of bupivacaine, 0.25% and dexamethasone 10 mg was incrementally injected into the right right trochanteric bursa.~ The patient tolerated the procedure well with no complications. Plan and Disposition:: Patient was discharged without incident.
[2025-03-21 13:42] VITALS: BP 137/68; BP 140/85; PULSE 67; PULSE 70; RESP 16; RESP 18; O2SAT 95; O2SAT 96
== END 2025-03-21 13:42 | disposition home or self-care (01) ==
PROVIDERS: PCP Family Medicine; Visit Provider Nurse Anesthetist, Certified Registered
DX: M70.61 Trochanteric bursitis, right hip (principal); F41.1 Generalized anxiety disorder; I25.118 Atherosclerotic heart disease of native coronary artery with other forms of angina pectoris; I42.9 Cardiomyopathy, unspecified; E11.9 Type 2 diabetes mellitus without complications; I11.0 Hypertensive heart disease with heart failure; I50.9 Heart failure, unspecified; K21.9 Gastro-esophageal reflux disease without esophagitis; E78.5 Hyperlipidemia, unspecified; E03.9 Hypothyroidism, unspecified; F32.9 Major depressive disorder, single episode, unspecified; F17.210 Nicotine dependence, cigarettes, uncomplicated; Z85.3 Personal history of malignant neoplasm of breast; Z95.5 Presence of coronary angioplasty implant and graft; Z88.8 Allergy status to other drugs, medicaments and biological substances; Z88.0 Allergy status to penicillin; Z79.890 Hormone replacement therapy; Z79.82 Long term (current) use of aspirin; Z79.85 Long-term (current) use of injectable non-insulin antidiabetic drugs; Z79.899 Other long term (current) drug therapy
CPT/HCPCS: 20610; J0665; J1100; J2003

== ENCOUNTER 2025-04-10 09:11 | Outpatient (CLI) | payer MEDICARE, SELFPAY ==
--- NOTE | 2025-04-10 09:30 | CT_ITS ---
FINAL REPORT TECHNIQUE: Thin section axial images were obtained from the lung apices to the upper abdomen by computed tomography. Reformatted images were obtained and reviewed. This study was performed with techniques to keep radiation doses al low as reasonably achievable (ALARA). Individualized dose reduction techniques using automated exposure control or adjustment of mA and/or kV according to the patient's size were employed. CLINICAL HISTORY: lung cancer screening current smoker 1ppd x43 years COMPARISON: None FINDINGS: CHEST CT LOW DOSE 64-year-old female, current smoker, 46-hzgb-debi history. CTDI vol (mGy): 2.90 DLP (mGy-cm): 96.38 There is no axillary adenopathy. There is no mediastinal or hilar mass or adenopathy. The heart is normal in size. Dense vascular calcifications are noted in the aortic arch and the coronary arteries. There is no pericardial or pleural effusion. Lung window images demonstrate a 3 mm nodule in the periphery of the right lower lobe best seen on images #41 and 40 of series 4. Limited images of the upper abdomen are unremarkable. IMPRESSION: Lung-RADS category 2S, the S designation for coronary artery calcifications. Recommend 12 month follow up low dose chest CT. Reviewed, Interpreted and Dictated by Pavan Pratt MD Transcribed by Thu Encarnacion Authenticated and [facility]
[2025-04-10 10:00] VITALS: PULSE 72
[2025-04-10] MEDS: ALBUTEROL 0.083% 2.5 MG/3 ML NEB IH (10:00)
== END 2025-04-10 23:59 | disposition home or self-care (01) ==
LOC: RAD 09:12
PROVIDERS: PCP Family Medicine; Visit Provider Family Medicine
DX: I25.10 Atherosclerotic heart disease of native coronary artery without angina pectoris (principal); R91.1 Solitary pulmonary nodule; J44.9 Chronic obstructive pulmonary disease, unspecified; F17.210 Nicotine dependence, cigarettes, uncomplicated; Z12.2 Encounter for screening for malignant neoplasm of respiratory organs
CPT/HCPCS: 71271; 94060; 94640; 94726; 94729

== ENCOUNTER 2025-06-15 11:45 | Outpatient (CLI) | payer MEDICARE, SELFPAY ==
--- NOTE | 2025-06-15 | CA_ITS ---
APPROVED REPORT Exam: Pharmacologic Technologist: Maggie Crain Stress Nurse: Lindsey Head Ht: 5 ft 5 in Wt: 167 lbs BSA: 1.83 m2 HR: 76 bpm BP: 144/91 mmHg Rhythm: Sinus Rhythm Medical History Medical History: HTN, Hyperlipidemia, Diabetes, Smoking Allergies: Mesalamine, Penicillins Cardiac Risk Factors: HTN, Hyperlipidemia, Diabetes, FHX of CAD, Smoking Stress Test Details Test: Lexiscan HR Resting HR: 76 bpm Max Heart Rate (APMHR): 156.146380 bpm Target HR (85% APMHR): 132.121789 bpm Recovery HR: 89 bpm BP Resting BP: 144.0/91.0 mmHg Max BP: 175.0/107.0 mmHg Recovery BP: 146.0/82.0 mmHg ECG Resting ECG: Sinus Rhythm Stress ECG Conclusion Patients lungs clear to ausciltate prior to test start 1 minute Vasodilation: mild dyspnea 2 minute Vasodilation: dyspnea/vomiting 3 minute Vasodilation: vomiting 200ml 4 minutes Vasodilation: dry heaving 1 minute Recovery: 1335 - Aminophylline 100mg IV 5 minute Recovery: Symptoms resolved PAC Less than 0.5mm upsloping ST segment changes Electronically signed by : Marilin Vela MD 06/20/2025 13:08:02
--- NOTE | 2025-06-15 12:00 | NM_ITS ---
APPROVED REPORT Exam: Nuclear Stress Test Indication: Chest pain, SOB, Palpitations, HTN, DM, High cholesterol, Tobacco use, Family history, CAD, Hx of [place] Patient Location: Outpatient Stress Tech: Maggie Crain [place] Tech:Nicole SinghMADDIE RT(R)(N) Ht: 5 ft 5 in Wt: 164 lbs Bra Size: 32B HR: 76 bpm BP: 144/91 mmHg BSA: 1.82 m2 TID: 1.15 BMI: 27.2 History: Chest pain, SOB, Palpitations, HTN, DM, High cholesterol, Tobacco use, Family history, CAD, Hx of [place] Procedure: Patient received 0.4 mg of intravenous Lexiscan, resting heart rate 76 bpm, resting blood pressure 144/91 mmHg, with Lexiscan maximum heart rate achieved was 123 bpm which is % of the maximum predicted heart rate and blood pressure was 175/107 mmHg. With Lexiscan, patient denied any complaint of chest pain. Cardiac Stress and Resting SPECT Images: Cardiac Stress and Resting SPECT images were obtained using technetium 99m Myoview 32.9 mCi stress and 10.96 mCi at rest. Resting stress imaging in supine and prone positions demonstrate a large sized, severe, predominantly fixed perfusion defect in the anterior, lateral, and apical LV fink. There is a small region of reversibility towards the anterior and apical LV fink. Findings are suggestive of partial reversible ischemia. Gated imaging demonstrates severe reduction in global LV systolic function. LVEF is calculated at 29%. Conclusion: Large sized, severe, predominantly fixed perfusion defect in the anterior, lateral, and apical LV fink. There is a small region of reversibility towards the anterior and apical LV fink. Findings are suggestive of partial reversible ischemia. Gated imaging demonstrates severe reduction in global LV systolic function. LVEF is calculated at 29%. Electronically signed by : Marilin Vela MD 06/20/2025 13:02:13
[2025-06-15 13:25] VITALS: BP 144/91; PULSE 76; RESP 16
[2025-06-15 13:35] VITALS: BMI 27.8
--- NOTE | 2025-06-15 13:45 | CA_ITS ---
APPROVED REPORT EXAM: Comprehensive 2D, Doppler, and color-flow Echocardiogram Companion: Elsa Martini, RCS, RVS Ht: 5 ft 5 in Wt: 167lbs BSA: 1.83 BP: 141/94 mmHg Indications: CP, CAD, COPD, SOA, CM, Atypical angina 2D Dimensions IVSd 1.07 cm LVEF (Visual) 48.10 % PWd 0.87 cm LA Volume 61.50 mL LVDd 6.00 cm LA Volume Index [id number] mL/m2 (M/F) 16-34 LVDs 4.52 cm Left Atrium 4.43 cm M-Mode Dimensions RVDd 2.09 cm (0.9-2.6) LA Diam 4.60 cm (1.9-4.0) LVDd 6.56 cm (3.5-5.7) LVDs 5.07 cm (3.5-5.7) IVSd 1.45 cm (0.6-1.1) PWd 1.24 cm (0.6-1.1) EF (Teich) 44.60% FS 22.70% EDV (Teich) 220.50 mL TAPSE 1.94 (<1.7) ESV (Teich) 122.10 mL LV Diastology E Decel Time 90 (160-240 msec) E/A Ratio 4.97 MED A' 8.20 cm/s LAT A' 11.00 cm/s Aortic Valve TIMOTHY Index 1.35 cm2/m2 AoV Peak Jesu. 105.0 (50-130 cm/s) AO Peak GR. 4.40 mmHg AO Mean GR. 2.20 (<5 mmHg) AO VTI 17.3 (18-25 cm) TIMOTHY (VTI) 2.53 (2.5-4.5 cm2) Mitral Valve MV A Velocity 19.0 (40-130 cm/s) E/A Ratio 4.97 Pulmonary Valve MA End VMAX 192.0 cm/s Left Ventricle The left ventricle is normal size. Left ventricular systolic function is mildly to moderately reduced. There is increased left ventricular wall thickness. There is akinesis of the distal inferoseptal, septal, anteroseptal fink, as well as the apical LV wall. Grade 3 diastolic dysfunction is present. LVEF is 40% Right Ventricle Right ventricle is mildly dilated. The right ventricular systolic function is normal. Atria Left atrium is mildly dilated. Right atrium is mildly dilated. There is no color Doppler evidence of interatrial shunt. Aortic Valve The aortic valve is mildly thickened. There is no hemodynamically significant aortic valvular stenosis. Trace aortic regurgitation is present. Mitral Valve The mitral valve is normal in structure. No evidence of mitral valve stenosis. Trace mitral regurgitation is present. Tricuspid Valve The tricuspid valve leaflets are thin and pliable. Trace tricuspid regurgitation. There is insufficient TR jet to estimate RVSP. Pulmonic Valve The pulmonary valve is grossly normal in structure. Mild pulmonic valve regurgitation is present. Great Vessels The aortic root is normal in size. IVC is normal in size and collapses >50% with inspiration. Pericardium There is no pericardial effusion. Other Information Study Quality: Technically Difficult Conclusion Mild to moderate reduction in LV systolic function (LVEF 40%). Akinesis of the distal inferoseptal, septal, anteroseptal fink, as well as the apical LV wall. Mild RV dilation. Biatrial dilation. Mild PI. Electronically signed by : Marilin Vela MD 06/21/2025 12:58:31
[2025-06-15] MEDS: AMINOPHYLLINE 250MG/10ML VIAL 125 MG IV (13:49)
[2025-06-15] MEDS: ISOTOPE MYOVIEW (PER STUDY) 1 DOSE IV (15:02)
[2025-06-15] MEDS: SODIUM CHLORIDE 0.9% 10ML SYR (RAD ONLY) 10 ML IV ×2 (15:02)
== END 2025-06-15 23:59 | disposition home or self-care (01) ==
LOC: RAD 11:45
PROVIDERS: PCP Family Medicine; Visit Provider Nurse Practitioner
DX: I37.1 Nonrheumatic pulmonary valve insufficiency (principal); I11.9 Hypertensive heart disease without heart failure; I49.1 Atrial premature depolarization; J44.9 Chronic obstructive pulmonary disease, unspecified; I42.9 Cardiomyopathy, unspecified; I25.118 Atherosclerotic heart disease of native coronary artery with other forms of angina pectoris; E11.9 Type 2 diabetes mellitus without complications; E78.00 Pure hypercholesterolemia, unspecified; I25.2 Old myocardial infarction; R93.1 Abnormal findings on diagnostic imaging of heart and coronary circulation; Z72.0 Tobacco use; R94.39 Abnormal result of other cardiovascular function study
CPT/HCPCS: 78452; 93017; 93018; 93306; A9502; J0280; J2785

== ENCOUNTER 2025-06-20 14:07 | Day surgery (SDC) | payer MEDICARE, SELFPAY ==
[2025-06-20 14:13] VITALS: BP 109/66; PULSE 85; RESP 18; O2SAT 95; BMI 27.3
[2025-06-20 14:41] VITALS: BP 128/74; PULSE 81; RESP 18; O2SAT 97
[2025-06-20] MEDS: DEXAMETHASONE 10MG/ML 1ML VIAL 10 MG (14:44)
[2025-06-20 14:47] VITALS: BP 128/74; PULSE 81; RESP 18; O2SAT 97
--- NOTE | 2025-06-20 14:49 | P.PCN_ITS ---
Procedure Anesthesiologist:: Gideon Shaw CRNA Complications:: None
--- NOTE | 2025-06-20 14:49 | EXP.PAIN.PRO ---
Procedure Anesthesiologist:: Gideon Shaw CRNA Complications:: None
--- NOTE | 2025-06-20 14:49 | EXP.PAIN.PRO ---
Procedure Date: 06/20/25 Time: 14:30 Anesthesiologist:: Gideon Shaw CRNA Complications:: None Pre-procedure Diagnosis:: Degenerative disc lumbar spine multilevels. Lumbar radiculopathy. Post-procedure Diagnosis:: Same Indications for Procedure:: Patient is a pleasant 64-year-old female comes to clinic today for L3-4 lumbar epidural steroid injection. Patient describes low lumbar back pain as well as bilateral hip and leg radicular symptoms. She rates her pain 7/10. Procedure Details:: Procedure: Lumbar epidural steroid injection under fluoroscopy Informed consent was obtained and the risks and benefits of the procedure were explained to the patient. The patient was taken to the procedure room and noninvasive monitors placed, including noninvasive blood pressure cuff and pulse oximeter. The back was viewed using C-arm Fluoroscopy and prepped using Chloraprep as a cleansing solution and the L3-4 interspace was palpated. Skin and subcutaneous tissues were anesthetized using lidocaine 1.5% and a 25-gauge needle. After this, an 18-gauge Touhy epidural needle was placed into the L3-4 interspace and advanced using fluoroscopic guidance and loss of resistance to air until the epidural space was encountered. After confirmation of needle placement in the epidural space, with dye, a solution containing normal saline, 3 mL and dexamethasone 10 mg were incrementally injected into the lumbar epidural space. The patient tolerated the procedure well with no complications. The patient was observed in the Pain Clinic and then discharged home neurologically intact. Plan and Disposition:: Patient was discharged without incident.
[2025-06-20 14:51] VITALS: BP 121/69; PULSE 89; RESP 16; O2SAT 95
== END 2025-06-20 14:51 | disposition home or self-care (01) ==
PROVIDERS: PCP Family Medicine; Visit Provider Nurse Anesthetist, Certified Registered
DX: M51.16 Intervertebral disc disorders with radiculopathy, lumbar region (principal); I25.10 Atherosclerotic heart disease of native coronary artery without angina pectoris; F41.9 Anxiety disorder, unspecified; I50.9 Heart failure, unspecified; J44.9 Chronic obstructive pulmonary disease, unspecified; I11.0 Hypertensive heart disease with heart failure; G47.33 Obstructive sleep apnea (adult) (pediatric); E11.40 Type 2 diabetes mellitus with diabetic neuropathy, unspecified; F32.9 Major depressive disorder, single episode, unspecified; Z90.710 Acquired absence of both cervix and uterus; Z83.3 Family history of diabetes mellitus; Z82.49 Family history of ischemic heart disease and other diseases of the circulatory system; F17.210 Nicotine dependence, cigarettes, uncomplicated; Z88.0 Allergy status to penicillin; Z88.8 Allergy status to other drugs, medicaments and biological substances; Z79.85 Long-term (current) use of injectable non-insulin antidiabetic drugs; Z79.890 Hormone replacement therapy; Z79.82 Long term (current) use of aspirin
CPT/HCPCS: 62323; J1100